=== PATIENT | male | born 1940 | race Caucasian/White ===

== ENCOUNTER 2023-03-17 05:38 | Outpatient (RCR) | payer MEDICARE, OTHER, SELFPAY | END 2023-04-15 23:59 | disposition home or self-care (01) | LOC: MM 05:38 | PROVIDERS: PCP Internal Medicine; Visit Provider Internal Medicine | DX: Z51.81 Encounter for therapeutic drug level monitoring (principal); Z79.01 Long term (current) use of anticoagulants; I48.91 Unspecified atrial fibrillation ==

== ENCOUNTER 2023-04-20 10:50 | Outpatient (RCR) | payer MEDICARE, OTHER, SELFPAY | END 2023-05-16 16:45 | disposition home or self-care (01) | LOC: MM 10:50 | PROVIDERS: PCP Internal Medicine; Visit Provider Internal Medicine | DX: Z51.81 Encounter for therapeutic drug level monitoring (principal); Z79.01 Long term (current) use of anticoagulants; I48.91 Unspecified atrial fibrillation | CPT/HCPCS: 85610; G0463 ==

== ENCOUNTER 2023-05-03 09:09 | Outpatient (OUT) | payer MEDICARE, OTHER, SELFPAY ==
[2023-05-03 09:27] LABS: Basophils Percent Auto 0.3 % (0.2-2.0); Eosinophils Absolute Auto 0.1 10^3/uL (0.0-0.7); Eosinophils Percent Auto 1.3 % (0.9-7.0); Hematocrit 45.9 % (42.0-54.0); Immature Granulocytes Abs Auto 0.02 10^3/uL (0.00-0.03); Immature Granulocytes Pct Auto 0.3 % (0.0-0.5); Lymphocytes Absolute Auto 0.9 10^3/uL (1.2-3.8); Lymphocytes Percent Auto 13.5 % (20.5-60.0); Mean Corpuscular HGB Conc 32.7 g/dL (29.9-35.2); Mean Corpuscular Hemoglobin 30.8 pg (25.9-34.0); Mean Corpuscular Volume 94.3 fL (80.0-94.0); Mean Platelet Volume 11.5 fL (9.5-13.5); Monocytes Absolute Auto 0.4 10^3/uL (0.3-0.8); Monocytes Percent Auto 5.7 % (1.7-12.0); Neutrophils Percent Auto 78.9 % (43.0-75.0); Platelet Count 165 10^3/uL (150-450); Red Blood Count 4.87 10^6/uL (4.70-6.10); Red Cell Distribution Width 14.7 % (11.0-15.0); White Blood Count 6.4 10^3/uL (4.0-11.0)
[2023-05-03 09:37] LABS: Erythrocyte Sedimentation Rate 23 mm/hr (<=20)
[2023-05-03 10:09] LABS: Alanine Aminotransferase 13 U/L (16-63); Albumin Globulin Ratio 0.9; Albumin Level 3.7 g/dL (3.4-5.0); Alkaline Phosphatase 96 U/L (46-116); Anion Gap 10.9; Aspartate Amino Transferase 17 U/L (15-37); Bilirubin Direct 0.2 mg/dL (0.0-0.2); Bilirubin Total 0.7 mg/dL (0.2-1.0); Carbon Dioxide 30.6 mmol/L (21.0-32.0); Chloride 104 mmol/L (98-107); Chol HDL Ratio 1.9; Cholesterol 112 mg/dL (<=200); Estimated GFR (African America >60 (>=60); Estimated GFR (Non-African Ame >60 (>=60); Globulin 4.2 g/dL; HDL Cholesterol 60 mg/dL (40-60); Potassium 4.5 mmol/L (3.5-5.1); Sodium 141 mmol/L (136-145); Total Protein 7.9 g/dL (6.4-8.2); Triglycerides 55 mg/dL (<=150)
[2023-05-03 11:01] LABS: Estimated Average Glucose 108 mg/dL; Glycohemoglobin A1C 5.4 % (4.5-6.2)
== END 2023-05-03 09:10 | disposition home or self-care (01) ==
LOC: LAB 09:09
DX: I50.22 Chronic systolic (congestive) heart failure (principal); R73.09 Other abnormal glucose; E78.5 Hyperlipidemia, unspecified; Z79.899 Other long term (current) drug therapy
CPT/HCPCS: 36415; 80051; 80061; 80076; 82565; 83036; 83880; 84520; 85025; 85610; 85652

== ENCOUNTER 2023-05-05 07:31 | Outpatient (REF) | payer MEDICARE, OTHER, SELFPAY ==
[2023-05-05 07:43] LABS: Bilirubin Urine NEGATIVE (NEGATIVE); Blood Urine NEGATIVE (NEGATIVE); Clarity Urine CLEAR (CLEAR); Color Urine YELLOW (YELLOW); Glucose Urine UA NEGATIVE (NEGATIVE); Ketones Urine NEGATIVE (NEGATIVE); Leukocyte Esterase Urine NEGATIVE (NEGATIVE); Nitrite Urine NEGATIVE (NEGATIVE); Protein Urine NEGATIVE (NEG/TRACE); Urobilinogen Urine 0.2 EU/dL (0.2-1.0)
[2023-05-05 07:44] LABS: Urine Microscopic Indicated NO
== END 2023-05-05 07:32 | disposition home or self-care (01) ==
LOC: LAB 07:31
DX: I50.22 Chronic systolic (congestive) heart failure (principal); R73.09 Other abnormal glucose; E78.5 Hyperlipidemia, unspecified; Z79.899 Other long term (current) drug therapy; Z12.5 Encounter for screening for malignant neoplasm of prostate
CPT/HCPCS: 81003

== ENCOUNTER 2023-05-17 08:57 | Outpatient (RCR) | payer MEDICARE, OTHER, SELFPAY | END 2023-06-16 15:47 | disposition home or self-care (01) | LOC: MM 08:57 | PROVIDERS: Visit Provider Internal Medicine | DX: Z51.81 Encounter for therapeutic drug level monitoring (principal); Z79.01 Long term (current) use of anticoagulants; I48.91 Unspecified atrial fibrillation ==

== ENCOUNTER 2023-06-17 08:00 | Outpatient (RCR) | payer MEDICARE, OTHER, SELFPAY | END 2023-07-15 16:31 | disposition home or self-care (01) | LOC: MM 08:00 | PROVIDERS: Visit Provider Internal Medicine | DX: Z51.81 Encounter for therapeutic drug level monitoring (principal); Z79.01 Long term (current) use of anticoagulants; I48.91 Unspecified atrial fibrillation | CPT/HCPCS: 85610; G0463 ==

== ENCOUNTER 2023-07-18 02:24 | Outpatient (RCR) | payer MEDICARE, OTHER, SELFPAY | END 2023-08-16 17:33 | disposition home or self-care (01) | LOC: MM 02:24 | PROVIDERS: Visit Provider Internal Medicine | DX: Z51.81 Encounter for therapeutic drug level monitoring (principal); Z79.01 Long term (current) use of anticoagulants; I48.91 Unspecified atrial fibrillation | CPT/HCPCS: 85610; G0463 ==

== ENCOUNTER 2023-08-17 00:38 | Outpatient (RCR) | payer MEDICARE, OTHER, SELFPAY | END 2023-09-15 16:44 | disposition home or self-care (01) | LOC: MM 00:38 | PROVIDERS: Visit Provider Internal Medicine | DX: Z51.81 Encounter for therapeutic drug level monitoring (principal); Z79.01 Long term (current) use of anticoagulants; I48.91 Unspecified atrial fibrillation | CPT/HCPCS: 85610; G0463 ==

== ENCOUNTER 2023-09-16 08:55 | Outpatient (RCR) | payer MEDICARE, OTHER, SELFPAY | END 2023-10-14 15:12 | disposition home or self-care (01) | LOC: MM 08:55 | PROVIDERS: Visit Provider Internal Medicine | DX: Z51.81 Encounter for therapeutic drug level monitoring (principal); Z79.01 Long term (current) use of anticoagulants; I48.91 Unspecified atrial fibrillation ==

== ENCOUNTER 2023-10-17 00:28 | Outpatient (RCR) | payer MEDICARE, OTHER, SELFPAY | END 2023-11-16 15:43 | disposition home or self-care (01) | LOC: MM 00:28 | PROVIDERS: Visit Provider Internal Medicine | DX: Z51.81 Encounter for therapeutic drug level monitoring (principal); Z79.01 Long term (current) use of anticoagulants; I48.91 Unspecified atrial fibrillation | CPT/HCPCS: 85610; G0463 ==

== ENCOUNTER 2023-11-12 23:28 | Inpatient (IN) | payer MEDICARE, OTHER, SELFPAY ==
[2023-11-12 23:29] VITALS: BP 135/84; PULSE 96; RESP 11; TEMP 36.6; O2SAT 99; BMI 28.9
--- NOTE | 2023-11-12 23:34 | XR_ITS ---
The [address] [address] Patient Name: NABIL BRASWELL MRN: [id number] date: 1940 Sex: M Assigned Patient Location: ER Current Patient Location: ER Accession/Order Number: [id number] Exam Date: 11/12/2023 23:59 Report Date: 11/13/2023 00:49 At the request of: MARY HIGGINS Procedure: XR chest 1V CXR - 1 VIEW HISTORY: Shortness of breath COMPARISON: None. TECHNIQUE: Single frontal view of the chest is submitted for review. FINDINGS: There is blunting of the right costophrenic angle. Lungs are adequately expanded. The cardiac silhouette measures enlarged. Pulmonary vascularity is increased. Osseous structures are within normal limits for age. XR/XR chest 1V IMPRESSION: Cardiomegaly with prominence of pulmonary vascularity and right-sided pleural effusion. Please correlate for congestive heart failure. Electronically authenticated by: BRITTANY DAVIS Date: 11/13/2023 00:49
--- OUTSIDE RECORDS SUMMARY | 2023-11-12 23:38 | XMS_ITS | CCD ---
Author Name Unknown Address [address] [place] [address] Organization [facility] Care Team Providers Care Database Support Name Role Phone Mark Quintanilla Primary Care Unavailable Johan Houston Admitting Unavailable Johan Houston Attending Unavailable Vallul, Mark Allen Primary Care Unavailable Johan Houston Attending Unavailable Johan Houston Admitting Unavailable FAWWAD, WEINSTEIN H Attending Unavailable FAWWAD, WEINSTEIN H Admitting Unavailable VALONE, DR GILL Primary Care Unavailable FAWWAD, WEINSTEIN H Attending Unavailable FAWWAD, WEINSTEIN H Admitting Unavailable VALONE, DR GILL Primary Care Unavailable FAWWAD, WEINSTEIN H Attending Unavailable FAWWAD, WEINSTEIN H Admitting Unavailable VALONE, DR GILL Primary Care Unavailable FAWWAD, WEINSTEIN H Attending Unavailable FAWWAD, WEINSTEIN H Admitting Unavailable VALONE, DR GILL Primary Care Unavailable FAWWAD, WEINSTEIN H Admitting Unavailable VALONE, DR GILL Primary Care Unavailable FAWWAD, WEINSTEIN H Attending Unavailable FAWWAD, WEINSTEIN H Admitting Unavailable VALONE, DR GILL Primary Care Unavailable FAWWAD, WEINSTEIN H Attending Unavailable FAWWAD, WEINSTEIN H Admitting Unavailable VALONE, DR GILL Primary Care Unavailable FAWWAD, WEINSTEIN H Attending Unavailable FAWWAD, WEINSTEIN H Attending Unavailable VALONE, DR GILL Primary Care Unavailable FAWWAD, WEINSTEIN H Admitting Unavailable FAWWAD, WEINSTEIN H Attending Unavailable FAWWAD, WEINSTEIN H Admitting Unavailable VALONE, DR GILL Primary Care Unavailable VALONE, DR GILL Primary Care Unavailable VALONE, DR GILL Consulting Unavailable VALONE, DR GILL Attending Unavailable VALONE, DR GILL Admitting Unavailable VALONE, DR GILL Consulting Unavailable VALONE, DR GILL Attending Unavailable VALONE, DR GILL Admitting Unavailable VALLUL, DR GILL Primary Care Unavailable SHAIKH Adalberto JONES Attending Unavailable SHAIKH Adalberto JONES Admitting Unavailable DWIGHT, DR GILL Primary Care Unavailable SHAIKH Adalberto JONES Attending Unavailable SHAIKH Adalberto JONES Admitting Unavailable DWIGHT, DR GILL Primary Care Unavailable Valone , Mark Arvin Primary Care Provider Sandee RN, Carmine Unavailable Cole [employer]SE SUPERVISOR.[place], Gabriella Unavailable [phone] Rodríguez Pack MD Unavailable VALONE JR, MARK ARVIN Primary Care Unavail able GABRIELLA JAVED Attending Unavailable VALONE JR, MARK ARVIN Primary Care Unavail able RODRÍGUEZ PACK Attending Unavailable VALONE JR, MARK ARVIN Primary Care Unavail able STORM WELLS Attending Unavailable VALONE JR, MARK ARVIN Primary Care Unavail able VALONE JR, MARK ARVIN Primary Care Unavail able GABRIELLA JAVED Referring Unavailable VALONE JR, MARK ARVIN Primary Care Unavail able VALONE JR, MARK ARVIN Primary Care Unavail able VALONE JR, MARK ARVIN Primary Care Unavail able VALONE JR, MARK ARVIN Primary Care Unavail able VALONE JR, MARK ARVIN Primary Care Unavail able GABRIELLA JAVED Referring Unavailable VALONE JR, MARK ARVIN Primary Care Unavail able STORM WELLS Referring Unavailable VALONE JR, MARK ARVIN Primary Care Unavail able STORM WELLS Referring Unavailable STORM WELLS Attending Unavailable VALONE JR, MARK ARVIN Primary Care Unavail able WILBUR ROSA Referring Unavailable STORM WELLS Attending Unavailable VALONE JR, MARK ARVIN Primary Care Unavail able VALONE JR, MARK ARVIN Primary Care Unavail able VALONE JR, MARK ARVIN Primary Care Unavail able VALONE JR, MARK ARVIN Primary Care Unavail able VALONE JR, MARK ARVIN Primary Care Unavail able VALONE JR, MARK ARVIN Primary Care Unavail able RODRÍGUEZ PACK Attending Unavailable VALONE JR, MARK ARVIN Primary Care Unavail able VALONE JR, MARK ARVIN Primary Care Unavail able GABRIELLA JAVED Attending Unavailable VALONE JR, MARK ARVIN Primary Care Unavail able GABRIELLA JAVED Referring Unavailable GABRIELLA JAVED Attending Unavailable VALONE JR, MARK ARVIN Primary Care Unavail able VALONE JR, MARK ARVIN Primary Care Unavail able RODRÍGUEZ PACK Attending Unavailable Medications Completed/Discontinued Medications Medication Drug Class(es) Dates Sig (Normalized) Sig (Original) carbidopa 25 mg / levodopa 100 mg oral tablet (13 sources) Aromatic Amino Acid Decarboxylation Inhibitor, Aromatic Amino Acid Start: 02-17-2023 carbidopa-levodop a (SINEMET 25-100) 25-100 mg per tablet Take by mouth two times a day. 0 02/17/2023 Active Start: 02-17-2023 carbidopa-levo dopa (SINEMET 25-100) 25-100 mg per tablet Comment on above: Take by mouth two ti mes a day. finasteride 5 mg oral tablet (13 sources) 5-alpha Reductase Inhibitor take 1 tablet by mouth once daily finasteride (PROSCAR) 5 mg tablet Take 5 mg by mouth once daily. 0 Active Comment on above: 1 (one) time each da y at the same time. Take 5 mg by mouth o nce daily. levothyroxine sodium 0.05 mg oral tablet (13 sources) l-Thyroxine Start: 05-27-20 take 1 tablet by mouth once daily levothyroxine (SYNTHROID) 50 mcg tablet Take 50 mcg by mouth once daily. 0 05/27/2023 Active Comment on above: Take 50 mcg by mouth once daily. metoprolol tartrate 25 mg oral tablet (13 sources) beta-Adrenergic Hien take 1 tablet by mouth every twelve hours metoprolol tartrate, short acting, (LOPRESSOR) 25 mg tablet Take 25 mg by mouth every 12 hours. 0 Active Comment on above: every 12 hours. Take 25 mg by mouth every 12 hours. minocycline 100 mg oral capsule (4 sources) Tetracycline-clas s Drug Start: 06-02-20 End: 07-19-20 take 1 capsule by mouth in the morning, then take 1 capsule by mouth in the evening minocycline (MINOCIN, DYNACIN) 100 mg capsule TAKE 1 CAPSULE BY MOUTH IN THE MORNING AND 1 IN THE EVENING 0 06/02/2023 07/19/2023 Discontinued (Other) Comment on above: TAKE 1 CAPSULE BY MO UTH IN THE MORNING AND 1 IN THE EVENING mirtazapine 15 mg oral tablet (13 sources) Start: 04-23-20 mirtazapine (REMERON) 15 mg tablet Take by mouth once daily. 0 04/23/2023 Active Comment on above: Take by mouth once d aily. microencapsulated potassium chloride 20 meq extended release oral tablet (13 sources) potassium chlori de ER (KLOR-CON M20) 20 mEq tablet Take by mouth once daily. 0 Active potassium chlori de ER (KLOR-CON M20) 20 mEq tablet Comment on above: Take by mouth once d aily. rosuvastatin calcium 10 mg oral tablet (13 sources) HMG-CoA Reductase Inhibitor Start: 3 rosuvastatin (CRESTOR) 10 mg tablet Take by mouth once daily. 0 05/27/2023 Active Comment on above: Take by mouth once d aily. sacubitril 24 mg / valsartan 26 mg oral tablet (13 sources) Angiotensin 2 Receptor Hien Start: 3 take 2 tablets by mouth twice daily in the morning ENTRESTO 24-26 mg tablet Take by mouth two times a day. Take 2 in the morning 2 at night 0 03/24/2023 Active Start: 03-24-2023 ENTRESTO 24-26 mg tablet Comment on above: Take by mouth two ti mes a day. Take by mouth two ti mes a day. Take 2 in the morning 2 at night tamsulosin hydrochloride 0.4 mg oral capsule (13 sources) alpha-Adrenergic Hien take 1 capsule by mouth once daily tamsulosin (FLOMAX) 0.4 mg Take 1 capsule by mouth once daily. 0 Active Comment on above: 1 capsule. Take 1 capsule by mo uth once daily. warfarin sodium 5 mg oral tablet (13 sources) Vitamin K Antagonist Start: 3 warfarin (COUMADIN) 5 mg tablet Take 5 mg by mouth once daily. Take 2 days a week a whole tablet, 1/2 tablet other 5 days 0 05/12/2023 Active Start: 05-12-2023 take 0.5 tablet by m outh once daily warfarin (COUMADIN) 5 mg tablet Take 0.5 tablets by mouth once daily. 0 05/12/2023 Active Start: 05-12-2023 warfarin (COUM OCTAVIO) 5 mg tablet Comment on above: Take 0.5 tablets by mouth once daily. Take 5 mg by mouth o nce daily. Take 2 days a week a whole tablet, 1/2 tablet other 5 days Problems Active Problems Problem Classification Problem Date Documented Da te Episodic/Chronic Congestive heart failure; nonhypertensive (5 sources) Chronic systolic (congestive) heart failure; Translations: [Chronic combined systolic (congestive) and diastolic (congestive) heart failure] Onset: 07-06-2022 Chronic Disorders of lipid metabolism (2 sources) Mixed hyperlipidemia; Translations: [Hyperlipidemia, unspecified] Onset: 07-07-2022 Chronic Hyperplasia of prostate (1 source) Benign prostatic hyperplasia without lower urinary tract symptoms; Translations: [BENIGN PROSTATIC HYPRPLASIA WO LUTS] Onset: 07-07-2022 Chronic Other aftercare (5 sources) Encounter for therapeutic drug level monitoring; Translations: [ENC THERAPEUTC DRUG LEVL MONITORING] Onset: 02-12-2023 Episodic Other aftercare (1 source) residential (current) use of anticoagulants; Translations: [JAIL CURRNT USE ANTICOAGULANTS] Onset: 03-16-2023 Episodic Other lower respiratory disease (1 source) Wheezing; Translations: [Wheezing] Onset: 08-11-2023 Episodic Thyroid disorders (8 sources) Hypothyroidism, unspecified; Translations: [Acquired hypothyroidism] Onset: 07-07-2022 Chronic Unclassified (1 source) Encounter for other plastic and reconstructive surgery following medical procedure or healed injury; Translations: [Encounter for other plastic and reconstructive surgery following medical procedure or healed injury] Onset: 05-04-2022 Unclassified (1 source) Encounter for preprocedural laboratory examination; Translations: [Encounter for preprocedural laboratory examination] Onset: 05-03-2022 Unclassified (5 sources) Chronic atrial fibrillation, unspecified; Translations: [CHRONIC ATRIAL FIBRILLATION UNSPEC] Onset: 01-17-2023 Unclassified (1 source) Cough, unspecified type; Translations: [Cough, unspecified type] Onset: 08-11-2023 Past or Other Problems Problem Classification Problem Date Documented Da te Episodic/Chronic Diabetes mellitus without complication (1 source) Other abnormal glucose; Translations: [OTHER ABNORMAL GLUCOSE] Onset: 11-24-2022 Episodic Other aftercare (1 source) Other system software developer (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) drug therapy; Translations: [OTH JAIL CURRENT DRUG THERAPY] Onset: 11-24-2022 Episodic Other non-epithelial cancer of skin (20 sources) Squamous cell carcinoma in situ of skin; Translations: [Carcinoma in situ of skin, unspecified] Onset: 07-12-2023 06-22-2023 Episodic Other screening for suspected conditions (not mental disorders or infectious disease) (1 source) Encounter for screening for malignant neoplasm of prostate; Translations: [ENC SCREEN MALIG NEOPLASM PROSTATE] Onset: 11-24-2022 Episodic Results Test Name Value Interpretation Reference Range Facility CBC W Auto Differential pane l (Bld)on 11-03-2023 Basophils (Bld) [#/Vol] 10*3/uL Normal <0.11 [facility] Comment on above: Order Comment: Speci men Type: BLOOD SPECIMEN Ordering Facility: [facility] Address: [address] [place] [address] Performed By: #### 5 7021-8 #### [facility] CLIA [id number] [address] [place] [address] 80945 Basophils/100 WBC (Bld) 0.4 % Normal [facility] Comment on above: Order Comment: Speci men Type: BLOOD SPECIMEN Ordering Facility: [facility] Address: [address] [place] [address] Performed By: #### 5 7021-8 #### [facility] CLIA [id number] [address] [place] [address] 30357 Differential cell count method Nom (Bld) Auto Normal [facility] Comment on above: Order Comment: Speci men Type: BLOOD SPECIMEN Ordering Facility: [facility] Address: [address] [place] [address] Performed By: #### 5 7021-8 #### [facility] CLIA [id number] [address] [place] [address] 07634 Eosinophils (Bld) [#/Vol] 0.09 10*3/uL Normal <0.46 [facility] Comment on above: Order Comment: Speci men Type: BLOOD SPECIMEN Ordering Facility: [facility] Address: [address] [place] [address] Performed By: #### 5 7021-8 #### [facility] CLIA [id number] [address] [place] [address] 03267 Eosinophils/100 WBC (Bld) 1.6 % Normal [facility] Comment on above: Order Comment: Speci men Type: BLOOD SPECIMEN Ordering Facility: [facility] Address: [address] [place] [address] Performed By: #### 5 7021-8 #### [facility] CLIA [id number] [address] [place] [address] 36214 Erythrocyte distribution width (RBC) [Ratio] 15.5 % High 11.5-15.0 [facility] Comment on above: Order Comment: Speci men Type: BLOOD SPECIMEN Ordering Facility: [facility] Address: [address] [place] [address] Performed By: #### 5 7021-8 #### [facility] CLIA [id number] [address] [place] [address] 46193 Hematocrit (Bld) [Volume fraction] 42.4 % Normal 39.0-51.0 [facility] Comment on above: Order Comment: Speci men Type: BLOOD SPECIMEN Ordering Facility: [facility] Address: [address] [place] [address] Performed By: #### 5 7021-8 #### [facility] CLIA [id number] [address] [place] [address] 74492 Hemoglobin (Bld) [Mass/Vol] 13.6 g/dL Normal 13.0-17.0 [facility] Comment on above: Order Comment: Speci men Type: BLOOD SPECIMEN Ordering Facility: [facility] Address: [address] [place] [address] Performed By: #### 5 7021-8 #### [facility] CLIA [id number] [address] [place] [address] 11900 Immature granulocytes (Bld) [#/Vol] 10*3/uL Normal <0.10 [facility] Comment on above: Order Comment: Speci men Type: BLOOD SPECIMEN Ordering Facility: [facility] Address: [address] [place] [address] Performed By: #### 5 7021-8 #### [facility] CLIA [id number] [address] [place] [address] 42756 Immature granulocytes/100 WBC (Bld) 0.2 % Normal [facility] Comment on above: Order Comment: Speci men Type: BLOOD SPECIMEN Ordering Facility: [facility] Address: [address] [place] [address] Performed By: #### 5 7021-8 #### [facility] CLIA [id number] [address] [place] [address] 38732 Lymphocytes (Bld) [#/Vol] 0.71 10*3/uL Low 1.00-4.00 [facility] Comment on above: Order Comment: Speci men Type: BLOOD SPECIMEN Ordering Facility: [facility] Address: [address] [place] [address] Performed By: #### 5 7021-8 #### [facility] CLIA [id number] [address] [place] [address] 35649 Lymphocytes/100 WBC (Bld) 12.5 % Normal [facility] Comment on above: Order Comment: Speci men Type: BLOOD SPECIMEN Ordering Facility: [facility] Address: [address] [place] [address] Performed By: #### 5 7021-8 #### [facility] CLIA [id number] [address] [place] [address] 80785 MCH (RBC) [Entitic mass] 30.1 pg Normal 26.0-34.0 [facility] Comment on above: Order Comment: Speci men Type: BLOOD SPECIMEN Ordering Facility: [facility] Address: [address] [place] [address] Performed By: #### 5 7021-8 #### [facility] CLIA [id number] [address] [place] [address] 14579 MCHC (RBC) [Mass/Vol] 32.1 g/dL Normal 30.5-36.0 [facility] Comment on above: Order Comment: Speci men Type: BLOOD SPECIMEN Ordering Facility: [facility] Address: [address] [place] [address] Performed By: #### 5 7021-8 #### [facility] CLIA [id number] [address] [place] [address] 71509 MCV (RBC) [Entitic vol] 93.8 fL Normal 80.0-100.0 [facility] Comment on above: Order Comment: Speci men Type: BLOOD SPECIMEN Ordering Facility: [facility] Address: [address] [place] [address] Performed By: #### 5 7021-8 #### [facility] CLIA [id number] [address] [place] [address] 38826 Monocytes (Bld) [#/Vol] 0.41 10*3/uL Normal <0.87 [facility] Comment on above: Order Comment: Speci men Type: BLOOD SPECIMEN Ordering Facility: [facility] Address: [address] [place] [address] Performed By: #### 5 7021-8 #### [facility] CLIA [id number] [address] [place] [address] 79143 Monocytes/100 WBC (Bld) 7.2 % Normal [facility] Comment on above: Order Comment: Speci men Type: BLOOD SPECIMEN Ordering Facility: [facility] Address: [address] [place] [address] Performed By: #### 5 7021-8 #### [facility] CLIA [id number] [address] [place] [address] 55875 Neutrophils (Bld) [#/Vol] 4.43 10*3/uL Normal 1.45-7.50 [facility] Comment on above: Order Comment: Speci men Type: BLOOD SPECIMEN Ordering Facility: [facility] Address: [address] [place] [address] Performed By: #### 5 7021-8 #### [facility] IA [id number] [address] [place] [address] 71015 Neutrophils/100 WBC (Bld) 78.1 % Normal [facility] Comment on above: Order Comment: Speci men Type: BLOOD SPECIMEN Ordering Facility: [facility] Address: [address] [place] [address] Performed By: #### 5 7021-8 #### [facility] CLIA [id number] [address] [place] [address] Nucleated RBC (Bld) [#/Vol] 10*3/uL Normal <0.01 [facility] Comment on above: Order Comment: Speci men Type: BLOOD SPECIMEN Ordering Facility: [facility] Address: [address] [place] [address] Performed By: #### 5 7021-8 #### [facility] CLIA [id number] [address] [place] [address] 22497 Nucleated RBC/100 WBC (Bld) [Ratio] 0.0 /100 WBC Normal [facility] Comment on above: Order Comment: Speci men Type: BLOOD SPECIMEN Ordering Facility: [facility] Address: [address] [place] [address] Performed By: #### 5 7021-8 #### [facility] CLIA [id number] [address] [place] [address] 34609 Platelet mean volume (Bld) [Entitic vol] 11.5 fL Normal 9.0-12.7 [facility] Comment on above: Order Comment: Speci men Type: BLOOD SPECIMEN Ordering Facility: [facility] Address: [address] [place] [address] Performed By: #### 5 7021-8 #### [facility] CLIA [id number] [address] [place] [address] 25612 Platelets (Bld) [#/Vol] 162 10*3/uL Normal 150-400 [facility] Comment on above: Order Comment: Speci men Type: BLOOD SPECIMEN Ordering Facility: [facility] Address: [address] [place] [address] Performed By: #### 5 7021-8 #### [facility] CLIA [id number] [address] [place] [address] 62303 RBC (Bld) [#/Vol] 4.52 10*6/uL Normal 4.20-6.00 [facility] Comment on above: Order Comment: Speci men Type: BLOOD SPECIMEN Ordering Facility: [facility] Address: [address] [place] [address] Performed By: #### 5 7021-8 #### [facility] CLIA [id number] [address] [place] [address] 54750 WBC (Bld) [#/Vol] 5.67 10*3/uL Normal 3.70-11.00 [facility] Comment on above: Order Comment: Speci men Type: BLOOD SPECIMEN Ordering Facility: [facility] Address: [place] [address] Performed By: #### 5 7021-8 #### [facility] CLIA [id number] [address] [place] [address] 61971 CNOVSPon 11-03-2023 CNOVSP Visit (SP) Office ([place]) MIKE BRASWELL ([id number]) 1940 M Date Time Provider Department 11/03/23 1:30 PM GABRIELLA JAVED During your visit today, we recorded the following information about you: Temperature Pulse Respiration Blood pressure 97.2 degrees 98/minute 16/minute 154/94 Weight Height 80.8 kg 1.676 m Gabriella Javed APRN.CNP 11/04/2023 11:49 AM Signed PATIENT NAME: Mike Braswell DATE: 11/03/2023 PRIMARY CARE PHYSICIAN: Dr. Mark Quintanilla Jr OTHER PHYSICIANS: Dr. Wells; Wilbur Rosa CNP ([facility]) Portions of this encounter note have been copied from the note from 09/22/2023 and has been updated where appropriate, and reflect my current medical decision making from today. 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 INTERIM HISTORY: Mike Braswell returns for follow-up and treatment. He remains on treatment with Cemiplimab every 3 weeks and is tolerating it well. He denies any significant treatment related side effects. The left upper chest skin lesion continues to improve. He has 2 areas to his left scalp that are dressed. The skin lesions are lightening up. He is scheduled to see dermatology next month. He denies fevers, chills, night sweats and signs/symptoms of infection. No abnormal bleeding or abnormal bruising. He wishes to proceed with treatment as planned. MEDICATIONS: Current Outpatient Medications Medication Sig warfarin (COUMADIN) 5 mg tablet Take 5 mg by mouth once daily. Take 2 days a week a whole tablet, 1/2 tablet other 5 days levothyroxine (SYNTHROID) 50 mcg tablet Take 50 mcg by mouth once daily. carbidopa-levodopa (SINEMET 25-100) 25-100 mg per tablet Take 1 tablet by mouth three times a day. sacubitril-valsartan (ENTRESTO) 49-51 mg tablet Take 1 tablet by mouth two times a day. Take 2 in the morning 2 at night tamsulosin (FLOMAX) 0.4 mg Take 1 capsule by mouth once daily. rosuvastatin (CRESTOR) 10 mg tablet Take by mouth once daily. potassium chloride ER (KLOR-CON M20) 20 mEq tablet Take by mouth once daily. mirtazapine (REMERON) 15 mg tablet Take by mouth once daily. metoprolol tartrate, short acting, (LOPRESSOR) 25 mg tablet Take 25 mg by mouth every 12 hours. finasteride (PROSCAR) 5 mg tablet Take 5 mg by mouth once daily. No current facility-administered medications for this visit. ALLERGIES: ALLERGIES No Known Allergies PAST MEDICAL HISTORY: PAST MEDICAL HISTORY Diagnosis Date Atrial fibrillation (HCC) Dementia (HCC) Hypercholesteremia Hypertension Hypothyroidism Skin cancer PAST SURGICAL HISTORY: PAST SURGICAL HISTORY Procedure Laterality Date PAST SURGICAL HISTORY OF bowel resection due to obstruction PAST SURGICAL HISTORY OF left ear reconstructive surgery due to skin cancer REMOVAL GALLBLADDER TONSILLECTOMY AND ADENOIDECTOMY FAMILY HISTORY: History reviewed. No pertinent family history. SOCIAL HISTORY: Social History Tobacco Use Smoking status: Never Smokeless tobacco: Never Substance Use Topics Alcohol use: Not Currently Drug use: Never REVIEW OF SYSTEMS: General: No weight loss, malaise or fevers. HEENT: Negative for frequent or significant headaches. No changes in hearing or vision, no nose bleeds or other nasal problems. Respiratory: Negative for cough, wheezing or shortness of breath. Cardiovascular: Negative for chest pain, leg swelling or palpitations. GI: Negative for abdominal discomfort, blood in stools or black stools or change in bowel habits. : No history of dysuria, frequency or incontinence. Musculoskeletal: Negative for: joint pain or swelling, back pain and muscle pain. Skin: Negative for lesions, rash and itching. Hematology/Lymphology: Negative for prolonged bleeding, bruising easily or swollen nodes. Neuro: No history of headaches, syncope, paralysis, seizures or tremors. PHYSICAL EXAM: BP 154/94 Pulse 98 Temp 36.2 ?C (97.2 ?F) (Temporal) Resp 16 Ht 167.6 cm (5' 5.98 ) Wt 80.8 kg (178 lb 2.1 oz) SpO2 95% BMI 28.77 kg/m? ECOG 1 Exam limited to gross visualization where appropriate. Gen.: This is an age-appropriate patient in no acute distress. Head: Appears atraumatic with no visible lesions. Eyes: Pupils equally round and reactive to light, extraocular muscles are intact. Neck: Supple. Respiratory: Appears to be respiring comfortably. Congested left lung base. Neurologic: Nonfocal to gross visualization. Alert and oriented ?3. Psychiatric: No evidence of inappropriate anxiety or depression. Skin: Positive skin lesions. LABS: Hemoglobin (g/dL) Date Value 11/03/2023 13.6 Hematocrit (%) Date Value 11/03/2023 42.4 WBC (k/uL) Date Value 11/03/2023 5.67 Platelet Count (k/uL) Date Value (more content not included)... Normal [facility] Comprehensive metabolic 2000 panelon 11-03-2023 Albumin [Mass/Vol] 3.9 g/dL Normal 3.9-4.9 [facility] Comment on above: Order Comment: Speci men Type: BLOOD SPECIMENOrdering Facility: [facility] Address: [address] [place] [address] Performed By: #### 2 4323-8 ####[facility] LABCLIA [id number] [place] [address] ALP [Catalytic activity/Vol] 96 U/L Normal 38-113 [facility] Comment on above: Order Comment: Speci men Type: BLOOD SPECIMENOrdering Facility: [facility] Address: [address] [place] [address] Performed By: #### 2 4323-8 ####[facility] LABCLIA [id number] [place] [address] ALT [Catalytic activity/Vol] U/L Low 10-54 [facility] Comment on above: Order Comment: Speci men Type: BLOOD SPECIMENOrdering Facility: [facility] Address: [address] [place] [address] Performed By: #### 2 4323-8 ####[facility] LABCLIA [id number] [place] [address] Anion gap [Moles/Vol] 12 mmol/L Normal 9-18 [facility] Comment on above: Order Comment: Speci men Type: BLOOD SPECIMENOrdering Facility: [facility] Address: [address] [place] [address] Performed By: #### 2 4323-8 ####[facility] LABCLIA [id number] [place] [address] AST [Catalytic activity/Vol] 16 U/L Normal 14-40 [facility] Comment on above: Order Comment: Speci men Type: BLOOD SPECIMENOrdering Facility: [facility] Address: [address] [place] [address] Performed By: #### 2 4323-8 ####[facility] LABCLIA [id number] [place] [address] Bilirubin [Mass/Vol] 0.4 mg/dL Normal 0.2-1.3 [facility] Comment on above: Order Comment: Speci men Type: BLOOD SPECIMENOrdering Facility: [facility] Address: [address] [place] [address] Performed By: #### 2 4323-8 ####[facility] LABCLIA [id number] [place] [address] Calcium [Mass/Vol] 9.4 mg/dL Normal 8.5-10.2 [facility] Comment on above: Order Comment: Speci men Type: BLOOD SPECIMENOrdering Facility: [facility] Address: [address] [place] [address] Performed By: #### 2 4323-8 ####[facility] LABCLIA [id number] [place] [address] Chloride [Moles/Vol] 103 mmol/L Normal 97-105 [facility] Comment on above: Order Comment: Speci men Type: BLOOD SPECIMENOrdering Facility: [facility] Address: [address] [place] [address] Performed By: #### 2 4323-8 ####[facility] LABCLIA [id number] [place] [address] CO2 [Moles/Vol] 26 mmol/L Normal 22-30 [facility] Comment on above: Order Comment: Speci men Type: BLOOD SPECIMENOrdering Facility: [facility] Address: [address] [place] [address] Performed By: #### 2 4323-8 ####[facility] LABCLIA [id number] [place] [address] Creatinine [Mass/Vol] 0.77 mg/dL Normal 0.73-1.22 [facility] Comment on above: Order Comment: Speci men Type: BLOOD SPECIMENOrdering Facility: [facility] Address: [address] [place] [address] Performed By: #### 2 4323-8 ####[facility] LABCLIA [id number] [place] [address] Creatinine and Glomerular filtration rate.predicted panel (S/P/Bld) 90 mL/min/1.73m??? Normal >=60 [facility] Comment on above: Order Comment: Speci men Type: BLOOD SPECIMENOrdering Facility: [facility] Address: [address] [place] [address] Result Comment: Marija mated Glomerular Filtration Rate (eGFR) is calculated using the 2020 CKD-EPI creatinine equation. This equation utilizes serum creatinine, sex, and age as parameters. The creatinine assay has traceable calibration to isotope dilution-mass spectrometry. Refer to KDIGO guidelines for clinical interpretation. In patients with unstable renal function, e.g. those with acute kidney injury, the eGFR may not accurately reflect actual GFR. Performed By: #### 2 4323-8 ####[facility] LABCLIA [id number] [place] [address] Glucose [Mass/Vol] 91 mg/dL Normal 74-99 [facility] Comment on above: Order Comment: Lilia love Type: BLOOD SPECIMENOrdering Facility: [facility] Address: [address] [place] [address] Result Comment: The [place] Diabetes Association (ADA) provides guidance for cutoff values for fasting glucose and random glucose. The ADA defines fasting as no caloric intake for at least 8 hours. Fasting plasma glucose results between 100 to 125 mg/dL indicate increased risk for diabetes (prediabetes). Fasting plasma glucose results greater than or equal to 126 mg/dL meet the criteria for diagnosis of diabetes. In the absence of unequivocal hyperglycemia, results should be confirmed by repeat testing. In a patient with classic symptoms of hyperglycemia or hyperglycemic crisis, random plasma glucose results greater than or equal to 200 mg/dL meet the criteria for diagnosis of diabetes. Reference: Standards of Medical Care in Diabetes 2016, [place] Diabetes Association. Diabetes Care. 2016.39(Suppl 1). Performed By: #### 2 4323-8 ####[facility] LABCLIA [id number] [place] [address] Potassium [Moles/Vol] 3.8 mmol/L Normal 3.7-5.1 [facility] Comment on above: Order Comment: Lilia love Type: BLOOD SPECIMENOrdering Facility: [facility] Address: [address] [place], [place] [address] Performed By: #### 2 4323-8 ####[facility] LABCLIA [id number] [place] [address] Protein [Mass/Vol] 7.0 g/dL Normal 6.3-8.0 [facility] Comment on above: Order Comment: Speci men Type: BLOOD SPECIMENOrdering Facility: [facility] Address: [address] [place] [address] Performed By: #### 2 4323-8 ####[facility] LABCLIA [id number] [place] [address] Sodium [Moles/Vol] 141 mmol/L Normal 136-144 [facility] Comment on above: Order Comment: Speci men Type: BLOOD SPECIMENOrdering Facility: [facility] Address: [address] [place] [address] Performed By: #### 2 4323-8 ####[facility] LABCLIA [id number] [place] [address] Urea nitrogen [Mass/Vol] 20 mg/dL Normal 9-24 [facility] Comment on above: Order Comment: Speci men Type: BLOOD SPECIMENOrdering Facility: [facility] Address: [address] [place] [address] Performed By: #### 2 4323-8 ####[facility] LABCLIA [id number] [place] [address] TSH SerPl-aCncon 11-03-2023 TSH Qn 6.680 m[IU]/L High 0.270-4.200 [facility] Comment on above: Order Comment: Speci men Type: BLOOD SPECIMENOrdering Facility: [facility] Address: [address] [place] [address] Performed By: #### 3 016-3 ####[facility] LABCLIA [id number] [place] [address] [place] CNPArabella 10-24-2023 CNPN Telephone (HEMASA) MICHAELLEMIKE Acosta ([id number]) 1940 M Date Time Provider Department 10/24/23 GABRIELLA JAVED During your visit today, we recorded the following information about you: Ravi 10/24/2023 8:59 AM Signed Patient coming in 11/03/23 for follow up treatment. Please add lab orders. Thanks. January DALIA Rodrigues Allergies As of Date: 10/24/2023 (No Known Allergies) Date Reviewed: 10/13/2023 Reviewed by: Wendy Suarez RN - Fully Assessed Reason for Visit: Lab Orders [1688] Primary Visit Diagnosis:Squamous cell skin cancer [C44.92] Other Visit Diagnosis:Acquired hypothyroidism [E03.9] Order(s):CBC + DIFF [SQCBCDIF] Order #: [id number] FUTURE COMP METABOLIC PANEL [SQCMP] Order #: [id number] FUTURE TSH BLD [SQTSH] Order #: [id number] FUTURE Prescriptions as of 10/24/2023 - warfarin (COUMADIN) 5 mg tablet Take 5 mg by mouth once daily. Take 2 days a week a whole tablet, 1/2 tablet other 5 days - levothyroxine (SYNTHROID) 50 mcg tablet Take 50 mcg by mouth once daily. - carbidopa-levodopa (SINEMET 25-100) 25-100 mg per tablet Take 1 tablet by mouth three times a day. - sacubitril-valsartan (ENTRESTO) 49-51 mg tablet Take 1 tablet by mouth two times a day. Take 2 in the morning 2 at night - tamsulosin (FLOMAX) 0.4 mg Take 1 capsule by mouth once daily. - rosuvastatin (CRESTOR) 10 mg tablet Take by mouth once daily. - potassium chloride ER (KLOR-CON M20) 20 mEq tablet Take by mouth once daily. - mirtazapine (REMERON) 15 mg tablet Take by mouth once daily. - metoprolol tartrate, short acting, (LOPRESSOR) 25 mg tablet Take 25 mg by mouth every 12 hours. - finasteride (PROSCAR) 5 mg tablet Take 5 mg by mouth once daily. Problem List As Of Date 10/24/2023 Noted Resolved Squamous cell skin cancer [C44.92] 07/12/2023 Encounter Status:Closed by RODRÍGUEZ PACK on 10/24/23 Normal [facility] Comprehensive metabolic 2000 panelon 10-13-2023 Albumin [Mass/Vol] 4.0 g/dL Normal 3.9-4.9 [facility] Comment on above: Order Comment: Speci men Type: BLOOD SPECIMENOrdering Facility: [facility] Address: [address] [place] [address] Performed By: #### 2 4323-8 ####[facility] LABCLIA [id number] [place] [address] ALP [Catalytic activity/Vol] 98 U/L Normal 38-113 [facility] Comment on above: Order Comment: Speci men Type: BLOOD SPECIMENOrdering Facility: [facility] Address: [address] [place] [address] Performed By: #### 2 4323-8 ####[facility] LABCLIA [id number] [place] [address] ALT [Catalytic activity/Vol] 6 U/L Low 10-54 [facility] Comment on above: Order Comment: Speci men Type: BLOOD SPECIMENOrdering Facility: [facility] Address: [address] [place] [address] Performed By: #### 2 4323-8 ####[facility] LABCLIA [id number] [place] [address] Anion gap [Moles/Vol] 10 mmol/L Normal 9-18 [facility] Comment on above: Order Comment: Speci men Type: BLOOD SPECIMENOrdering Facility: [facility] Address: [address] [place] [address] Performed By: #### 2 4323-8 ####[facility] LABCLIA [id number] [place] [address] AST [Catalytic activity/Vol] 17 U/L Normal 14-40 [facility] Comment on above: Order Comment: Speci men Type: BLOOD SPECIMENOrdering Facility: [facility] Address: [address] [place] [address] Performed By: #### 2 4323-8 ####[facility] LABCLIA [id number] [place] [address] Bilirubin [Mass/Vol] 0.6 mg/dL Normal 0.2-1.3 [facility] Comment on above: Order Comment: Speci men Type: BLOOD SPECIMENOrdering Facility: [facility] Address: [address] [place] [address] Performed By: #### 2 4323-8 ####[facility] LABCLIA [id number] [place] [address] Calcium [Mass/Vol] 9.3 mg/dL Normal 8.5-10.2 [facility] Comment on above: Order Comment: Speci men Type: BLOOD SPECIMENOrdering Facility: [facility] Address: [address] [place] [address] Performed By: #### 2 4323-8 ####[facility] LABCLIA [id number] [place] [address] Chloride [Moles/Vol] 97 mmol/L Normal 97-105 [facility] Comment on above: Order Comment: Speci men Type: BLOOD SPECIMENOrdering Facility: [facility] Address: [address] [place] [address] Performed By: #### 2 4323-8 ####[facility] LABCLIA [id number] [place] [address] CO2 [Moles/Vol] 27 mmol/L Normal 22-30 [facility] Comment on above: Order Comment: Speci men Type: BLOOD SPECIMENOrdering Facility: [facility] Address: [address] [place] [address] Performed By: #### 2 4323-8 ####[facility] LABCLIA [id number] [place] [address] Creatinine [Mass/Vol] 0.74 mg/dL Normal 0.73-1.22 [facility] Comment on above: Order Comment: Lilia love Type: BLOOD SPECIMENOrdering Facility: [facility] Address: [address] [place] [address] Performed By: #### 2 4323-8 ####[facility] LABCLIA [id number] [place] [address] Creatinine and Glomerular filtration rate.predicted panel (S/P/Bld) 91 mL/min/1.73m??? Normal >=60 [facility] Comment on above: Order Comment: Lilia love Type: BLOOD SPECIMENOrdering Facility: [facility] Address: [address] [place] [address] Result Comment: Marija mated Glomerular Filtration Rate (eGFR) is calculated using the 2020 CKD-EPI creatinine equation. This equation utilizes serum creatinine, sex, and age as parameters. The creatinine assay has traceable calibration to isotope dilution-mass spectrometry. Refer to KDIGO guidelines for clinical interpretation. In patients with unstable renal function, e.g. those with acute kidney injury, the eGFR may not accurately reflect actual GFR. Performed By: #### 2 4323-8 ####[facility] LABCLIA [id number] [place] [address] Glucose [Mass/Vol] 91 mg/dL Normal 74-99 [facility] Comment on above: Order Comment: Lilia love Type: BLOOD SPECIMENOrdering Facility: [facility] Address: [address] [place] [address] Result Comment: The [place] Diabetes Association (ADA) provides guidance for cutoff values for fasting glucose and random glucose. The ADA defines fasting as no caloric intake for at least 8 hours. Fasting plasma glucose results between 100 to 125 mg/dL indicate increased risk for diabetes (prediabetes). Fasting plasma glucose results greater than or equal to 126 mg/dL meet the criteria for diagnosis of diabetes. In the absence of unequivocal hyperglycemia, results should be confirmed by repeat testing. In a patient with classic symptoms of hyperglycemia or hyperglycemic crisis, random plasma glucose results greater than or equal to 200 mg/dL meet the criteria for diagnosis of diabetes. Reference: Standards of Medical Care in Diabetes 2016, [place] Diabetes [employer]. Diabetes Care. 2016.39(Suppl 1). Performed By: #### 2 4323-8 ####[facility] LABCLIA [id number] [place] [address] Potassium [Moles/Vol] 3.6 mmol/L Low 3.7-5.1 [facility] Comment on above: Order Comment: Speci men Type: BLOOD SPECIMENOrdering Facility: [facility] Address: [address] [place] [address] Performed By: #### 2 4323-8 ####[facility] LABCLIA [id number] [place] [address] Protein [Mass/Vol] 7.2 g/dL Normal 6.3-8.0 [facility] Comment on above: Order Comment: Speci men Type: BLOOD SPECIMENOrdering Facility: [facility] Address: [address] [place] [address] Performed By: #### 2 4323-8 ####[facility] LABCLIA [id number] [place] [address] Sodium [Moles/Vol] 134 mmol/L Low 136-144 [facility] Comment on above: Order Comment: Speci men Type: BLOOD SPECIMENOrdering Facility: [facility] Address: [address] [place] [address] Performed By: #### 2 4323-8 ####[facility] LABCLIA [id number] [place] [address] Urea nitrogen [Mass/Vol] 20 mg/dL Normal 9-24 [facility] Comment on above: Order Comment: Speci men Type: BLOOD SPECIMENOrdering Facility: [facility] Address: [address] [place] [address] Performed By: #### 2 4323-8 ####[facility] LABCLIA [id number] [place] [address] TSH BLDon 09-23-2023 TSH Qn 5.670 m[IU]/L High 0.270 - 4.200 mIU/L [facility] CBC W Auto Differential pane l (Bld)on 09-22-2023 Basophils (Bld) [#/Vol] 10*3/uL Normal <0.11 [facility] Comment on above: Order Comment: Speci men Type: BLOOD SPECIMEN [facility] Address: [address] [place] [address] Performed By: #### 5 7021-8 #### [facility] CLIA [id number] [address] [place] [address] Basophils/100 WBC (Bld) 0.2 % Normal [facility] Comment on above: Order Comment: Speci men Type: BLOOD SPECIMEN [facility] Address: [address] [place] [address] Performed By: #### 5 7021-8 #### [facility] CLIA [id number] [address] [place] [address] Differential cell count method Nom (Bld) Auto Normal [facility] Comment on above: Order Comment: Speci men Type: BLOOD SPECIMEN [facility] Address: [address] [place] [address] Performed By: #### 5 7021-8 #### [facility] CLIA [id number] [address] [place] [address] Eosinophils (Bld) [#/Vol] 0.07 10*3/uL Normal <0.46 [facility] Comment on above: Order Comment: Speci men Type: BLOOD SPECIMEN [facility] Address: [address] [place] [address] Performed By: #### 5 7021-8 #### [facility] CLIA [id number] [address] [place] [address] Eosinophils/100 WBC (Bld) 0.8 % Normal [facility] Comment on above: Order Comment: Speci men Type: BLOOD SPECIMEN [facility] Address: [address] [place] [address] Performed By: #### 5 7021-8 #### [facility] CLIA [id number] [address] [place] [address] Erythrocyte distribution width (RBC) [Ratio] 14.8 % Normal 11.5-15.0 [facility] Comment on above: Order Comment: Speci men Type: BLOOD SPECIMEN [facility] Address: [address] [place] [address] Performed By: #### 5 7021-8 #### [facility] CLIA [id number] [address] [place] [address] Hematocrit (Bld) [Volume fraction] 41.0 % Normal 39.0-51.0 [facility] Comment on above: Order Comment: Speci men Type: BLOOD SPECIMEN [facility] Address: [address] [place] [address] Performed By: #### 5 7021-8 #### [facility] CLIA [id number] [address] [place] [address] Hemoglobin (Bld) [Mass/Vol] 13.7 g/dL Normal 13.0-17.0 [facility] Comment on above: Order Comment: Speci men Type: BLOOD SPECIMEN [facility] Address: [address] [place] [address] Performed By: #### 5 7021-8 #### [facility] CLIA [id number] [address] [place] [address] Immature granulocytes (Bld) [#/Vol] 10*3/uL Normal <0.10 [facility] Comment on above: Order Comment: Speci men Type: BLOOD SPECIMEN [facility] Address: [address] [place] [address] Performed By: #### 5 7021-8 #### [facility] CLIA [id number] [address] [place] [address] Immature granulocytes/100 WBC (Bld) 0.2 % Normal [facility] Comment on above: Order Comment: Speci men Type: BLOOD SPECIMEN [facility] Address: [address] [place] [address] Performed By: #### 5 7021-8 #### [facility] CLIA [id number] [address] [place] [address] Lymphocytes (Bld) [#/Vol] 0.82 10*3/uL Low 1.00-4.00 [facility] Comment on above: Order Comment: Speci men Type: BLOOD SPECIMEN [facility] Address: [address] [place] [address] Performed By: #### 5 7021-8 #### [facility] CLIA [id number] [address] [place] [address] Lymphocytes/100 WBC (Bld) 9.3 % Normal [facility] Comment on above: Order Comment: Speci men Type: BLOOD SPECIMEN [facility] Address: [address] [place] [address] Performed By: #### 5 7021-8 #### [facility] CLIA [id number] [address] [place] [address] MCH (RBC) [Entitic mass] 30.8 pg Normal 26.0-34.0 [facility] Comment on above: Order Comment: Speci men Type: BLOOD SPECIMEN [facility] Address: [address] [place] [address] Performed By: #### 5 7021-8 #### [facility] CLIA [id number] [address] [place] [address] MCHC (RBC) [Mass/Vol] 33.4 g/dL Normal 30.5-36.0 [facility] Comment on above: Order Comment: Speci men Type: BLOOD SPECIMEN [facility] Address: [address] [place] [address] Performed By: #### 5 7021-8 #### [facility] CLIA [id number] [address] [place] [address] MCV (RBC) [Entitic vol] 92.1 fL Normal 80.0-100.0 [facility] Comment on above: Order Comment: Speci men Type: BLOOD SPECIMEN [facility] Address: [address] [place] [address] Performed By: #### 5 7021-8 #### [facility] CLIA [id number] [address] [place] [address] Monocytes (Bld) [#/Vol] 0.56 10*3/uL Normal <0.87 [facility] Comment on above: Order Comment: Speci men Type: BLOOD SPECIMEN [facility] Address: [address] [place] [address] Performed By: #### 5 7021-8 #### [facility] CLIA [id number] [address] [place] [address] Monocytes/100 WBC (Bld) 6.3 % Normal [facility] Comment on above: Order Comment: Speci men Type: BLOOD SPECIMEN [facility] Address: [address] [place] [address] Performed By: #### 5 7021-8 #### [facility] CLIA [id number] [address] [place] [address] Neutrophils (Bld) [#/Vol] 7.36 10*3/uL Normal 1.45-7.50 [facility] Comment on above: Order Comment: Speci men Type: BLOOD SPECIMEN [facility] Address: [address] [place] [address] Performed By: #### 5 7021-8 #### [facility] CLIA [id number] [address] [place] [address] Neutrophils/100 WBC (Bld) 83.2 % Normal [facility] Comment on above: Order Comment: Speci men Type: BLOOD SPECIMEN [facility] Address: [address] [place] [address] Performed By: #### 5 7021-8 #### [facility] CLIA [id number] [address] [place] [address] Nucleated RBC (Bld) [#/Vol] 10*3/uL Normal <0.01 [facility] Comment on above: Order Comment: Speci men Type: BLOOD SPECIMEN [facility] Address: [address] [place] [address] Performed By: #### 5 7021-8 #### [facility] CLIA [id number] [address] [place] [address] Nucleated RBC/100 WBC (Bld) [Ratio] 0.0 /100 WBC Normal [facility] Comment on above: Order Comment: Speci men Type: BLOOD SPECIMEN [facility] Address: [address] [place] [address] Performed By: #### 5 7021-8 #### [facility] CLIA [id number] [address] [place] [address] Platelet mean volume (Bld) [Entitic vol] 10.4 fL Normal 9.0-12.7 [facility] Comment on above: Order Comment: Speci men Type: BLOOD SPECIMEN [facility] Address: [address] [place] [address] Performed By: #### 5 7021-8 #### [facility] CLIA [id number] [address] [place] [address] Platelets (Bld) [#/Vol] 241 10*3/uL Normal 150-400 [facility] Comment on above: Order Comment: Speci men Type: BLOOD SPECIMEN [facility] Address: [address] [place] [address] Performed By: #### 5 7021-8 #### [facility] CLIA [id number] [address] [place] [address] RBC (Bld) [#/Vol] 4.45 10*6/uL Normal 4.20-6.00 [facility] Comment on above: Order Comment: Speci men Type: BLOOD SPECIMEN [facility] Address: [address] [place] [address] Performed By: #### 5 7021-8 #### [facility] [facility] CLIA [id number] [address] [place] [address] 78992 WBC (Bld) [#/Vol] 8.85 10*3/uL Normal 3.70-11.00 [facility] Comment on above: Order Comment: Speci men Type: BLOOD SPECIMEN [facility]ing Facility[facility] Address: [address] [place] [address] Performed By: #### 5 7021-8 #### [facility] CLIA [id number] [address] [place] [address] 77749 Basophils (Bld) [#/Vol] <0.11 k/uL [facility] Basophils/100 WBC (Bld) 0.2 % [facility] Differential cell count method Nom (Bld) Auto [facility] Eosinophils (Bld) [#/Vol] 0.07 10*3/uL <0.46 k/uL [facility] Eosinophils/100 WBC (Bld) 0.8 % [facility] Erythrocyte distribution width (RBC) [Ratio] 14.8 % 11.5 - 15.0 % [facility] Hematocrit (Bld) [Volume fraction] 41.0 % 39.0 - 51.0 % [facility] Hemoglobin (Bld) [Mass/Vol] 13.7 g/dL 13.0 - 17.0 g/dL [facility] Immature granulocytes (Bld) [#/Vol] <0.10 k/uL [facility] Immature granulocytes/100 WBC (Bld) 0.2 % [facility] Lymphocytes (Bld) [#/Vol] 0.82 10*3/uL Low 1.00 - 4.00 k/uL [facility] Lymphocytes/100 WBC (Bld) 9.3 % [facility] MCH (RBC) [Entitic mass] 30.8 pg 26.0 - 34.0 pg [facility] MCHC (RBC) [Mass/Vol] 33.4 g/dL 30.5 - 36.0 g/dL [facility] MCV (RBC) [Entitic vol] 92.1 fL 80.0 - 100.0 fL [facility] Monocytes (Bld) [#/Vol] 0.56 10*3/uL <0.87 k/uL [facility] Monocytes/100 WBC (Bld) 6.3 % [facility] Neutrophils (Bld) [#/Vol] 7.36 10*3/uL 1.45 - 7.50 k/uL [facility] Neutrophils/100 WBC (Bld) 83.2 % [facility] Nucleated RBC (Bld) [#/Vol] <0.01 k/uL [facility] Nucleated RBC/100 WBC (Bld) [Ratio] 0.0 /100 WBC [facility] Platelet mean volume (Bld) [Entitic vol] 10.4 fL 9.0 - 12.7 fL [facility] Platelets (Bld) [#/Vol] 241 10*3/uL 150 - 400 k/uL [facility] RBC (Bld) [#/Vol] 4.45 10*6/uL 4.20 - 6.0 0 m/uL [facility] WBC (Bld) [#/Vol] 8.85 10*3/uL 3.70 - 11. 00 k/uL [facility] CNOVSPon 09-22-2023 CNOVSP Visit (SP) Office ([place]) MIKE BRASWELL ([id number]) 1940 M Date Time Provider Department 09/22/23 1:00 PM RODRÍGUEZ PACK During your visit today, we recorded the following information about you: Temperature Pulse Respiration Blood pressure 97.6 degrees 97/minute 16/minute 155/74 Weight Height 76.8 kg 1.676 m Rodríguez Pack MD 09/23/2023 7:19 AM Signed PATIENT NAME: Mike Braswell DATE: 09/22/2023 PRIMARY CARE PHYSICIAN: Dr. Mark Quintanilla OTHER PHYSICIANS: Dr. Wells; Wilbur Rosa CNP ([facility] Dermatology) Portions of this encounter note have been copied from the note from 09/01/2023 and has been updated where appropriate, and reflect my current medical decision making from today. 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 INTERIM HISTORY: The patient remains on treatment with Cemiplimab every 3 weeks and is tolerating it well. No shortness of breath or other obvious side effects. His skin lesions continue to slowly improve. Overall he feels well today with no particular complaints. MEDICATIONS: Current Outpatient Medications Medication Sig warfarin (COUMADIN) 5 mg tablet Take 5 mg by mouth once daily. Take 2 days a week a whole tablet, 1/2 tablet other 5 days levothyroxine (SYNTHROID) 50 mcg tablet Take 50 mcg by mouth once daily. carbidopa-levodopa (SINEMET 25-100) 25-100 mg per tablet Take by mouth two times a day. ENTRESTO 24-26 mg tablet Take by mouth two times a day. Take 2 in the morning 2 at night tamsulosin (FLOMAX) 0.4 mg Take 1 capsule by mouth once daily. rosuvastatin (CRESTOR) 10 mg tablet Take by mouth once daily. potassium chloride ER (KLOR-CON M20) 20 mEq tablet Take by mouth once daily. mirtazapine (REMERON) 15 mg tablet Take by mouth once daily. metoprolol tartrate, short acting, (LOPRESSOR) 25 mg tablet Take 25 mg by mouth every 12 hours. finasteride (PROSCAR) 5 mg tablet Take 5 mg by mouth once daily. No current facility-administered medications for this visit. ALLERGIES: ALLERGIES No Known Allergies PAST MEDICAL HISTORY: PAST MEDICAL HISTORY Diagnosis Date Atrial fibrillation (HCC) Dementia (HCC) Hypercholesteremia Hypertension Hypothyroidism Skin cancer PAST SURGICAL HISTORY: PAST SURGICAL HISTORY Procedure Laterality Date PAST SURGICAL HISTORY OF bowel resection due to obstruction PAST SURGICAL HISTORY OF left ear reconstructive surgery due to skin cancer REMOVAL GALLBLADDER TONSILLECTOMY AND ADENOIDECTOMY FAMILY HISTORY: No family history on file. SOCIAL HISTORY: Social History Tobacco Use Smoking status: Never Smokeless tobacco: Never Substance Use Topics Alcohol use: Not Currently Drug use: Never REVIEW OF SYSTEMS: General: No weight loss, malaise or fevers. HEENT: Negative for frequent or significant headaches. No changes in hearing or vision, no nose bleeds or other nasal problems. Respiratory: Negative for cough, wheezing or shortness of breath. Cardiovascular: Negative for chest pain, leg swelling or palpitations. GI: Negative for abdominal discomfort, blood in stools or black stools or change in bowel habits. : No history of dysuria, frequency or incontinence. Musculoskeletal: Negative for: joint pain or swelling, back pain and muscle pain. Skin: Negative for lesions, rash and itching. Hematology/Lymphology: Negative for prolonged bleeding, bruising easily or swollen nodes. Neuro: No history of headaches, syncope, paralysis, seizures or tremors. PHYSICAL EXAM: BP 155/74 Pulse 97 Temp 36.4 ?C (97.6 ?F) (Temporal) Resp 16 Ht 167.6 cm (5' 5.98 ) Wt 76.8 kg (169 lb 6.4 oz) SpO2 99% BMI 27.36 kg/m? ECOG 1 Exam limited to gross visualization where appropriate. Gen.: This is an age-appropriate patient in no acute distress. Head: Appears atraumatic with no visible lesions. Eyes: Pupils equally round and reactive to light, extraocular muscles are intact. Neck: Supple. Respiratory: Appears to be respiring comfortably. Congested left lung base. Neurologic: Nonfocal to gross visualization. Alert and oriented ?3. Psychiatric: No evidence of inappropriate anxiety or depression. Skin: Visible areas of skin without rash, lesions, wounds or petechiae. LABS: Hemoglobin (g/dL) Date Value 09/22/2023 13.7 Hematocrit (%) Date Value 09/22/2023 41.0 WBC (k/uL) Date Value 09/22/2023 8.85 Platelet Count (k/uL) Date Value 09/22/2023 241 RADIOLOGY/OTHER STUDIES: 08/11/2023 Chest x-ray IMPRESSION: No acute radiographic abnormality. 07/12/2023 PET Scan IMPRESSION: 1. Neck: Few scattered foci of cutaneous activity in the scalp. No hypermetabolic lymphadenopathy. 2. Chest: No evidence of FDG avid neoplastic process 3. Abdomen and pelvis: (more content not included)... Normal [facility] Comprehensive metabolic 2000 panelon 09-22-2023 Albumin [Mass/Vol] 4.1 g/dL Normal 3.9-4.9 [facility] Comment on above: Order Comment: Speci men Type: BLOOD SPECIMEN Ordering Facility: [facility] Address: [address] [place] [address] Performed By: #### 5 7021-8 #### [facility] CLIA [id number] [address] [place] [address] ALP [Catalytic activity/Vol] 105 U/L Normal 38-113 [facility] Comment on above: Order Comment: Speci men Type: BLOOD SPECIMEN Ordering Facility: [facility] Address: [address] [place] [address] Performed By: #### 5 7021-8 #### [facility] CLIA [id number] [address] [place] [address] 75610 ALT [Catalytic activity/Vol] U/L Low 10-54 [facility] Comment on above: Order Comment: Speci men Type: BLOOD SPECIMEN [facility]ing [facility] Address: [address] [place] [address] Performed By: #### 5 7021-8 #### [facility] CLIA [id number] [address] [place] [address] 00304 Anion gap [Moles/Vol] 10 mmol/L Normal 9-18 [facility] Comment on above: Order Comment: Speci men Type: BLOOD SPECIMEN Order[facility] Address: [address] [place] [address] Performed By: #### 5 7021-8 #### [facility] CLIA [id number] [address] [place] [address] 72180 AST [Catalytic activity/Vol] 17 U/L Normal 14-40 [facility] Comment on above: Order Comment: Speci men Type: BLOOD SPECIMEN [facility] Address: [address] [place] [address] Performed By: #### 5 7021-8 #### [facility] CLIA [id number] [address] [place] [address] 84534 Bilirubin [Mass/Vol] 0.4 mg/dL Normal 0.2-1.3 [facility] Comment on above: Order Comment: Speci men Type: BLOOD SPECIMEN [facility] Address: [address] [place] [address] Performed By: #### 5 7021-8 #### [facility] CLIA [id number] [address] [place] [address] Calcium [Mass/Vol] 9.7 mg/dL Normal 8.5-10.2 [facility] Comment on above: Order Comment: Speci men Type: BLOOD SPECIMEN Order[facility] Address: [address] [place] [address] Performed By: #### 5 7021-8 #### [facility] CLIA [id number] [address] [place] [address] 44470 Chloride [Moles/Vol] 101 mmol/L Normal 97-105 [facility] Comment on above: Order Comment: Speci men Type: BLOOD SPECIMEN Order[facility] Address: [address] [place] [address] Performed By: #### 5 7021-8 #### [facility] CLIA [id number] [address] [place] [address] 00258 CO2 [Moles/Vol] 31 mmol/L High 22-30 [facility] Comment on above: Order Comment: Speci men Type: BLOOD SPECIMEN Ordering [facility] Address: [address] [place] [address] Performed By: #### 5 7021-8 #### [facility] CLIA [id number] [address] [place] [address] 82860 Creatinine [Mass/Vol] 0.79 mg/dL Normal 0.73-1.22 [facility] Comment on above: Order Comment: Speci men Type: BLOOD SPECIMEN Order[facility] Address: [address] [place] [address] Performed By: #### 5 7021-8 #### [facility] CLIA [id number] [address] [place] [address] 32989 Creatinine and Glomerular filtration rate.predicted panel (S/P/Bld) 89 mL/min/1.73m??? Normal >=60 [facility] Comment on above: Order Comment: Lilia love Type: BLOOD SPECIMEN Ordering Facility: [facility] Address: [address] [place] [address] Result Comment: Marija mated Glomerular Filtration Rate (eGFR) is calculated using the 2020 CKD-EPI creatinine equation. This equation utilizes serum creatinine, sex, and age as parameters. The creatinine assay has traceable calibration to isotope dilution-mass spectrometry. Refer to KDIGO guidelines for clinical interpretation. In patients with unstable renal function, e.g. those with acute kidney injury, the eGFR may not accurately reflect actual GFR. Performed By: #### 5 7021-8 #### [facility] CLIA [id number] [address] [place] [address] 80182 Glucose [Mass/Vol] 106 mg/dL High 74-99 [facility] Comment on above: Order Comment: Lilia love Type: BLOOD SPECIMEN [facility] Address: [address] [place] [address] Result Comment: The [place] Diabetes Association (ADA) provides guidance for cutoff values for fasting glucose and random glucose. The ADA defines fasting as no caloric intake for at least 8 hours. Fasting plasma glucose results between 100 to 125 mg/dL indicate increased risk for diabetes (prediabetes). Fasting plasma glucose results greater than or equal to 126 mg/dL meet the criteria for diagnosis of diabetes. In the absence of unequivocal hyperglycemia, results should be confirmed by repeat testing. In a patient with classic symptoms of hyperglycemia or hyperglycemic crisis, random plasma glucose results greater than or equal to 200 mg/dL meet the criteria for diagnosis of diabetes. Reference: Standards of Medical Care in Diabetes 2016, [place] Diabetes Association. Diabetes Care. 2016.39(Suppl 1). Performed By: #### 5 7021-8 #### [facility] CLIA [id number] [address] [place] [address] 35258 Potassium [Moles/Vol] 4.1 mmol/L Normal 3.7-5.1 [facility] Comment on above: Order Comment: Speci men Type: BLOOD SPECIMEN [facility] Address: [address] [place] [id number] Performed By: #### 5 7021-8 #### [facility] CLIA [id number] [address] [place] [address] Protein [Mass/Vol] 7.5 g/dL Normal 6.3-8.0 [facility] Comment on above: Order Comment: Speci men Type: BLOOD SPECIMEN [facility] Address: [address] [place] [address] Performed By: #### 5 7021-8 #### [facility] CLIA [id number] [address] [place] [address] 11965 Sodium [Moles/Vol] 142 mmol/L Normal 136-144 [facility] Comment on above: Order Comment: Speci men Type: BLOOD SPECIMEN [facility] Address: [address] [place] [address] Performed By: #### 5 7021-8 #### [facility] CLIA [id number] [address] [place] [address] 19729 Urea nitrogen [Mass/Vol] 17 mg/dL Normal 9-24 [facility] Comment on above: Order Comment: Speci men Type: BLOOD SPECIMEN [facility] Address: [address] [place] [address] Performed By: #### 5 7021-8 #### [facility] CLIA [id number] [address] [place] [address] 57458 Albumin [Mass/Vol] 4.1 g/dL 3.9 - 4.9 g/dL [facility] ALP [Catalytic activity/Vol] 105 U/L 38 - 113 U/L [facility] ALT [Catalytic activity/Vol] Low 10 - 54 U/L [facility] Anion gap [Moles/Vol] 10 mmol/L 9 - 18 mmol/L [facility] AST [Catalytic activity/Vol] 17 U/L 14 - 40 U/L [facility] Bilirubin [Mass/Vol] 0.4 mg/dL 0.2 - 1 .3 mg/dL [facility] Calcium [Mass/Vol] 9.7 mg/dL 8.5 - 10. 2 mg/dL [facility] Chloride [Moles/Vol] 101 mmol/L 97 - 10 5 mmol/L [facility] CO2 [Moles/Vol] 31 mmol/L High 22 - 30 mmol/L [facility] Creatinine [Mass/Vol] 0.79 mg/dL 0.73 - 1.22 mg/dL [facility] Estimated Glomerular Filtration Rate 89 mL/min/1.73m >=60 mL/min/1.73m [facility] Glucose [Mass/Vol] 106 mg/dL High 74 - 99 mg/dL [facility] Potassium [Moles/Vol] 4.1 mmol/L 3.7 - 5.1 mmol/L [facility] Protein [Mass/Vol] 7.5 g/dL 6.3 - 8.0 g/dL [facility] Sodium [Moles/Vol] 142 mmol/L 136 - 144 mmol/L [facility] Urea nitrogen [Mass/Vol] 17 mg/dL 9 - 24 mg/dL [facility] TSH SerPl-aCncon 09-22-2023 TSH Qn 5.670 m[IU]/L High 0.270-4.200 [facility] Comment on above: Order Comment: Speci men Type: BLOOD SPECIMENOrdering Facility: [facility] Address: [address] [place] [address] Performed By: #### 3 016-3 ####[facility] [id number] [place] [address] [place] CBC W Auto Differential pane l (Bld)on 09-01-2023 Basophils (Bld) [#/Vol] 10*3/uL Normal <0.11 [facility] Comment on above: Order Comment: Speci men Type: BLOOD SPECIMENOrdering Facility: [facility] Address: [address] [place] [address] Performed By: #### 5 7021-8 ####[facility] [id number] [place] [address] Basophils/100 WBC (Bld) 0.3 % Normal [facility] Comment on above: Order Comment: Speci men Type: BLOOD SPECIMENOrdering Facility: [facility] Address: [address] [place] [address] Performed By: #### 5 7021-8 ####[facility] [id number] [place] [address] Differential cell count method Nom (Bld) Auto Normal [facility] Comment on above: Order Comment: Speci men Type: BLOOD SPECIMENOrdering Facility: [facility] Address: [address] [place] [address] Performed By: #### 5 7021-8 ####[facility] [id number] [place] [address] Eosinophils (Bld) [#/Vol] 0.06 10*3/uL Normal <0.46 [facility] Comment on above: Order Comment: Speci men Type: BLOOD SPECIMENOrdering Facility: [facility] Address: [address] [place] [address] Performed By: #### 5 7021-8 ####[facility] [id number] [place] [address] Eosinophils/100 WBC (Bld) 0.8 % Normal [facility] Comment on above: Order Comment: Speci men Type: BLOOD SPECIMENOrdering Facility: [facility] Address: [address] [place] [address] Performed By: #### 5 7021-8 ####[facility] [id number] [place] [address] Erythrocyte distribution width (RBC) [Ratio] 15.2 % High 11.5-15.0 [facility] Comment on above: Order Comment: Speci men Type: BLOOD SPECIMENOrdering Facility: [facility] Address: [address] [place] [address] Performed By: #### 5 7021-8 ####[facility] [id number] [place] [address] Hematocrit (Bld) [Volume fraction] 41.5 % Normal 39.0-51.0 [facility] Comment on above: Order Comment: Speci men Type: BLOOD SPECIMENOrdering Facility: [facility] Address: [address] [place] [address] Performed By: #### 5 7021-8 ####[facility] [id number] [place] [address] Hemoglobin (Bld) [Mass/Vol] 13.4 g/dL Normal 13.0-17.0 [facility] Comment on above: Order Comment: Speci men Type: BLOOD SPECIMENOrdering Facility: [facility] Address: [address] [place] [address] Performed By: #### 5 7021-8 ####[facility] [id number] [place] [address] Immature granulocytes (Bld) [#/Vol] 0.03 10*3/uL Normal <0.10 [facility] Comment on above: Order Comment: Speci men Type: BLOOD SPECIMENOrdering Facility: [facility] Address: [address] [place] [address] Performed By: #### 5 7021-8 ####[facility] [id number] [place] [address] Immature granulocytes/100 WBC (Bld) 0.4 % Normal [facility] Comment on above: Order Comment: Speci men Type: BLOOD SPECIMENOrdering Facility: [facility] Address: [address] [place] [address] Performed By: #### 5 7021-8 ####[facility] [id number] [place] [address] Lymphocytes (Bld) [#/Vol] 0.75 10*3/uL Low 1.00-4.00 [facility] Comment on above: Order Comment: Speci men Type: BLOOD SPECIMENOrdering Facility: [facility] Address: [address] [place] [address] Performed By: #### 5 7021-8 ####[facility] [id number] [place] [address] Lymphocytes/100 WBC (Bld) 9.8 % Normal [facility] Comment on above: Order Comment: Speci men Type: BLOOD SPECIMENOrdering Facility: [facility] Address: [address] [place] [address] Performed By: #### 5 7021-8 ####[facility]CL[facility] [id number] [place] [address] MCH (RBC) [Entitic mass] 30.4 pg Normal 26.0-34.0 [facility] Comment on above: Order Comment: Speci men Type: BLOOD SPECIMENOrdering Facility: [facility] Address: [address] [place] [address] Performed By: #### 5 7021-8 ####[facility]CLIA [id number] [place] [address] MCHC (RBC) [Mass/Vol] 32.3 g/dL Normal 30.5-36.0 [facility] Comment on above: Order Comment: Speci men Type: BLOOD SPECIMENOrdering Facility: [facility] Address: [address] [place] [address] Performed By: #### 5 7021-8 ####[facility]CLIA [id number] [place] [address] MCV (RBC) [Entitic vol] 94.1 fL Normal 80.0-100.0 [facility] Comment on above: Order Comment: Speci men Type: BLOOD SPECIMENOrdering Facility: [facility] Address: [address] [place] [address] Performed By: #### 5 7021-8 ####[facility]CLIA [id number] [place] [address] Monocytes (Bld) [#/Vol] 0.46 10*3/uL Normal <0.87 [facility] Comment on above: Order Comment: Speci men Type: BLOOD SPECIMENOrdering Facility: [facility] Address: [address] [place] [address] Performed By: #### 5 7021-8 ####[facility]CLIA [id number] [place] [address] Monocytes/100 WBC (Bld) 6.0 % Normal [facility] Comment on above: Order Comment: Speci men Type: BLOOD SPECIMENOrdering Facility: [facility] Address: [address] [place] [address] Performed By: #### 5 7021-8 ####[facility]CLIA [id number] [place] [address] Neutrophils (Bld) [#/Vol] 6.34 10*3/uL Normal 1.45-7.50 [facility] Comment on above: Order Comment: Speci men Type: BLOOD SPECIMENOrdering Facility: [facility] Address: [address] [place] [address] Performed By: #### 5 7021-8 ####[facility]CLIA [id number] [place] [address] Neutrophils/100 WBC (Bld) 82.7 % Normal [facility] Comment on above: Order Comment: Speci men Type: BLOOD SPECIMENOrdering Facility: [facility] Address: [address] [place] [address] Performed By: #### 5 7021-8 ####[facility]CLIA [id number] [place] [address] Nucleated RBC (Bld) [#/Vol] 10*3/uL Normal <0.01 [facility] Comment on above: Order Comment: Speci men Type: BLOOD SPECIMENOrdering Facility: [facility] Address: [address] [place] [address] Performed By: #### 5 7021-8 ####[facility]CLIA [id number] [place] [address] Nucleated RBC/100 WBC (Bld) [Ratio] 0.0 /100 WBC Normal [facility] Comment on above: Order Comment: Speci men Type: BLOOD SPECIMENOrdering Facility: [facility] Address: [address] [place] [address] Performed By: #### 5 7021-8 ####[facility]CLIA [id number] [place] [address] Platelet mean volume (Bld) [Entitic vol] 10.7 fL Normal 9.0-12.7 [facility] Comment on above: Order Comment: Speci men Type: BLOOD SPECIMENOrdering Facility: [facility] Address: [address] [place] [address] Performed By: #### 5 7021-8 ####[facility]CLIA [id number] [place] [address] Platelets (Bld) [#/Vol] 192 10*3/uL Normal 150-400 [facility] Comment on above: Order Comment: Speci men Type: BLOOD SPECIMENOrdering Facility: [facility] Address: [address] [place] [address] Performed By: #### 5 7021-8 ####[facility]CLIA [id number] [place] [address] RBC (Bld) [#/Vol] 4.41 10*6/uL Normal 4.20-6.00 [facility] Comment on above: Order Comment: Speci men Type: BLOOD SPECIMENOrdering Facility: [facility] Address: [address] [place] [address] Performed By: #### 5 7021-8 ####[facility]IA [id number] [place] [address] WBC (Bld) [#/Vol] 7.66 10*3/uL Normal 3.70-11.00 [facility] Comment on above: Order Comment: Speci men Type: BLOOD SPECIMENOrdering Facility: [facility] Address: [address] [place] [address], [place] [address] Performed By: #### 5 7021-8 ####[facility] [id number] [place] [address] CNOVSPon 09-01-2023 CNOVSP Visit (SP) Office ([place]) MICHAELLEMIKE ([id number]) 1940 M Date Time Provider Department 09/01/23 1:00 PM RODRÍGUEZ PACK During your visit today, we recorded the following information about you: Temperature Pulse Respiration Blood pressure 97.5 degrees 104/minute 18/minute 152/76 Weight Height 77 kg 1.676 m Rodríguez Pack MD 09/02/2023 7:01 AM Signed PATIENT NAME: Mike Braswell DATE: 09/01/2023 PRIMARY CARE PHYSICIAN: Dr. Mark Quintanilla Jr OTHER PHYSICIANS: Dr. Wells; Wilbur Rosa CNP ([facility]) Portions of this encounter note have been copied from the note from 08/11/2023 and has been updated where appropriate, and reflect my current medical decision making from today. 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 INTERIM HISTORY: At the patient's last visit here he complained of increasing cough and shortness of breath. Chest x-ray was negative. Since then his pulmonary symptoms have resolved and he currently feels well. To date he has completed 2 cycles of cemiplimab. He believes that the large skin cancer recurrence over his left upper chest wall has improved. No new areas of concern. Overall he feels well today and desires to continue treatment as planned. MEDICATIONS: Current Outpatient Medications Medication Sig warfarin (COUMADIN) 5 mg tablet Take 0.5 tablets by mouth once daily. levothyroxine (SYNTHROID) 50 mcg tablet Take 50 mcg by mouth once daily. carbidopa-levodopa (SINEMET 25-100) 25-100 mg per tablet Take by mouth two times a day. ENTRESTO 24-26 mg tablet Take by mouth two times a day. tamsulosin (FLOMAX) 0.4 mg Take 1 capsule by mouth once daily. rosuvastatin (CRESTOR) 10 mg tablet Take by mouth once daily. potassium chloride ER (KLOR-CON M20) 20 mEq tablet Take by mouth once daily. mirtazapine (REMERON) 15 mg tablet Take by mouth once daily. metoprolol tartrate, short acting, (LOPRESSOR) 25 mg tablet Take 25 mg by mouth every 12 hours. finasteride (PROSCAR) 5 mg tablet Take 5 mg by mouth once daily. No current facility-administered medications for this visit. ALLERGIES: ALLERGIES No Known Allergies PAST MEDICAL HISTORY: PAST MEDICAL HISTORY Diagnosis Date Atrial fibrillation (HCC) Dementia (HCC) Hypercholesteremia Hypertension Hypothyroidism Skin cancer PAST SURGICAL HISTORY: PAST SURGICAL HISTORY Procedure Laterality Date PAST SURGICAL HISTORY OF bowel resection due to obstruction PAST SURGICAL HISTORY OF left ear reconstructive surgery due to skin cancer REMOVAL GALLBLADDER TONSILLECTOMY AND ADENOIDECTOMY FAMILY HISTORY: No family history on file. SOCIAL HISTORY: Social History Tobacco Use Smoking status: Never Smokeless tobacco: Never Substance Use Topics Alcohol use: Not Currently Drug use: Never REVIEW OF SYSTEMS: General: No weight loss, malaise or fevers. HEENT: Negative for frequent or significant headaches. No changes in hearing or vision, no nose bleeds or other nasal problems. Respiratory: Negative for cough, wheezing or shortness of breath. Cardiovascular: Negative for chest pain, leg swelling or palpitations. GI: Negative for abdominal discomfort, blood in stools or black stools or change in bowel habits. : No history of dysuria, frequency or incontinence. Musculoskeletal: Negative for: joint pain or swelling, back pain and muscle pain. Skin: Negative for lesions, rash and itching. Hematology/Lymphology: Negative for prolonged bleeding, bruising easily or swollen nodes. Neuro: No history of headaches, syncope, paralysis, seizures or tremors. PHYSICAL EXAM: BP 152/76 Pulse 104 Temp 36.4 ?C (97.5 ?F) (Temporal) Resp 18 Ht 167.6 cm (5' 5.98 ) Wt 77 kg (169 lb 12.8 oz) SpO2 97% BMI 27.42 kg/m? ECOG 1 Exam limited to gross visualization where appropriate. Gen.: This is an age-appropriate patient in no acute distress. Head: Appears atraumatic with no visible lesions. Eyes: Pupils equally round and reactive to light, extraocular muscles are intact. Neck: Supple. Respiratory: Appears to be respiring comfortably. Congested left lung base. Neurologic: Nonfocal to gross visualization. Alert and oriented ?3. Psychiatric: No evidence of inappropriate anxiety or depression. Skin: Visible areas of skin without rash, lesions, wounds or petechiae. LABS: Hemoglobin (g/dL) Date Value 09/01/2023 13.4 Hematocrit (%) Date Value 09/01/2023 41.5 WBC (k/uL) Date Value 09/01/2023 7.66 Platelet Count (k/uL) Date Value 09/01/2023 192 RADIOLOGY/OTHER STUDIES: 08/11/2023 chest x-ray IMPRESSION: No acute radiographic abnormality. 07/12/2023 PET Scan IMPRESSION: 1. Neck: Few scattered foci of cutaneous activity in the scalp. No hype (more content not included)... Normal [facility] Comprehensive metabolic 2000 panelon 09-01-2023 Albumin [Mass/Vol] 4.2 g/dL Normal 3.9-4.9 [facility] Comment on above: Order Comment: Speci men Type: BLOOD SPECIMENOrdering Facility: [facility] Address: [address] [place] [address] Performed By: #### 2 4323-8 ####[facility] LABCLIA [id number] [place] [address] ALP [Catalytic activity/Vol] 101 U/L Normal 38-113 [facility] Comment on above: Order Comment: Speci men Type: BLOOD SPECIMENOrdering Facility: [facility] Address: [address] [place] [address] Performed By: #### 2 4323-8 ####[facility] LABCLIA [id number] [place] [address] ALT [Catalytic activity/Vol] U/L Low 10-54 [facility] Comment on above: Order Comment: Speci men Type: BLOOD SPECIMENOrdering Facility: [facility] Address: [address] [place] [address] Performed By: #### 2 4323-8 ####[facility] LABCLIA [id number] [place] [address] Anion gap [Moles/Vol] 10 mmol/L Normal 9-18 [facility] Comment on above: Order Comment: Speci men Type: BLOOD SPECIMENOrdering Facility: [facility] Address: [address] [place] [address] Performed By: #### 2 4323-8 ####[facility] LABCLIA [id number] [place] [address] AST [Catalytic activity/Vol] 17 U/L Normal 14-40 [facility] Comment on above: Order Comment: Speci men Type: BLOOD SPECIMENOrdering Facility: [facility] Address: [address] [place] [address] Performed By: #### 2 4323-8 ####[facility] LABCLIA [id number] [place] [address] Bilirubin [Mass/Vol] 0.4 mg/dL Normal 0.2-1.3 [facility] Comment on above: Order Comment: Speci men Type: BLOOD SPECIMENOrdering Facility: [facility] Address: [address] [place] [address] Performed By: #### 2 4323-8 ####[facility] LABCLIA [id number] [place] [address] Calcium [Mass/Vol] 9.3 mg/dL Normal 8.5-10.2 [facility] Comment on above: Order Comment: Speci men Type: BLOOD SPECIMENOrdering Facility: [facility] Address: [address] [place] [address] Performed By: #### 2 4323-8 ####[facility] LABCLIA [id number] [place] [address] Chloride [Moles/Vol] 101 mmol/L Normal 97-105 [facility] Comment on above: Order Comment: Speci men Type: BLOOD SPECIMENOrdering Facility: [facility] Address: [address] [place] [address] Performed By: #### 2 4323-8 ####[facility] LABCLIA [id number] [place] [address] CO2 [Moles/Vol] 29 mmol/L Normal 22-30 [facility] Comment on above: Order Comment: Speci men Type: BLOOD SPECIMENOrdering Facility: [facility] Address: [address] [place] [address] Performed By: #### 2 4323-8 ####[facility] LABCLIA [id number] [place] [address] Creatinine [Mass/Vol] 0.79 mg/dL Normal 0.73-1.22 [facility] Comment on above: Order Comment: Speci men Type: BLOOD SPECIMENOrdering Facility: [facility] Address: [address] [place] [address] Performed By: #### 2 4323-8 ####[facility] LABCLIA [id number] [place] [address] Creatinine and Glomerular filtration rate.predicted panel (S/P/Bld) 89 mL/min/1.73m??? Normal >=60 [facility] Comment on above: Order Comment: Speci men Type: BLOOD SPECIMENOrdering Facility: [facility] Address: [address] [place] [address] Result Comment: Marija mated Glomerular Filtration Rate (eGFR) is calculated using the 2020 CKD-EPI creatinine equation. This equation utilizes serum creatinine, sex, and age as parameters. The creatinine assay has traceable calibration to isotope dilution-mass spectrometry. Refer to KDIGO guidelines for clinical interpretation. In patients with unstable renal function, e.g. those with acute kidney injury, the eGFR may not accurately reflect actual GFR. Performed By: #### 2 4323-8 ####[facility] LABCLIA [id number] [place] [address] Glucose [Mass/Vol] 99 mg/dL Normal 74-99 [facility] Comment on above: Order Comment: Speci men Type: BLOOD SPECIMENOrdering Facility: [facility] Address: [address] [place], [place] [address] Result Comment: The [place] Diabetes Association (ADA) provides guidance for cutoff values for fasting glucose and random glucose. The ADA defines fasting as no caloric intake for at least 8 hours. Fasting plasma glucose results between 100 to 125 mg/dL indicate increased risk for diabetes (prediabetes). Fasting plasma glucose results greater than or equal to 126 mg/dL meet the criteria for diagnosis of diabetes. In the absence of unequivocal hyperglycemia, results should be confirmed by repeat testing. In a patient with classic symptoms of hyperglycemia or hyperglycemic crisis, random plasma glucose results greater than or equal to 200 mg/dL meet the criteria for diagnosis of diabetes. Reference: Standards of Medical Care in Diabetes 2016, [place] Diabetes Association. Diabetes Care. 2016.39(Suppl 1). Performed By: #### 2 4323-8 ####[facility] LABCLIA [id number] [place] [address] Potassium [Moles/Vol] 4.0 mmol/L Normal 3.7-5.1 [facility] Comment on above: Order Comment: Royeci men Type: BLOOD SPECIMENOrdering Facility: [facility] Address: [address] [place] [address] Performed By: #### 2 4323-8 ####[facility] LABCLIA [id number] [place] [address] Protein [Mass/Vol] 7.3 g/dL Normal 6.3-8.0 [facility] Comment on above: Order Comment: Speci men Type: BLOOD SPECIMENOrdering Facility: [facility] Address: [address] [place], [place] [address] Performed By: #### 2 4323-8 ####[facility] LABCLIA [id number] [place] [address] Sodium [Moles/Vol] 140 mmol/L Normal 136-144 [facility] Comment on above: Order Comment: Speci men Type: BLOOD SPECIMENOrdering Facility: [facility] Address: [address] [place] [address] Performed By: #### 2 4323-8 ####[facility] LABCLIA [id number] [place] [address] Urea nitrogen [Mass/Vol] 21 mg/dL Normal 9-24 [facility] Comment on above: Order Comment: Speci men Type: BLOOD SPECIMENOrdering Facility: [facility] Address: [address] [place] [address] Performed By: #### 2 4323-8 ####[facility] LABCLIA [id number] [place] [address] NT-proBNP SerPl-mCncon 09-01 Natriuretic peptide.B prohormone N-Terminal [Mass/Vol] 1580 pg/mL High <450 [facility] Comment on above: Order Comment: Speci men Type: BLOOD SPECIMENOrdering Facility: [facility] Address: [address] [place] [address] Performed By: #### 3 3762-6 ####[facility] LABIA [id number] [place] [address] [place] TSH SerPl-aCncon 09-01-2023 TSH Qn 4.270 m[IU]/L High 0.270-4.200 [facility] Comment on above: Order Comment: Speci men Type: BLOOD SPECIMENOrdering Facility: [facility] Address: [address] [place] [address] Performed By: #### 3 016-3 ####[facility] [id number] [place] [address] [place] CBC W Auto Differential pane l (Bld)on 08-11-2023 Basophils (Bld) [#/Vol] 10*3/uL Normal <0.11 [facility] Comment on above: Order Comment: Speci men Type: BLOOD SPECIMENOrdering Facility: [facility] Address: [address] [place] [address] Performed By: #### 5 7021-8 ####[facility] LABCLIA [id number] [place] [address] Basophils/100 WBC (Bld) 0.3 % Normal [facility] Comment on above: Order Comment: Speci men Type: BLOOD SPECIMENOrdering Facility: [facility] Address: [address] [place] [address] Performed By: #### 5 7021-8 ####[facility] LABCLIA [id number] [place] [address] Differential cell count method Nom (Bld) Auto Normal [facility] Comment on above: Order Comment: Speci men Type: BLOOD SPECIMENOrdering Facility: [facility] Address: [address] [place] [address] Performed By: #### 5 7021-8 ####[facility] LABCLIA [id number] [place] [address] Eosinophils (Bld) [#/Vol] 0.07 10*3/uL Normal <0.46 [facility] Comment on above: Order Comment: Speci men Type: BLOOD SPECIMENOrdering Facility: [facility] Address: [address] [place] [address] Performed By: #### 5 7021-8 ####[facility] LABCLIA [id number] [place] [address] Eosinophils/100 WBC (Bld) 1.1 % Normal [facility] Comment on above: Order Comment: Speci men Type: BLOOD SPECIMENOrdering Facility: [facility] Address: [address] [place] [address] Performed By: #### 5 7021-8 ####[facility] LABCLIA [id number] [place] [address] Erythrocyte distribution width (RBC) [Ratio] 15.0 % Normal 11.5-15.0 [facility] Comment on above: Order Comment: Speci men Type: BLOOD SPECIMENOrdering Facility: [facility] Address: [address] [place] [address] Performed By: #### 5 7021-8 ####[facility] LABCLIA [id number] [place] [address] Hematocrit (Bld) [Volume fraction] 40.0 % Normal 39.0-51.0 [facility] Comment on above: Order Comment: Speci men Type: BLOOD SPECIMENOrdering Facility: [facility] Address: [address] [place] [address] Performed By: #### 5 7021-8 ####[facility] LABCLIA [id number] [place] [address] Hemoglobin (Bld) [Mass/Vol] 13.2 g/dL Normal 13.0-17.0 [facility] Comment on above: Order Comment: Speci men Type: BLOOD SPECIMENOrdering Facility: [facility] Address: [address] [place] [address] Performed By: #### 5 7021-8 ####[facility] LABCLIA [id number] [place] [address] Immature granulocytes (Bld) [#/Vol] 10*3/uL Normal <0.10 [facility] Comment on above: Order Comment: Speci men Type: BLOOD SPECIMENOrdering Facility: [facility] Address: [address] [place] [address] Performed By: #### 5 7021-8 ####[facility] LABCLIA [id number] [place] [address] Immature granulocytes/100 WBC (Bld) 0.2 % Normal [facility] Comment on above: Order Comment: Speci men Type: BLOOD SPECIMENOrdering Facility: [facility] Address: [address] [place] [address] Performed By: #### 5 7021-8 ####[facility] LABCLIA [id number] [place] [address] Lymphocytes (Bld) [#/Vol] 0.70 10*3/uL Low 1.00-4.00 [facility] Comment on above: Order Comment: Speci men Type: BLOOD SPECIMENOrdering Facility: [facility] Address: [address] [place] [address] Performed By: #### 5 7021-8 ####[facility] LABCLIA [id number] [place] [address] Lymphocytes/100 WBC (Bld) 10.5 % Normal [facility] Comment on above: Order Comment: Speci men Type: BLOOD SPECIMENOrdering Facility: [facility] Address: [address] [place] [address] Performed By: #### 5 7021-8 ####[facility] LABCLIA [id number] [place] [address] MCH (RBC) [Entitic mass] 31.1 pg Normal 26.0-34.0 [facility] Comment on above: Order Comment: Speci men Type: BLOOD SPECIMENOrdering Facility: [facility] Address: [address] [place] [address] Performed By: #### 5 7021-8 ####[facility] LABCLIA [id number] [place] [address] MCHC (RBC) [Mass/Vol] 33.0 g/dL Normal 30.5-36.0 [facility] Comment on above: Order Comment: Speci men Type: BLOOD SPECIMENOrdering Facility: [facility] Address: [address] [place] [address] Performed By: #### 5 7021-8 ####[facility] LABCLIA [id number] [place] [address] MCV (RBC) [Entitic vol] 94.1 fL Normal 80.0-100.0 [facility] Comment on above: Order Comment: Speci men Type: BLOOD SPECIMENOrdering Facility: [facility] Address: [address] [place] [address] Performed By: #### 5 7021-8 ####[facility] LABCLIA [id number] [place] [address] Monocytes (Bld) [#/Vol] 0.61 10*3/uL Normal <0.87 [facility] Comment on above: Order Comment: Speci men Type: BLOOD SPECIMENOrdering Facility: [facility] Address: [address] [place] [address] Performed By: #### 5 7021-8 ####[facility] LABCLIA [id number] [place] [address] Monocytes/100 WBC (Bld) 9.2 % Normal [facility] Comment on above: Order Comment: Speci men Type: BLOOD SPECIMENOrdering Facility: [facility] Address: [address] [place] [address] Performed By: #### 5 7021-8 ####[facility] LABCLIA [id number] [place] [address] Neutrophils (Bld) [#/Vol] 5.23 10*3/uL Normal 1.45-7.50 [facility] Comment on above: Order Comment: Speci men Type: BLOOD SPECIMENOrdering Facility: [facility] Address: [address] [place] [address] Performed By: #### 5 7021-8 ####[facility] LABCLIA [id number] [place] [address] Neutrophils/100 WBC (Bld) 78.7 % Normal [facility] Comment on above: Order Comment: Speci men Type: BLOOD SPECIMENOrdering Facility: [facility] Address: [address] [place] [address] Performed By: #### 5 7021-8 ####[facility] LABCLIA [id number] [place] [address] Nucleated RBC (Bld) [#/Vol] 10*3/uL Normal <0.01 [facility] Comment on above: Order Comment: Speci men Type: BLOOD SPECIMENOrdering Facility: [facility] Address: [address] [place] [address] Performed By: #### 5 7021-8 ####[facility] LABCLIA [id number] [place] [address] Nucleated RBC/100 WBC (Bld) [Ratio] 0.0 /100 WBC Normal [facility] Comment on above: Order Comment: Speci men Type: BLOOD SPECIMENOrdering Facility: [facility] Address: [address] [place] [address] Performed By: #### 5 7021-8 ####[facility] LABCLIA [id number] [place] [address] Platelet mean volume (Bld) [Entitic vol] 10.6 fL Normal 9.0-12.7 [facility] Comment on above: Order Comment: Speci men Type: BLOOD SPECIMENOrdering Facility: [facility] Address: [address] [place] [address] Performed By: #### 5 7021-8 ####[facility] LABCLIA [id number] [place] [address] Platelets (Bld) [#/Vol] 193 10*3/uL Normal 150-400 [facility] Comment on above: Order Comment: Speci men Type: BLOOD SPECIMENOrdering Facility: [facility] Address: [address] [place] [address] Performed By: #### 5 7021-8 ####[facility] LABCLIA [id number] [place] [address] RBC (Bld) [#/Vol] 4.25 10*6/uL Normal 4.20-6.00 [facility] Comment on above: Order Comment: Speci men Type: BLOOD SPECIMENOrdering Facility: [facility] Address: [address] [place] [address] Performed By: #### 5 7021-8 ####[facility] LABCLIA [id number] [place] [address] WBC (Bld) [#/Vol] 6.64 10*3/uL Normal 3.70-11.00 [facility] Comment on above: Order Comment: Speci men Type: BLOOD SPECIMENOrdering Facility: [facility] Address: [address] [place] [address] Performed By: #### 5 7021-8 ####[facility] LABCLIA [id number] [place] [address] CNOVSPon 08-11-2023 CNOVSP Visit (SP) Office ([place]) MIKE BRASWELL ([id number]) 1940 M Date Time Provider Department 08/11/23 1:00 PM GABRIELLA JAVED During your visit today, we recorded the following information about you: Temperature Pulse Respiration Blood pressure 97.2 degrees 112/minute 18/minute 156/89 Weight Height 77.6 kg 1.676 m Gabriella Javed APRN.CNP 08/11/2023 3:53 PM Signed PATIENT NAME: Mike Braswell DATE: 08/11/2023 (Elements copied from the note dated 07/21/2023, have been reviewed and updated where appropriate, and all reflect current assessment and medical decision making during today's encounter, August 11, 2023.) PRIMARY CARE PHYSICIAN: Dr. Mark Quintanilla Jr OTHER PHYSICIANS: Dr. Wells; Wilbur Rosa CNP ([facility]) CC: This is an 83 year old male with recurrent squamous cell skin cancer here to continue treatment. INTERIM HISTORY: Mike Braswell returns for follow-up and treatment. He received his first cycle of cemiplimab on 07/21/2023. Overall, he tolerated treatment fairly well. His states that he has been coughing and wheezing for the last 2 days. She has monitored and he has not had any fevers or chills. The states that his skin is a little better since starting treatment and is more pink . The patient sees his PCP on 08/15/2023 and will discuss the elevation in blood pressure. He has doing fairly well today and wishes to proceed with treatment. MEDICATIONS: Current Outpatient Medications Medication Sig warfarin (COUMADIN) 5 mg tablet Take 0.5 tablets by mouth once daily. levothyroxine (SYNTHROID) 50 mcg tablet Take 50 mcg by mouth once daily. carbidopa-levodopa (SINEMET 25-100) 25-100 mg per tablet Take by mouth two times a day. ENTRESTO 24-26 mg tablet Take by mouth two times a day. tamsulosin (FLOMAX) 0.4 mg Take 1 capsule by mouth once daily. rosuvastatin (CRESTOR) 10 mg tablet Take by mouth once daily. potassium chloride ER (KLOR-CON M20) 20 mEq tablet Take by mouth once daily. mirtazapine (REMERON) 15 mg tablet Take by mouth once daily. metoprolol tartrate, short acting, (LOPRESSOR) 25 mg tablet Take 25 mg by mouth every 12 hours. finasteride (PROSCAR) 5 mg tablet Take 5 mg by mouth once daily. No current facility-administered medications for this visit. ALLERGIES: ALLERGIES No Known Allergies PAST MEDICAL HISTORY: PAST MEDICAL HISTORY Diagnosis Date Atrial fibrillation (HCC) Dementia (HCC) Hypercholesteremia Hypertension Hypothyroidism Skin cancer PAST SURGICAL HISTORY: PAST SURGICAL HISTORY Procedure Laterality Date PAST SURGICAL HISTORY OF bowel resection due to obstruction PAST SURGICAL HISTORY OF left ear reconstructive surgery due to skin cancer REMOVAL GALLBLADDER TONSILLECTOMY AND ADENOIDECTOMY FAMILY HISTORY: No family history on file. SOCIAL HISTORY: Social History Tobacco Use Smoking status: Never Smokeless tobacco: Never Substance Use Topics Alcohol use: Not Currently Drug use: Never REVIEW OF SYSTEMS: General: No weight loss, malaise or fevers. HEENT: Negative for frequent or significant headaches. No changes in hearing or vision, no nose bleeds or other nasal problems. Respiratory: Negative for cough, wheezing or shortness of breath. Cardiovascular: Negative for chest pain, leg swelling or palpitations. GI: Negative for abdominal discomfort, blood in stools or black stools or change in bowel habits. : No history of dysuria, frequency or incontinence. Musculoskeletal: Negative for: joint pain or swelling, back pain and muscle pain. Skin: Negative for lesions, rash and itching. Hematology/Lymphology: Negative for prolonged bleeding, bruising easily or swollen nodes. Neuro: No history of headaches, syncope, paralysis, seizures or tremors. PHYSICAL EXAM: BP 156/89 Pulse 112 Temp 36.2 ?C (97.2 ?F) (Temporal) Resp 18 Ht 167.6 cm (5' 5.98 ) Wt 77.6 kg (171 lb) SpO2 98% BMI 27.61 kg/m? ECOG 1 Exam limited to gross visualization where appropriate. Gen.: This is an age-appropriate patient in no acute distress. Head: Appears atraumatic with no visible lesions. Eyes: Pupils equally round and reactive to light, extraocular muscles are intact. Neck: Supple. Respiratory: Appears to be respiring comfortably. Congested left lung base. Neurologic: Nonfocal to gross visualization. Alert and oriented ?3. Psychiatric: No evidence of inappropriate anxiety or depression. Skin: Visible areas of skin without rash, lesions, wounds or petechiae. LABS: Hemoglobin (g/dL) Date Value 08/11/2023 13.2 Hematocrit (%) Date Value 08/11/2023 40.0 WBC (k/uL) Date Value 08/11/2023 6.64 Platelet Count (k/uL) Date Value 08/11/2023 193 RADIOLOGY/OTHER STUDIES: 07/12/2023 PET Scan IMPRESSION: 1. Neck: Few scattered foci of cutaneous activ (more content not included)... Normal [facility] Comprehensive metabolic 2000 panelon 08-11-2023 Albumin [Mass/Vol] 4.0 g/dL Normal 3.9-4.9 [facility] Comment on above: Order Comment: Speci men Type: BLOOD SPECIMENOrdering Facility: [facility] Address: [place] [address] Performed By: #### 2 4323-8 ####[facility] LABCLIA [id number] [place] [address] ALP [Catalytic activity/Vol] 100 U/L Normal 38-113 [facility] Comment on above: Order Comment: Speci men Type: BLOOD SPECIMENOrdering Facility: [facility] Address: [address] [place] [address] Performed By: #### 2 4323-8 ####[facility] LABCLIA [id number] [place] [address] ALT [Catalytic activity/Vol] U/L Low 10-54 [facility] Comment on above: Order Comment: Speci men Type: BLOOD SPECIMENOrdering Facility: [facility] Address: [address] [place] [address] Performed By: #### 2 4323-8 ####[facility] LABCLIA [id number] [place] [address] Anion gap [Moles/Vol] 6 mmol/L Low 9-18 [facility] Comment on above: Order Comment: Speci men Type: BLOOD SPECIMENOrdering Facility: [facility] Address: [address] [place] [address] Performed By: #### 2 4323-8 ####[facility] LABCLIA [id number] [place] [address] AST [Catalytic activity/Vol] 18 U/L Normal 14-40 [facility] Comment on above: Order Comment: Speci men Type: BLOOD SPECIMENOrdering Facility: [facility] Address: [address] [place] [address] Performed By: #### 2 4323-8 ####[facility] LABCLIA [id number] [place] [address] Bilirubin [Mass/Vol] 0.5 mg/dL Normal 0.2-1.3 [facility] Comment on above: Order Comment: Speci men Type: BLOOD SPECIMENOrdering Facility: [facility] Address: [address] [place] [address] Performed By: #### 2 4323-8 ####[facility] LABCLIA [id number] [place] [address] Calcium [Mass/Vol] 9.2 mg/dL Normal 8.5-10.2 [facility] Comment on above: Order Comment: Speci men Type: BLOOD SPECIMENOrdering Facility: [facility] Address: [address] [place] [address] Performed By: #### 2 4323-8 ####[facility] LABCLIA [id number] [place] [address] Chloride [Moles/Vol] 104 mmol/L Normal 97-105 [facility] Comment on above: Order Comment: Speci men Type: BLOOD SPECIMENOrdering Facility: [facility] Address: [address] [place] [address] Performed By: #### 2 4323-8 ####[facility] LABCLIA [id number] [place] [address] CO2 [Moles/Vol] 30 mmol/L Normal 22-30 [facility] Comment on above: Order Comment: Speci men Type: BLOOD SPECIMENOrdering Facility: [facility] Address: [address] [place] [address] Performed By: #### 2 4323-8 ####[facility] LABCLIA [id number] [place] [address] Creatinine [Mass/Vol] 0.83 mg/dL Normal 0.73-1.22 [facility] Comment on above: Order Comment: Speci men Type: BLOOD SPECIMENOrdering Facility: [facility] Address: [address] [place] [address] Performed By: #### 2 4323-8 ####[facility] LABCLIA [id number] [place] [address] Creatinine and Glomerular filtration rate.predicted panel (S/P/Bld) 88 mL/min/1.73m??? Normal >=60 [facility] Comment on above: Order Comment: Speci men Type: BLOOD SPECIMENOrdering Facility: [facility] Address: [address] [place] [address] Result Comment: Marija mated Glomerular Filtration Rate (eGFR) is calculated using the 2020 CKD-EPI creatinine equation. This equation utilizes serum creatinine, sex, and age as parameters. The creatinine assay has traceable calibration to isotope dilution-mass spectrometry. Refer to KDIGO guidelines for clinical interpretation. In patients with unstable renal function, e.g. those with acute kidney injury, the eGFR may not accurately reflect actual GFR. Performed By: #### 2 4323-8 ####[facility] LABCLIA [id number] [place] [address] Glucose [Mass/Vol] 110 mg/dL High 74-99 [facility] Comment on above: Order Comment: Speci men Type: BLOOD SPECIMENOrdering Facility: [facility] Address: [address] [place] [address] Result Comment: The [place] Diabetes Association (ADA) provides guidance for cutoff values for fasting glucose and random glucose. The ADA defines fasting as no caloric intake for at least 8 hours. Fasting plasma glucose results between 100 to 125 mg/dL indicate increased risk for diabetes (prediabetes). Fasting plasma glucose results greater than or equal to 126 mg/dL meet the criteria for diagnosis of diabetes. In the absence of unequivocal hyperglycemia, results should be confirmed by repeat testing. In a patient with classic symptoms of hyperglycemia or hyperglycemic crisis, random plasma glucose results greater than or equal to 200 mg/dL meet the criteria for diagnosis of diabetes. Reference: Standards of Medical Care in Diabetes 2016, [place] Diabetes Association. Diabetes Care. 2016.39(Suppl 1). Performed By: #### 2 4323-8 ####[facility] LABCLIA [id number] [place] [address] Potassium [Moles/Vol] 4.3 mmol/L Normal 3.7-5.1 [facility] Comment on above: Order Comment: Speci men Type: BLOOD SPECIMENOrdering Facility: [facility] Address: [address] [place] [address] Performed By: #### 2 4323-8 ####[facility] LABCLIA [id number] [place] [address] Protein [Mass/Vol] 7.2 g/dL Normal 6.3-8.0 [facility] Comment on above: Order Comment: Speci men Type: BLOOD SPECIMENOrdering Facility: [facility] Address: [address] [place] [address] Performed By: #### 2 4323-8 ####[facility] LABCLIA [id number] [place] [address] Sodium [Moles/Vol] 140 mmol/L Normal 136-144 [facility] Comment on above: Order Comment: Speci men Type: BLOOD SPECIMENOrdering Facility: [facility] Address: [address] [place] [id number] Performed By: #### 2 4323-8 ####[facility] LABCLIA [id number] [place] [address] Urea nitrogen [Mass/Vol] 24 mg/dL Normal 9-24 [facility] Comment on above: Order Comment: Speci men Type: BLOOD SPECIMENOrdering Facility: [facility] Address: [address] [place] [address] Performed By: #### 2 4323-8 ####[facility] LABCLIA [id number] [place] [address] XR CHEST 2V FRONTAL/LATon XR CHEST 2V FRONTAL/LAT * * *Final Report* * * DATE OF EXAM: Aug 11 2023 2:01PM [id number] [id number] - XR CHEST 2V FRONTAL/LAT / PROCEDURE REASON: multiple diagnoses * * * * Physician Interpretation * * * * RESULT: EXAMINATION: CHEST RADIOGRAPH (2 VIEW FRONTAL and LATERAL) CLINICAL HISTORY: Squamous cell skin cancer Cough, unspecified type MQ: XC2_6 EXAM DATE/TIME: 08/11/2023 2:01 PM COMPARISON: None. RESULT: Lines, tubes, and devices: None. Lungs and pleura: No consolidation. Calcified granuloma is noted at the anterior aspect of the right midlung zone. The pulmonary vasculature is within normal limits. No substantial pleural effusion or extra. Cardiomediastinal silhouette: Normal cardiomediastinal silhouette. Bones and soft tissues: Mild-moderate degenerative change within the thoracic spine is noted. IMPRESSION: No acute radiographic abnormality. Transcribe Date/Time: Aug 12 2023 3:35P Dictated by: PREETHI UMAÑA MD This examination was interpreted and the report reviewed and electronically signed by: PREETHI UMAÑA MD on Aug 12 2023 3:37PM EST Thank you for allowing us to participate in the care of your patient. Should there be any questions regarding this interpretation, please call [phone]. If you are unable to reach us at the number above, please feel free to contact [facility] eRadiology at [phone]. [id number] Normal [facility] CNPNon 08-09-2023 CNPN Telephone ([place]) MIKE BRASWELL ([id number]) 1940 Date Time Provider Department 08/09/23 CARMINE IGNACIO During your visit today, we recorded the following information about you: Carmine Ignacio RN 08/09/2023 8:15 AM Signed FYI: Pt's spouse calls w/ the following concerns. Pt has developed an occasional nonproductive cough. Per spouse, his chest sounds a little congested. Denies fevers or chills. Denies dyspnea. No chest pain. Advised spouse to monitor pt for now. Instructed her to call back if he develops a fever or cough worsens. Spouse verbalizes understanding. 2. Pt's most recent BP was 155/90 AND 16/95. Advised pt's spouse to contact their PCP regarding his pressures or go to the ER if they get higher. Pt's spouse verbalizes understanding and agrees. Carmine Ignacio RN Allergies As of Date: 08/09/2023 (No Known Allergies) Date Reviewed: 07/26/2023 Reviewed by: Gabriella Javed APRN.MS ACCESS DATABASE DEVELOPER - Fully Assessed Reason for Visit: Care Coordination [8331] Cmt: Cough; Hypertension Prescriptions as of 08/11/2023 - warfarin (COUMADIN) 5 mg tablet Take 0.5 tablets by mouth once daily. - levothyroxine (SYNTHROID) 50 mcg tablet Take 50 mcg by mouth once daily. - carbidopa-levodopa (SINEMET 25-100) 25-100 mg per tablet Take by mouth two times a day. - ENTRESTO 24-26 mg tablet Take by mouth two times a day. - tamsulosin (FLOMAX) 0.4 mg Take 1 capsule by mouth once daily. - rosuvastatin (CRESTOR) 10 mg tablet Take by mouth once daily. - potassium chloride ER (KLOR-CON M20) 20 mEq tablet Take by mouth once daily. - mirtazapine (REMERON) 15 mg tablet Take by mouth once daily. - metoprolol tartrate, short acting, (LOPRESSOR) 25 mg tablet Take 25 mg by mouth every 12 hours. - finasteride (PROSCAR) 5 mg tablet Take 5 mg by mouth once daily. Problem List As Of Date 08/09/2023 Noted Resolved Squamous cell skin cancer [C44.92] 07/12/2023 Encounter Status:Closed by CARMINE IGNACIO on 08/11/23 [facility] ([id number]) 1940 M Date Time Provider Department 08/05/23 CARMINE IGNACIO During your visit today, we recorded the following information about you: Carmine Ignacio RN 08/05/2023 1:29 PM Signed FYI: Pt follows [facility] coumadin clinic. Spouse reports that the pt's INR was 1.5 today. His coumadin was increased to 5 mg/day. Pt to return next week for repeat labs. Spouse asks if his treatment could have any impact on his INR. Per Up to Date: No known interaction between Coumadin and Libtayo. Informed pt's spouse that his Libtayo should not have any impact on pt's INR. Spouse verbalizes understanding. Carmine Ignacio RN Allergies As of Date: 08/05/2023 (No Known Allergies) Date Reviewed: 07/26/2023 Reviewed by: Gabriella Javed APRN.MS ACCESS DATABASE DEVELOPER - Fully Assessed Reason for Visit: Care Coordination [5641] Cmt: Medication Question Prescriptions as of 08/05/2023 - warfarin (COUMADIN) 5 mg tablet Take 0.5 tablets by mouth once daily. - levothyroxine (SYNTHROID) 50 mcg tablet Take 50 mcg by mouth once daily. - carbidopa-levodopa (SINEMET 25-100) 25-100 mg per tablet Take by mouth two times a day. - ENTRESTO 24-26 mg tablet Take by mouth two times a day. - tamsulosin (FLOMAX) 0.4 mg Take 1 capsule by mouth once daily. - rosuvastatin (CRESTOR) 10 mg tablet Take by mouth once daily. - potassium chloride ER (KLOR-CON M20) 20 mEq tablet Take by mouth once daily. - mirtazapine (REMERON) 15 mg tablet Take by mouth once daily. - metoprolol tartrate, short acting, (LOPRESSOR) 25 mg tablet Take 25 mg by mouth every 12 hours. - finasteride (PROSCAR) 5 mg tablet Take 5 mg by mouth once daily. Problem List As Of Date 08/05/2023 Noted Resolved Squamous cell skin cancer [C44.92] 07/12/2023 Encounter Status:Closed by CARMINE [facility]CIO [facility] ([place]) MIKE BRASWELL ([id number]) 1940 M Date Time Provider Department 07/25/23 CARMINE IGNACIO During your visit today, we recorded the following information about you: Carmine Ignacio RN 07/25/2023 12:07 PM Signed CYCLE 1/DAY 1 POST TREATMENT CALL Today's date: July 25, 2023 Treatment Regimen: Cemiplimab C1D1 Date: 07/21/23 Called patient to follow-up on symptom management. Spoke with patient's . SYMPTOM ASSESSMENT Neuro: None CV/Resp: None GI/: Appetite: no changes in appetite, appetite fair, Fluid intake: Fluid intake has increased, but still not enough according to pt's spouse., Bladder/Urinary Changes: None. Pt had one episode of diarrhea when spouse states is not uncommon for pt. Integument: None Activity: Patient reported no changes in energy level, energy level fair Do you need to take naps? Yes; Do you wake up feeling rested? Yes Pain: No=0 (pain 0 on a scale of 0-10). Fever: No Chills: No Any new referrals needed? No Reinforced CURRENT treatment education based on current and anticipated symptoms. Discussed port/line care and patient verbalizes understanding: Not Applicable Patient instructed to contact office or after hours Hematology/Oncology fellow for: temperature ? 100.4; questions or concerns. Patient verbalized understanding of when to seek medical attention and after hours number protocol. Carmine Ignacio RN Allergies As of Date: 07/25/2023 (No Known Allergies) Date Reviewed: 07/21/2023 Reviewed by: Josseline Jiménez RN - Fully Assessed Reason for Visit: Care Coordination [3491] Cmt: C1D1 Post Treatment Call Prescriptions as of 07/25/2023 - warfarin (COUMADIN) 5 mg tablet Take 0.5 tablets by mouth once daily. - levothyroxine (SYNTHROID) 50 mcg tablet Take 50 mcg by mouth once daily. - carbidopa-levodopa (SINEMET 25-100) 25-100 mg per tablet Take by mouth two times a day. - ENTRESTO 24-26 mg tablet Take by mouth two times a day. - tamsulosin (FLOMAX) 0.4 mg Take 1 capsule by mouth once daily. - rosuvastatin (CRESTOR) 10 mg tablet Take by mouth once daily. - potassium chloride ER (KLOR-CON M20) 20 mEq tablet Take by mouth once daily. - mirtazapine (REMERON) 15 mg tablet Take by mouth once daily. - metoprolol tartrate, short acting, (LOPRESSOR) 25 mg tablet Take 25 mg by mouth every 12 hours. - finasteride (PROSCAR) 5 mg tablet Take 5 mg by mouth once daily. Problem List As Of Date 07/25/2023 Noted Resolved Squamous cell skin cancer [C44.92] 07/12/2023 Encounter Status:Closed by CARMINE IGNACIO on 07/25/23 [facility] CNOVSPon 07-21-2023 CNOVSP Visit (SP) Office ([place]) MIKE BRASWELL ([id number]) 1940 M Date Time Provider Department 07/21/23 1:00 PM GABRIELLA JAVED During your visit today, we recorded the following information about you: Temperature Pulse Respiration Blood pressure 97 degrees 99/minute 16/minute 150/75 Weight Height 77.2 kg 1.676 m Gabriella Javed APRN.CNP 07/26/2023 1:03 PM Signed PATIENT NAME: Mike Braswell DATE: 07/21/2023 (Elements copied from Rodríguez aPck MD note dated 07/12/2023, have been reviewed and updated where appropriate, and all reflect current assessment and medical decision making during today's encounter, July 21, 2023) PRIMARY CARE PHYSICIAN: Dr. Mark Quintanilla Jr OTHER PHYSICIANS: Dr. Wells; Wilbur Rosa CNP ([facility] Dermatology) CC: This is an 83 year old male with recurrent squamous cell skin cancer here to begin treatment. INTERIM HISTORY: Mike Braswell returns for follow-up and to begin treatment with cemiplimab. There has been no significant medical changes since his last visit. He still has moderate discomfort with oozing from several areas of the skin cancer recurrences. He denies fevers, chills, night sweats and signs/symptoms of infection. Overall he is doing fairly well today and wishes to proceed with treatment as planned. MEDICATIONS: Current Outpatient Medications Medication Sig warfarin (COUMADIN) 5 mg tablet Take 0.5 tablets by mouth once daily. levothyroxine (SYNTHROID) 50 mcg tablet Take 50 mcg by mouth once daily. carbidopa-levodopa (SINEMET 25-100) 25-100 mg per tablet Take by mouth two times a day. ENTRESTO 24-26 mg tablet Take by mouth two times a day. tamsulosin (FLOMAX) 0.4 mg Take 1 capsule by mouth once daily. rosuvastatin (CRESTOR) 10 mg tablet Take by mouth once daily. potassium chloride ER (KLOR-CON M20) 20 mEq tablet Take by mouth once daily. mirtazapine (REMERON) 15 mg tablet Take by mouth once daily. metoprolol tartrate, short acting, (LOPRESSOR) 25 mg tablet Take 25 mg by mouth every 12 hours. finasteride (PROSCAR) 5 mg tablet Take 5 mg by mouth once daily. No current facility-administered medications for this visit. ALLERGIES: ALLERGIES No Known Allergies PAST MEDICAL HISTORY: PAST MEDICAL HISTORY Diagnosis Date Atrial fibrillation (HCC) Dementia (HCC) Hypercholesteremia Hypertension Hypothyroidism Skin cancer PAST SURGICAL HISTORY: PAST SURGICAL HISTORY Procedure Laterality Date PAST SURGICAL HISTORY OF bowel resection due to obstruction PAST SURGICAL HISTORY OF left ear reconstructive surgery due to skin cancer REMOVAL GALLBLADDER TONSILLECTOMY AND ADENOIDECTOMY FAMILY HISTORY: No family history on file. SOCIAL HISTORY: Social History Tobacco Use Smoking status: Never Smokeless tobacco: Never Substance Use Topics Alcohol use: Not Currently Drug use: Never REVIEW OF SYSTEMS: General: No weight loss, malaise or fevers. HEENT: Negative for frequent or significant headaches. No changes in hearing or vision, no nose bleeds or other nasal problems. Respiratory: Negative for cough, wheezing or shortness of breath. Cardiovascular: Negative for chest pain, leg swelling or palpitations. GI: Negative for abdominal discomfort, blood in stools or black stools or change in bowel habits. : No history of dysuria, frequency or incontinence. Musculoskeletal: Negative for: joint pain or swelling, back pain and muscle pain. Skin: Negative for lesions, rash and itching. Hematology/Lymphology: Negative for prolonged bleeding, bruising easily or swollen nodes. Neuro: No history of headaches, syncope, paralysis, seizures or tremors. PHYSICAL EXAM: BP 150/75 Pulse 99 Temp 36.1 ?C (97 ?F) (Temporal) Resp 16 Ht 167.6 cm (5' 6 ) Wt 77.2 kg (170 lb 3.2 oz) SpO2 98% BMI 27.47 kg/m? ECOG 1 Exam limited to gross visualization where appropriate. Gen.: This is an age-appropriate patient in no acute distress. Head: Appears atraumatic with no visible lesions. Eyes: Pupils equally round and reactive to light, extraocular muscles are intact. Neck: Supple. Respiratory: Appears to be respiring comfortably. Neurologic: Nonfocal to gross visualization. Alert and oriented ?3. Psychiatric: No evidence of inappropriate anxiety or depression. Skin: Visible areas of skin without rash, lesions, wounds or petechiae. LABS: No labs today. RADIOLOGY/OTHER STUDIES: 07/12/2023 PET Scan IMPRESSION: 1. Neck: Few scattered foci of cutaneous activity in the scalp. No hypermetabolic lymphadenopathy. 2. Chest: No evidence of FDG avid neoplastic process 3. Abdomen and pelvis: No evidence of FDG avid neoplastic process 4. Skeleton: No hypermetabolic osseous lesions ASSESSMENT/PLAN: 1. Squamous cell skin cancer - ICD9: 173.92, ICD10: C44.92 The patient has a long history of r (more content not included)... Normal [facility] MIKE BRASWELL ([id number]) 1940 M Date Time Provider Department 07/21/23 FINANCIAL NAVIGATOR MALCOLM HEMTSMario During your visit today, we recorded the following information about you: Tommy Vincent 07/21/2023 1:14 PM Signed 1st report of treatment-Benefit investigation complete. Patient is active with [employer], LOC 80%, $226 deductible has $0 remaining. Patient has Plan F supplemental policy which covers the Part B deductible as well as 20% allowable coinsurance. Estimate shows patient financial responsibility is $0 for each treatment in 2022.. Called the patient to discuss, left a voicemail to return call. Allergies As of Date: 07/21/2023 (No Known Allergies) Date Reviewed: 07/21/2023 Reviewed by: Ravi January - Fully Assessed Reason for Visit: Benefits Investigation [4098] Prescriptions as of 07/21/2023 - warfarin (COUMADIN) 5 mg tablet Take 0.5 tablets by mouth once daily. - levothyroxine (SYNTHROID) 50 mcg tablet Take 50 mcg by mouth once daily. - carbidopa-levodopa (SINEMET 25-100) 25-100 mg per tablet Take by mouth two times a day. - ENTRESTO 24-26 mg tablet Take by mouth two times a day. - tamsulosin (FLOMAX) 0.4 mg Take 1 capsule by mouth once daily. - rosuvastatin (CRESTOR) 10 mg tablet Take by mouth once daily. - potassium chloride ER (KLOR-CON M20) 20 mEq tablet Take by mouth once daily. - mirtazapine (REMERON) 15 mg tablet Take by mouth once daily. - metoprolol tartrate, short acting, (LOPRESSOR) 25 mg tablet Take 25 mg by mouth every 12 hours. - finasteride (PROSCAR) 5 mg tablet Take 5 mg by mouth once daily. Problem List As Of Date 07/21/2023 Noted Resolved Squamous cell skin cancer [C44.92] 07/12/2023 Encounter Status:Closed by TOMMY VINCENT on 07/21/23 [facility] [place] 07-19-2023 [place] Telephone ([place]) MIKE BRASWELL ([id number]) 1940 M Date Time Provider Department 07/19/23 GABRIELLA JAVED During your visit today, we recorded the following information about you: Ravi, 07/19/2023 4:21 PM Signed Do you want labs? Patient coming in This 07/21/23 for treatment. Tania DALIA Rodrigues Allergies As of Date: 07/19/2023 (No Known Allergies) Date Reviewed: 07/19/2023 Reviewed by: Carmine Ignacio, ANKIT - Fully Assessed Reason for Visit: Lab Orders [7928] Prescriptions as of 08/08/2023 - warfarin (COUMADIN) 5 mg tablet Take 0.5 tablets by mouth once daily. - levothyroxine (SYNTHROID) 50 mcg tablet Take 50 mcg by mouth once daily. - carbidopa-levodopa (SINEMET 25-100) 25-100 mg per tablet Take by mouth two times a day. - ENTRESTO 24-26 mg tablet Take by mouth two times a day. - tamsulosin (FLOMAX) 0.4 mg Take 1 capsule by mouth once daily. - rosuvastatin (CRESTOR) 10 mg tablet Take by mouth once daily. - potassium chloride ER (KLOR-CON M20) 20 mEq tablet Take by mouth once daily. - mirtazapine (REMERON) 15 mg tablet Take by mouth once daily. - metoprolol tartrate, short acting, (LOPRESSOR) 25 mg tablet Take 25 mg by mouth every 12 hours. - finasteride (PROSCAR) 5 mg tablet Take 5 mg by mouth once daily. Problem List As Of Date 07/19/2023 Noted Resolved Squamous cell skin cancer [C44.92] 07/12/2023 Encounter Status:Closed by RAVIJanuary on 08/08/23 [facility] [place] 07-13-2023 [place] Telephone ([place]) MIKE BRASWELL ([id number]) 1940 M Date Time Provider Department 07/13/23 CARMINE IGNACIO During your visit today, we recorded the following information about you: Carmine Ignacio RN 07/13/2023 1:51 PM Addendum Should he have his flu/covid vaccines prior to start of treatment? ANKIT Redmond Holly, APRN.MS ACCESS DATABASE DEVELOPER 07/13/2023 2:14 PM Signed That would be fine. Or after starting treatment, on an off week of treatment. Gabriella Javed APRN.Carmine Hurley RN 07/13/2023 2:49 PM Signed Pt's son notified and verbalizes understanding. Carmine Ignacio RN Allergies As of Date: 07/13/2023 (No Known Allergies) Date Reviewed: 07/13/2023 Reviewed by: Gabriella Javed APRN.MS ACCESS DATABASE DEVELOPER - Fully Assessed Reason for Visit: Imm/Inj [58] Prescriptions as of 07/13/2023 - minocycline (MINOCIN, DYNACIN) 100 mg capsule TAKE 1 CAPSULE BY MOUTH IN THE MORNING AND 1 IN THE EVENING - warfarin (COUMADIN) 5 mg tablet - levothyroxine (SYNTHROID) 50 mcg tablet - carbidopa-levodopa (SINEMET 25-100) 25-100 mg per tablet - ENTRESTO 24-26 mg tablet - tamsulosin (FLOMAX) 0.4 mg 1 capsule. - rosuvastatin (CRESTOR) 10 mg tablet - potassium chloride ER (KLOR-CON M20) 20 mEq tablet - mirtazapine (REMERON) 15 mg tablet - metoprolol tartrate, short acting, (LOPRESSOR) 25 mg tablet every 12 hours. - finasteride (PROSCAR) 5 mg tablet 1 (one) time each day at the same time. Problem List As Of Date 07/13/2023 Noted Resolved Squamous cell skin cancer [C44.92] 07/12/2023 Encounter Status:Closed by CARMINE IGNACIO on 07/13/23 Normal [facility] CBC W Auto Differential pane l (Bld)on 07-12-2023 Basophils (Bld) [#/Vol] 10*3/uL Normal <0.11 [facility] Comment on above: Order Comment: Speci men Type: BLOOD SPECIMENOrdering Facility: [facility] Address: [address] [address] Performed By: #### 5 7021-8 ####[facility] LABCLIA [id number] [place] [address] Basophils/100 WBC (Bld) 0.3 % Normal [facility] Comment on above: Order Comment: Speci men Type: BLOOD SPECIMENOrdering Facility: [facility] Address: [address] [address] Performed By: #### 5 7021-8 ####[facility] LABCLIA [id number] [place] [address] Differential cell count method Nom (Bld) Auto Normal [facility] Comment on above: Order Comment: Speci men Type: BLOOD SPECIMENOrdering Facility: [facility] Address: [address] [place] [address] Performed By: #### 5 7021-8 ####[facility] LABCLIA [id number] [place] [address] Eosinophils (Bld) [#/Vol] 0.04 10*3/uL Normal <0.46 [facility] Comment on above: Order Comment: Speci men Type: BLOOD SPECIMENOrdering Facility: [facility] Address: [address] [address] Performed By: #### 5 7021-8 ####[facility] LABCLIA [id number] [place] [address] Eosinophils/100 WBC (Bld) 0.6 % Normal [facility] Comment on above: Order Comment: Speci men Type: BLOOD SPECIMENOrdering Facility: [facility] Address: [address] [place] [address] Performed By: #### 5 7021-8 ####[facility] LABCLIA [id number] [place] [address] Erythrocyte distribution width (RBC) [Ratio] 15.3 % High 11.5-15.0 [facility] Comment on above: Order Comment: Speci men Type: BLOOD SPECIMENOrdering Facility: [facility] Address: [address] [place] [address] Performed By: #### 5 7021-8 ####[facility] LABCLIA [id number] [place] [address] Hematocrit (Bld) [Volume fraction] 45.5 % Normal 39.0-51.0 [facility] Comment on above: Order Comment: Speci men Type: BLOOD SPECIMENOrdering Facility: [facility] Address: [address] [place] [address] Performed By: #### 5 7021-8 ####[facility] LABCLIA [id number] [place] [address] Hemoglobin (Bld) [Mass/Vol] 14.5 g/dL Normal 13.0-17.0 [facility] Comment on above: Order Comment: Speci men Type: BLOOD SPECIMENOrdering Facility: [facility] Address: [address] [place] [address] Performed By: #### 5 7021-8 ####[facility] LABCLIA [id number] [place] [address] Immature granulocytes (Bld) [#/Vol] 10*3/uL Normal <0.10 [facility] Comment on above: Order Comment: Speci men Type: BLOOD SPECIMENOrdering Facility: [facility] Address: [address] [place] [address] Performed By: #### 5 7021-8 ####[facility] LABIA [id number] [place] [address] Immature granulocytes/100 WBC (Bld) 0.3 % Normal [facility] Comment on above: Order Comment: Speci men Type: BLOOD SPECIMENOrdering Facility: [facility] Address: [address] [place] [address] Performed By: #### 5 7021-8 ####[facility] LABCLIA [id number] [place] [address] Lymphocytes (Bld) [#/Vol] 0.86 10*3/uL Low 1.00-4.00 [facility] Comment on above: Order Comment: Speci men Type: BLOOD SPECIMENOrdering Facility: [facility] Address: [address] [place] [address] Performed By: #### 5 7021-8 ####[facility] LABCLIA [id number] [place] [address] Lymphocytes/100 WBC (Bld) 13.0 % Normal [facility] Comment on above: Order Comment: Speci men Type: BLOOD SPECIMENOrdering Facility: [facility] Address: [address] [place] [address] Performed By: #### 5 7021-8 ####[facility] LABCLIA [id number] [place] [address] MCH (RBC) [Entitic mass] 30.2 pg Normal 26.0-34.0 [facility] Comment on above: Order Comment: Speci men Type: BLOOD SPECIMENOrdering Facility: [facility] Address: [address] [place] [address] Performed By: #### 5 7021-8 ####[facility] LABCLIA [id number] [place] [address] MCHC (RBC) [Mass/Vol] 31.9 g/dL Normal 30.5-36.0 [facility] Comment on above: Order Comment: Speci men Type: BLOOD SPECIMENOrdering Facility: [facility] Address: [address] [place] [address] Performed By: #### 5 7021-8 ####[facility] LABCLIA [id number] [place] [address] MCV (RBC) [Entitic vol] 94.8 fL Normal 80.0-100.0 [facility] Comment on above: Order Comment: Speci men Type: BLOOD SPECIMENOrdering Facility: [facility] Address: [address] [address] Performed By: #### 5 7021-8 ####[facility] LABCLIA [id number] [place] [address] Monocytes (Bld) [#/Vol] 0.43 10*3/uL Normal <0.87 [facility] Comment on above: Order Comment: Speci men Type: BLOOD SPECIMENOrdering Facility: [facility] Address: [address] [address] Performed By: #### 5 7021-8 ####[facility] LABCLIA [id number] [place] [address] Monocytes/100 WBC (Bld) 6.5 % Normal [facility] Comment on above: Order Comment: Speci men Type: BLOOD SPECIMENOrdering Facility: [facility] Address: [address] [address] Performed By: #### 5 7021-8 ####[facility] LABCLIA [id number] [place] [address] Neutrophils (Bld) [#/Vol] 5.25 10*3/uL Normal 1.45-7.50 [facility] Comment on above: Order Comment: Speci men Type: BLOOD SPECIMENOrdering Facility: [facility] Address: [address] [address] Performed By: #### 5 7021-8 ####[facility] LABCLIA [id number] [place] [address] Neutrophils/100 WBC (Bld) 79.3 % Normal [facility] Comment on above: Order Comment: Speci men Type: BLOOD SPECIMENOrdering Facility: [facility] Address: [address] [address] Performed By: #### 5 7021-8 ####[facility] LABCLIA [id number] [place] [address] Nucleated RBC (Bld) [#/Vol] 10*3/uL Normal <0.01 [facility] Comment on above: Order Comment: Speci men Type: BLOOD SPECIMENOrdering Facility: [facility] Address: [address] [place] [address] Performed By: #### 5 7021-8 ####[facility] LABCLIA [id number] [place] [address] Nucleated RBC/100 WBC (Bld) [Ratio] 0.0 /100 WBC Normal [facility] Comment on above: Order Comment: Speci men Type: BLOOD SPECIMENOrdering Facility: [facility] Address: [address] [place] [address] Performed By: #### 5 7021-8 ####[facility] LABCLIA [id number] [place] [address] Platelet mean volume (Bld) [Entitic vol] 11.3 fL Normal 9.0-12.7 [facility] Comment on above: Order Comment: Speci men Type: BLOOD SPECIMENOrdering Facility: [facility] Address: [address] [place] [address] Performed By: #### 5 7021-8 ####[facility] LABCLIA [id number] [place] [address] Platelets (Bld) [#/Vol] 185 10*3/uL Normal 150-400 [facility] Comment on above: Order Comment: Speci men Type: BLOOD SPECIMENOrdering Facility: [facility] Address: [address] [place] [address] Performed By: #### 5 7021-8 ####[facility] LABCLIA [id number] [place] [address] RBC (Bld) [#/Vol] 4.80 10*6/uL Normal 4.20-6.00 [facility] Comment on above: Order Comment: Speci men Type: BLOOD SPECIMENOrdering Facility: [facility] Address: [place] [address] Performed By: #### 5 7021-8 ####[facility] LABIA [id number] [place] [address] WBC (Bld) [#/Vol] 6.62 10*3/uL Normal 3.70-11.00 [facility] Comment on above: Order Comment: Speci men Type: BLOOD SPECIMENOrdering Facility: [facility] Address: [place] [address] Performed By: #### 5 7021-8 ####[facility] LABIA [id number] [place] [address] CNOVon 07-12-2023 CNOV Office Visit (RADTSA ) MICHAELLEMIKE Shane ([id number]) 1940 M Date Time Provider Department 07/12/23 3:00 PM Sebas WELLS During your visit today, we recorded the following information about you: Temperature Pulse Blood pressure 96.9 degrees 101/minute 141/78 eSbas Wells MD 07/20/2023 2:17 PM Signed Radiation Oncology -follow-up note PATIENT NAME: Mike Braswell PATIENT DIAGNOSIS: Skin cancer, 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 HPI: Patient returns for follow-up with further imaging including PET/CT. Still having irritation mostly from the left posterior auricular and upper chest lesions. But these have improved for him. PET/CT 07/12/2023:1. Neck: Few scattered foci of cutaneous activity in the scalp. No hypermetabolic lymphadenopathy. 2. Chest: No evidence of FDG avid neoplastic process 3. Abdomen and pelvis: No evidence of FDG avid neoplastic process 4. Skeleton: No hypermetabolic osseous lesions ALLERGIES No Known Allergies PAST MEDICAL HISTORY Diagnosis Date Atrial fibrillation (HCC) Dementia (HCC) Hypercholesteremia Hypertension Hypothyroidism Skin cancer Prior radiation therapy, collagen vascular disease, or inflammatory bowel disease: Yes prior superior scalp radiation. PAST SURGICAL HISTORY Procedure Laterality Date PAST SURGICAL HISTORY OF bowel resection due to obstruction PAST SURGICAL HISTORY OF left ear reconstructive surgery due to skin cancer REMOVAL GALLBLADDER TONSILLECTOMY AND ADENOIDECTOMY No family history on file. Social History Tobacco Use Smoking status: Never Smokeless tobacco: Never Substance Use Topics Alcohol use: Not Currently Drug use: Never COMPLETE REVIEW OF SYSTEMS: GENERAL: feeling well without fatigue, no recent change in weight NECK: denies swelling or pain in neck RESPIRATORY: no cough, no wheezing or shortness of breath CARDIOVASCULAR: no chest pain, no palpitations SKIN: See HPI NEURO: no numbness or paresthesias and no weakness of the extremities As noted in HPI PHYSICAL EXAM: VS: BP 141/78 Pulse 101 Temp 36.1 ?C (96.9 ?F) SpO2 99% KPS: 80 General Appearance: Alert and oriented. No acute distress. Neck no adenopathy appreciable Skin: Improved appearance of the left posterior auricular and upper chest wall lesion. Still with shallow-based ulcer type appearance without evidence of exudate or surrounding erythema. Lymphatics: No palpable lymphadenopathy. Hematologic: No signs of active bleeding. 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 Discussed again potential options. PET scan without any obvious underlying issues, several small cutaneous tissues likely correspond to current disease process. No evidence of regional spread. I do feel that palliative radiation may be a suitable option for him to these areas. Patient is concerned about multiple trips back and forth. I do not feel given the extent of disease that very hypofractionated course of treatment would be indicated but more palliative 10 fraction approach may help control these areas. He is seeing medical oncology given his history of multiple skin cancers including multiple different locations and consideration for immunotherapy. Signed by: Sebas Wells MD cc: To use this Smartlink, specify the provider ID whose address you want to display, e.g., .PROVADDR[1 (where 1 is the provider ID). Wilbur Rosa, DRAPERY INSTALLER [address] [facility] [id number] Referring Provider: Sebas WELLS [[id number]] Allergies As of Date: 07/12/2023 (No Known Allergies) Date Reviewed: 07/12/2023 Reviewed by: Ravi January - Fully Assessed Reason for Visit: SKIN CANCER [930] Primary Visit Diagnosis:Carcinoma in situ of skin, squamous cell [D04.9] Prescriptions as of 07/20/2023 - warfarin (COUMADIN) 5 mg tablet Take 0.5 tablets by mouth once daily. - levothyroxine (SYNTHROID) 50 mcg tablet Take 50 mcg by mouth once daily. - carbidopa-levodopa (SINEMET 25-100) 25-100 mg per tablet Take by mouth two times a day. - ENTRESTO 24-26 mg tablet Take by mouth two times a day. - tamsulosin (FLOMAX) 0.4 mg Take 1 capsule by mouth once daily. - rosuvastatin (CRESTOR) 10 mg tablet Take by mouth once daily. - potassium chloride ER (KLOR-CON M20) 20 mEq tablet Take by mouth once daily. - mirtazapine (REMERON) 15 mg tablet Take by mouth once daily. - metoprolol tartrate, short acting, (LOPRESSOR) 25 mg tablet Take 25 mg by mouth every 12 hours. - finasteride (PROSCAR) 5 mg tablet Take 5 mg (more content not included)... Normal [facility] CNOVSPon 07-12-2023 [facility] Visit (SP) Office (MYCHAL) MIKE BRASWELL ([id number]) 1940 M Date Time Provider Department 07/12/23 4:00 PM RODRÍGUEZ PACK During your visit today, we recorded the following information about you: Temperature Pulse Respiration Blood pressure 96.9 degrees 101/minute 18/minute 141/78 Rodríguez Pack MD 07/13/2023 10:17 AM Signed PATIENT NAME: Mike Braswell DATE: 07/12/2023 PRIMARY CARE PHYSICIAN: Mark Quintanilla Jr, DO OTHER PHYSICIANS: Dr. Wells; Wilbur Rosa CNP ([facility] Dermatology) HPI: This is an 83 year old male with recurrent squamous cell skin cancer, referred for further management. The patient has a long history of recurrent cutaneous carcinomas including squamous cell carcinoma, basal cell carcinoma, and squamous cell carcinoma in situ dating back to the early . He has undergone extensive surgeries as well as several courses of radiation therapy. He recently presented with progressive skin lesions over his left upper chest wall, left forearm, left parietal scalp, and right forehead. 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 The multiple areas of disease involvement were unresectable and he was referred to radiation therapy. However, due to the extent of disease and previous courses of radiation it was felt that radiation would not be well-tolerated. He currently is referred to discuss systemic therapy options. He has moderate discomfort with oozing from several areas of the skin cancer recurrences. No severe pain. No recent fevers or signs of infection. Past medical history otherwise is significant for a chronic tremor, possibly indicating early Parkinson's. He has acquired hypothyroidism, currently on Synthroid. Atrial fibrillation on Coumadin. Hypertension and hyperlipidemia controlled with current medications. He does not smoke or drink. Currently he is and lives in the [place] area. 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 MEDICATIONS: Current Outpatient Medications Medication Sig minocycline (MINOCIN, DYNACIN) 100 mg capsule TAKE 1 CAPSULE BY MOUTH IN THE MORNING AND 1 IN THE EVENING warfarin (COUMADIN) 5 mg tablet levothyroxine (SYNTHROID) 50 mcg tablet carbidopa-levodopa (SINEMET 25-100) 25-100 mg per tablet ENTRESTO 24-26 mg tablet tamsulosin (FLOMAX) 0.4 mg 1 capsule. rosuvastatin (CRESTOR) 10 mg tablet potassium chloride ER (KLOR-CON M20) 20 mEq tablet mirtazapine (REMERON) 15 mg tablet metoprolol tartrate, short acting, (LOPRESSOR) 25 mg tablet every 12 hours. finasteride (PROSCAR) 5 mg tablet 1 (one) time each day at the same time. No current facility-administered medications for this visit. ALLERGIES: ALLERGIES No Known Allergies PAST MEDICAL HISTORY: PAST MEDICAL HISTORY Diagnosis Date Atrial fibrillation (HCC) Dementia (HCC) Hypercholesteremia Hypertension Hypothyroidism Skin cancer PAST SURGICAL HISTORY: PAST SURGICAL HISTORY Procedure Laterality Date PAST SURGICAL HISTORY OF bowel resection due to obstruction PAST SURGICAL HISTORY OF left ear reconstructive surgery due to skin cancer REMOVAL GALLBLADDER TONSILLECTOMY AND ADENOIDECTOMY FAMILY HISTORY: No family history on file. SOCIAL HISTORY: Social History Tobacco Use Smoking status: Never Smokeless tobacco: Never Substance Use Topics Alcohol use: Not Currently Drug use: Never COMPLETE REVIEW OF SYSTEMS: CONSTITUTION: Negative for pain, fatigue, weight loss, or appetite loss. EENT: Negative for mouth soreness, antibiotics use, epistaxis, visual problems, neck or facial swelling, fever/chills, bleeding gums, or hearing loss. CV: Negative for edema, calf swelling, palpitations, or chest pain. RESPIRATORY: Negative for cough, SOB, hemoptysis, or wheezing. GI: Negative for nausea/vomiting, heartburn, vomiting blood, dysphasia, diarrhea, blood in stool, constipation, early satiety, PICA, vegetarian, poor nutrition, abdominal fullness, or abdominal pain. NEUROLOGICAL: Negative for numbness/tingling, dizziness, gait disturbance, headache, speech disturbance, tremor, hemiparesis/sensory loss, or change in mental status. MUSCULOSKELETAL: Negative for joint pain, joint swelling, or proximal muscle weakness. SKIN: Negative for hair loss, bruising, nail changes, rash, itching, pallor, or jaundice. ENDO/URO: Negative for hot flashes, cold or heat intolerance, urinary frequency, urinary hesitancy, menorrhagia, or hematuria. PSYCH: Negative for anxiety, depression, or other. PHYSICAL EXAM: BP 141/78 Pulse 101 Temp 36.1 ?C (96.9 ?F) (Temporal) Resp 18 GENERAL EXAM: Well developed/well nourished; in no acute distress. SKIN: Negative for lesions, rashes, or ulcers on the upper and lower extremities and face. Negative for palpations/nodules, purpura, and ecchymosis. EENT: Negative for co (more content not included)... Normal [facility] metabolic 2000 panelon 07-12-2023 Albumin [Mass/Vol] 4.0 g/dL Normal 3.9-4.9 [facility] Comment on above: Order Comment: Speci men Type: BLOOD SPECIMENOrdering Facility: [facility] Address: [address] [place] [address] Performed By: #### 2 4323-8 ####[facility] LABCLIA [id number] [place] [address] ALP [Catalytic activity/Vol] 106 U/L Normal 38-113 [facility] Comment on above: Order Comment: Speci men Type: BLOOD SPECIMENOrdering Facility: [facility] Address: [address] [place] [address] Performed By: #### 2 4323-8 ####[facility] LABCLIA [id number] [place] [address] ALT [Catalytic activity/Vol] U/L Low 10-54 [facility] Comment on above: Order Comment: Speci men Type: BLOOD SPECIMENOrdering Facility: [facility] Address: [address] [place] [address] Performed By: #### 2 4323-8 ####[facility] LABCLIA [id number] [place] [address] Anion gap [Moles/Vol] 11 mmol/L Normal 9-18 [facility] Comment on above: Order Comment: Speci men Type: BLOOD SPECIMENOrdering Facility: [facility] Address: [address] [place] [address] Performed By: #### 2 4323-8 ####[facility] LABCLIA [id number] [place] [address] AST [Catalytic activity/Vol] 18 U/L Normal 14-40 [facility] Comment on above: Order Comment: Speci men Type: BLOOD SPECIMENOrdering Facility: [facility] Address: [address] [place] [address] Performed By: #### 2 4323-8 ####[facility] LABCLIA [id number] [place] [address] Bilirubin [Mass/Vol] 0.6 mg/dL Normal 0.2-1.3 [facility] Comment on above: Order Comment: Speci men Type: BLOOD SPECIMENOrdering Facility: [facility] Address: [address] [place] [address] Performed By: #### 2 4323-8 ####[facility] LABCLIA [id number] [place] [address] Calcium [Mass/Vol] 9.7 mg/dL Normal 8.5-10.2 [facility] Comment on above: Order Comment: Speci men Type: BLOOD SPECIMENOrdering Facility: [facility] Address: [address] [place] [address] Performed By: #### 2 4323-8 ####[facility] LABCLIA [id number] [place] [address] Chloride [Moles/Vol] 104 mmol/L Normal 97-105 [facility] Comment on above: Order Comment: Speci men Type: BLOOD SPECIMENOrdering Facility: [facility] Address: [address] [place] [address] Performed By: #### 2 4323-8 ####[facility] LABCLIA [id number] [place] [address] CO2 [Moles/Vol] 29 mmol/L Normal 22-30 [facility] Comment on above: Order Comment: Speci men Type: BLOOD SPECIMENOrdering Facility: [facility] Address: [address] [place] [address] Performed By: #### 2 4323-8 ####[facility] LABCLIA [id number] [place] [address] Creatinine [Mass/Vol] 0.90 mg/dL Normal 0.73-1.22 [facility] Comment on above: Order Comment: Speci men Type: BLOOD SPECIMENOrdering Facility: [facility] Address: [address] [id number] Performed By: #### 2 4323-8 ####[facility] LABCLIA [id number] [place] [address] Creatinine and Glomerular filtration rate.predicted panel (S/P/Bld) 86 mL/min/1.73m??? Normal >=60 [facility] Comment on above: Order Comment: Speci men Type: BLOOD SPECIMENOrdering Facility: [facility] Address: [address] [place] [address] Result Comment: Marija mated Glomerular Filtration Rate (eGFR) is calculated using the 2020 CKD-EPI creatinine equation. This equation utilizes serum creatinine, sex, and age as parameters. The creatinine assay has traceable calibration to isotope dilution-mass spectrometry. Refer to KDIGO guidelines for clinical interpretation. In patients with unstable renal function, e.g. those with acute kidney injury, the eGFR may not accurately reflect actual GFR. Performed By: #### 2 4323-8 ####[facility] LABCLIA [id number] [place] [address] Glucose [Mass/Vol] 117 mg/dL High 74-99 [facility] Comment on above: Order Comment: Lilia love Type: BLOOD SPECIMENOrdering Facility: [facility] Address: [address] [place] [address] Result Comment: The [place] [employer] (ADA) provides guidance for cutoff values for fasting glucose and random glucose. The ADA defines fasting as no caloric intake for at least 8 hours. Fasting plasma glucose results between 100 to 125 mg/dL indicate increased risk for diabetes (prediabetes). Fasting plasma glucose results greater than or equal to 126 mg/dL meet the criteria for diagnosis of diabetes. In the absence of unequivocal hyperglycemia, results should be confirmed by repeat testing. In a patient with classic symptoms of hyperglycemia or hyperglycemic crisis, random plasma glucose results greater than or equal to 200 mg/dL meet the criteria for diagnosis of diabetes. Reference: Standards of Medical Care in Diabetes 2016, [place] [employer]. Diabetes Care. 2016.39(Suppl 1). Performed By: #### 2 4323-8 ####[facility] LABCLIA [id number] [place] [address] Potassium [Moles/Vol] 4.6 mmol/L Normal 3.7-5.1 [facility] Comment on above: Order Comment: Speci men Type: BLOOD SPECIMENOrdering Facility: [facility] Address: [address] [place] [address] Performed By: #### 2 4323-8 ####[facility] LABCLIA [id number] [place] [address] Protein [Mass/Vol] 7.1 g/dL Normal 6.3-8.0 [facility] Comment on above: Order Comment: Speci men Type: BLOOD SPECIMENOrdering Facility: [facility] Address: [address] [place] [address] Performed By: #### 2 4323-8 ####[facility] LABIA [id number] [place] [address] Sodium [Moles/Vol] 144 mmol/L Normal 136-144 [facility] Comment on above: Order Comment: Speci men Type: BLOOD SPECIMENOrdering Facility: [facility] Address: [address] [place] [address] Performed By: #### 2 4323-8 ####[facility] LABCLIA [id number] [place] [address] Urea nitrogen [Mass/Vol] 19 mg/dL Normal 9-24 [facility] Comment on above: Order Comment: Speci men Type: BLOOD SPECIMENOrdering Facility: [facility] Address: [address] [place] [address] Performed By: #### 2 4323-8 ####[facility] LABIA [id number] [place] [address] NM PET/CT SKULL-THIGH INITon 07-12-2023 NM PET/CT SKULL-THIGH INIT * * *Final Report* * * DATE OF EXAM: Jul 12 2023 2:21PM NRN 0060 - NM PET/CT SKULL-THIGH INIT / PROCEDURE REASON: multiple diagnoses * * * * Physician Interpretation * * * * RESULT: FDG PET/CT SCAN: CLINICAL HISTORY: Squamous cell carcinoma skin INDICATION: Initial treatment strategy. TECHNIQUE: 10.8 mCi 18-FDG IV, followed about 1 hour later by PET imaging from base of the skull to proximal femur with head and neck imaging. Non contrast CT was performed for attenuation correction and anatomic localization purposes. CT Dose-Length Product (DLP): 264 mGy*cm. CT Dose Reduction Employed: Yes BLOOD GLUCOSE: 81 mg/dL RESULT: HEAD AND NECK: Likely physiological activity in the oral cavity, tonsillar regions, salivary glands, visualized brain. Few scattered areas of cutaneous activity in the scalp for example Left parietal scalp (max SUV 3.8), right forehead (max SUV 2.1) There is no hypermetabolic cervical lymphadenopathy. CHEST: There are aortic and coronary calcifications. There is no hypermetabolic hilar or mediastinal lymphadenopathy. There is no hypermetabolic axillary lymphadenopathy. Cardiomegaly. There are no hypermetabolic foci in the lungs. ABDOMEN AND PELVIS: The liver is slightly heterogeneous activity but no focal lesions are identified. There are no hypermetabolic foci in the liver, spleen, adrenals. There is no hypermetabolic abdominal or pelvic lymphadenopathy. Physiologic activity is noted in the liver, renal collecting system, bladder and bowel. SKELETON: There are no hypermetabolic osseous lesions. Few scattered non-FDG avid osseous lesions. Cinder Dump Crane Operator (topogram) images:No additional findings. - IMPRESSION: 1. Neck: Few scattered foci of cutaneous activity in the scalp. No hypermetabolic lymphadenopathy. 2. Chest: No evidence of FDG avid neoplastic process 3. Abdomen and pelvis: No evidence of FDG avid neoplastic process 4. Skeleton: No hypermetabolic osseous lesions Transcribe Date/Time: Jul 13 2023 11:41A Dictated by: SANCHO JENKINS MD This examination was interpreted and the report reviewed and electronically signed by: SANCHO JENKINS MD on Jul 13 2023 11:59AM EST Thank you for allowing us to participate in the care of your patient. Should there be any questions regarding this interpretation, please call [phone]. If you are unable to reach us at the number above, please feel free to contact [facility]Radiology at [phone]. [id number] Normal [facility] T4/FTI/T4Uon 07-12-2023 FTI 9.3 ug/dL Normal 5.3-10.8 [facility] Comment on above: Order Comment: Speci men Type: BLOOD SPECIMENOrdering Facility: [facility] Address: [address] [place] [address] Performed By: #### T 4FTYSON, 6-3 ####[facility] [id number] [place] [address] [place] T4 [Mass/Vol] 8.0 ug/dL Normal 5.5-10.2 [facility] Comment on above: Order Comment: Speci men Type: BLOOD SPECIMENOrdering Facility: [facility] Address: [address] [place] [address] Performed By: #### T 4FTI, 6-3 ####[facility] [id number] [address] STATES OF [facility] T4 uptake [Mass/Vol] 0.86 Low 0.91-1.19 [facility] Comment on above: Order Comment: Speci men Type: BLOOD SPECIMENOrdering Facility: [facility] Address: [address] [place] [address] Performed By: #### T 4FTI, 6-3 ####[facility] [id number] [place] [address] [place] TSH SerPl-aCncon 07-12-2023 TSH Qn 6.870 m[IU]/L High 0.270-4.200 [facility] Comment on above: Order Comment: Speci men Type: BLOOD SPECIMENOrdering Facility: [facility] Address: [address] [place] [address] Performed By: #### T 4FTI, 3016-3 ####[facility] LABSABI [id number] JETHRO COOLEY [id number] OF [facility] CNOVon 06-22-2023 CNOV Office Visit (RADTSA ) MICHAELLEMIKE Wen ([id number]) 1940 M Date Time Provider Department 06/22/23 11:00 AM Sebas WELLS During your visit today, we recorded the following information about you: Temperature Pulse Respiration Blood pressure 96.4 degrees 54/minute 18/minute 153/86 Weight 77 kg Sebas Wells MD 06/29/2023 10:56 AM Signed Radiation Oncology -follow-up note PATIENT NAME: Mike Braswell PATIENT DIAGNOSIS: Skin cancer, 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 HPI: Patient states he is less tenderness in his lesions though still complains of irritation particularly in the left posterior scalp lesion as well as anterior chest lesion. He is due to complete course of antibiotics this week. No fever. He is here today with his and son. ALLERGIES No Known Allergies PAST MEDICAL HISTORY Diagnosis Date Atrial fibrillation (HCC) Dementia (HCC) Hypercholesteremia Hypertension Hypothyroidism Prior radiation therapy, collagen vascular disease, or inflammatory bowel disease: Yes prior superior scalp radiation. PAST SURGICAL HISTORY Procedure Laterality Date PAST SURGICAL HISTORY OF bowel resection due to obstruction PAST SURGICAL HISTORY OF left ear reconstructive surgery due to skin cancer REMOVAL GALLBLADDER TONSILLECTOMY AND ADENOIDECTOMY No family history on file. Social History Tobacco Use Smoking status: Never Smokeless tobacco: Never Substance Use Topics Alcohol use: Not Currently Drug use: Never COMPLETE REVIEW OF SYSTEMS: GENERAL: feeling well without fatigue, no recent change in weight NECK: denies swelling or pain in neck RESPIRATORY: no cough, no wheezing or shortness of breath CARDIOVASCULAR: no chest pain, no palpitations SKIN: See HPI NEURO: no numbness or paresthesias and no weakness of the extremities As noted in HPI PHYSICAL EXAM: VS: BP 153/86 Pulse (!) 54 Temp (!) 35.8 ?C (96.4 ?F) Resp 18 Wt 77 kg (169 lb 12.8 oz) SpO2 94% KPS: 80 General Appearance: Alert and oriented. No acute distress. Neck no adenopathy appreciable Skin: Lesions including the left forearm measuring approximately 2 x 2 cm, left upper chest wall measuring approximately 5 x 5 cm, posterior auricular area large 12 x 5 cm area anterior irregular area approximately 3 x 4 right forehead area grossly 4 x 4 cm. All very thin shallow-based ulcer appearance. Lymphatics: No palpable lymphadenopathy. Hematologic: No signs of active bleeding. 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 Given the extent of his lesions and history of invasive process I do feel further imaging warranted, to rule out other underlying cause or potential regional spread. Again options were discussed with patient. I do have concern about treating definitively to the large areas and would recommend a more protracted course of treatment should be go that route. Other consideration would be a shorter more palliative course of treatment which may give him control and could be repeated down the road for recurrence. We also discussed potential role of PD- 1 checkpoint inhibitor systemic treatment given the extent of his lesions and recommend at least referral and consultation with medical oncology regarding this. We will have him back after his PET scan. Signed by: Sebas Wells MD cc: To use this Smartlink, specify the provider ID whose address you want to display, e.g., .PROVADDR[1 (where 1 is the provider ID). Wilbur Rosa, JANET [address] [facility] [address] Referring Provider: SELF [200] Allergies As of Date: 06/22/2023 (No Known Allergies) Date Reviewed: 06/22/2023 Reviewed by: Josie Chen, ANKIT - Fully Assessed Reason for Visit: SKIN CANCER [930] Primary Visit Diagnosis:Carcinoma in situ of skin, squamous cell [D04.9] Other Visit Diagnoses:Skin cancer of face [C44.300] Squamous cell carcinoma of skin of other parts of face [C44.329] Order(s):NM PET/CT SKULL-THIGH INITIAL [0927828] Order #: [id number] FUTURE CONSULT TO ONCOLOGY [9023] Order #: [id number]: 1 FUTURE Prescriptions as of 06/29/2023 - minocycline (MINOCIN, DYNACIN) 100 mg capsule TAKE 1 CAPSULE BY MOUTH IN THE MORNING AND 1 IN THE EVENING - warfarin (COUMADIN) 5 mg tablet - levothyroxine (SYNTHROID) 50 mcg tablet - carbidopa-levodopa (SINEMET 25-100) 25-100 mg per tablet - ENTRESTO 24-26 mg tablet - tamsulosin (FLOMAX) 0.4 mg 1 capsule. - rosuvastatin (CRESTOR) 10 mg tablet - potassium chloride ER (KLOR-CON M20) 20 mEq tablet - mirtazapine (REMERON) 15 mg tablet - metoprolol tartrate, sh (more content not included)... 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 HPI: 83 year old male who presents with above diagnosis, for an opinion regarding the role of radiation therapy in the management of the patient's disease. Final recommendations will be communicated back to the requesting physician by way of the shared medical record, or letter to requesting physician via US mail. Patient has a longstanding history of squamous cell carcinoma involving multiple areas of skin. He has had prior treatment including radiation in the to superior scalp vertex. Also had resections including partial ear resection and reconstruction (left) 3 to 4 years ago. Presents recently with multiple areas including left upper chest 2 areas on his left forearm left posterior auricular and left parietal scalp as well as right forehead. He states he has moderate discomfort in the area involving his upper chest and behind his left ear. He denies any fever. He underwent further evaluation with dermatology including biopsy of the above-noted areas. Lesions biopsied with notable sizes at time of biopsy as noted below: 1. Left forearm 1.5 x 1.5 cm Pathology showing squamous of carcinoma in situ. 2. Left upper chest 5.5 x 5.5 cm Pathology showing squamous of carcinoma in situ. 3. Left occipital scalp 12.0 x 6.0 cm Pathology showing squamous of carcinoma in situ. 4. Left parietal scalp 4.5 x 2.0 cm Pathology showing squamous of carcinoma in situ. 5. Right forehead 5.0 x 4.0 cm Pathology showing squamous of carcinoma in situ. ALLERGIES No Known Allergies PAST MEDICAL HISTORY Diagnosis Date Atrial fibrillation (HCC) Dementia (HCC) Hypercholesteremia Hypertension Hypothyroidism Prior radiation therapy, collagen vascular disease, or inflammatory bowel disease: Yes prior superior scalp radiation. PAST SURGICAL HISTORY Procedure Laterality Date PAST SURGICAL HISTORY OF bowel resection due to obstruction PAST SURGICAL HISTORY OF left ear reconstructive surgery due to skin cancer REMOVAL GALLBLADDER TONSILLECTOMY AND ADENOIDECTOMY History reviewed. No pertinent family history. Social History Tobacco Use Smoking status: Never Smokeless tobacco: Never Substance Use Topics Alcohol use: Not Currently Drug use: Never COMPLETE REVIEW OF SYSTEMS: GENERAL: feeling well without fatigue, no recent change in weight NECK: denies swelling or pain in neck RESPIRATORY: no cough, no wheezing or shortness of breath CARDIOVASCULAR: no chest pain, no palpitations SKIN: See HPI NEURO: no numbness or paresthesias and no weakness of the extremities As noted in HPI PHYSICAL EXAM: VS: BP 149/91 Pulse 63 Resp 16 Wt 76.7 kg (169 lb) SpO2 99% KPS: 80 General Appearance: Alert and oriented. No acute distress. HEENT: NCAT. Sclera anicteric. PERRL. EOMI. Neck: Normal ROM. No palpable cervical or supraclavicular adenopathy. Neuro: Speech fluent. Gait normal. No focal deficits. Skin: Lesions including the left forearm measuring approximately 2 x 2 cm, left upper chest wall measuring approximately 5 x 5 cm, posterior auricular area large 12 x 5 cm area anterior irregular area approximately 3 x 4 right forehead area grossly 4 x 4 cm. All very thin shallow-based ulcer appearance. Lymphatics: No palpable lymphadenopathy. Hematologic: No signs of active bleeding. 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 Patient has a fairly advanced process particularly in the left scalp region. It may be reasonable to obtain imaging despite in situ histology given multiple large areas. In terms of options consideration of radiation although I am concerned about his tolerance given his age and with fairly large area of treatment. However these in situ lesion sometimes will respond reasonably well to more moderate doses which may be able to be given on a shorter course of treatment. It is unclear whether he would benefit from consideration of a PD-1 checkpoint inhibitor which has been shown has success in invasive squamous cell carcinomas of the skin. Given the extent and number of his lesions this may b (more content not included)... Normal [facility] BNPon 11-23-2022 Natriuretic peptide B (Bld) [Mass/Vol] 2490.0 pg/mL Critically high <=1,800.0 [facility] Comment on above: Performed By: #### C JULIANA, TSH, ELEC, BNP, LIPID, LIVER, BUN #### [facility] [address] [place], [place] [address] Dr. Jarett Reece BUNon 11-23-2022 Urea nitrogen [Mass/Vol] 21.0 mg/dL Critically high 7.0-18.0 [facility] Comment on above: Performed By: #### C JULIANA, TSH, ELEC, BNP, LIPID, LIVER, BUN #### [facility] [address] [place], [place] [address] Dr. Jarett Reece CBC AUTO DIFFon 11-23-2022 BASO # 0.0 103/ul Normal 0.0-0.1 [facility] Comment on above: Performed By: #### C BC #### [facility] [address] [place] [address] Dr. Jarett Reece Basophils/100 WBC (Bld) 0.5 % Normal 0.2-2.0 [facility] Comment on above: Performed By: #### C BC #### [facility] [address] [place] [address] Dr. Jarett Reece EO # 0.1 103/ul Normal 0.0-0.7 [facility] Comment on above: Performed By: #### C BC #### [facility] [address] [place] [address] Dr. Jarett Reece Eosinophils/100 WBC (Bld) 1.1 % Normal 0.9-7.0 [facility] Comment on above: Performed By: #### C BC #### [facility] [address] [place] [address] Dr. Jarett Reece Erythrocyte distribution width (RBC) [Ratio] 14.6 % Normal 11.0-15.0 [facility] Comment on above: Performed By: #### C BC #### [facility] [address] [place] [address] Dr. Jarett Reece Hematocrit (Bld) [Volume fraction] 46.1 % Normal 42.0-54.0 [facility] Comment on above: Performed By: #### C BC #### [facility] [address] [place] [address] Dr. Jarett Reece Hemoglobin (Bld) [Mass/Vol] 14.7 g/dL Normal 14.0-18.0 [facility] Comment on above: Performed By: #### C BC #### [facility] [address] [place] [address] Dr. Jarett Reece IG # 0.01 10e3/ul Normal 0.00-0.03 [facility] Comment on above: Performed By: #### C BC #### [facility] [address] [place] [address] Dr. Jarett Reece IG % 0.2 % Normal 0.0-0.5 [facility] Comment on above: Performed By: #### C BC #### [facility] [address] [place] [address] [address] Jarett Reece LYMPH # 1.1 103/ul Critically low 1.2-3.8 [facility] Comment on above: Performed By: #### C BC #### [facility] [address] [place] [address] [address] Jarett Reece Lymphocytes/100 WBC (Bld) 17.2 % Critically low 20.5-60.0 [facility] Comment on above: Performed By: #### C BC #### [facility] [address] [place] [address] Dr. Jarett Reece MANUAL DIFF REQ NO Normal [facility] Comment on above: Performed By: #### C BC #### [facility] [address] [place] [address] Dr. Jarett Reece MCH (RBC) [Entitic mass] 31.1 pg Normal 25.9-34.0 [facility] Comment on above: Performed By: #### C BC #### [facility] [address] [place] [address] Dr. Jarett Reece MCHC (RBC) [Mass/Vol] 31.9 g/dL Normal 29.9-35.2 [facility] Comment on above: Performed By: #### C BC #### [facility] [address] [place] [address] Dr. Jarett Reece MCV (RBC) [Entitic vol] 97.5 fL Critically high 80.0-94.0 [facility] Comment on above: Performed By: #### C BC #### [facility] [address] [place] [address] Dr. Jarett Reece MONO # 0.4 103/ul Normal 0.3-0.8 [facility] Comment on above: Performed By: #### C BC #### [facility] [address] [place] [address] Dr. Jarett Reece Monocytes/100 WBC (Bld) 7.0 % Normal 1.7-12.0 [facility] Comment on above: Performed By: #### C BC #### [facility] [address] [place] [address] Dr. Jarett Reece NEUT # 4.7 103/ul Normal 1.4-6.5 [facility] Comment on above: Performed By: #### C BC #### [facility] [address] [place] [address] Dr. Jarett Reece Neutrophils/100 WBC (Bld) 74.0 % Normal 43.0-75.0 [facility] Comment on above: Performed By: #### C BC #### [facility] [address] [place] [address] Dr. Jarett Reece Platelet mean volume (Bld) [Entitic vol] 11.1 fL Normal 9.5-13.5 [facility] Comment on above: Performed By: #### C BC #### [facility] [address] [place] [address] Dr. Jarett Reece PLT 165 103/ul Normal 150-450 [facility] Comment on above: Performed By: #### C BC #### [facility] [address] [place] [address] Dr. Jarett Reece RBC 4.73 106/ul Normal 4.70-6.10 [facility] Comment on above: Performed By: #### C BC #### [facility] [address] [place] [address] Dr. Jarett Reece WBC 6.3 103/ul Normal 4.0-11.0 [facility] Comment on above: Performed By: #### C BC #### [facility] [address] [place] [address] Dr. Jarett Reece CREATININEon 11-23-2022 Creatinine [Mass/Vol] 0.78 mg/dL Normal 0.70-1.30 [facility] Comment on above: Performed By: #### C JULIANA, TSH, ELEC, BNP, LIPID, LIVER, BUN #### [facility] [address] [place] [address] Dr. Jarett Reece EGFR-AF AUSTRALIAN >60 Normal >=60 [facility] Comment on above: Performed By: #### C JULIANA, TSH, ELEC, BNP, LIPID, LIVER, BUN #### [facility] [address] [place] [address] [address] Jarett Reece EGFR-NON AF AUSTRALIAN >60 Normal >=60 [facility] Comment on above: Performed By: #### C JULIANA, TSH, ELEC, BNP, LIPID, LIVER, BUN #### [facility] [address] [place] [address] [address] Jarett Reece ELECTROLYTESon 11-23-2022 Anion gap [Moles/Vol] 13.7 mmol/L Normal [facility] Comment on above: Performed By: #### C JULIANA, TSH, ELEC, BNP, LIPID, LIVER, BUN #### [facility] [address] [place] [address] Dr. Jarett Reece Chloride [Moles/Vol] 104 mmol/L Normal 98-107 [facility] Comment on above: Performed By: #### C JULIANA, TSH, ELEC, BNP, LIPID, LIVER, BUN #### [facility] [address] [place] [address] [address] Jarett Reece CO2 [Moles/Vol] 26.4 mmol/L Normal 21.0-32.0 [facility] Comment on above: Performed By: #### C JULIANA, TSH, ELEC, BNP, LIPID, LIVER, BUN #### [facility] [address] [place] [address] Dr. Jarett Reece Potassium [Moles/Vol] 4.1 mmol/L Normal 3.5-5.1 [facility] Comment on above: Performed By: #### C JULIANA, TSH, ELEC, BNP, LIPID, LIVER, BUN #### [facility] [address] [place] [address] [address] Jarett Reece Sodium [Moles/Vol] 140 mmol/L Normal 136-145 [facility] Comment on above: Performed By: #### C JULIANA, TSH, ELEC, BNP, LIPID, LIVER, BUN #### [facility] [address] [place] [address] [address] Jarett Reece GLYCOHEMOGLOBIN A1Con 2022 ADA RECOMMENDATION SEE BELOW Normal [facility] Comment on above: Result Comment: ADA RECOMMENDED LIMIT 4.0 - 6.0 ADA THERAPEUTIC TARGET < 7.0 ACTION SUGGESTED > 7.0 Performed By: #### S EDR #### [facility] [address] [place] [address] [address] Jarett Reece Glucose [Mass/Vol] 108 mg/dL Normal [facility] Comment on above: Performed By: #### S EDR #### [facility] [address] [place] [address] [address] Jarett Reece HbA1c (Bld) [Mass fraction] 5.4 % Normal 4.5-6.2 [facility] Comment on above: Performed By: #### S EDR #### [facility] [address] [place] [address] Dr. Jarett Reece LIPID PROFILEon 11-23-2022 CHOL-HDL RATIO NORM SEE BELOW Normal [facility] Comment on above: Result Comment: 3.3 - 4.4 LOW RISK 4.4 - 7.1 AVERAGE RISK 7.1 - 11.0 MODERATE RISK >11.0 HIGH RISK Performed By: #### C JULIANA, TSH, ELEC, BNP, LIPID, LIVER, BUN #### [facility] [address] [address] [address] Jarett Reece Cholesterol [Mass/Vol] 104 mg/dL Normal <=200 [facility] Comment on above: Performed By: #### C JULIANA, TSH, ELEC, BNP, LIPID, LIVER, BUN #### [facility] [address] [address] [address] Jarett Reece Cholesterol in HDL [Mass/Vol] 63 mg/dL Critically high 40-60 [facility] Comment on above: Performed By: #### C JULIANA, TSH, ELEC, BNP, LIPID, LIVER, BUN #### [facility] [address] [place] [address] Dr. Jarett Reece Cholesterol in LDL [Mass/Vol] 32.6 mg/dL Normal [facility] Comment on above: Performed By: #### C JULIANA, TSH, ELEC, BNP, LIPID, LIVER, BUN #### [facility] [address] [address] [address] Jarett Reece Cholesterol.total/Ch olesterol in HDL [Mass ratio] 1.7 {ratio} Normal [facility] Comment on above: Performed By: #### C JULIANA, TSH, ELEC, BNP, LIPID, LIVER, BUN #### [facility] [address] [address] [address] Jarett Reece HDL NORMAL > or = 60 mg/dl - LO W CARDIOVASCULAR RISK <40 mg/dl - HIGH CARDIOVASCULAR RISK Normal [facility] Comment on above: Performed By: #### C JULIANA, TSH, ELEC, BNP, LIPID, LIVER, BUN #### [facility] [address] [address] [address] Jarett Reece LDL CALC NORMAL SEE BELOW Normal [facility] Comment on above: Result Comment: <100 mg/dl OPTIMAL 100 - 129 mg/dl NEAR OR ABOVE OPTIMAL 130 - 159 mg/dl BORDERLINE HIGH 160 - 189 mg/dl HIGH >190 mg/dl VERY HIGH Performed By: #### C JULIANA, TSH, ELEC, BNP, LIPID, LIVER, BUN #### [facility] [address] [address] [address] Jarett Reece Triglyceride [Mass/Vol] 42 mg/dL Normal <=150 [facility] Comment on above: Performed By: #### C JULIANA, TSH, ELEC, BNP, LIPID, LIVER, BUN #### [facility] [address] [address] [address] Jarett Reece VLDL CALC 8.4 mg/dL Normal [facility] Comment on above: Performed By: #### C JULIANA, TSH, ELEC, BNP, LIPID, LIVER, BUN #### [facility] [address] [address] [address] Jarett Reece LIVER PROFILEon 11-23-2022 Albumin [Mass/Vol] 3.7 g/dL Normal 3.4-5.0 [facility] Comment on above: Performed By: #### C JULIANA, TSH, ELEC, BNP, LIPID, LIVER, BUN #### [facility] [address] [address] [address] Jarett Reece Albumin/Globulin [Mass ratio] 0.9 {ratio} Normal [facility] Comment on above: Performed By: #### C JULIANA, TSH, ELEC, BNP, LIPID, LIVER, BUN #### [facility] [address] [place] [address] Dr. Jarett Reece ALP [Catalytic activity/Vol] 100 U/L Normal 46-116 [facility] Comment on above: Performed By: #### C JULIANA, TSH, ELEC, BNP, LIPID, LIVER, BUN #### [facility] [address] [place] [address] Dr. Jarett Reece ALT [Catalytic activity/Vol] 13 U/L Critically low 16-63 [facility] Comment on above: Performed By: #### C JULIANA, TSH, ELEC, BNP, LIPID, LIVER, BUN #### [facility] [address] [place] [address] Dr. Jarett Reece AST [Catalytic activity/Vol] 9 U/L Critically low 15-37 [facility] Comment on above: Performed By: #### C JULIANA, TSH, ELEC, BNP, LIPID, LIVER, BUN #### [facility] [address] [place] [address] Dr. Jarett Reece BILI, CONJUGATED 0.2 mg/dL Normal 0.0-0.2 [facility] Comment on above: Performed By: #### C JULIANA, TSH, ELEC, BNP, LIPID, LIVER, BUN #### [facility] [address] [place] [address] Dr. Jarett Reece Bilirubin [Mass/Vol] 0.7 mg/dL Normal 0.2-1.0 [facility] Comment on above: Performed By: #### C JULIANA, TSH, ELEC, BNP, LIPID, LIVER, BUN #### [facility] [address] [place] [address] Dr. Jarett Reece Globulin (S) [Mass/Vol] 4.1 g/dL Normal [facility] Comment on above: Performed By: #### C JULIANA, TSH, ELEC, BNP, LIPID, LIVER, BUN #### [facility] [address] [address] [address] Jarett Reece Protein [Mass/Vol] 7.8 g/dL Normal 6.4-8.2 [facility] Comment on above: Performed By: #### C JULIANA, TSH, ELEC, BNP, LIPID, LIVER, BUN #### [facility] [address] [place] [address] Dr. Jarett Reece SED RATE WESTERGRENon 2022 SED RATE 50 mm/hr Critically high <=20 [facility] Comment on above: Performed By: #### S EDR #### [facility] [address] [place] [address] Dr. Jarett Reece TSHon 11-23-2022 TSH 6.731 uIU/mL Critically high 0.358-3.740 [facility] Comment on above: Performed By: #### C JULIANA, TSH, ELEC, BNP, LIPID, LIVER, BUN #### [facility] [address] [place] [address] Dr. Jarett Reece BNPon 07-06-2022 Natriuretic peptide B (Bld) [Mass/Vol] 3767.0 pg/mL Critically high <=1,800.0 [facility] Comment on above: Performed By: #### S EDR #### [facility] [address] [place] [address] Dr. Jarett Reece BUNon 07-06-2022 Urea nitrogen [Mass/Vol] 18.0 mg/dL Normal 7.0-18.0 [facility] Comment on above: Performed By: #### S EDR #### [facility] [address] [place] [address] Dr. Jarett Reece CREATININEon 07-06-2022 Creatinine [Mass/Vol] 1.03 mg/dL Normal 0.70-1.30 [facility] Comment on above: Performed By: #### S EDR #### [facility] [address] [place] [address] Dr. Jarett Reece EGFR-AF AUSTRALIAN >60 Normal >=60 [facility] Comment on above: Performed By: #### S EDR #### [facility] [address] [address] [address] Jarett Reece EGFR-NON AF AUSTRALIAN >60 Normal >=60 [facility] Comment on above: Performed By: #### S EDR #### [facility] [address] [address] [address] Jarett Reece ELECTROLYTESon 07-06-2022 Anion gap [Moles/Vol] 15.3 mmol/L Normal [facility] Comment on above: Performed By: #### S EDR #### [facility] [address] [address] [address] Jarett Reece Chloride [Moles/Vol] 104 mmol/L Normal 98-107 [facility] Comment on above: Performed By: #### S EDR #### [facility] [address] [address] [address] Jarett Reece CO2 [Moles/Vol] 27.2 mmol/L Normal 21.0-32.0 [facility] Comment on above: Performed By: #### S EDR #### [facility] [address] [address] [address] Jarett Reece Potassium [Moles/Vol] 3.5 mmol/L Normal 3.5-5.1 [facility] Comment on above: Performed By: #### S EDR #### [facility] [address] [address] [address] Jarett Reece Sodium [Moles/Vol] 143 mmol/L Normal 136-145 [facility] Comment on above: Performed By: #### S EDR #### [facility] [address] [address] [address] Jarett Reece GLUCOSE BLOODon 07-06-2022 Glucose [Mass/Vol] 80 mg/dL Normal 74-106 [facility] Comment on above: Performed By: #### S EDR #### [facility] [address] [address] [address] Jarett Reece LIPID PROFILEon 07-06-2022 CHOL-HDL RATIO NORM SEE BELOW Normal [facility] Comment on above: Result Comment: 3.3 - 4.4 LOW RISK 4.4 - 7.1 AVERAGE RISK 7.1 - 11.0 MODERATE RISK >11.0 HIGH RISK Performed By: #### S EDR #### [facility] [address] [address] [address] Jarett Reece Cholesterol [Mass/Vol] 114 mg/dL Normal <=200 [facility] Comment on above: Performed By: #### S EDR #### [facility] [address] [address] [address] Jarett Reece Cholesterol in HDL [Mass/Vol] 59 mg/dL Normal 40-60 [facility] Comment on above: Performed By: #### S EDR #### [facility] [address] [place] [address] Dr. Jarett Reece Cholesterol in LDL [Mass/Vol] 44.8 mg/dL Normal [facility] Comment on above: Performed By: #### S EDR #### [facility] [address] [address] [address] Jarett Reece Cholesterol.total/Ch olesterol in HDL [Mass ratio] 1.9 {ratio} Normal [facility] Comment on above: Performed By: #### S EDR #### [facility] [address] [place] [address] Dr. Jarett Reece HDL NORMAL > or = 60 mg/dl - LO W CARDIOVASCULAR RISK <40 mg/dl - HIGH CARDIOVASCULAR RISK Normal [facility] Comment on above: Performed By: #### S EDR #### [facility] [address] [place] [address] Dr. Jarett Reece LDL CALC NORMAL SEE BELOW Normal [facility] Comment on above: Result Comment: <100 mg/dl OPTIMAL 100 - 129 mg/dl NEAR OR ABOVE OPTIMAL 130 - 159 mg/dl BORDERLINE HIGH 160 - 189 mg/dl HIGH >190 mg/dl VERY HIGH Performed By: #### S EDR #### [facility] [address] [place] [address] Dr. Jarett Reece Triglyceride [Mass/Vol] 51 mg/dL Normal <=150 [facility] Comment on above: Performed By: #### S EDR #### [facility] [address] [address] [address] Jarett Reece VLDL CALC 10.2 mg/dL Normal [facility] Comment on above: Performed By: #### S EDR #### [facility] [address] [address] [address] Jarett Reece SED RATE WESTERGRENon 2021 SED RATE 11 mm/hr Normal <=20 [facility] Comment on above: Performed By: #### S EDR #### [facility] [address] [address] [address] Jarett Reece TSHon 07-06-2022 TSH 6.392 uIU/mL Critically high 0.358-3.740 [facility] Comment on above: Performed By: #### S EDR #### [facility] [address] [address] [address] Jarett Reece Coagulation Profileon 2021 aPTT Coag (Bld) [Time] 37.4 s High 25.1-36.5 [facility] Comment on above: Result Comment: PERF ORMED BY: [place] [address] PATHOLOGIST MOTORCYCLE DELIVERER ADRIANA ARMSTRONG M.D. Performed By: #### P P #### [facility] [address] [place] [address] INR Coag (PPP) [Relative time] 1.5 {INR} Normal [facility] Comment on above: Result Comment: INR Therapeutic Range A) Pre- and Peroperative OAT started two weeks before surgery. NOT HIP SURGERY: 1.5 - 2.5 HIP SURGERY: 2 - 3 B) Primary and secondary prevention of venous THROMBOSIS: 2 - 3 C) Active venous thrombosis, pulmonary embolism and prevention of recurrent venous thrombosis: 2 - 3 D) Prevention of arterial thromboembolism including patients with mechanical heart valves: 3 - 4.5 Performed By: #### P P #### [facility] [address] [place] [address] PT Coag (PPP) [Time] 16.8 s High 9.0-12.9 [facility] Comment on above: Performed By: #### P P #### [facility] [address] [place] [address] 05-04-2022 L -- ---- Specimen: [id number] Received: 05/05/22 Status: DEVIN Anderson Num: [id number] Spec Type: Surgical Subm Dr: Johan Houston DO Tissues: A Debridement-Skin/Other Than Skin (SCALP WOUND) Procedures: HE Stain, Gross/Micro L3 ---- Age/ Patient Sex Location Account Attending Physician ---- Mike Braswell 82/M [place] [id number] Johan Houston DO ---- SPEC NUM: [id number] RECD: 05/05/22 STATUS: DEVIN ANDERSON NUM: [id number] JENNIFER: 05/04/22- SUBM DR: Johan Houston DO ENTERED: 05/05/[address]: SPEC TYPE: Surgical DEPT: S ORDERED: HE Stain, Gross/Micro L3 ORDERED: HE Stain, Gross/Micro L3 Pathological Diagnosis Scalp wound, debridement: - Ulcerated skin with superficial neutrophilic scale and subcutaneous hemorrhage. Clinical Information Scalp wound, debridement and rotation flap reconstruction Gross Description Received in a container filled with formalin labeled with the patient's name, number, and debridement of scalp wound is a hair bearing skin fragment measuring 3.5 x 3.0 x 0.4 cm. The skin surface shows a rounded defect measuring 1.8 x 1.2 cm. The surgical margin of the specimen is inked. Respiratory Physician sections are submitted in one cassette labeled A1. Microscopic Description One glass slide with H E stained material has been examined. The microscopic findings support the above pathologic diagnosis. CPT Codes 74848 ---- ---- Specimen: [id number] Received: 05/05/22 Status: DEVIN Anderson Num: [id number] Spec Type: Surgical Subm Dr: Johan Houston DO Tissues: A Debridement-Skin/Other Than Skin (SCALP WOUND) Procedures: HE Stain, Gross/Micro L3 ---- Patient: Michaelle,Mike Shane [id number] (Continued) ---- Signed (signature on file) Mike Irvin MD 05/06/22 1519 Normal [facility] Basic Metabolic Panelon 04-16 Calcium [Mass/Vol] 8.9 mg/dL Normal 8.2-10.2 [facility] Comment on above: Result Comment: PERF ORMED BY: [place] [address] PATHOLOGIST MOTORCYCLE DELIVERER ADRIANA ARMSTRONG M.D. Performed By: #### B MP, CBC #### [facility] [address] [place] [address] [place] Chloride [Moles/Vol] 99 mmol/L Normal 95-114 [facility] Comment on above: Performed By: #### B MP, CBC #### [facility] [address] [place] [address] [place] CO2 [Moles/Vol] 25.6 mmol/L Normal 22.0-30.0 [facility] Comment on above: Performed By: #### B MP, CBC #### [facility] [address] [place] [address] [place] Creatinine [Mass/Vol] 0.89 mg/dL Normal 0.64-1.27 [facility] Comment on above: Performed By: #### B MP, CBC #### [facility] [address] [place] [address] [place] Estimated GFR ( Jaydon > 60 Normal [facility] Comment on above: Result Comment: GFR estimated reference range: According to KDOQI guidelines, <60 ml/min/1.73m2 is sufficient to diagnose a patient with chronic kidney disease. Performed By: #### B MP, CBC #### [facility] [address] [place] [address] [place] Estimated GFR (Non- Am > 60 Normal [facility] Comment on above: Performed By: #### B MP, CBC #### [facility] [address] Glucose [Mass/Vol] 96 mg/dL Normal 70-100 [facility] Comment on above: Result Comment: Riley om Glucose Reference Range is dependent on time and content of last meal. Glucose of more than 200 mg/dL in a nonstressed, ambulatory subject supports the diagnosis of Diabetes Mellitus. ADA recommended reference range Performed By: #### B MP, CBC #### [address] [place] [id number] [facility] Potassium [Moles/Vol] 3.6 mmol/L Normal 3.5-5.1 [facility] Comment on above: Performed By: #### B MP, CBC #### [place] [address] [place] Sodium [Moles/Vol] 137 mmol/L Normal 136-146 [facility] Comment on above: Performed By: #### B MP, CBC #### [address] [id number] [place] Urea nitrogen [Mass/Vol] 17 mg/dL Normal 9-23 [facility] Comment on above: Performed By: #### B MP, CBC #### [address] COVID-19 FRMCon 05-03-2022 SARS-CoV-2 (COVID-19) RNA KALYN+probe Ql (Unsp spec) Negative Normal Negative [facility] Comment on above: Order Comment: 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 This test has not been FDA cleared or approved. This test has been authorized by FDA under an Emergency Use Authorization (EUA). This test has been validated in accordance with the FDA's Guidance Document (Policy for Diagnostics Testing in Laboratories Certified to Perform High Complexity Testing under CLIA prior to Emergency Use Authorization for Coronavirus Disease-2019 during the Public Health Emergency) issued on January 17, 2020. This test is only authorized for the duration of time the declaration that circumstances exist justifying the authorization of the emergency use of in vitro diagnostic tests for detection of SARS-CoV-2 virus and/or diagnosis of COVID-19 infection under section 564(b)(1) of the Act, 21 U.S.C. 360bbb-3(b)(1), unless the authorization is terminated or revoked sooner. PERFORMED BY: [place] [address] PATHOLOGIST MOTORCYCLE DELIVERER ADRIANA ARMSTRONG M.D. Performed By: #### C OVID 19 [facility] [place] #### [address] Complete Blood Count Auto Di ffon 05-03-2022 Basophils (Bld) [#/Vol] 0.0 10*3/uL Normal 0.0-0.2 [facility] Comment on above: Result Comment: PERF ORMED BY: [place] [address] PATHOLOGIST MOTORCYCLE DELIVERER ADRIANA ARMSTRONG M.D. Performed By: #### B MP, CBC #### [address] Basophils/100 WBC (Bld) 0.2 % Normal . [facility] Comment on above: Performed By: #### B MP, CBC #### [address] Eosinophils (Bld) [#/Vol] 0.1 10*3/uL Normal 0.0-0.45 [facility] Comment on above: Performed By: #### B MP, CBC #### [facility] [address] Eosinophils/100 WBC (Bld) 2.0 % Normal . [facility] Comment on above: Performed By: #### B MP, CBC #### [facility] [address] Erythrocyte distribution width (RBC) [Ratio] 15.0 % High 12.0-14.8 [facility] Comment on above: Performed By: #### B MP, CBC #### [facility] [address] Hematocrit (Bld) [Volume fraction] 41.8 % Normal 38.8-50.0 [facility] Comment on above: Performed By: #### B MP, CBC #### [address] Hemoglobin (Bld) [Mass/Vol] 14.0 g/dL Normal 13.0-17.0 [facility] Comment on above: Performed By: #### B MP, CBC #### [address] Lymphocytes (Bld) [#/Vol] 0.6 10*3/uL Low 1.00-4.8 [facility] Comment on above: Performed By: #### B MP, CBC #### [address] Lymphocytes/100 WBC (Bld) 9.1 % Normal . [facility] Comment on above: Performed By: #### B MP, CBC #### [facility] [address] MCH (RBC) [Entitic mass] 31.1 pg Normal 27.5-35.2 [facility] Comment on above: Performed By: #### B MP, CBC #### [address] MCV (RBC) [Entitic vol] 93.3 fL Normal 83.5-101 [facility] Comment on above: Performed By: #### B MP, CBC #### [facility] [address] Mean Corpuscular HGB Conc 33.4 g/dL Normal 32.5-35.6 [facility] Comment on above: Performed By: #### B MP, CBC #### [facility] [address] [place] [address] [place] Monocytes (Bld) [#/Vol] 0.4 10*3/uL Normal 0.0-0.8 [facility] Comment on above: Performed By: #### B MP, CBC #### [facility] [address] [place] [address] [place] Monocytes/100 WBC (Bld) 6.5 % Normal . [facility] Comment on above: Performed By: #### B MP, CBC #### [facility] [address] [place] [address] [place] Neutrophils (Bld) [#/Vol] 5.3 10*3/uL Normal 1.8-7.7 [facility] Comment on above: Performed By: #### B MP, CBC #### [facility] [address] [place] [address] [place] Neutrophils/100 WBC (Bld) 82.2 % Normal . [facility] Comment on above: Performed By: #### B MP, CBC #### [facility] [address] [place] [address] [place] Nucleated RBC/100 WBC (Bld) [Ratio] 0.1 % Normal 0-0.5 [facility] Comment on above: Performed By: #### B MP, CBC #### [facility] [address] [place] [address] [place] Platelet mean volume (Bld) [Entitic vol] 9.5 fL Normal 6.6-10.1 [facility] Comment on above: Performed By: #### B MP, CBC #### [facility] [address] [place] [address] [place] Platelets (Bld) [#/Vol] 169 10*3/uL Normal 150-450 [facility] Comment on above: Performed By: #### B MP, CBC #### [facility] [address] RBC (Bld) [#/Vol] 4.48 10*6/uL Normal 3.90-5.60 [facility] Comment on above: Performed By: #### B MP, CBC #### [facility] [address] [place] [address] [facility] WBC (Bld) [#/Vol] 6.4 10*3/uL Normal 4.5-11.0 [facility] Comment on above: Performed By: #### B MP, CBC #### [facility] [address] ECG 12 lead ECGon 05-03-2022 ECG 12 lead ECG [facility] [place] [address] [place] [address] Electrocardiograph Report Signed Patient: Mike Braswell MR#: [id number] : 1940 Acct:[id number] Age/Sex: 82 / M ADM Date: 05/03/22 Loc: Room: Type: [facility] Attending Dr: oJhan Houston DO Ordering Provider: Johan Houston DO Date of Service: 05/03/22 ECG/ECG 12 lead ECG: surgery05/04/22 Copies to: Test Reason : Blood Pressure : / mmHG Vent. Rate : 094 BPM Atrial Rate : 375 BPM P-R Int : 000 ms QRS Dur : 098 ms QT Int : 364 ms P-R-T Axes : 000 011 070 degrees QTc Int : 455 ms Atrial fibrillation Nonspecific T wave abnormality , probably digitalis effect Abnormal ECG When compared with ECG of 20-AUG-2019 16:56, No significant change was found Confirmed by SEB VALENTE MD, FACC ([id number]) on 05/03/2022 2:57:32 PM Referred By: DWIGHT HOUSTON Electronically Signed By:SEB VALENTE MD FACBentley Transcribed By: MUS Signed By Mike Valente MD 05/03/22 1457 Normal [facility] Vital Signs Date Time Vital Sign Value Performing Clinician Faci lity 09-22-2023 12:46-0500 Body height 167.6 cm Rodríguez Pack MD Work Phone: [facility] 09-22-2023 12:46-0500 Body temperature 97.59 [degF] Rodríguez Pack MD Work Phone: [facility] 09-22-2023 12:46-0500 Body weight 76.84 kg Rodríguez Pack MD Work Phone: [facility] 09-22-2023 12:46-0500 Diastolic blood pressure 74 mm[Hg] Rodríguez Pack MD Work Phone: [facility] 09-22-2023 12:46-0500 Heart rate 97 /min Rodríguez Pack MD Work Phone: [facility] 09-22-2023 12:46-0500 Respiratory rate 16 /min Rodríguez Pack MD Work Phone: [facility] 09-22-2023 12:46-0500 SaO2% (BldA) [Mass fraction] 99 % Rodríguez Pack MD Work Phone: [facility] 09-22-2023 12:46-0500 Systolic blood pressure 155 mm[Hg] Rodríguez Pack MD Work Phone: [facility] 07-21-2023 12:55-0400 Body height 167.6 cm Gabriella Javed APRN.MS ACCESS DATABASE DEVELOPER Work Phone: [facility] 07-21-2023 12:55-0400 Body temperature 97 [degF] Gabriella Javed MALT HOUSE SUPERVISOR.MS ACCESS DATABASE DEVELOPER Work Phone: [facility] 07-21-2023 12:55-0400 Body weight 77.2 kg Gabriella Javed APRN.MS ACCESS DATABASE DEVELOPER Work Phone: [facility] 07-21-2023 12:55-0400 Diastolic blood pressure 75 mm[Hg] Gabriella Javed MALT HOUSE SUPERVISOR.MS ACCESS DATABASE DEVELOPER Work Phone: [facility] 07-21-2023 12:55-0400 Heart rate 99 /min Gabriella Javed APRN.MS ACCESS DATABASE DEVELOPER Work Phone: [facility] 07-21-2023 12:55-0400 Respiratory rate 16 /min Gabriella Javed MALT HOUSE SUPERVISOR.MS ACCESS DATABASE DEVELOPER Work Phone: [facility] 07-21-2023 12:55-0400 SaO2% (BldA) [Mass fraction] 98 % Gabriella Javed MALT HOUSE SUPERVISOR.MS ACCESS DATABASE DEVELOPER Work Phone: [facility] 07-21-2023 12:55-0400 Systolic blood pressure 150 mm[Hg] Gabriella Javed MALT HOUSE SUPERVISOR.MS ACCESS DATABASE DEVELOPER Work Phone: [facility] 07-12-2023 14:17-0400 Body temperature 96.91 [degF] TRICIA Wells MD Work Phone: [facility] 07-12-2023 14:17-0400 Diastolic blood pressure 78 mm[Hg] TRICIA Wells MD Work Phone: [facility] 07-12-2023 14:17-0400 Heart rate 101 /min TRICIA Wells MD Work Phone: [facility] 07-12-2023 14:17-0400 SaO2% (BldA) [Mass fraction] 99 % TRICIA Wells MD Work Phone: [facility] 07-12-2023 14:17-0400 Systolic blood pressure 141 mm[Hg] TRICIA Wells MD Work Phone: [facility] 06-22-2023 10:54-0400 Body temperature 96.4 [degF] TRICIA Wells MD Work Phone: [facility] 06-22-2023 10:54-0400 Body weight 77.02 kg TRICIA Wells MD Work Phone: [facility] 06-22-2023 10:54-0400 Diastolic blood pressure 86 mm[Hg] TRICIA Wells MD Work Phone: [facility] 06-22-2023 10:54-0400 Heart rate 54 /min TRICIA Wells MD Work Phone: [facility] 06-22-2023 10:54-0400 Respiratory rate 18 /min TRICIA Wells MD Work Phone: [facility] 06-22-2023 10:54-0400 SaO2% (BldA) [Mass fraction] 94 % TRICIA Wells MD Work Phone: [facility] 06-22-2023 10:54-0400 Systolic blood pressure 153 mm[Hg] TRICIA Wells MD Work Phone: [facility] Encounters Encounter Date Encounter Type Care Provider Facility Start: 11-03-2023 End: 11-03-2023 ambulatory MARK QUINTANILLA Facility:[facility] Start: 10-13-2023 End: 10-13-2023 ambulatory MARK QUINTANILLA Facility:[facility] Start: 09-22-2023 End: 09-[facility] Start: 09-22-2023 End: 09-22-2023 ambulatory Chair 18 [place] Work Phone: Hematology/Oncology Comment on above: 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); Acquired hypothyroidism Start: 09-22-2023 End: 09-22-2023 Patient encounter procedure Rodríguez Pack MD Work Phone: [facility] Start: 09-01-2023 End: 09-01-2023 ambulatory MARK QUINTANILLA Facility:[facility] Start: 09-01-2023 End: 09-01-2023 ambulatory Chair 15 Krystal Work Phone: Hematology/Oncology Comment on above: Squamous cell skin c ancer (Primary Dx) Start: 08-11-2023 End: 08-11-2023 ambulatory MARK QUINTANILLA Facility:[facility] Start: 08-05-2023 Telephone encounter Carmine montoya RN Work Phone: Hematology/Oncology Comment on above: Care Coordination (M edication Question) Start: 07-25-2023 Telephone encounter Carmine montoya RN Work Phone: Hematology/Oncology Comment on above: Care Coordination (C 1D1 Post Treatment Call) Start: 07-21-2023 End: 07-22-2023 ambulatory MARK QUINTANILLA Facility:[facility] Start: 07-21-2023 End: 07-22-2023 ambulatory Armani Sequeira Work Phone: Hematology/Oncology Comment on above: 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); Acquired hypothyroidism Start: 07-21-2023 End: 07-21-2023 Patient encounter procedure Gabriella Javed [employer] SUPERVISOR.MS ACCESS DATABASE DEVELOPER Work Phone: [facility] Start: 07-19-2023 End: 07-19-2023 ambulatory Carmine Ignacio RN Work Phone: Hematology/Oncology Comment on above: First Time Treatment Education (Cemiplimab) Start: 07-19-2023 Telephone encounter Gabriella bradshaw [employer]SE SUPERVISOR.MS ACCESS DATABASE DEVELOPER Work Phone: Hematology/Oncology Comment on above: Lab Orders Start: 07-12-2023 End: 07-12-2023 Patient encounter procedure Sebas Wells MD Work Phone: Radiation Oncology Comment on above: Carcinoma in situ of skin, squamous cell (Primary Dx) Start: 07-12-2023 End: 07-12-2023 ambulatory MARK ARVIN QUINTANILLA JR Facility:[facility] Start: 07-07-2023 Chart abstracting Rodríguez robertson MD Work Phone: Hematology/Oncology Start: 06-22-2023 End: 06-22-2023 ambulatory STORM WELLS Facility:[facility] Start: 06-22-2023 End: 06-22-2023 Patient encounter procedure Sebas Wells MD Work Phone: Radiation Oncology Comment on above: Carcinoma in situ of skin, squamous cell (Primary Dx); Skin cancer of face; Squamous cell carcinoma of skin of other parts of face Start: 06-17-2023 Patient encounter procedure [facility] Provider [facility] Start: 06-14-2023 End: 06-14-2023 ambulatory WILBUR ROSA Facility:[facility] Start: 02-14-2023 End: 03-16-2023 ambulatory [facility] Facility:[facility] Start: 01-17-2023 End: 02-11-2023 ambulatory [facility] H [facility] Facility:[facility] Start: 12-15-2022 End: 01-14-2023 ambulatory [facility] Facility:[facility] Start: 11-23-2022 End: 11-24-[address] MARK QUINTANILLA Facility:[facility] Start: 11-17-2022 End: 12-15-2022 ambulatory [facility] Facility:[facility] Start: 10-18-2022 End: 11-17-2022 ambulatory [facility] Facility:[facility] Start: 09-16-2022 End: 10-17-2022 ambulatory [facility] H [facility] Facility:[facility] Start: 08-17-2022 End: 09-15-2022 ambulatory [facility] H [facility] Facility:[facility] Start: 07-18-2022 End: 08-16-2022 ambulatory [facility] Facility:[facility] Start: 07-06-2022 End: 07-07-[address] MARK QUINTANILLA Facility:[facility] Start: 06-17-2022 End: 07-17-2022 ambulatory [facility] Facility:[facility] Start: 05-17-2022 End: 06-16-2022 ambulatory [facility] Facility:[facility] Start: 05-04-2022 End: 05-04-2022 ambulatory Mark Quintanilla Facility:[facility] Start: 05-03-2022 End: 05-03-2022 ambulatory Mark Quintanilla Facility:[facility] Start: 04-16-2022 End: 05-14-2022 ambulatory [facility] Facility:[facility] Procedures Date Procedure Procedure Detail Performing Clinician Start: 11-23-2022 PSA screening SHAIKH OLIVIA ANNA Comment on above: Performed By: #### P [facility] #### [facility] [address] [place] [address] Dr. Jarett Reece Plan of Treatment Date Care Activity Detail Author Start: 09-22-2026 Diabetes Screening Diabetes Screenin g [facility] Start: 09-01-2026 Diabetes Screening Diabetes Screenin g [facility] Start: 07-12-2026 Diabetes Screening Diabetes Screenin g [facility] Start: 08-16-2023 End: 10-16-2023 CBC W Auto Differential panel - Blood CBC + DIFF Lab Routine Squamous cell skin cancer Acquired hypothyroidism Expected: 08/16/2023, Expires: 10/16/2023 [facility] Work Phone: Comment on above: Expected: 08/16/2023 , Expires: 10/16/2023 Start: 08-16-2023 End: 10-16-2023 Comprehensive metabolic 2000 panel - Serum or Plasma COMP METABOLIC PANEL Lab Routine Squamous cell skin cancer Acquired hypothyroidism Expected: 08/16/2023, Expires: 10/16/2023 [facility] Work Phone: Comment on above: Expected: 08/16/2023 , Expires: 10/16/2023 Start: 06-17-2023 Influenza vaccination [facility] Start: 10-17-2022 ADVANCE DIRECTIVE DISCUSSION ADVANCE DIRECTIVE DISCUSSION [facility] Start: 10-17-2022 DEPRESSION ASSESSMENT DEPRESSION ASS ESSMENT [facility] Start: 2007 Pneumococcal Vaccine : 65+ (1 - PCV) Pneumococcal Vaccine: 65+ (1 - PCV) [facility] Start: 2007 PNEUMOCOCCAL: 65+ (1 - PCV) PNEUMOCOCCAL: 65+ (1 - PCV) [facility] Start: 2002 RSV Vaccine (1 - 1-d ose 60+ series) RSV Vaccine (1 - 1-dose 60+ series) [facility] Start: 02-09-1992 SHINGRIX VACCINE (1 of 2) SHINGRIX VACCINE (1 of 2) [facility] Start: 1987 DIABETES SCREEN DIABETES SCREEN [facility] Start: 1987 Diabetes Screening Diabetes Screenin g [facility] Start: 1961 Shingrix Vaccine (1 of 2) Shingrix Vaccine (1 of 2) [facility] Start: 1961 Urine microalbumin profile [facility] Start: 02-09-1948 Pneumococcal Vaccine : 65+ (1 - PCV) Pneumococcal Vaccine: 65+ (1 - PCV) [facility] Start: 1942 COVID-19 VACCINE (#1) COVID-19 VACCI NE (#1) [facility] End: 07-21-[address] attenuation skull base mid-thigh NM PET/CT SKULL-THIGH INITIAL Radiology Routine Skin cancer of face Squamous cell carcinoma of skin of other parts of face 1 Occurrences starting 06/22/2023 until 07/21/2024 [facility] Work Phone: Comment on above: 1 Occurrences starti ng 06/22/2023 until 07/21/[address] [facility] Immunizations Immunization Date Immunization Notes Care Provider Fa [facility] 07-17-2019 influenza, seasonal, injectable Carmine Ignacio RN Work Phone: [facility] 07-17-2019 influenza virus vacc ine, unspecified formulation NA Priscilla GOMEZ Work Phone: [facility] Payers Date Payer Category Payer Private Health Insurance [facility] INDEMNITY [id number] 2022-Present [phone] [address] [place] [address] Indemnity [id number] 2022 Self-pay 2007 Medicare [id number] 1959 Medicare [id number] 1959 Private Health Insurance [id number] 1942 Unknown [id number] [id number]. 2.593 1942 Unknown [id number] [id number]. 2.593 1942 Unknown [id number] 2.16.840.1.820252.3.579. 2.593 1942 Unknown [id number] 2.16.840.1.399414.3.579. 2.593 1942 Unknown [id number] 2.16.840.1.687413.3.579. 2.593 1942 Unknown [id number] 2.16.840.1.547930.3.579. 2.593 1942 Unknown [id number] 2.16.840.1.880388.3.579. 2.593 1942 Unknown [id number] 2.16.840.1.653411.3.579. 2.593 1942 Unknown [id number] 2.16.840.1.401539.3.579. 2.593 1942 Unknown [id number] 2.16.840.1.780266.3.579. 2.593 1942 Unknown [id number] 2.16.840.1.171877.3.579. 2.593 1942 Unknown [id number] 2.16.840.1.436278.3.579. 2.593 1942 Unknown [id number] 2.16.840.1.786693.3.579. 2.593 Unknown [id number] 2.16.840.1.248698.3.579. 2.531 Unknown [id number] [id number]. 2.531 Social History Date Type Detail Facility Start: 06-14-2023 Tobacco smoking stat [facility] Never smoked tobacco [facility] Start: 06-14-2023 Tobacco use and exposure Smoke less tobacco non-user [facility] Start: 06-14-2023 End: 08-11-2023 Alcohol intake Ex-drinker (finding) [facility] Start: 06-14-2023 End: 07-12-2023 History of Social function [facility] Start: 06-14-2023 End: 07-12-2023 Tobacco use panel [facility] National Score (1-10 0), lower number is lower risk 59 [facility] Start: 1940 Sex Assigned At Not on file [facility] Clinical Notes 01-17-2023 to 11-03-2023 Rodríguez Pack MD - 09/22/2023 7:24 AM ESTTelephone Encounter - Carmine Ignacio, ANKIT - 08/05/2023 1:23 PM EDTTelephone Encounter - Carmine Ignacio RN - 07/25/2023 12:01 PM EDT Note Date & Type Note Facility 11-03-2023 Note HNO ID: [id number] Author: GABRIELLA JAVED APRN.[place] Service: ? Author Type: Nurse Practitioner Type: Progress Notes Filed: 11/04/2023 11:49 Note Text: PATIENT NAME: Mike Braswell DATE: 11/03/2023 PRIMARY CARE PHYSICIAN: Dr. Mark Quintanilla Jr OTHER PHYSICIANS: Dr. Wells; Wilbur Rosa CNP ([facility]) Portions of this encounter note have been copied from the note from 09/22/2023 and has been updated where appropriate, and reflect my current medical decision making from today. 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 INTERIM HISTORY: Mike Braswell returns for follow-up and treatment. He remains on treatment with Cemiplimab every 3 weeks and is tolerating it well. He denies any significant treatment related side effects. The left upper chest skin lesion continues to improve. He has 2 areas to his left scalp that are dressed. The skin lesions are lightening up. He is scheduled to see dermatology next month. He denies fevers, chills, night sweats and signs/symptoms of infection. No abnormal bleeding or abnormal bruising. He wishes to proceed with treatment as planned. MEDICATIONS: Current Outpatient Medications Medication Sig warfarin (COUMADIN) 5 mg tablet Take 5 mg by mouth once daily. Take 2 days a week a whole tablet, 1/2 tablet other 5 days levothyroxine (SYNTHROID) 50 mcg tablet Take 50 mcg by mouth once daily. carbidopa-levodopa (SINEMET 25-100) 25-100 mg per tablet Take 1 tablet by mouth three times a day. sacubitril-valsartan (ENTRESTO) 49-51 mg tablet Take 1 tablet by mouth two times a day. Take 2 in the morning 2 at night tamsulosin (FLOMAX) 0.4 mg Take 1 capsule by mouth once daily. rosuvastatin (CRESTOR) 10 mg tablet Take by mouth once daily. potassium chloride ER (KLOR-CON M20) 20 mEq tablet Take by mouth once daily. mirtazapine (REMERON) 15 mg tablet Take by mouth once daily. metoprolol tartrate, short acting, (LOPRESSOR) 25 mg tablet Take 25 mg by mouth every 12 hours. finasteride (PROSCAR) 5 mg tablet Take 5 mg by mouth once daily. No current facility-administered medications for this visit. ALLERGIES: ALLERGIES No Known Allergies PAST MEDICAL HISTORY: PAST MEDICAL HISTORY Diagnosis Date Atrial fibrillation (HCC) Dementia (HCC) Hypercholesteremia Hypertension Hypothyroidism Skin cancer PAST SURGICAL HISTORY: PAST SURGICAL HISTORY Procedure Laterality Date PAST SURGICAL HISTORY OF bowel resection due to obstruction PAST SURGICAL HISTORY OF left ear reconstructive surgery due to skin cancer REMOVAL GALLBLADDER TONSILLECTOMY AND ADENOIDECTOMY FAMILY HISTORY: History reviewed. No pertinent family history. SOCIAL HISTORY: Social History Tobacco Use Smoking status: Never Smokeless tobacco: Never Substance Use Topics Alcohol use: Not Currently Drug use: Never REVIEW OF SYSTEMS: General: No weight loss, malaise or fevers. HEENT: Negative for frequent or significant headaches. No changes in hearing or vision, no nose bleeds or other nasal problems. Respiratory: Negative for cough, wheezing or shortness of breath. Cardiovascular: Negative for chest pain, leg swelling or palpitations. GI: Negative for abdominal discomfort, blood in stools or black stools or change in bowel habits. : No history of dysuria, frequency or incontinence. Musculoskeletal: Negative for: joint pain or swelling, back pain and muscle pain. Skin: Negative for lesions, rash and itching. Hematology/Lymphology: Negative for prolonged bleeding, bruising easily or swollen nodes. Neuro: No history of headaches, syncope, paralysis, seizures or tremors. PHYSICAL EXAM: BP 154/94 Pulse 98 Temp 36.2 ?C (97.2 ?F) (Temporal) Resp 16 Ht 167.6 cm (5' 5.98 ) Wt 80.8 kg (178 lb 2.1 oz) SpO2 95% BMI 28.77 kg/m? ECOG 1 Exam limited to gross visualization where appropriate. Gen.: This is an age-appropriate patient in no acute distress. Head: Appears atraumatic with no visible lesions. Eyes: Pupils equally round and reactive to light, extraocular muscles are intact. Neck: Supple. Respiratory: Appears to be respiring comfortably. Congested left lung base. Neurologic: Nonfocal to gross visualization. Alert and oriented ?3. Psychiatric: No evidence of inappropriate anxiety or depression. Skin: Positive skin lesions. LABS: Hemoglobin (g/dL) Date Value 11/03/2023 13.6 Hematocrit (%) Date Value 11/03/2023 42.4 WBC (k/uL) Date Value 11/03/2023 5.67 Platelet Count (k/uL) Date Value 11/03/2023 162 RADIOLOGY/OTHER STUDIES: 08/11/2023 Chest x-ray IMPRESSION: No acute radiographic abnormality. 07/12/2023 PET Scan IMPRESSION: 1. Neck: Few scattered foci of cutaneous activity in the scalp. No hypermetabolic lymphadenopathy. 2. Chest: No evidence of FDG avid neoplastic process 3. Abdo (more content not included)... [facility] 09-22-2023 Note HNO ID: [id number] Author: Rodríguez Pack MD Service: ? Author Type: Physician Type: Progress Notes Filed: 09/23/2023 7:19 AM Note Text: PATIENT NAME: Mike Braswell DATE: 09/22/2023 PRIMARY CARE PHYSICIAN: Dr. Mark Quintanilla Jr OTHER PHYSICIANS: Dr. Wells; Wilbur Rosa CNP ([facility]) Portions of this encounter note have been copied from the note from 09/01/2023 and has been updated where appropriate, and reflect my current medical decision making from today. 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 INTERIM HISTORY: The patient remains on treatment with Cemiplimab every 3 weeks and is tolerating it well. No shortness of breath or other obvious side effects. His skin lesions continue to slowly improve. Overall he feels well today with no particular complaints. MEDICATIONS: Current Outpatient Medications Medication Sig warfarin (COUMADIN) 5 mg tablet Take 5 mg by mouth once daily. Take 2 days a week a whole tablet, 1/2 tablet other 5 days levothyroxine (SYNTHROID) 50 mcg tablet Take 50 mcg by mouth once daily. carbidopa-levodopa (SINEMET 25-100) 25-100 mg per tablet Take by mouth two times a day. ENTRESTO 24-26 mg tablet Take by mouth two times a day. Take 2 in the morning 2 at night tamsulosin (FLOMAX) 0.4 mg Take 1 capsule by mouth once daily. rosuvastatin (CRESTOR) 10 mg tablet Take by mouth once daily. potassium chloride ER (KLOR-CON M20) 20 mEq tablet Take by mouth once daily. mirtazapine (REMERON) 15 mg tablet Take by mouth once daily. metoprolol tartrate, short acting, (LOPRESSOR) 25 mg tablet Take 25 mg by mouth every 12 hours. finasteride (PROSCAR) 5 mg tablet Take 5 mg by mouth once daily. No current facility-administered medications for this visit. ALLERGIES: ALLERGIES No Known Allergies PAST MEDICAL HISTORY: PAST MEDICAL HISTORY Diagnosis Date Atrial fibrillation (HCC) Dementia (HCC) Hypercholesteremia Hypertension Hypothyroidism Skin cancer PAST SURGICAL HISTORY: PAST SURGICAL HISTORY Procedure Laterality Date PAST SURGICAL HISTORY OF bowel resection due to obstruction PAST SURGICAL HISTORY OF left ear reconstructive surgery due to skin cancer REMOVAL GALLBLADDER TONSILLECTOMY AND ADENOIDECTOMY FAMILY HISTORY: No family history on file. SOCIAL HISTORY: Social History Tobacco Use Smoking status: Never Smokeless tobacco: Never Substance Use Topics Alcohol use: Not Currently Drug use: Never REVIEW OF SYSTEMS: General: No weight loss, malaise or fevers. HEENT: Negative for frequent or significant headaches. No changes in hearing or vision, no nose bleeds or other nasal problems. Respiratory: Negative for cough, wheezing or shortness of breath. Cardiovascular: Negative for chest pain, leg swelling or palpitations. GI: Negative for abdominal discomfort, blood in stools or black stools or change in bowel habits. : No history of dysuria, frequency or incontinence. Musculoskeletal: Negative for: joint pain or swelling, back pain and muscle pain. Skin: Negative for lesions, rash and itching. Hematology/Lymphology: Negative for prolonged bleeding, bruising easily or swollen nodes. Neuro: No history of headaches, syncope, paralysis, seizures or tremors. PHYSICAL EXAM: BP 155/74 Pulse 97 Temp 36.4 ?C (97.6 ?F) (Temporal) Resp 16 Ht 167.6 cm (5' 5.98 ) Wt 76.8 kg (169 lb 6.4 oz) SpO2 99% BMI 27.36 kg/m? ECOG 1 Exam limited to gross visualization where appropriate. Gen.: This is an age-appropriate patient in no acute distress. Head: Appears atraumatic with no visible lesions. Eyes: Pupils equally round and reactive to light, extraocular muscles are intact. Neck: Supple. Respiratory: Appears to be respiring comfortably. Congested left lung base. Neurologic: Nonfocal to gross visualization. Alert and oriented ?3. Psychiatric: No evidence of inappropriate anxiety or depression. Skin: Visible areas of skin without rash, lesions, wounds or petechiae. LABS: Hemoglobin (g/dL) Date Value 09/22/2023 13.7 Hematocrit (%) Date Value 09/22/2023 41.0 WBC (k/uL) Date Value 09/22/2023 8.85 Platelet Count (k/uL) Date Value 09/22/2023 241 RADIOLOGY/OTHER STUDIES: 08/11/2023 Chest x-ray IMPRESSION: No acute radiographic abnormality. 07/12/2023 PET Scan IMPRESSION: 1. Neck: Few scattered foci of cutaneous activity in the scalp. No hypermetabolic lymphadenopathy. 2. Chest: No evidence of FDG avid neoplastic process 3. Abdomen and pelvis: No evidence of FDG avid neoplastic process 4. Skeleton: No hypermetabolic osseous lesions ASSESSMENT/PLAN: 1. 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 [facility] 09-22-2023 History of Presen t illness Narrative PATIENT NAME: Mike Braswell DATE: 09/22/2023 PRIMARY CARE PHYSICIAN: Dr. Mark Quintanilla OTHER PHYSICIANS: Dr. Wells; Wilbur Rosa, [place] ([facility]) Portions of this encounter note have been copied from the note from 09/01/2023 and has been updated where appropriate, and reflect my current medical decision making from today. 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 INTERIM HISTORY: The patient remains on treatment with Cemiplimab every 3 weeks and is tolerating it well. No shortness of breath or other obvious side effects. His skin lesions continue to slowly improve. Overall he feels well today with no particular complaints. MEDICATIONS: Current Outpatient Medications Medication Sig warfarin (COUMADIN) 5 mg tablet Take 5 mg by mouth once daily. Take 2 days a week a whole tablet, 1/2 tablet other 5 days levothyroxine (SYNTHROID) 50 mcg tablet Take 50 mcg by mouth once daily. carbidopa-levodopa (SINEMET 25-100) 25-100 mg per tablet Take by mouth two times a day. ENTRESTO 24-26 mg tablet Take by mouth two times a day. Take 2 in the morning 2 at night tamsulosin (FLOMAX) 0.4 mg Take 1 capsule by mouth once daily. rosuvastatin (CRESTOR) 10 mg tablet Take by mouth once daily. potassium chloride ER (KLOR-CON M20) 20 mEq tablet Take by mouth once daily. mirtazapine (REMERON) 15 mg tablet Take by mouth once daily. metoprolol tartrate, short acting, (LOPRESSOR) 25 mg tablet Take 25 mg by mouth every 12 hours. finasteride (PROSCAR) 5 mg tablet Take 5 mg by mouth once daily. No current facility-administered medications for this visit. ALLERGIES: ALLERGIES No Known Allergies PAST MEDICAL HISTORY: PAST MEDICAL HISTORY Diagnosis Date Atrial fibrillation (HCC) Dementia (HCC) Hypercholesteremia Hypertension Hypothyroidism Skin cancer PAST SURGICAL HISTORY: PAST SURGICAL HISTORY Procedure Laterality Date PAST SURGICAL HISTORY OF bowel resection due to obstruction PAST SURGICAL HISTORY OF left ear reconstructive surgery due to skin cancer REMOVAL GALLBLADDER TONSILLECTOMY & ADENOIDECTOMY <AGE 12 FAMILY HISTORY: No family history on file. SOCIAL HISTORY: Social History Tobacco Use Smoking status: Never Smokeless tobacco: Never Substance Use Topics Alcohol use: Not Currently Drug use: Never REVIEW OF SYSTEMS: General: No weight loss, malaise or fevers. HEENT: Negative for frequent or significant headaches. No changes in hearing or vision, no nose bleeds or other nasal problems. Respiratory: Negative for cough, wheezing or shortness of breath. Cardiovascular: Negative for chest pain, leg swelling or palpitations. GI: Negative for abdominal discomfort, blood in stools or black stools or change in bowel habits. : No history of dysuria, frequency or incontinence. Musculoskeletal: Negative for: joint pain or swelling, back pain and muscle pain. Skin: Negative for lesions, rash and itching. Hematology/Lymphology: Negative for prolonged bleeding, bruising easily or swollen nodes. Neuro: No history of headaches, syncope, paralysis, seizures or tremors. PHYSICAL EXAM: BP 155/74 Pulse 97 Temp 36.4 C (97.6 F) (Temporal) Resp 16 Ht 167.6 cm (5' 5.98 ) Wt 76.8 kg (169 lb 6.4 oz) SpO2 99% BMI 27.36 kg/m ECOG 1 Exam limited to gross visualization where appropriate. Gen.: This is an age-appropriate patient in no acute distress. Head: Appears atraumatic with no visible lesions. Eyes: Pupils equally round and reactive to light, extraocular muscles are intact. Neck: Supple. Respiratory: Appears to be respiring comfortably. Congested left lung base. Neurologic: Nonfocal to gross visualization. Alert and oriented 3. Psychiatric: No evidence of inappropriate anxiety or depression. Skin: Visible areas of skin without rash, lesions, wounds or petechiae. LABS: Hemoglobin (g/dL) Date Value 09/22/2023 13.7 Hematocrit (%) Date Value 09/22/2023 41.0 WBC (k/uL) Date Value 09/22/2023 8.85 Platelet Count (k/uL) Date Value 09/22/2023 241 RADIOLOGY/OTHER STUDIES: 08/11/2023 Chest x-ray IMPRESSION: No acute radiographic abnormality. 07/12/2023 PET Scan IMPRESSION: 1. Neck: Few scattered foci of cutaneous activity in the scalp. No hypermetabolic lymphadenopathy. 2. Chest: No evidence of FDG avid neoplastic process 3. Abdomen and pelvis: No evidence of FDG avid neoplastic process 4. Skeleton: No hypermetabolic osseous lesions ASSESSMENT/PLAN: 1. 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 He has undergone extensive surgeries as well as several courses of radiation therapy. He recently presented with progressive lesions over his left upper chest wall, left forearm, left parietal scalp, and right forehead. 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 PET scan 07/12/2023 revealed no evidence of metastases. The multiple areas of disease involvement were unresectable. The patient was seen by radiation oncology, and it was felt that radiation to the involved areas would not be well-tolerated. Subsequently it was elected to start systemic therapy with cemiplimab, with plans to give every 3 weeks. Cycle 1 given 07/21/2023. To date he has completed 3 cycles, and is tolerating treatment well. Clinically he has had improvement of the areas of skin cancer recurrence. The patient will receive cemiplimab today and again in 3 weeks. Return for follow-up in 6 weeks. 2. Hypertension Controlled on current medications. Continue management per PCP. 3. Hyperlipidemia Controlled on current medications. Continue management per PCP. 4. Acquired hypothyroidism Controlled on current medications, currently Synthroid 25 mcg daily. While on immunotherapy we will monitor his TFTs closely. 5. History of tremor, possible Parkinson's disease Controlled on current medications. Continue management per PCP. 6. Atrial fibrillation Controlled on current medications, including anticoagulation with Coumadin. Continue management per PCP. Rodríguez Pack MD documented in this encounter [facility] 09-01-2023 Note HNO ID: [id number] Author: Rodríguez Pack MD Service: ? Author Type: Physician Type: Progress Notes Filed: 09/02/2023 7:01 AM Note Text: PATIENT NAME: Mike Braswell DATE: 09/01/2023 PRIMARY CARE PHYSICIAN: Dr. Mark Quintanilla OTHER PHYSICIANS: Dr. Wells; Wilbur Rosa CNP ([facility]) Portions of this encounter note have been copied from the note from 08/11/2023 and has been updated where appropriate, and reflect my current medical decision making from today. 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 INTERIM HISTORY: At the patient's last visit here he complained of increasing cough and shortness of breath. Chest x-ray was negative. Since then his pulmonary symptoms have resolved and he currently feels well. To date he has completed 2 cycles of cemiplimab. He believes that the large skin cancer recurrence over his left upper chest wall has improved. No new areas of concern. Overall he feels well today and desires to continue treatment as planned. MEDICATIONS: Current Outpatient Medications Medication Sig warfarin (COUMADIN) 5 mg tablet Take 0.5 tablets by mouth once daily. levothyroxine (SYNTHROID) 50 mcg tablet Take 50 mcg by mouth once daily. carbidopa-levodopa (SINEMET 25-100) 25-100 mg per tablet Take by mouth two times a day. ENTRESTO 24-26 mg tablet Take by mouth two times a day. tamsulosin (FLOMAX) 0.4 mg Take 1 capsule by mouth once daily. rosuvastatin (CRESTOR) 10 mg tablet Take by mouth once daily. potassium chloride ER (KLOR-CON M20) 20 mEq tablet Take by mouth once daily. mirtazapine (REMERON) 15 mg tablet Take by mouth once daily. metoprolol tartrate, short acting, (LOPRESSOR) 25 mg tablet Take 25 mg by mouth every 12 hours. finasteride (PROSCAR) 5 mg tablet Take 5 mg by mouth once daily. No current facility-administered medications for this visit. ALLERGIES: ALLERGIES No Known Allergies PAST MEDICAL HISTORY: PAST MEDICAL HISTORY Diagnosis Date Atrial fibrillation (HCC) Dementia (HCC) Hypercholesteremia Hypertension Hypothyroidism Skin cancer PAST SURGICAL HISTORY: PAST SURGICAL HISTORY Procedure Laterality Date PAST SURGICAL HISTORY OF bowel resection due to obstruction PAST SURGICAL HISTORY OF left ear reconstructive surgery due to skin cancer REMOVAL GALLBLADDER TONSILLECTOMY AND ADENOIDECTOMY FAMILY HISTORY: No family history on file. SOCIAL HISTORY: Social History Tobacco Use Smoking status: Never Smokeless tobacco: Never Substance Use Topics Alcohol use: Not Currently Drug use: Never REVIEW OF SYSTEMS: General: No weight loss, malaise or fevers. HEENT: Negative for frequent or significant headaches. No changes in hearing or vision, no nose bleeds or other nasal problems. Respiratory: Negative for cough, wheezing or shortness of breath. Cardiovascular: Negative for chest pain, leg swelling or palpitations. GI: Negative for abdominal discomfort, blood in stools or black stools or change in bowel habits. : No history of dysuria, frequency or incontinence. Musculoskeletal: Negative for: joint pain or swelling, back pain and muscle pain. Skin: Negative for lesions, rash and itching. Hematology/Lymphology: Negative for prolonged bleeding, bruising easily or swollen nodes. Neuro: No history of headaches, syncope, paralysis, seizures or tremors. PHYSICAL EXAM: BP 152/76 Pulse 104 Temp 36.4 ?C (97.5 ?F) (Temporal) Resp 18 Ht 167.6 cm (5' 5.98 ) Wt 77 kg (169 lb 12.8 oz) SpO2 97% BMI 27.42 kg/m? ECOG 1 Exam limited to gross visualization where appropriate. Gen.: This is an age-appropriate patient in no acute distress. Head: Appears atraumatic with no visible lesions. Eyes: Pupils equally round and reactive to light, extraocular muscles are intact. Neck: Supple. Respiratory: Appears to be respiring comfortably. Congested left lung base. Neurologic: Nonfocal to gross visualization. Alert and oriented ?3. Psychiatric: No evidence of inappropriate anxiety or depression. Skin: Visible areas of skin without rash, lesions, wounds or petechiae. LABS: Hemoglobin (g/dL) Date Value 09/01/2023 13.4 Hematocrit (%) Date Value 09/01/2023 41.5 WBC (k/uL) Date Value 09/01/2023 7.66 Platelet Count (k/uL) Date Value 09/01/2023 192 RADIOLOGY/OTHER STUDIES: 08/11/2023 chest x-ray IMPRESSION: No acute radiographic abnormality. 07/12/2023 PET Scan IMPRESSION: 1. Neck: Few scattered foci of cutaneous activity in the scalp. No hypermetabolic lymphadenopathy. 2. Chest: No evidence of FDG avid neoplastic process 3. Abdomen and pelvis: No evidence of FDG avid neoplastic process 4. Skeleton: No hypermetabolic osseous lesions ASSESSMENT/PLAN: 1. 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 [facility] 08-11-2023 Note HNO ID: [id number] Author: Carmine Patel RT(R) Service: ? Author Type: Technologist Type: Progress Notes Filed: 08/11/2023 2:04 PM Note Text: Radiology Service Progress Note PATIENT NAME: Mike Braswell DATE OF SERVICE: August 11, 2023 TIME: 2:04 PM PATIENT IDENTITY VERIFICATION COMPLETED USING TWO (2) IDENTIFIERS: Name and Date of confirmed by patient verbally. FALL SCREENING: Has the patient had 2 falls in the last year or 1 fall with injury or currently using an Ambulatory Assistive Device (Walker, Cane, Wheelchair, Crutches, etc.)? No PATIENT GENDER DATA: Male PATIENT RELEVANT IMPLANT DATA REVIEWED: Not Applicable RADIOLOGY DEPARTMENT: General X-ray: Exam(s) Completed: Chest X-Ray PERIPHERAL IV DATA: Not applicable SIGNED BY: RT Mejia(R) August 11, 2023 2:04 PM [facility] 08-11-2023 Note HNO ID: [id number] Author: Gabriella Javed APRN.[place] Service: ? Author Type: Nurse Practitioner Type: Progress Notes Filed: 08/11/2023 3:53 PM Note Text: PATIENT NAME: Mike Braswell DATE: 08/11/2023 (Elements copied from the note dated 07/21/2023, have been reviewed and updated where appropriate, and all reflect current assessment and medical decision making during today's encounter, August 11, 2023.) PRIMARY CARE PHYSICIAN: Dr. Mark Quintanilla OTHER PHYSICIANS: Dr. Wells; Wilbur Rosa CNP ([facility]) CC: This is an 83 year old male with recurrent squamous cell skin cancer here to continue treatment. INTERIM HISTORY: Mike Braswell returns for follow-up and treatment. He received his first cycle of cemiplimab on 07/21/2023. Overall, he tolerated treatment fairly well. His states that he has been coughing and wheezing for the last 2 days. She has monitored and he has not had any fevers or chills. The states that his skin is a little better since starting treatment and is more pink . The patient sees his PCP on 08/15/2023 and will discuss the elevation in blood pressure. He has doing fairly well today and wishes to proceed with treatment. MEDICATIONS: Current Outpatient Medications Medication Sig warfarin (COUMADIN) 5 mg tablet Take 0.5 tablets by mouth once daily. levothyroxine (SYNTHROID) 50 mcg tablet Take 50 mcg by mouth once daily. carbidopa-levodopa (SINEMET 25-100) 25-100 mg per tablet Take by mouth two times a day. ENTRESTO 24-26 mg tablet Take by mouth two times a day. tamsulosin (FLOMAX) 0.4 mg Take 1 capsule by mouth once daily. rosuvastatin (CRESTOR) 10 mg tablet Take by mouth once daily. potassium chloride ER (KLOR-CON M20) 20 mEq tablet Take by mouth once daily. mirtazapine (REMERON) 15 mg tablet Take by mouth once daily. metoprolol tartrate, short acting, (LOPRESSOR) 25 mg tablet Take 25 mg by mouth every 12 hours. finasteride (PROSCAR) 5 mg tablet Take 5 mg by mouth once daily. No current facility-administered medications for this visit. ALLERGIES: ALLERGIES No Known Allergies PAST MEDICAL HISTORY: PAST MEDICAL HISTORY Diagnosis Date Atrial fibrillation (HCC) Dementia (HCC) Hypercholesteremia Hypertension Hypothyroidism Skin cancer PAST SURGICAL HISTORY: PAST SURGICAL HISTORY Procedure Laterality Date PAST SURGICAL HISTORY OF bowel resection due to obstruction PAST SURGICAL HISTORY OF left ear reconstructive surgery due to skin cancer REMOVAL GALLBLADDER TONSILLECTOMY AND ADENOIDECTOMY FAMILY HISTORY: No family history on file. SOCIAL HISTORY: Social History Tobacco Use Smoking status: Never Smokeless tobacco: Never Substance Use Topics Alcohol use: Not Currently Drug use: Never REVIEW OF SYSTEMS: General: No weight loss, malaise or fevers. HEENT: Negative for frequent or significant headaches. No changes in hearing or vision, no nose bleeds or other nasal problems. Respiratory: Negative for cough, wheezing or shortness of breath. Cardiovascular: Negative for chest pain, leg swelling or palpitations. GI: Negative for abdominal discomfort, blood in stools or black stools or change in bowel habits. : No history of dysuria, frequency or incontinence. Musculoskeletal: Negative for: joint pain or swelling, back pain and muscle pain. Skin: Negative for lesions, rash and itching. Hematology/Lymphology: Negative for prolonged bleeding, bruising easily or swollen nodes. Neuro: No history of headaches, syncope, paralysis, seizures or tremors. PHYSICAL EXAM: BP 156/89 Pulse 112 Temp 36.2 ?C (97.2 ?F) (Temporal) Resp 18 Ht 167.6 cm (5' 5.98 ) Wt 77.6 kg (171 lb) SpO2 98% BMI 27.61 kg/m? ECOG 1 Exam limited to gross visualization where appropriate. Gen.: This is an age-appropriate patient in no acute distress. Head: Appears atraumatic with no visible lesions. Eyes: Pupils equally round and reactive to light, extraocular muscles are intact. Neck: Supple. Respiratory: Appears to be respiring comfortably. Congested left lung base. Neurologic: Nonfocal to gross visualization. Alert and oriented ?3. Psychiatric: No evidence of inappropriate anxiety or depression. Skin: Visible areas of skin without rash, lesions, wounds or petechiae. LABS: Hemoglobin (g/dL) Date Value 08/11/2023 13.2 Hematocrit (%) Date Value 08/11/2023 40.0 WBC (k/uL) Date Value 08/11/2023 6.64 Platelet Count (k/uL) Date Value 08/11/2023 193 RADIOLOGY/OTHER STUDIES: 07/12/2023 PET Scan IMPRESSION: 1. Neck: Few scattered foci of cutaneous activity in the scalp. No hypermetabolic lymphadenopathy. 2. Chest: No evidence of FDG avid neoplastic process 3. Abdomen and pelvis: No evidence of FDG avid neoplastic process 4. Skeleton: No hypermetabolic osseous lesions ASSESSMENT/PLAN: 1. 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 [facility] 08-05-2023 Miscellaneous Notes FYI: Pt follows / [facility] coumadin clinic. Spouse reports that the pt's INR was 1.5 today. His coumadin was increased to 5 mg/day. Pt to return next week for repeat labs. Spouse asks if his treatment could have any impact on his INR. Per Up to Date: No known interaction between Coumadin and Libtayo. Informed pt's spouse that his Libtayo should not have any impact on pt's INR. Spouse verbalizes understanding. Carmine Ignacio RN documented in this encounter [facility] 07-25-2023 Miscellaneous Notes CYCLE 1/DAY 1 POST TREATMENT CALL Today's date: July 25, 2023 Treatment Regimen: Cemiplimab C1D1 Date: 07/21/23 Called patient to follow-up on symptom management. Spoke with patient's . SYMPTOM ASSESSMENT Neuro: None CV/Resp: None GI/: Appetite: no changes in appetite, appetite fair, Fluid intake: Fluid intake has increased, but still not enough according to pt's spouse., Bladder/Urinary Changes: None. Pt had one episode of diarrhea when spouse states is not uncommon for pt. Integument: None Activity: Patient reported no changes in energy level, energy level fair Do you need to take naps? Yes; Do you wake up feeling rested? Yes Pain: No=0 (pain 0 on a scale of 0-10). Fever: No Chills: No Any new referrals needed? No Reinforced CURRENT treatment education based on current and anticipated symptoms. Discussed port/line care and patient verbalizes understanding: Not Applicable Patient instructed to contact office or after hours Hematology/Oncology fellow for: temperature ? 100.4; questions or concerns. Patient verbalized understanding of when to seek medical attention and after hours number protocol. Carmine Ignacio RN documented in this encounter [facility] 07-21-2023 Note HNO ID: [id number] Author: Gabriella Javed APRN.[place] Service: ? Author Type: Nurse Practitioner Type: Progress Notes Filed: 07/26/2023 1:03 PM Note Text: PATIENT NAME: Mike Braswell DATE: 07/21/2023 (Elements copied from Rodríguez Pack MD note dated 07/12/2023, have been reviewed and updated where appropriate, and all reflect current assessment and medical decision making during today's encounter, July 21, 2023) PRIMARY CARE PHYSICIAN: Dr. Mark Quintanilla OTHER PHYSICIANS: Dr. Wells; Wilbur Rosa CNP ([facility]) CC: This is an 83 year old male with recurrent squamous cell skin cancer here to begin treatment. INTERIM HISTORY: Mike Braswell returns for follow-up and to begin treatment with cemiplimab. There has been no significant medical changes since his last visit. He still has moderate discomfort with oozing from several areas of the skin cancer recurrences. He denies fevers, chills, night sweats and signs/symptoms of infection. Overall he is doing fairly well today and wishes to proceed with treatment as planned. MEDICATIONS: Current Outpatient Medications Medication Sig warfarin (COUMADIN) 5 mg tablet Take 0.5 tablets by mouth once daily. levothyroxine (SYNTHROID) 50 mcg tablet Take 50 mcg by mouth once daily. carbidopa-levodopa (SINEMET 25-100) 25-100 mg per tablet Take by mouth two times a day. ENTRESTO 24-26 mg tablet Take by mouth two times a day. tamsulosin (FLOMAX) 0.4 mg Take 1 capsule by mouth once daily. rosuvastatin (CRESTOR) 10 mg tablet Take by mouth once daily. potassium chloride ER (KLOR-CON M20) 20 mEq tablet Take by mouth once daily. mirtazapine (REMERON) 15 mg tablet Take by mouth once daily. metoprolol tartrate, short acting, (LOPRESSOR) 25 mg tablet Take 25 mg by mouth every 12 hours. finasteride (PROSCAR) 5 mg tablet Take 5 mg by mouth once daily. No current facility-administered medications for this visit. ALLERGIES: ALLERGIES No Known Allergies PAST MEDICAL HISTORY: PAST MEDICAL HISTORY Diagnosis Date Atrial fibrillation (HCC) Dementia (HCC) Hypercholesteremia Hypertension Hypothyroidism Skin cancer PAST SURGICAL HISTORY: PAST SURGICAL HISTORY Procedure Laterality Date PAST SURGICAL HISTORY OF bowel resection due to obstruction PAST SURGICAL HISTORY OF left ear reconstructive surgery due to skin cancer REMOVAL GALLBLADDER TONSILLECTOMY AND ADENOIDECTOMY FAMILY HISTORY: No family history on file. SOCIAL HISTORY: Social History Tobacco Use Smoking status: Never Smokeless tobacco: Never Substance Use Topics Alcohol use: Not Currently Drug use: Never REVIEW OF SYSTEMS: General: No weight loss, malaise or fevers. HEENT: Negative for frequent or significant headaches. No changes in hearing or vision, no nose bleeds or other nasal problems. Respiratory: Negative for cough, wheezing or shortness of breath. Cardiovascular: Negative for chest pain, leg swelling or palpitations. GI: Negative for abdominal discomfort, blood in stools or black stools or change in bowel habits. : No history of dysuria, frequency or incontinence. Musculoskeletal: Negative for: joint pain or swelling, back pain and muscle pain. Skin: Negative for lesions, rash and itching. Hematology/Lymphology: Negative for prolonged bleeding, bruising easily or swollen nodes. Neuro: No history of headaches, syncope, paralysis, seizures or tremors. PHYSICAL EXAM: BP 150/75 Pulse 99 Temp 36.1 ?C (97 ?F) (Temporal) Resp 16 Ht 167.6 cm (5' 6 ) Wt 77.2 kg (170 lb 3.2 oz) SpO2 98% BMI 27.47 kg/m? ECOG 1 Exam limited to gross visualization where appropriate. Gen.: This is an age-appropriate patient in no acute distress. Head: Appears atraumatic with no visible lesions. Eyes: Pupils equally round and reactive to light, extraocular muscles are intact. Neck: Supple. Respiratory: Appears to be respiring comfortably. Neurologic: Nonfocal to gross visualization. Alert and oriented ?3. Psychiatric: No evidence of inappropriate anxiety or depression. Skin: Visible areas of skin without rash, lesions, wounds or petechiae. LABS: No labs today. RADIOLOGY/OTHER STUDIES: 07/12/2023 PET Scan IMPRESSION: 1. Neck: Few scattered foci of cutaneous activity in the scalp. No hypermetabolic lymphadenopathy. 2. Chest: No evidence of FDG avid neoplastic process 3. Abdomen and pelvis: No evidence of FDG avid neoplastic process 4. Skeleton: No hypermetabolic osseous lesions ASSESSMENT/PLAN: 1. 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 He has undergone extensive surgeries as well as several courses of radiation therapy. He recently presented with progressive lesions over his le (more content not included)... [facility] 07-21-2023 History of Presen t illness Narrative PATIENT NAME: Mike Braswell DATE: 07/21/2023 (Elements copied from Rodríguez Pack MD note dated 07/12/2023, have been reviewed and updated where appropriate, and all reflect current assessment and medical decision making during today's encounter, July 21, 2023) PRIMARY CARE PHYSICIAN: Dr. Mark Quintanilla Jr OTHER PHYSICIANS: Dr. Wells; Wilbur Rosa CNP ([facility]) CC: This is an 83 year old male with recurrent squamous cell skin cancer here to begin treatment. INTERIM HISTORY: Mike Braswell returns for follow-up and to begin treatment with cemiplimab. There has been no significant medical changes since his last visit. He still has moderate discomfort with oozing from several areas of the skin cancer recurrences. He denies fevers, chills, night sweats and signs/symptoms of infection. Overall he is doing fairly well today and wishes to proceed with treatment as planned. MEDICATIONS: Current Outpatient Medications Medication Sig warfarin (COUMADIN) 5 mg tablet Take 0.5 tablets by mouth once daily. levothyroxine (SYNTHROID) 50 mcg tablet Take 50 mcg by mouth once daily. carbidopa-levodopa (SINEMET 25-100) 25-100 mg per tablet Take by mouth two times a day. ENTRESTO 24-26 mg tablet Take by mouth two times a day. tamsulosin (FLOMAX) 0.4 mg Take 1 capsule by mouth once daily. rosuvastatin (CRESTOR) 10 mg tablet Take by mouth once daily. potassium chloride ER (KLOR-CON M20) 20 mEq tablet Take by mouth once daily. mirtazapine (REMERON) 15 mg tablet Take by mouth once daily. metoprolol tartrate, short acting, (LOPRESSOR) 25 mg tablet Take 25 mg by mouth every 12 hours. finasteride (PROSCAR) 5 mg tablet Take 5 mg by mouth once daily. No current facility-administered medications for this visit. ALLERGIES: ALLERGIES No Known Allergies PAST MEDICAL HISTORY: PAST MEDICAL HISTORY Diagnosis Date Atrial fibrillation (HCC) Dementia (HCC) Hypercholesteremia Hypertension Hypothyroidism Skin cancer PAST SURGICAL HISTORY: PAST SURGICAL HISTORY Procedure Laterality Date PAST SURGICAL HISTORY OF bowel resection due to obstruction PAST SURGICAL HISTORY OF left ear reconstructive surgery due to skin cancer REMOVAL GALLBLADDER TONSILLECTOMY & ADENOIDECTOMY <AGE 14 FAMILY HISTORY: No family history on file. SOCIAL HISTORY: Social History Tobacco Use Smoking status: Never Smokeless tobacco: Never Substance Use Topics Alcohol use: Not Currently Drug use: Never REVIEW OF SYSTEMS: General: No weight loss, malaise or fevers. HEENT: Negative for frequent or significant headaches. No changes in hearing or vision, no nose bleeds or other nasal problems. Respiratory: Negative for cough, wheezing or shortness of breath. Cardiovascular: Negative for chest pain, leg swelling or palpitations. GI: Negative for abdominal discomfort, blood in stools or black stools or change in bowel habits. : No history of dysuria, frequency or incontinence. Musculoskeletal: Negative for: joint pain or swelling, back pain and muscle pain. Skin: Negative for lesions, rash and itching. Hematology/Lymphology: Negative for prolonged bleeding, bruising easily or swollen nodes. Neuro: No history of headaches, syncope, paralysis, seizures or tremors. PHYSICAL EXAM: BP 150/75 Pulse 99 Temp 36.1 C (97 F) (Temporal) Resp 16 Ht 167.6 cm (5' 6 ) Wt 77.2 kg (170 lb 3.2 oz) SpO2 98% BMI 27.47 kg/m ECOG 1 Exam limited to gross visualization where appropriate. Gen.: This is an age-appropriate patient in no acute distress. Head: Appears atraumatic with no visible lesions. Eyes: Pupils equally round and reactive to light, extraocular muscles are intact. Neck: Supple. Respiratory: Appears to be respiring comfortably. Neurologic: Nonfocal to gross visualization. Alert and oriented 3. Psychiatric: No evidence of inappropriate anxiety or depression. Skin: Visible areas of skin without rash, lesions, wounds or petechiae. LABS: No labs today. RADIOLOGY/OTHER STUDIES: 07/12/2023 PET Scan IMPRESSION: 1. Neck: Few scattered foci of cutaneous activity in the scalp. No hypermetabolic lymphadenopathy. 2. Chest: No evidence of FDG avid neoplastic process 3. Abdomen and pelvis: No evidence of FDG avid neoplastic process 4. Skeleton: No hypermetabolic osseous lesions ASSESSMENT/PLAN: 1. 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 He has undergone extensive surgeries as well as several courses of radiation therapy. He recently presented with progressive lesions over his left upper chest wall, left forearm, left parietal scalp, and right forehead. 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 PET scan 07/12/2023 revealed no evidence of metastases. The multiple areas of disease involvement were unresectable. The patient was seen by radiation oncology, and it was felt that radiation to the involved areas most likely would not be well-tolerated. Options for further management were discussed at length with the patient and his family. Per NCCN guidelines systemic therapy should be considered in the event a patient has localized disease not amenable to surgery or radiation therapy. After much discussion we have elected to give a trial of cemiplimab, with plans to give every 3 weeks as tolerated. The risks, benefits and side effects were discussed at length with the patient. Consent was obtained. We will proceed with cycle 1 today. We will plan to see him back in 3 weeks for follow-up, labs and continued treatment. If cemiplimab is not effective or well-tolerated we will reconsider palliative radiation therapy to the involved areas. 2. Hypertension Controlled on current medications. Continue management per PCP. 3. Hyperlipidemia Controlled on current medications. Continue management per PCP. 4. Acquired hypothyroidism Controlled on current medications, currently Synthroid 25 mcg daily. Continue management per PCP. 5. History of tremor, possible Parkinson's disease Controlled on current medications. Continue management per PCP. 6. Atrial fibrillation Controlled on current medications, including anticoagulation with Coumadin. Continue management per PCP. Gabriella Javed APRN.MS ACCESS DATABASE DEVELOPER CC: Dr. Mark Rosa CNP ([facility]) I spent a total of 30 minutes on the date of the service which included preparing to see the patient, [id number] patient care, completing clinical documentation, obtaining and/or reviewing separately obtained history, performing a medically appropriate examination, counseling and educating the patient/family/caregiver, ordering medications, tests, or procedures, independently interpreting results (not separately reported), and communicating results to the patient/family/caregiver. 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 - levothyroxine (SYNTHROID) 50 mcg tablet Take 50 mcg by mouth once daily. - carbidopa-levodopa (SINEMET 25-100) 25-100 mg per tablet Take by mouth two times a day. - ENTRESTO 24-26 mg tablet Take by mouth two times a day. - tamsulosin (FLOMAX) 0.4 mg Take 1 capsule by mouth once daily. - rosuvastatin (CRESTOR) 10 mg tablet Take by mouth once daily. - potassium chloride ER (KLOR-CON M20) 20 mEq tablet Take by mouth once daily. - mirtazapine (REMERON) 15 mg tablet Take by mouth once daily. - metoprolol tartrate, short acting, (LOPRESSOR) 25 mg tablet Take 25 mg by mouth every 12 hours. - finasteride (PROSCAR) 5 mg tablet Take 5 mg by mouth once daily. Encounter Status:Closed by CARMINE IGNACIO on 07/20/23 [facility] 07-19-2023 Note HNO ID: [id number] Author: Carmine Ignacio, RN Service: ? 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 YES Confirmed date and time for chemotherapy ? YES Other appointments (labs, imaging) discussed? YES Discussed where to park ([employer]), charge for parking NO Discussed where to report (building/floor) YES Any pre-medications ordered? NO Described the infusion room and what to expect. (What to wear, what to bring [iPad, books] amount of time treatment can take, meals and CC options for food) YES Note: NA Discussed whether the patient can eat prior to labs and treatment. YES Who is driving you to and from treatment? Spouse or Son Discussed why it is important to bring someone with you. Yes, Resources discussed (music therapy, Art therapy, pet therapy, etc.) YES Education on chemotherapy (drug, side effects) discussed and that the patient will be receiving a C1D1 call within 7 days of treatment. YES Other topics discussed, interventions needed: TRICIA Ignacio RN [facility] 07-19-2023 Note HNO ID: [id number] Author: Carmine Ignacio RN Service: ? Author Type: Registered Nurse Type: Progress Notes Filed: 07/20/2023 8:08 AM Note Text: ONCOLOGY PATIENT EDUCATION NOTE TOPIC: Immunotherapy, Medications: Cemiplimab READINESS TO LEARN: COGNITIVE ABILITY: Alert and oriented MOTIVATION TO LEARN: Interested FAMILY SUPPORT: High - Very involved in pt care INSTRUCTION PROVIDED TO: Patient and Spouse INSTRUCTION PROVIDED BY: Nurse Coordinator PATIENT LEARNS BEST BY: Multiple Methods FACTORS AFFECTING LEARNING: None PHYSICAL LIMITATIONS AFFECTING LEARNING: None LEARNING RESPONSE DIAGNOSIS: Skin Cancer METHOD OF INSTRUCTION: Individual instruction Written instruction - handouts Verbal instruction PATIENT/FAMILY RESPONSE: Verbalizes understanding of: INFECTION MANAGEMENT-Signs and symptoms of an infection and importance of contacting the physician MEDICATION PRESCRIBED-Accurate knowledge of prescribed medication prior to discharge MEDICATION ROUTE-Correct route for administration of the prescribed medication MEDICATION SIDE EFFECTS-Side effects associated with the medication that warrant a call to the physician SYMPTOM MANAGEMENT-Correct actions to take to manage symptoms associated with his/her disease/illness WORSENING CONDITION-Signs and symptoms of a worsening condition that warrant a call to the physician Information received as demonstrated by interest and questions FOLLOW UP PLAN: Patient instructed to call with any further issues Contact information given. SUPPLEMENTAL MATERIAL: Written material was provided at this visit with the following information: - Immunotherapy education was provided by a pharmacist NO - Side effect management information was provided/discussed including but not limited to: abdominal discomfort, anemia, appetite changes, arthralgia, bowel habit changes, cardiac toxicity, diet, fatigue, headache, hyperglycemia, infection, kidney toxicity, myalgia, nausea/vomitting, peripheral neuropathy, rash, shortness of breath, skin changes, vision disorder/distrubance YES - Provided important phone numbers and contacts during and after hours. YES - Provided information on symptoms that require immediate assistance. YES - Provided Immunotherapy when to call handouts YES - Preventing infection. YES - Treatment schedule and confirmation of appointment times. YES - Available support groups. YES - The importance of contraception during the course of chemotherapy NA - 4th Oli Information. YES - Patient services information. YES - ONS Immunotherapy wallet card provided. - Offered tour of treatment room. Pt declined. 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 YES Confirmed date and time for chemotherapy ? YES Other appointments (labs, imaging) discussed? YES Discussed where to park ([employer]), charge for parking NO Discussed where to report (building/floor) YES Any pre-medications ordered? NO Described the infusion room and what to expect. (What to wear, what to bring [iPad, books] amount of time treatment can take, meals and CC options for food) YES Note: NA Discussed whether the patient can eat prior to labs and treatment. YES Who is driving you to and from treatment? Spouse or Son Discussed why it is important to bring someone with you. Yes, Resources discussed (music therapy, Art therapy, pet therapy, etc.) YES Education on chemotherapy (drug, side effects) discussed and that the patient will be receiving a C1D1 call within 7 days of treatment. YES Other topics discussed, interventions needed: TRICIA Ignacio RN ONCOLOGY PATIENT EDUCATION NOTE TOPIC: Immunotherapy, Medications: Cemiplimab READINESS TO LEARN: COGNITIVE ABILITY: Alert and oriented MOTIVATION TO LEARN: Interested FAMILY SUPPORT: High - Very involved in pt care INSTRUCTION PROVIDED TO: Patient and Spouse INSTRUCTION PROVIDED BY: Nurse Coordinator PATIENT LEARNS BEST BY: Multiple Methods FACTORS AFFECTING LEARNING: None PHYSICAL LIMITATIONS AFFECTING LEARNING: None LEARNING RESPONSE DIAGNOSIS: Skin Cancer METHOD OF INSTRUCTION: Individual instruction Written instruction - handouts Verbal instruction PATIENT/FAMILY RESPONSE: Verbalizes understanding of: INFECTION MANAGEMENT-Signs and symptoms of an infection and importance of contacting the physician MEDICATION PRESCRIBED-Accurate knowledge of prescribed medication prior to discharge MEDICATION ROUTE-Correct route for administration of the prescribed medication MEDICATION SIDE EFFECTS-Side effects associated with the medication that warrant a call to the physician SYMPTOM MANAGEMENT-Correct actions to take to manage symptoms associated with his/her disease/illness WORSENING CONDITION-Signs and symptoms of a worsening condition that warrant a call to the physician Information received as demonstrated by interest and questions FOLLOW UP PLAN: Patient instructed to call with any further issues Contact information given. SUPPLEMENTAL MATERIAL: Written material was provided at this visit with the following information: - Immunotherapy education was provided by a pharmacist NO - Side effect management information was provided/discussed including but not limited to: abdominal discomfort, anemia, appetite changes, arthralgia, bowel habit changes, cardiac toxicity, diet, fatigue, headache, hyperglycemia, infection, kidney toxicity, myalgia, nausea/vomitting, peripheral neuropathy, rash, shortness of breath, skin changes, vision disorder/distrubance YES - Provided important phone numbers and contacts during and after hours. YES - Provided information on symptoms that require immediate assistance. YES - Provided Immunotherapy when to call handouts YES - Preventing infection. YES - Treatment schedule and confirmation of appointment times. YES - Available support groups. YES - The importance of contraception during the course of chemotherapy NA - 4th Oli Information. YES - Patient services information. YES - ONS Immunotherapy wallet card provided. - Offered tour of treatment room. Pt declined. Time Spent: 40 minutes REFERRAL (RECOMMENDATION): N/A Carmine Ignacio RN documented in this encounter [facility] 07-12-2023 Note HNO ID: [id number] Author: Sebas Wells MD Service: ? 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 HPI: Patient returns for follow-up with further imaging including PET/CT. Still having irritation mostly from the left posterior auricular and upper chest lesions. But these have improved for him. PET/CT 07/12/2023:1. Neck: Few scattered foci of cutaneous activity in the scalp. No hypermetabolic lymphadenopathy. 2. Chest: No evidence of FDG avid neoplastic process 3. Abdomen and pelvis: No evidence of FDG avid neoplastic process 4. Skeleton: No hypermetabolic osseous lesions ALLERGIES No Known Allergies PAST MEDICAL HISTORY Diagnosis Date Atrial fibrillation (HCC) Dementia (HCC) Hypercholesteremia Hypertension Hypothyroidism Skin cancer Prior radiation therapy, collagen vascular disease, or inflammatory bowel disease: Yes prior superior scalp radiation. PAST SURGICAL HISTORY Procedure Laterality Date PAST SURGICAL HISTORY OF bowel resection due to obstruction PAST SURGICAL HISTORY OF left ear reconstructive surgery due to skin cancer REMOVAL GALLBLADDER TONSILLECTOMY AND ADENOIDECTOMY No family history on file. Social History Tobacco Use Smoking status: Never Smokeless tobacco: Never Substance Use Topics Alcohol use: Not Currently Drug use: Never COMPLETE REVIEW OF SYSTEMS: GENERAL: feeling well without fatigue, no recent change in weight NECK: denies swelling or pain in neck RESPIRATORY: no cough, no wheezing or shortness of breath CARDIOVASCULAR: no chest pain, no palpitations SKIN: See HPI NEURO: no numbness or paresthesias and no weakness of the extremities As noted in HPI PHYSICAL EXAM: VS: BP 141/78 Pulse 101 Temp 36.1 ?C (96.9 ?F) SpO2 99% KPS: 80 General Appearance: Alert and oriented. No acute distress. Neck no adenopathy appreciable Skin: Improved appearance of the left posterior auricular and upper chest wall lesion. Still with shallow-based ulcer type appearance without evidence of exudate or surrounding erythema. Lymphatics: No palpable lymphadenopathy. Hematologic: No signs of active bleeding. 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 Discussed again potential options. PET scan without any obvious underlying issues, several small cutaneous tissues likely correspond to current disease process. No evidence of regional spread. I do feel that palliative radiation may be a suitable option for him to these areas. Patient is concerned about multiple trips back and forth. I do not feel given the extent of disease that very hypofractionated course of treatment would be indicated but more palliative 10 fraction approach may help control these areas. He is seeing medical oncology given his history of multiple skin cancers including multiple different locations and consideration for immunotherapy. Signed by: Sebas Wells MD cc: To use this Smartlink, specify the provider ID whose address you want to display, e.g., .PROVADDR[1 (where 1 is the provider ID). Wilbur Rosa NP [address] [facility] [id number] [facility] 07-12-2023 Note HNO ID: [id number] Author: Carmine Patel RT(R) Service: ? Author Type: Technologist Type: Progress Notes Filed: 07/12/2023 12:39 PM Note Text: RADIOLOGY SERVICE PROGRESS NOTE SERVICE DATE: 07/12/2023 SERVICE TIME: 12:39 PM PATIENT IDENTITY VERIFICATION COMPLETED USING TWO (2) STANDARD IDENTIFIERS: Name and Date of confirmed by patient verbally POST EXAM PIV STATUS: Discontinued PROCEDURE TYPE: NM INJECT: PET/CT BODY SCAN. 10.8 mCi F18 FDG. No other medications given.. ADMINISTRATION TIME: 1234 PATIENT DISCHARGED TO: Ambulatory patient, left NM department area. A Diagnostic radioactive procedure has taken place, with no further precautions necessary other than routine body substance precautions. More information regarding radiation safety can be found using this link: [email or web address] SIGNATURE: RT Mejia(R) PATIENT NAME: Mike Braswell DATE: July 12, 2023 TIME: 12:39 PM PAGER/CONTACT #: [facility] 07-12-2023 Note HNO ID: [id number] Author: Tommy Cruz RN Service: ? Author Type: Registered Nurse Type: Progress Notes Filed: 07/12/2023 12:35 PM Note Text: Radiology Service Progress Note DATE OF SERVICE: July 12, 2023 TIME: 12:34 PM PATIENT IDENTITY VERIFICATION COMPLETED USING TWO (2) STANDARD IDENTIFIERS: Name and Date of confirmed by patient verbally. FALL SCREENING: Has the patient had 2 falls in the last year or 1 fall with injury or currently using an Ambulatory Assistive Device (Walker, Cane, Wheelchair, Crutches, etc.)? Yes, Patient High Risk for Falls What interventions were put in place to prevent falls during this visit? Instructed Patient to Call for Help if Needed and Offered Assistance with Transfers/Clothing PATIENT GENDER DATA: Male EXAM: CT -CONTRAST INDUCED NEPHROPATHY RISK FACTORS: Not applicable CREATININE: No results found for: CREAT , EGFROTH , EGFRAA P.O.C.T. RESULTS: N/A July 12, 2023 TREATMENT: N/A IV SITE: Ambulatory: A peripheral IV was started in the Right forearm with a Angio cath: 22 gauge. 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 HPI: Patient returns for follow-up with further imaging including PET/CT. Still having irritation mostly from the left posterior auricular and upper chest lesions. But these have improved for him. PET/CT 07/12/2023:1. Neck: Few scattered foci of cutaneous activity in the scalp. No hypermetabolic lymphadenopathy. 2. Chest: No evidence of FDG avid neoplastic process 3. Abdomen and pelvis: No evidence of FDG avid neoplastic process 4. Skeleton: No hypermetabolic osseous lesions ALLERGIES No Known Allergies PAST MEDICAL HISTORY Diagnosis Date Atrial fibrillation (HCC) Dementia (HCC) Hypercholesteremia Hypertension Hypothyroidism Skin cancer Prior radiation therapy, collagen vascular disease, or inflammatory bowel disease: Yes prior superior scalp radiation. PAST SURGICAL HISTORY Procedure Laterality Date PAST SURGICAL HISTORY OF bowel resection due to obstruction PAST SURGICAL HISTORY OF left ear reconstructive surgery due to skin cancer REMOVAL GALLBLADDER TONSILLECTOMY & ADENOIDECTOMY <AGE 14 No family history on file. Social History Tobacco Use Smoking status: Never Smokeless tobacco: Never Substance Use Topics Alcohol use: Not Currently Drug use: Never COMPLETE REVIEW OF SYSTEMS: GENERAL: feeling well without fatigue, no recent change in weight NECK: denies swelling or pain in neck RESPIRATORY: no cough, no wheezing or shortness of breath CARDIOVASCULAR: no chest pain, no palpitations SKIN: See HPI NEURO: no numbness or paresthesias and no weakness of the extremities As noted in HPI PHYSICAL EXAM: VS: BP 141/78 Pulse 101 Temp 36.1 C (96.9 F) SpO2 99% KPS: 80 General Appearance: Alert and oriented. No acute distress. Neck no adenopathy appreciable Skin: Improved appearance of the left posterior auricular and upper chest wall lesion. Still with shallow-based ulcer type appearance without evidence of exudate or surrounding erythema. Lymphatics: No palpable lymphadenopathy. Hematologic: No signs of active bleeding. 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 Discussed again potential options. PET scan without any obvious underlying issues, several small cutaneous tissues likely correspond to current disease process. No evidence of regional spread. I do feel that palliative radiation may be a suitable option for him to these areas. Patient is concerned about multiple trips back and forth. I do not feel given the extent of disease that very hypofractionated course of treatment would be indicated but more palliative 10 fraction approach may help control these areas. He is seeing medical oncology given his history of multiple skin cancers including multiple different locations and consideration for immunotherapy. Signed by: Sebas Wells MD cc: To use this Smartlink, specify the provider ID whose address you want to display, e.g., .PROVADDR[1 (where 1 is the provider ID). Wilbur Rosa, JANET [address] [facility] [address] [facility] [id number] documented in this encounter [facility] 07-12-2023 Note HNO ID: [id number] Author: Rodríguez Pack MD Service: ? Author Type: Physician Type: Progress Notes Filed: 07/13/2023 10:17 AM Note Text: PATIENT NAME: Mike Braswell DATE: 07/12/2023 PRIMARY CARE PHYSICIAN: Mark Quintanilla Jr, DO OTHER PHYSICIANS: Dr. Wells; Wilbur Rosa CNP ([facility]) HPI: This is an 83 year old male with recurrent squamous cell skin cancer, referred for further management. The patient has a long history of recurrent cutaneous carcinomas including squamous cell carcinoma, basal cell carcinoma, and squamous cell carcinoma in situ dating back to the early 1990s. He has undergone extensive surgeries as well as several courses of radiation therapy. He recently presented with progressive skin lesions over his left upper chest wall, left forearm, left parietal scalp, and right forehead. 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 The multiple areas of disease involvement were unresectable and he was referred to radiation therapy. However, due to the extent of disease and previous courses of radiation it was felt that radiation would not be well-tolerated. He currently is referred to discuss systemic therapy options. He has moderate discomfort with oozing from several areas of the skin cancer recurrences. No severe pain. No recent fevers or signs of infection. Past medical history otherwise is significant for a chronic tremor, possibly indicating early Parkinson's. He has acquired hypothyroidism, currently on Synthroid. Atrial fibrillation on Coumadin. Hypertension and hyperlipidemia controlled with current medications. He does not smoke or drink. Currently he is and lives in the [facility]. 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 MEDICATIONS: Current Outpatient Medications Medication Sig minocycline (MINOCIN, DYNACIN) 100 mg capsule TAKE 1 CAPSULE BY MOUTH IN THE MORNING AND 1 IN THE EVENING warfarin (COUMADIN) 5 mg tablet levothyroxine (SYNTHROID) 50 mcg tablet carbidopa-levodopa (SINEMET 25-100) 25-100 mg per tablet ENTRESTO 24-26 mg tablet tamsulosin (FLOMAX) 0.4 mg 1 capsule. rosuvastatin (CRESTOR) 10 mg tablet potassium chloride ER (KLOR-CON M20) 20 mEq tablet mirtazapine (REMERON) 15 mg tablet metoprolol tartrate, short acting, (LOPRESSOR) 25 mg tablet every 12 hours. finasteride (PROSCAR) 5 mg tablet 1 (one) time each day at the same time. No current facility-administered medications for this visit. ALLERGIES: ALLERGIES No Known Allergies PAST MEDICAL HISTORY: PAST MEDICAL HISTORY Diagnosis Date Atrial fibrillation (HCC) Dementia (HCC) Hypercholesteremia Hypertension Hypothyroidism Skin cancer PAST SURGICAL HISTORY: PAST SURGICAL HISTORY Procedure Laterality Date PAST SURGICAL HISTORY OF bowel resection due to obstruction PAST SURGICAL HISTORY OF left ear reconstructive surgery due to skin cancer REMOVAL GALLBLADDER TONSILLECTOMY AND ADENOIDECTOMY FAMILY HISTORY: No family history on file. SOCIAL HISTORY: Social History Tobacco Use Smoking status: Never Smokeless tobacco: Never Substance Use Topics Alcohol use: Not Currently Drug use: Never COMPLETE REVIEW OF SYSTEMS: CONSTITUTION: Negative for pain, fatigue, weight loss, or appetite loss. EENT: Negative for mouth soreness, antibiotics use, epistaxis, visual problems, neck or facial swelling, fever/chills, bleeding gums, or hearing loss. CV: Negative for edema, calf swelling, palpitations, or chest pain. RESPIRATORY: Negative for cough, SOB, hemoptysis, or wheezing. GI: Negative for nausea/vomiting, heartburn, vomiting blood, dysphasia, diarrhea, blood in stool, constipation, early satiety, PICA, vegetarian, poor nutrition, abdominal fullness, or abdominal pain. NEUROLOGICAL: Negative for numbness/tingling, dizziness, gait disturbance, headache, speech disturbance, tremor, hemiparesis/sensory loss, or change in mental status. MUSCULOSKELETAL: Negative for joint pain, joint swelling, or proximal muscle weakness. SKIN: Negative for hair loss, bruising, nail changes, rash, itching, pallor, or jaundice. ENDO/URO: Negative for hot flashes, cold or heat intolerance, urinary frequency, urinary hesitancy, menorrhagia, or hematuria. PSYCH: Negative for anxiety, depression, or other. PHYSICAL EXAM: BP 141/78 Pulse 101 Temp 36.1 ?C (96.9 ?F) (Temporal) Resp 18 GENERAL EXAM: Well developed/well nourished; in no acute distress. SKIN: Negative for lesions, rashes, or ulcers on the upper and lower extremities and face. Negative for palpations/nodules, purpura, and ecchymosis. EENT: Negative for conjunctiva, mucosal pallor, JVD, LAP, thyromegaly, and glossitis. Supple AND PERRL. EXTREMITIES: Negative for cyanosis, clubbing, and crepitus. LUNGS: Negative to auscultation, respiratory effort, and percussion. CARDIOVASCULAR: Regular rate. Negative for murmurs/S3S4/abnor (more content not included)... [facility] 06-22-2023 Note HNO ID: [id number] Author: Sebas Wells MD Service: ? 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 HPI: Patient states he is less tenderness in his lesions though still complains of irritation particularly in the left posterior scalp lesion as well as anterior chest lesion. He is due to complete course of antibiotics this week. No fever. He is here today with his and son. ALLERGIES No Known Allergies PAST MEDICAL HISTORY Diagnosis Date Atrial fibrillation (HCC) Dementia (HCC) Hypercholesteremia Hypertension Hypothyroidism Prior radiation therapy, collagen vascular disease, or inflammatory bowel disease: Yes prior superior scalp radiation. PAST SURGICAL HISTORY Procedure Laterality Date PAST SURGICAL HISTORY OF bowel resection due to obstruction PAST SURGICAL HISTORY OF left ear reconstructive surgery due to skin cancer REMOVAL GALLBLADDER TONSILLECTOMY AND ADENOIDECTOMY No family history on file. Social History Tobacco Use Smoking status: Never Smokeless tobacco: Never Substance Use Topics Alcohol use: Not Currently Drug use: Never COMPLETE REVIEW OF SYSTEMS: GENERAL: feeling well without fatigue, no recent change in weight NECK: denies swelling or pain in neck RESPIRATORY: no cough, no wheezing or shortness of breath CARDIOVASCULAR: no chest pain, no palpitations SKIN: See HPI NEURO: no numbness or paresthesias and no weakness of the extremities As noted in HPI PHYSICAL EXAM: VS: BP 153/86 Pulse (!) 54 Temp (!) 35.8 ?C (96.4 ?F) Resp 18 Wt 77 kg (169 lb 12.8 oz) SpO2 94% KPS: 80 General Appearance: Alert and oriented. No acute distress. Neck no adenopathy appreciable Skin: Lesions including the left forearm measuring approximately 2 x 2 cm, left upper chest wall measuring approximately 5 x 5 cm, posterior auricular area large 12 x 5 cm area anterior irregular area approximately 3 x 4 right forehead area grossly 4 x 4 cm. All very thin shallow-based ulcer appearance. Lymphatics: No palpable lymphadenopathy. Hematologic: No signs of active bleeding. 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 Given the extent of his lesions and history of invasive process I do feel further imaging warranted, to rule out other underlying cause or potential regional spread. Again options were discussed with patient. I do have concern about treating definitively to the large areas and would recommend a more protracted course of treatment should be go that route. Other consideration would be a shorter more palliative course of treatment which may give him control and could be repeated down the road for recurrence. We also discussed potential role of PD- 1 checkpoint inhibitor systemic treatment given the extent of his lesions and recommend at least referral and consultation with medical oncology regarding this. We will have him back after his PET scan. Signed by: Sebas Wells MD cc: To use this Smartlink, specify the provider ID whose address you want to display, e.g., .PROVADDR[1 (where 1 is the provider ID). 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 HPI: Patient states he is less tenderness in his lesions though still complains of irritation particularly in the left posterior scalp lesion as well as anterior chest lesion. He is due to complete course of antibiotics this week. No fever. He is here today with his and son. ALLERGIES No Known Allergies PAST MEDICAL HISTORY Diagnosis Date Atrial fibrillation (HCC) Dementia (HCC) Hypercholesteremia Hypertension Hypothyroidism Prior radiation therapy, collagen vascular disease, or inflammatory bowel disease: Yes prior superior scalp radiation. PAST SURGICAL HISTORY Procedure Laterality Date PAST SURGICAL HISTORY OF bowel resection due to obstruction PAST SURGICAL HISTORY OF left ear reconstructive surgery due to skin cancer REMOVAL GALLBLADDER TONSILLECTOMY & ADENOIDECTOMY <AGE 14 No family history on file. Social History Tobacco Use Smoking status: Never Smokeless tobacco: Never Substance Use Topics Alcohol use: Not Currently Drug use: Never COMPLETE REVIEW OF SYSTEMS: GENERAL: feeling well without fatigue, no recent change in weight NECK: denies swelling or pain in neck RESPIRATORY: no cough, no wheezing or shortness of breath CARDIOVASCULAR: no chest pain, no palpitations SKIN: See HPI NEURO: no numbness or paresthesias and no weakness of the extremities As noted in HPI PHYSICAL EXAM: VS: BP 153/86 Pulse (!) 54 Temp (!) 35.8 C (96.4 F) Resp 18 Wt 77 kg (169 lb 12.8 oz) SpO2 94% KPS: 80 General Appearance: Alert and oriented. No acute distress. Neck no adenopathy appreciable Skin: Lesions including the left forearm measuring approximately 2 x 2 cm, left upper chest wall measuring approximately 5 x 5 cm, posterior auricular area large 12 x 5 cm area anterior irregular area approximately 3 x 4 right forehead area grossly 4 x 4 cm. All very thin shallow-based ulcer appearance. Lymphatics: No palpable lymphadenopathy. Hematologic: No signs of active bleeding. 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 Given the extent of his lesions and history of invasive process I do feel further imaging warranted, to rule out other underlying cause or potential regional spread. Again options were discussed with patient. I do have concern about treating definitively to the large areas and would recommend a more protracted course of treatment should be go that route. Other consideration would be a shorter more palliative course of treatment which may give him control and could be repeated down the road for recurrence. We also discussed potential role of PD- 1 checkpoint inhibitor systemic treatment given the extent of his lesions and recommend at least referral and consultation with medical oncology regarding this. We will have him back after his PET scan. Signed by: Sebas Wells MD cc: To use this Smartlink, specify the provider ID whose address you want to display, e.g., .LinkdexADDR[1 (where 1 is the provider ID). Wilbur Rosa, JANET [address] [facility] [address] [facility] [address] documented in this encounter [facility] 06-14-2023 Note HNO ID: [id number] Author: Sebas Wells MD Service: ? 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 HPI: 83 year old male who presents with above diagnosis, for an opinion regarding the role of radiation therapy in the management of the patient's disease. Final recommendations will be communicated back to the requesting physician by way of the shared medical record, or letter to requesting physician via US mail. Patient has a longstanding history of squamous cell carcinoma involving multiple areas of skin. He has had prior treatment including radiation in the to superior scalp vertex. Also had resections including partial ear resection and reconstruction (left) 3 to 4 years ago. Presents recently with multiple areas including left upper chest 2 areas on his left forearm left posterior auricular and left parietal scalp as well as right forehead. He states he has moderate discomfort in the area involving his upper chest and behind his left ear. He denies any fever. He underwent further evaluation with dermatology including biopsy of the above-noted areas. Lesions biopsied with notable sizes at time of biopsy as noted below: 1. Left forearm 1.5 x 1.5 cm Pathology showing squamous of carcinoma in situ. 2. Left upper chest 5.5 x 5.5 cm Pathology showing squamous of carcinoma in situ. 3. Left occipital scalp 12.0 x 6.0 cm Pathology showing squamous of carcinoma in situ. 4. Left parietal scalp 4.5 x 2.0 cm Pathology showing squamous of carcinoma in situ. 5. Right forehead 5.0 x 4.0 cm Pathology showing squamous of carcinoma in situ. ALLERGIES No Known Allergies PAST MEDICAL HISTORY Diagnosis Date Atrial fibrillation (HCC) Dementia (HCC) Hypercholesteremia Hypertension Hypothyroidism Prior radiation therapy, collagen vascular disease, or inflammatory bowel disease: Yes prior superior scalp radiation. PAST SURGICAL HISTORY Procedure Laterality Date PAST SURGICAL HISTORY OF bowel resection due to obstruction PAST SURGICAL HISTORY OF left ear reconstructive surgery due to skin cancer REMOVAL GALLBLADDER TONSILLECTOMY AND ADENOIDECTOMY History reviewed. No pertinent family history. Social History Tobacco Use Smoking status: Never Smokeless tobacco: Never Substance Use Topics Alcohol use: Not Currently Drug use: Never COMPLETE REVIEW OF SYSTEMS: GENERAL: feeling well without fatigue, no recent change in weight NECK: denies swelling or pain in neck RESPIRATORY: no cough, no wheezing or shortness of breath CARDIOVASCULAR: no chest pain, no palpitations SKIN: See HPI NEURO: no numbness or paresthesias and no weakness of the extremities As noted in HPI PHYSICAL EXAM: VS: BP 149/91 Pulse 63 Resp 16 Wt 76.7 kg (169 lb) SpO2 99% KPS: 80 General Appearance: Alert and oriented. No acute distress. HEENT: NCAT. Sclera anicteric. PERRL. EOMI. Neck: Normal ROM. No palpable cervical or supraclavicular adenopathy. Neuro: Speech fluent. Gait normal. No focal deficits. Skin: Lesions including the left forearm measuring approximately 2 x 2 cm, left upper chest wall measuring approximately 5 x 5 cm, posterior auricular area large 12 x 5 cm area anterior irregular area approximately 3 x 4 right forehead area grossly 4 x 4 cm. All very thin shallow-based ulcer appearance. Lymphatics: No palpable lymphadenopathy. Hematologic: No signs of active bleeding. 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 Patient has a fairly advanced process particularly in the left scalp region. It may be reasonable to obtain imaging despite in situ histology given multiple large areas. In terms of options consideration of radiation although I am concerned about his tolerance given his age and with fairly large area of treatment. However these in situ lesion sometimes will respond reasonably well to more moderate doses which may be able to be given on a shorter course of treatment. It is unclear whether he would benefit from consideration of a PD-1 checkpoint inhibitor which has been shown has success in invasive squamous cell carcinomas of the skin. Given the extent and number of his lesions this may be reasonable despite being in situ, and it may be worth having him consult with medical oncology regarding this as well. Patient wants to talk about it with his family and will have him back next week for further discussion. Signed by: Sebas Wells MD cc: (more content not included)... [facility] 01-17-2023 Miscellaneous Notes Do you want labs? Patient coming in This 07/21/23 for treatment. Tania Rodrigues MA documented in this encounter [facility] Evaluation note Diagnosis Carcinoma in situ of skin, squamous cell- Primary Carcinoma in situ of skin, site unspecified Skin cancer of face Basal cell carcinoma of skin of other and unspecified parts of face Squamous cell carcinoma of skin of other parts of face [facility] Diagnosis Squamous cell skin cancer- Primary Squamous cell carcinoma of skin, site unspecified [facility] Diagnosis Carcinoma in situ of skin, squamous cell- Primary Carcinoma in situ of skin, site unspecified [facility] Diagnosis Squamous cell skin cancer- Primary Squamous cell carcinoma of skin, site unspecified documented in this encounter [facility] note* Diagnosis Squamous cell skin cancer- Primary Squamous cell carcinoma of skin, site unspecified Acquired hypothyroidism Unspecified hypothyroidism documented in this encounter [facility] note* Diagnosis Squamous cell skin cancer- Primary Squamous cell carcinoma of skin, site unspecified documented in this encounter [facility] note* Diagnosis Squamous cell skin cancer- Primary Squamous cell carcinoma of skin, site unspecified documented in this encounter [facility] note* Diagnosis Squamous cell skin cancer- Primary Squamous cell carcinoma of skin, site unspecified Acquired hypothyroidism Unspecified hypothyroidism documented in this encounter [facility] Summary Purpose Family History No Family History Records FoundNo Family History Records FoundNo Family History Records Found Advance Directives No Advanced Directives Records FoundNo Advanced Directives Records FoundNo Advanced Directives Records Found Reason for Referral Specialty Diagnoses / Procedures Referred By Contac t Referred To Contact Oncology Diagnoses Carcinoma in situ of skin, squamous cell Skin cancer of face Procedures CONSULT TO ONCOLOGY OFFICE/OUTPATIENT [facility] 60-74 MINUTES Sebas Wells MD [address] [place] [address] Referral ID Status Reason Start Date Expiration Date Visits Requested Visits Authorized [id number] Pending Review PCP Requested Referral 06/22/2023 06/21/2024 1 1 Specialty Diagnoses / Procedures Referred By Jabari t Referred To Contact MOLECULAR & FUNCTIONAL IMAGING Diagnoses Skin cancer of face Squamous cell carcinoma of skin of other parts of face Procedures NM PET/CT SKULL-THIGH INITIAL PET IMAGING CT ATTENUATION SKULL BASE MID-THIGH Sebas Wells MD [address] [place] [address] [place] [address] Molecular & Functional Imaging [address] [place] [address] Referral ID Status Reason Start Date Expiration Date Visits Requested Visits Authorized [id number] New Request Auto-Generat ed Referral 06/22/2023 07/21/2024 1 1 Medications Administered Section Inactive Administered Medications - up to 3 most recent administrations Medication Order MAR Action Action Date Dose Rate Site cemiplimab-rwlc 350 mg in NaCl 0.9% 117 mL (LIBTAYO) 350 mg, INTRAVENOUS, at 234 mL/hr, Administer over 30 Minutes, ONCE, 1 dose, On [place] 07/21/23 at 1400, Approx Total Volume: mL EXP: 2200 07/21/23 Administer with 0.22 micron filter. EXP: (8 hr). Allow preparation to reach room temperature prior to administration. New Bag/Syringe/Bottle 07/21/2023 2:18 PM EDT 350 mg 234 mL/hr Inactive Administered Medications - up to 3 most recent administrations Medication Order MAR Action Action Date Dose Rate Site cemiplimab-rwlc 350 mg in NaCl 0.9% 117 mL (LIBTAYO) 350 mg, INTRAVENOUS, at 234 mL/hr, Administer over 30 Minutes, ONCE, 1 dose, On [place] 09/01/23 at 1330, Approx Total Volume: mL EXP: 1320 09/02/23 Administer with 0.22 micron filter. EXP: (8 hr). Allow preparation to reach room temperature prior to administration. New Bag/Syringe/Bottle 09/01/2023 1:36 PM EST 350 mg 234 mL/hr Inactive Administered Medications - up to 3 most recent administrations Medication Order MAR Action Action Date Dose Rate Site cemiplimab-rwlc 350 mg in NaCl 0.9% 117 mL (LIBTAYO) 350 mg, INTRAVENOUS, at 234 mL/hr, Administer over 30 Minutes, ONCE, 1 dose, On [place] 09/22/23 at 1400, Approx Total Volume: mL EXP:09/22/23 2140 Administer with 0.22 micron filter. EXP: (8 hr). Allow preparation to reach room temperature prior to administration. New Bag/Syringe/Bottle 09/22/2023 1:54 PM EST 350 mg 234 mL/hr Additional Source Comments (unrecognized sect ion and content) No Status Records FoundNo Status Records FoundNo Status Records Found INFORMATION SOURCE (unrecogn ized section and content) DATE CREATED AUTHOR 11/20/2022 [facility] DATE CREATED AUTHOR AUTHOR'S GLADISIZ ATION 03/25/2023 [facility] DATE CREATED AUTHOR AUTHOR'S ORGANLISSETTE ATION 11/04/2023 [facility] Source Comments (unrecognize d section and content) In the event this informatio n is protected by the Federal Confidentiality of Alcohol and Drug Abuse Patient Records regulations: The Federal rules restrict any use of the information to criminally investigate or prosecute any alcohol or drug abuse patient.[facility] event this information is protected by the Federal Confidentiality of Alcohol and Drug Abuse Patient Records regulations: The Federal rules restrict any use of the information to criminally investigate or prosecute any alcohol or drug abuse patient.[facility] the event this information is protected by the Federal Confidentiality of Alcohol and Drug Abuse Patient Records regulations: The Federal rules restrict any use of the information to criminally investigate or prosecute any alcohol or drug abuse patient.[facility] the event this information is protected by the Federal Confidentiality of Alcohol and Drug Abuse Patient Records regulations: The Federal rules restrict any use of the information to criminally investigate or prosecute any alcohol or drug abuse patient.[facility] the event this information is protected by the Federal Confidentiality of Alcohol and Drug Abuse Patient Records regulations: The Federal rules restrict any use of the information to criminally investigate or prosecute any alcohol or drug abuse patient.[facility] the event this information is protected by the Federal Confidentiality of Alcohol and Drug Abuse Patient Records regulations: The Federal rules restrict any use of the information to criminally investigate or prosecute any alcohol or drug abuse patient.[facility] the event this information is protected by the Federal Confidentiality of Alcohol and Drug Abuse Patient Records regulations: The Federal rules restrict any use of the information to criminally investigate or prosecute any alcohol or drug abuse patient.[facility] the event this information is protected by the Federal Confidentiality of Alcohol and Drug Abuse Patient Records regulations: The Federal rules restrict any use of the information to criminally investigate or prosecute any alcohol or drug abuse patient.[facility] the event this information is protected by the Federal Confidentiality of Alcohol and Drug Abuse Patient Records regulations: The Federal rules restrict any use of the information to criminally investigate or prosecute any alcohol or drug abuse patient.[facility] the event this information is protected by the Federal Confidentiality of Alcohol and Drug Abuse Patient Records regulations: The Federal rules restrict any use of the information to criminally investigate or prosecute any alcohol or drug abuse patient.[facility] the event this information is protected by the Federal Confidentiality of Alcohol and Drug Abuse Patient Records regulations: The Federal rules restrict any use of the information to criminally investigate or prosecute any alcohol or drug abuse patient.[facility] the event this information is protected by the Federal Confidentiality of Alcohol and Drug Abuse Patient Records regulations: The Federal rules restrict any use of the information to criminally investigate or prosecute any alcohol or drug abuse patient.[facility] the event this information is protected by the Federal Confidentiality of Alcohol and Drug Abuse Patient Records regulations: The Federal rules restrict any use of the information to criminally investigate or prosecute any alcohol or drug abuse patient.[facility] Care Teams (unrecognized sec tion and content) Database Support Relationship Specialty Start Date End Date Mark Quintanilla Jr. [address] [facility] [address] [place] [address] PCP - General Internal Medicine 06/14/23 Database Support Relationship Specialty Start Date End Date Mark Quintanilla Jr. [address] [facility] [address] [place] [address] PCP - General Internal Medicine 06/14/23 Database Support Relationship Specialty Start Date End Date Mark Quintanilla Jr. [address] [facility] [address] [place] [address] PCP - General Internal Medicine 06/14/23 Database Support Relationship Specialty Start Date End Date Mark Quintanilla Jr. [address] [facility] [address] [place] [address] PCP - General Internal Medicine 06/14/23 Carmine Ignacio, ANKIT [address] [facility] [place] [address] Specialty Shuttle Veneering Supervisor Hematology/Oncology 07/13/23 Gabriella Javed, MALT HOUSE SUPERVISOR.MS ACCESS DATABASE DEVELOPER [address] [place] [address] Nurse Practitioner Hematology/Oncology 07/13/23 Rodríguez Pack MD [address] [place] [address] Physician Hematology/Oncology 07/13/23 Database Support Relationship Specialty Start Date End Date Mark Quintanilla Jr. [address] [place] [address] [address] [place] [address] PCP - General Internal Medicine 06/14/23 Database Support Relationship Specialty Start Date End Date Mark Quintanilla Jr. [facility] [address] [place] [address] PCP - General Internal Medicine 06/14/23 Carmine Ignacio RN [address] [place] [address] Specialty Shuttle Veneering Supervisor Hematology/Oncology 07/13/23 Gabriella Javed, MALT HOUSE SUPERVISOR.MS ACCESS DATABASE DEVELOPER [address] [place] [address] Nurse Practitioner Hematology/Oncology 07/13/23 Rodríguez Pack MD [address] [place] [address] Physician Hematology/Oncology 07/13/23 Database Support Relationship Specialty Start Date End Date Mark Quintanilla Jr. [facility] [place] [address] PCP - General Internal Medicine 06/14/23 Carmine Ignacio, ANKIT [address] [facility] [address] [place] [address] Specialty Shuttle Veneering Supervisor Hematology/Oncology 07/13/23 Gabriella Javed, MALT HOUSE SUPERVISOR.MS ACCESS DATABASE DEVELOPER [address] [facility] [place] [address] Nurse Practitioner Hematology/Oncology 07/13/23 Rodríguez Pack MD [address] [facility] [place] [address] Physician Hematology/Oncology 07/13/23 Database Support Relationship Specialty Start Date End Date Mark Quintanilla Jr. [address] [place] [address] [address] [place] [address] PCP - General Internal Medicine 06/14/23 Carmine Ignacio, ANKIT [address] [facility] [place] [address] Specialty Shuttle Veneering Supervisor Hematology/Oncology 07/13/23 Gabriella Javed, MALT HOUSE SUPERVISOR.MS ACCESS DATABASE DEVELOPER [address] [facility] [place] [address] Nurse Practitioner Hematology/Oncology 07/13/23 Rodríguez Pack MD [address] [facility] [place] [address] Physician Hematology/Oncology 07/13/23 Database Support Relationship Specialty Start Date End Date Mark Quintanilla Jr. [address] [place] [address] [address] [place] [address] PCP - General Internal Medicine 06/14/23 Carmine Ignacio RN [address] [facility] [place] [address] Specialty Shuttle Veneering Supervisor Hematology/Oncology 07/13/23 Gabriella Javed, MALT HOUSE SUPERVISOR.MS ACCESS DATABASE DEVELOPER [address] [facility] [place] [address] Nurse Practitioner Hematology/Oncology 07/13/23 Rodríguez Pack MD [address] [facility] [place] [address] Physician Hematology/Oncology 07/13/23 Database Support Relationship Specialty Start Date End Date Mark Quinatnilla Jr. [address] [place] [address] [address] [facility] [place] [address] PCP - General Internal Medicine 06/14/23 Carmine Ignacio RN [address] [facility] [place] [address] Specialty Shuttle Veneering Supervisor Hematology/Oncology 07/13/23 Gabriella Javed, MALT HOUSE SUPERVISOR.MS ACCESS DATABASE DEVELOPER [address] [facility] [place] [address] Nurse Practitioner Hematology/Oncology 07/13/23 Rodríguez Pack MD [address] [facility] [place] [address] Physician Hematology/Oncology 07/13/23 Database Support Relationship Specialty Start Date End Date Mark Quintanilla Jr. [address] [place] [address] [address] [place] [address] PCP - General Internal Medicine 06/14/23 Carmine Ignacio, RN [address] [facility] [place] [address] Specialty Shuttle Veneering Supervisor Hematology/Oncology 07/13/23 Gabriella Javed APRN.MS ACCESS DATABASE DEVELOPER [address] [place] [address] [place] [address] Nurse Practitioner Hematology/Oncology 07/13/23 Rodríguez Pack MD [address] [place] [address] [place] [address] Physician Hematology/Oncology 07/13/23 Reason for Visit (unrecogniz ed section and content) Reason Comments SKIN CANCER Specialty Diagnoses / Procedures Referred By Contac t Referred To Contact Radiation Oncology / RADIATION ONCOLOGY Diagnoses Followup Procedures EST PATIENT Self Sebas Wells MD [address] [facility] [place] [address] Referral ID Status Reason Start Date Expiration Date V isits Requested Visits Authorized [id number] Outside PCP 06/22/2023 09/20/2023 1 1 Reason Comments First Time Treatment Education Cemiplima b Reason Comments SKIN CANCER Specialty Diagnoses / Procedures Referred By Contac t Referred To Contact Radiation Oncology / RADIATION ONCOLOGY Diagnoses PET rv Procedures EST PATIENT Sebas Wells MD [address] [facility] [place] [address] Sebas Wells MD [address] [place] [address] [place] [address] Referral ID Status Reason Start Date Expiration Date V isits Requested Visits Authorized [id number] Closed Financial Clearance Required - OON Payor Patient Cleared - INN Insurance Found 07/12/2023 10/16/2023 1 1 Specialty Diagnoses / Procedures Referred By Contac t Referred To Contact Diagnoses Squamous cell skin cancer Rodríguez Pack MD [address] [facility] [place] [address] Malcolm Treat Krystal [address] [place] [address] Referral ID Status Reason Start Date Expiration Date V isits Requested Visits Authorized [id number] Authorized 07/12/2023 10/10/2023 99 99 Reason Comments Care Coordination C1D1 Post Treatment Call Reason Comments skin cancer Treatment visit Reason Comments Care Coordination Medication Question Reason Comments Lab Orders Reason Comments Squamous cell skin cancer 3 week follow up FOR RECORDS PERTAINING TO PATIENTS WHO ARE OR HAVE BEEN ENROLLED IN A CHEMICAL DEPENDENCY/SUBSTANCEABUSE PROGRAM, SOME INFORMATION MAY BE OMITTED. This clinical summary was aggregated from multiple sources. Caution should be exercised in using it in the provision of clinical care. This summary normalizes information from multiple sources, and as a consequence, information in this document may materially change the coding, format and clinical context of patient data. In addition, data may be omitted in some cases. CLINICAL DECISIONS SHOULD BE BASED ON THE PRIMARY CLINICAL RECORDS. [employer] provides no warranty or guarantee of the accuracy or completeness of information in this document.
[2023-11-12 23:52] LABS: Basophils Percent Auto 0.1 % (0.2-2.0); Eosinophils Percent Auto 0.1 % (0.9-7.0); Hemoglobin 12.7 g/dL (14.0-18.0); Lymphocytes Absolute Auto 0.5 10^3/uL (1.2-3.8); Lymphocytes Percent Auto 6.2 % (20.5-60.0); Mean Corpuscular HGB Conc 31.8 g/dL (29.9-35.2); Mean Corpuscular Hemoglobin 30.5 pg (25.9-34.0); Mean Corpuscular Volume 96.2 fL (80.0-94.0); Mean Platelet Volume 11.4 fL (9.5-13.5); Monocytes Absolute Auto 0.3 10^3/uL (0.3-0.8); Monocytes Percent Auto 4.7 % (1.7-12.0); Neutrophils Absolute Auto 6.4 10^3/uL (1.4-6.5); Neutrophils Percent Auto 88.9 % (43.0-75.0); Platelet Count 148 10^3/uL (150-450); Red Blood Count 4.16 10^6/uL (4.70-6.10); Red Cell Distribution Width 15.8 % (11.0-15.0); White Blood Count 7.2 10^3/uL (4.0-11.0)
[2023-11-13] VITALS (23 sets, daily range): BP systolic 113–159; BP diastolic 60–90; PULSE 38–81; RESP 16–30; TEMP 36.1–36.5; O2SAT 95–100; BMI 28.2
[2023-11-13 00:04] LABS: Anion Gap 6.8; BUN Creatinine Ratio 27.5; Carbon Dioxide 29.7 mmol/L (21.0-32.0); Chloride 101 mmol/L (98-107); Estimated GFR (African America >60 (>=60); Estimated GFR (Non-African Ame 58 (>=60); Glucose 116 mg/dL (74-106); Influenza Virus A Antigen Negative; Influenza Virus B Antigen Negative; Internal Control Within Normal Limits; Potassium 4.5 mmol/L (3.5-5.1); SARS-CoV-2 Ag NEGATIVE (NEGATIVE); Sodium 133 mmol/L (136-145)
[2023-11-13 00:05] LABS: Bilirubin Urine MODERATE (NEGATIVE); Blood Urine NEGATIVE (NEGATIVE); Clarity Urine CLEAR (CLEAR); Color Urine DK. ORANGE (YELLOW); Glucose Urine UA NEGATIVE (NEGATIVE); Ketones Urine 15 mg/dL (NEGATIVE); Leukocyte Esterase Urine NEGATIVE (NEGATIVE); Nitrite Urine NEGATIVE (NEGATIVE); Protein Urine 100 mg/dL (NEG/TRACE); Specific Gravity Urine >=1.030 (1.005-1.025); Urine Microscopic Indicated YES; pH Urine 5.5 (5.0-9.0)
[2023-11-13 00:12] LABS: Bacteria Urine NONE SEEN #/HPF (NONE SEEN); Cast Seen? SEEN #/LPF (NONE SEEN); Crystals Seen? None Seen #/HPF (None Seen); Fine Granular Casts Urine RARE; Hyaline Casts Urine MANY; Mucus Urine SMALL (NONE SEEN); RBC Urine 0-2 #/HPF (0-2); Squamous Epithelial Cell Urine RARE #/LPF (NONE/RARE); WBC Urine 0-2 #/HPF (NONE SEEN)
[2023-11-13 00:13] LABS: Urine Culture Indicated NO
[2023-11-13 00:14] LABS: Lactate/Lactic Acid 1.6 mmol/L (0.4-2.0)
[2023-11-13] MEDS: 0.9 % SODIUM CHLORIDE 1,000 ML 1000 ML IV (00:17)
--- NOTE | 2023-11-13 00:31 | PC.NURSE ---
Speech garbled and can not understand him. Moist cough on admission.
--- NOTE | 2023-11-13 00:59 | ED_ITS ---
HPI - SOB/Dyspnea General Chief Complaint: Shortness of Breath/Dyspnea Stated Complaint: SOB Time Seen by Provider: 11/12/23 23:30 Source: patient Mode of arrival: ambulance History of Present Illness HPI Narrative: Patient has skin cancer and gets infusions every 3 weeks. He is DNR-CC. Brought in by EMS from home after becoming short of breath tonight with generalized weakness. He does not wear O2 at home - he was found to be hypoxic with pulse ox in the 80s per EMS. He was placed on 2LPM NC by EMS and brought to our ED. Patient unable to give HPI or ROS. EED nurse contacted the who gave the details noted above. Related Data Allergies Allergy/AdvReac Type Severity Reaction Status Date / Time No Known Drug Allergies Allergy Verified 11/12/23 23:49 Exam Narrative Exam Narrative: Nurses notes and vital signs reviewed and patient is not hypoxic. afebrile General: Tachypneic but in no apparent respiratory distress. Skin: Warm, dry, no pallor noted. Head: Normocephalic, atraumatic. Neck: Supple, non-tender. Eye: Pupils are equal, round and EOMI. No scleral icterus. Ears, Nose, Mouth, and Throat: Oral mucosa is dry Cardiovascular: Regular Rate and Rhythm without murmur, gallop or rub. Respiratory: Tachypnea but no accessory muscle use or respiratory distress. Lungs with bibasilar rales Chest Wall: no tenderness Musculoskeletal: no calf or popliteal tenderness, no lower extremity edema/swelling GI: Abdomen is soft, non-distended. Normal bowel sounds. No tenderness to palpation. No rebound, guarding, or rigidity noted. Neurological: Keeps eyes closed unless asked to open. Follows commands weakly. No facial droop or cranial nerve dysfunction observed. Moves all extremities weakly. Sensation intact. Psychiatric: Attempts to answer but speech is slow and difficult to understand. Constitutional Vital Signs, click to edit/add: Last Vital Signs Temp 97.8 F 11/12/23 23:29 Pulse 81 11/13/23 00:56 Resp 28 H 11/13/23 00:56 BP 122/60 11/13/23 00:56 Pulse Ox 95 11/13/23 00:56 O2 Del Method Simple Mask 11/13/23 00:28 O2 Flow Rate 6 11/13/23 00:56 Course Vital Signs Vital signs: Vital Signs Temperature 97.8 F 11/12/23 23:29 Pulse Rate 96 H 11/12/23 23:29 Respiratory Rate 11 L 11/12/23 23:29 Blood Pressure 135/84 11/12/23 23:29 Pulse Oximetry 99 11/12/23 23:29 Oxygen Delivery Method Nasal Cannula 11/12/23 23:29 Oxygen Delivery Flow Rate 6 11/12/23 23:29 Temperature 97.8 F 11/12/23 23:29 Pulse Rate 81 11/13/23 00:56 Respiratory Rate 28 H 11/13/23 00:56 Blood Pressure 122/60 11/13/23 00:56 Pulse Oximetry 95 11/13/23 00:56 Oxygen Delivery Method Simple Mask 11/13/23 00:28 Oxygen Delivery Flow Rate 6 11/13/23 00:56 MDM - SOB/Dyspnea MDM Narrative Medical decision making narrative: Peripheral IV established and blood drawn and sent for testing. Urine obtained for testing. The patient was transition to a simple mask as he was breathing out of his mouth rather than his nose and his pulse ox hovered around 89 to 90% on 2 L nasal cannula. CXR obtained. The patient's labs are notable for absence of acute UTI on UA, normal white blood cell count, elevated BUN in comparison to his baseline studies in April 2023, normal electrolytes. Swabs for influenza and COVID were negative. Chest x-ray revealed cardiomegaly with prominent pulmonary vascularity consistent with pleural effusion, possible CHF. He was ordered to receive IV Lasix. He is DNR-CC. He was given IV Lasix 40mg. He is hypoxic and does not have home O2 therefore call placed to the cotton dispatcher telehospitalist to discuss admission. I spoke with Ophelia Erwin about the patient and it was agreed that the [facility] and [facility]. Lab Data Attestation: I reviewed the patient's lab results. Labs: Lab Results 11/12/23 11/13/23 Range/Units 23:25 00:01 WBC 7.2 (4.0-11.0) 10^3/uL RBC 4.16 L (4.70-6.10) 10^6/uL Hgb 12.7 L (14.0-18.0) g/dL Hct 40.0 L (42.0-54.0) % MCV 96.2 H (80.0-94.0) fL MCH 30.5 (25.9-34.0) pg MCHC 31.8 (29.9-35.2) g/dL RDW 15.8 H (11.0-15.0) % Plt Count 148 L (150-450) 10^3/uL MPV 11.4 (9.5-13.5) fL Neut % (Auto) 88.9 H (43.0-75.0) % Lymph % (Auto) 6.2 L (20.5-60.0) % [place] % (Auto) 4.7 (1.7-12.0) % Eos % (Auto) 0.1 L (0.9-7.0) % Baso % (Auto) 0.1 L (0.2-2.0) % Neut # (Auto) 6.4 (1.4-6.5) 10^3/uL Lymph # (Auto) 0.5 L (1.2-3.8) 10^3/uL [place] # (Auto) 0.3 (0.3-0.8) 10^3/uL Eos # (Auto) 0.0 (0.0-0.7) 10^3/uL Baso # (Auto) 0.0 (0.0-0.1) 10^3/uL Abs Immat Gran (auto) 0.00 (0.00-0.03) 10^3/uL Imm/Tot Granulo (auto) 0.0 (0.0-0.5) % Sodium 133 L (136-145) mmol/L Potassium 4.5 (3.5-5.1) mmol/L Chloride 101 (98-107) mmol/L Carbon Dioxide 29.7 (21.0-32.0) mmol/L Anion Gap 6.8 BUN 33.0 H (7.0-18.0) mg/dL Creatinine 1.20 (0.70-1.30) mg/dL Est GFR ( Amer) >60 (>=60) Est GFR (Non-Af Amer) 58 L (>=60) BUN/Creatinine Ratio 27.5 Glucose 116 H (74-106) mg/dL Lactate 1.6 (0.4-2.0) mmol/L Calcium 9.0 (8.5-10.1) mg/dL Urine Color Dk. orange (YELLOW) Urine Clarity Clear (CLEAR) Urine pH 5.5 (5.0-9.0) Ur Specific [place] >=1.030 A (1.005-1.025) Urine Protein 100 A (NEG/TRACE) mg/dL Urine Glucose (UA) Negative (NEGATIVE) mg/dL Urine Ketones 15 A (NEGATIVE) mg/dL Urine Occult Blood Negative (NEGATIVE) Urine Nitrite Negative (NEGATIVE) Urine Bilirubin Moderate A (NEGATIVE) Urine Urobilinogen 1.0 (0.2-1.0) EU/dL Ur Leukocyte Esterase Negative (NEGATIVE) Urine RBC 0-2 (0-2) #/HPF Urine WBC 0-2 A (NONE SEEN) #/HPF Ur Squamous Epith Cells Rare (NONE/RARE) #/LPF Urine Crystals None seen (None Seen) #/HPF Urine Bacteria None seen (NONE SEEN) #/HPF Urine Casts Seen A (NONE SEEN) #/LPF Hyaline Casts Many Fine Granular Casts Rare Urine Mucus Small A (NONE SEEN) Ur Culture Indicated? No Influenza Type A Ag Negative Influenza Type B Ag Negative SARS-CoV-2 Ag (CV2AG) Negative (NEGATIVE) Imaging Data Chest x-ray: Radiologist's impression: ITS Impressions Chest X-Ray 11/12/23 23:34 IMPRESSION: Cardiomegaly with prominence of pulmonary vascularity and right-sided pleural effusion. Please correlate for congestive heart failure. Electronically authenticated by: BRITTANY DAVIS Date: 11/13/2023 00:49 Discharge Plan Discharge Chief Complaint: Shortness of Breath/Dyspnea Clinical Impression: Pulmonary edema, Hypoxia Patient Disposition: Admitted as Observation Time of Disposition Decision: 01:12 Stand Alone Forms: Portal Instructions Referrals: Physician,Non-Staff, MD [Primary Care Provider] - 1 week
[2023-11-13] MEDS: FUROSEMIDE 40 MG/4 ML VIAL IVP (01:51)
[2023-11-13 01:56] LABS: Prothrombin Time 56.6 sec (9.0-11.6)
[2023-11-13 01:58] LABS: Adenovirus NOT DETECTED (NOT DETECTE); Bordetella parapertussis NOT DETECTED (NOT DETECTE); Coronavirus 229E NOT DETECTED (NOT DETECTE); Coronavirus HKU1 NOT DETECTED (NOT DETECTE); Coronavirus NL63 NOT DETECTED (NOT DETECTE); Coronavirus OC43 NOT DETECTED (NOT DETECTE); Human Metapneumovirus NOT DETECTED (NOT DETECTE); Human Rhinovirus/Enterovirus NOT DETECTED (NOT DETECTE); Influenza A NOT DETECTED (NOT DETECTE); Influenza B NOT DETECTED (NOT DETECTE); Mycoplasma pneumoniae NOT DETECTED (NOT DETECTE); Parainfluenza Virus 1 NOT DETECTED (NOT DETECTE); Parainfluenza Virus 2 NOT DETECTED (NOT DETECTE); Parainfluenza Virus 3 NOT DETECTED (NOT DETECTE); Parainfluenza Virus 4 NOT DETECTED (NOT DETECTE); Respiratory Syncytial Virus NOT DETECTED (NOT DETECTE); SARS-CoV-2 NOT DETECTED (NOT DETECTE)
[2023-11-13 02:01] LABS: Alanine Aminotransferase 29 U/L (16-63); Albumin Globulin Ratio 0.8; Albumin Level 3.2 g/dL (3.4-5.0); Alkaline Phosphatase 89 U/L (46-116); Aspartate Amino Transferase 97 U/L (15-37); Bilirubin Direct 0.2 mg/dL (0.0-0.2); Bilirubin Total 0.4 mg/dL (0.2-1.0); Globulin 3.9 g/dL; Total Protein 7.1 g/dL (6.4-8.2)
--- NOTE | 2023-11-13 02:40 | PC.NURSE ---
unable to complete patient history due to patient mental status. pt not able to answer questions and is only responding with groaning when in pain.
--- OUTSIDE RECORDS SUMMARY | 2023-11-13 02:47 | XMS_ITS | CCD ---
Author Name Unknown Address [address] [place] [address] Organization [facility] Care Team Providers Care Web Sizer Name Role Phone Mark Quintanilla Primary Care [...] FAWWAD, WEINSTEIN H Admitting Unavailable VALONE, DR IGLL Primary Care Unavailable FAWWAD, WEINSTEIN H Attending [...] Care Provider Sandee RN, Carmine Unavailable Cole SENIOR QUALITY ASSURANCE ENGINEER.[place]AS, Gabriella Unavailable [phone] Rodríguez Pack MD Unavailable VALONE JR, MARK [...] MARK ARVIN Primary Care Unavail able STORM EWLLS Referring Unavailable VALONE JR, MARK ARVIN Primary [...] Onset: 02-12-2023 Episodic Other aftercare (1 source) group home (current) use of anticoagulants; Translations: [[facility] CURRNT USE ANTICOAGULANTS] Onset: 03-16-2023 Episodic Other [...] 11-24-2022 Episodic Other aftercare (1 source) Other manager terminal (current) drug therapy; Translations: [[facility] CURRENT DRUG THERAPY] Onset: 11-24-2022 Episodic Other [...] 11-03-2023 Basophils (Bld) [#/Vol] 10*3/uL Normal <0.11 [facility] Comment on above: Order Comment: Speci men Type: BLOOD SPECIMEN Ordering Facility: [facility] Address: [address] [place] [address] Performed By: #### 5 7021-8 #### [facility] CLIA [id number] [address] [place] [address] 92919 Basophils/100 WBC (Bld) 0.4 % Normal [facility] Comment on above: Order Comment: Speci men Type: BLOOD SPECIMEN Ordering Facility: [facility] Address: [address] [place] [address] Performed By: #### 5 7021-8 #### [facility] CLIA [id number] [address] [place] [address] 10486 Differential cell count method Nom (Bld) Auto Normal [facility] Comment on above: Order Comment: Speci men Type: BLOOD SPECIMEN Ordering Facility: [facility] Address: [address] [place] [address] Performed By: #### 5 7021-8 #### [facility] CLIA [id number] [address] [place] [address] 43455 Eosinophils (Bld) [#/Vol] 0.09 10*3/uL Normal <0.46 [facility] Comment on above: Order Comment: Speci men Type: BLOOD SPECIMEN Ordering Facility: [facility] Address: [address] [place] [address] Performed By: #### 5 7021-8 #### [facility] CLIA [id number] [address] [place] [address] 59678 Eosinophils/100 WBC (Bld) 1.6 % Normal [facility] Comment on above: Order Comment: Speci men Type: BLOOD SPECIMEN Ordering Facility: [facility] Address: [address] [place] [address] Performed By: #### 5 7021-8 #### [facility] CLIA [id number] [address] [place] [address] 39748 Erythrocyte distribution width (RBC) [Ratio] 15.5 % High 11.5-15.0 [facility] Comment on above: Order Comment: Speci men Type: BLOOD SPECIMEN Ordering Facility: [facility] Address: [address] [place] [address] Performed By: #### 5 7021-8 #### [facility] CLIA [id number] [address] [place] [address] 14941 Hematocrit (Bld) [Volume fraction] 42.4 % Normal 39.0-51.0 [facility] Comment on above: Order Comment: Speci men Type: BLOOD SPECIMEN Ordering Facility: [facility] Address: [address] [place] [address] Performed By: #### 5 7021-8 #### [facility] CLIA [id number] [address] [place] [address] 62444 Hemoglobin (Bld) [Mass/Vol] 13.6 g/dL Normal 13.0-17.0 [facility] Comment on above: Order Comment: Speci men Type: BLOOD SPECIMEN Ordering Facility: [facility] Address: [address] [place] [address] Performed By: #### 5 7021-8 #### [facility] CLIA [id number] [address] [place] [address] 18877 Immature granulocytes (Bld) [#/Vol] 10*3/uL Normal <0.10 [facility] Comment on above: Order Comment: Speci men Type: BLOOD SPECIMEN Ordering Facility: [facility] Address: [address] [place] [address] Performed By: #### 5 7021-8 #### [facility] CLIA [id number] [address] [place] [address] 06404 Immature granulocytes/100 WBC (Bld) 0.2 % Normal [facility] Comment on above: Order Comment: Speci men Type: BLOOD SPECIMEN Ordering Facility: [facility] Address: [address] [place] [address] Performed By: #### 5 7021-8 #### [facility] CLIA [id number] [address] [place] [address] 34756 Lymphocytes (Bld) [#/Vol] 0.71 10*3/uL Low 1.00-4.00 [facility] Comment on above: Order Comment: Speci men Type: BLOOD SPECIMEN Ordering Facility: [facility] Address: [address] [place] [address] Performed By: #### 5 7021-8 #### [facility] CLIA [id number] [address] [place] [address] 99562 Lymphocytes/100 WBC (Bld) 12.5 % Normal [facility] Comment on above: Order Comment: Speci men Type: BLOOD SPECIMEN Ordering Facility: [facility] Address: [address] [place] [address] Performed By: #### 5 7021-8 #### [facility] CLIA [id number] [address] [place] [address] 90685 MCH (RBC) [Entitic mass] 30.1 pg Normal 26.0-34.0 [facility] Comment on above: Order Comment: Speci men Type: BLOOD SPECIMEN Ordering Facility: [facility] Address: [address] [place] [address] Performed By: #### 5 7021-8 #### [facility] CLIA [id number] [address] [place] [address] 96303 MCHC (RBC) [Mass/Vol] 32.1 g/dL Normal 30.5-36.0 [facility] Comment on above: Order Comment: Speci men Type: BLOOD SPECIMEN Ordering Facility: [facility] Address: [address] [place] [address] Performed By: #### 5 7021-8 #### [facility] CLIA [id number] [address] [place] [address] 32790 MCV (RBC) [Entitic vol] 93.8 fL Normal 80.0-100.0 [facility] Comment on above: Order Comment: Speci men Type: BLOOD SPECIMEN Ordering Facility: [facility] Address: [address] [place] [address] Performed By: #### 5 7021-8 #### [facility] CLIA [id number] [address] [place] [address] 93615 Monocytes (Bld) [#/Vol] 0.41 10*3/uL Normal <0.87 [facility] Comment on above: Order Comment: Speci men Type: BLOOD SPECIMEN Ordering Facility: [facility] Address: [address] [place] [address] Performed By: #### 5 7021-8 #### [facility] CLIA [id number] [address] [place] [address] 00195 Monocytes/100 WBC (Bld) 7.2 % Normal [facility] Comment on above: Order Comment: Speci men Type: BLOOD SPECIMEN Ordering Facility: [facility] Address: [address] [place] [address] Performed By: #### 5 7021-8 #### [facility] CLIA [id number] [address] [place] [address] 32054 Neutrophils (Bld) [#/Vol] 4.43 10*3/uL Normal 1.45-7.50 [facility] Comment on above: Order Comment: Speci men Type: BLOOD SPECIMEN Ordering Facility: [facility] Address: [address] [place] [address] Performed By: #### 5 7021-8 #### [facility] IA [id number] [address] [place] [address] 88647 Neutrophils/100 WBC (Bld) 78.1 % Normal [facility] Comment on above: Order Comment: Speci men Type: BLOOD SPECIMEN Ordering Facility: [facility] Address: [address] [place] [address] Performed By: #### 5 7021-8 #### [facility] CLIA [id number] [address] [place] [address] Nucleated RBC (Bld) [#/Vol] 10*3/uL Normal <0.01 [facility] Comment on above: Order Comment: Speci men Type: BLOOD SPECIMEN Ordering Facility: [facility] Address: [address] [place] [address] Performed By: #### 5 7021-8 #### [facility] CLIA [id number] [address] [place] [address] 02587 Nucleated RBC/100 WBC (Bld) [Ratio] 0.0 /100 WBC Normal [facility] Comment on above: Order Comment: Speci men Type: BLOOD SPECIMEN Ordering Facility: [facility] Address: [address] [place] [address] Performed By: #### 5 7021-8 #### [facility] CLIA [id number] [address] [place] [address] 74468 Platelet mean volume (Bld) [Entitic vol] 11.5 fL Normal 9.0-12.7 [facility] Comment on above: Order Comment: Speci men Type: BLOOD SPECIMEN Ordering Facility: [facility] Address: [address] [place] [address] Performed By: #### 5 7021-8 #### [facility] CLIA [id number] [address] [place] [address] 91278 Platelets (Bld) [#/Vol] 162 10*3/uL Normal 150-400 [facility] Comment on above: Order Comment: Speci men Type: BLOOD SPECIMEN Ordering Facility: [facility] Address: [address] [place] [address] Performed By: #### 5 7021-8 #### [facility] CLIA [id number] [address] [place] [address] 74442 RBC (Bld) [#/Vol] 4.52 10*6/uL Normal 4.20-6.00 [facility] Comment on above: Order Comment: Speci men Type: BLOOD SPECIMEN Ordering Facility: [facility] Address: [address] [facility] [place] [address] Performed By: #### 5 7021-8 #### [facility] CLIA [id number] [address] [place] [address] 95416 WBC (Bld) [#/Vol] 5.67 10*3/uL Normal 3.70-11.00 [facility] Comment on above: Order Comment: Speci men Type: BLOOD SPECIMEN Ordering Facility: [facility] Address: [place] [address] Performed By: #### 5 7021-8 #### [facility] CLIA [id number] [address] [place] [address] 20100 CNOVSPon 11-03-2023 CNOVSP Visit (SP) Office (HEMASA) MIKE BRASWELL ([id number]) 1940 M Date Time Provider Department 11/03/23 [...] Date Value (more content not included)... Normal [facility] Comprehensive metabolic 2000 panelon 11-03-2023 Albumin [Mass/Vol] 3.9 g/dL Normal 3.9-4.[address] [facility] Comment on above: Order Comment: Speci men Type: BLOOD SPECIMENOrdering Facility: [facility] Address: [address] [place] [address] 11076 Performed By: #### 2 4323-8 ####[facility] [id number] [place] [address] ALP [Catalytic activity/Vol] 96 U/L Normal 38-113 [facility] Comment on above: Order Comment: Speci men Type: BLOOD SPECIMENOrdering Facility: [facility] Address: [address] [place] [address] Performed By: #### 2 4323-8 ####[facility] [id number] [place] [address] ALT [Catalytic activity/Vol] U/L Low 10-54 [facility] Comment on above: Order Comment: Speci men Type: BLOOD SPECIMENOrdering Facility: [facility] Address: [address] [place] [address] Performed By: #### 2 4323-8 ####[facility] [id number] [place] [address] Anion gap [Moles/Vol] 12 mmol/L Normal 9-18 [facility] Comment on above: Order Comment: Speci men Type: BLOOD SPECIMENOrdering Facility: [facility] Address: [address] [place] [address] Performed By: #### 2 4323-8 ####[facility] [id number] [place] [address] AST [Catalytic activity/Vol] 16 U/L Normal 14-40 [facility] Comment on above: Order Comment: Speci men Type: BLOOD SPECIMENOrdering Facility: [facility] Address: [address] [place] [address] Performed By: #### 2 4323-8 ####[facility] [id number] [place] [address] Bilirubin [Mass/Vol] 0.4 mg/dL Normal 0.2-1.3 [facility] Comment on above: Order Comment: Speci men Type: BLOOD SPECIMENOrdering Facility: [facility] Address: [address] [place] [address] Performed By: #### 2 4323-8 ####[facility] [id number] [place] [address] Calcium [Mass/Vol] 9.4 mg/dL Normal 8.5-10.[address] [facility] Comment on above: Order Comment: Speci men Type: BLOOD SPECIMENOrdering Facility: [facility] Address: [address] [place] [address] Performed By: #### 2 4323-8 ####[facility] [id number] [place] [address] Chloride [Moles/Vol] 103 mmol/L Normal 97-105 [facility] Comment on above: Order Comment: Speci men Type: BLOOD SPECIMENOrdering Facility: [facility] Address: [address] [place] [address] Performed By: #### 2 4323-8 ####[facility] [id number] [place] [address] CO2 [Moles/Vol] 26 mmol/L Normal 22-30 [facility] Comment on above: Order Comment: Speci men Type: BLOOD SPECIMENOrdering Facility: [facility] Address: [address] [place] [address] Performed By: #### 2 4323-8 ####[facility] [id number] [place] [address] Creatinine [Mass/Vol] 0.77 mg/dL Normal 0.73-1.22 [facility] Comment on above: Order Comment: Speci men Type: BLOOD SPECIMENOrdering Facility: [facility] Address: [address] [place] [address] Performed By: #### 2 4323-8 ####[facility] [id number] [place] [address] Creatinine and Glomerular filtration rate.predicted panel (S/P/Bld) 90 mL/min/1.73m??? Normal >=60 [facility] Comment on above: Order Comment: Speci men Type: BLOOD SPECIMENOrdering Facility: [facility] Address: [address] [place] [address] Result Comment: Marija mated Glomerular Filtration Rate [...] actual GFR. Performed By: #### 2 4323-8 ####[facility] [id number] [place] [address] Glucose [Mass/Vol] 91 mg/dL Normal 74-[address] [facility] Comment on above: Order Comment: Lilia love Type: BLOOD SPECIMENOrdering Facility: [facility] Address: [address] [place] [address] Result Comment: The [place] [employer] (ADA) provides guidance for cutoff [...] Standards of Medical Care in Diabetes 2016, [place] [employer]. Diabetes Care. 2016.39(Suppl 1). Performed By: #### 2 4323-8 ####[facility] [id number] [place] [address] Potassium [Moles/Vol] 3.8 mmol/L Normal 3.7-5.1 [facility] Comment on above: Order Comment: Lilia love Type: BLOOD SPECIMENOrdering Facility: [facility] Address: [address] [place], [place] [address] Performed By: #### 2 4323-8 ####[facility] [id number] [place] [address] Protein [Mass/Vol] 7.0 g/dL Normal 6.3-8.[address] [facility] Comment on above: Order Comment: Speci men Type: BLOOD SPECIMENOrdering Facility: [facility] Address: [address] [place] [address] Performed By: #### 2 4323-8 ####[facility] [id number] [place] [address] Sodium [Moles/Vol] 141 mmol/L Normal 136-[address] [facility] Comment on above: Order Comment: Speci men Type: BLOOD SPECIMENOrdering Facility: [facility] Address: [address] [place] [address] Performed By: #### 2 4323-8 ####[facility] [id number] [place] [address] Urea nitrogen [Mass/Vol] 20 mg/dL Normal 9-24 [facility] Comment on above: Order Comment: Speci men Type: BLOOD SPECIMENOrdering Facility: [facility] Address: [address] [place] [address] Performed By: #### 2 4323-8 ####[facility] [id number] [place] [address] TSH SerPl-aCncon 11-03-2023 TSH Qn 6.680 m[IU]/L High 0.270-4.200 [facility] Comment on above: Order Comment: Speci men Type: BLOOD SPECIMENOrdering Facility: [facility] Address: [address] [place] [address] Performed By: #### 3 016-3 ####[facility] [id number] [place] [address] [place] CNPArabella 10-24-2023 CNPN Telephone (HEMASA) MICHAELLEMIKE Acosta ([id number]) 1940 M Date Time Provider Department 10/24/23 [...] [E03.9] Order(s):CBC + DIFF [SQCBCDIF] Order #: [id number] FUTURE COMP METABOLIC PANEL [SQCMP] Order #: [id number] FUTURE TSH BLD [SQTSH] Order #: [id number] FUTURE Prescriptions as of 10/24/2023 - warfarin [...] Status:Closed by RODRÍGUEZ PACK on 10/24/23 Normal [facility] Comprehensive metabolic 2000 panelon 10-13-2023 Albumin [Mass/Vol] 4.0 g/dL Normal 3.9-4.[address] [facility] Comment on above: Order Comment: Speci men Type: BLOOD SPECIMENOrdering Facility: [facility] Address: [address] [place] [address] Performed By: #### 2 4323-8 ####[facility] [id number] [place] [address] ALP [Catalytic activity/Vol] 98 U/L Normal 38-113 [facility] Comment on above: Order Comment: Speci men Type: BLOOD SPECIMENOrdering Facility: [facility] Address: [address] [place] [address] Performed By: #### 2 4323-8 ####[facility] [id number] [place] [address] ALT [Catalytic activity/Vol] 6 U/L Low 10-54 [facility] Comment on above: Order Comment: Speci men Type: BLOOD SPECIMENOrdering Facility: [facility] Address: [address] [place] [address] Performed By: #### 2 4323-8 ####[facility] [id number] [place] [address] Anion gap [Moles/Vol] 10 mmol/L Normal 9-18 [facility] Comment on above: Order Comment: Speci men Type: BLOOD SPECIMENOrdering Facility: [facility] Address: [address] [place] [address] Performed By: #### 2 4323-8 ####[facility] [id number] [place] [address] AST [Catalytic activity/Vol] 17 U/L Normal 14-40 [facility] Comment on above: Order Comment: Speci men Type: BLOOD SPECIMENOrdering Facility: [facility] Address: [address] [place] [address] Performed By: #### 2 4323-8 ####[facility] [id number] [place] [address] Bilirubin [Mass/Vol] 0.6 mg/dL Normal 0.2-1.3 [facility] Comment on above: Order Comment: Speci men Type: BLOOD SPECIMENOrdering Facility: [facility] Address: [address] [place] [address] Performed By: #### 2 4323-8 ####[facility] [id number] [place] [address] Calcium [Mass/Vol] 9.3 mg/dL Normal 8.5-10.[address] [facility] Comment on above: Order Comment: Speci men Type: BLOOD SPECIMENOrdering Facility: [facility] Address: [address] [place] [address] Performed By: #### 2 4323-8 ####[facility] [id number] [place] [address] Chloride [Moles/Vol] 97 mmol/L Normal 97-105 [facility] Comment on above: Order Comment: Speci men Type: BLOOD SPECIMENOrdering Facility: [facility] Address: [address] [place] [address] Performed By: #### 2 4323-8 ####[facility] [id number] [place] [address] CO2 [Moles/Vol] 27 mmol/L Normal 22-30 [facility] Comment on above: Order Comment: Speci men Type: BLOOD SPECIMENOrdering Facility: [facility] Address: [address] [place] [address] Performed By: #### 2 4323-8 ####[facility] [id number] [place] [address] Creatinine [Mass/Vol] 0.74 mg/dL Normal 0.73-1.22 [facility] Comment on above: Order Comment: Lilia love Type: BLOOD SPECIMENOrdering Facility: [facility] Address: [address] [place] [address] Performed By: #### 2 4323-8 ####[facility] [id number] [place] [address] Creatinine and Glomerular filtration rate.predicted panel (S/P/Bld) 91 mL/min/1.73m??? Normal >=60 [facility] Comment on above: Order Comment: Lilia love Type: BLOOD SPECIMENOrdering Facility: [facility] Address: [address] [place] [address] Result Comment: Marija mated Glomerular Filtration Rate [...] actual GFR. Performed By: #### 2 4323-8 ####[facility] [id number] [place] [address] Glucose [Mass/Vol] 91 mg/dL Normal 74-[address] [facility] Comment on above: Order Comment: Lilia love Type: BLOOD SPECIMENOrdering Facility: [facility] Address: [address] [place] [address] Result Comment: The [place] [employer] (ADA) provides guidance for cutoff [...] Standards of Medical Care in Diabetes 2016, [place] [employer]. Diabetes Care. 2016.39(Suppl 1). Performed By: #### 2 4323-8 ####[facility] [id number] [place] [address] Potassium [Moles/Vol] 3.6 mmol/L Low 3.7-5.1 [facility] Comment on above: Order Comment: Speci men Type: BLOOD SPECIMENOrdering Facility: [facility] Address: [address] [place] [address] Performed By: #### 2 4323-8 ####[facility] [id number] [place] [address] Protein [Mass/Vol] 7.2 g/dL Normal 6.3-8.[address] [facility] Comment on above: Order Comment: Speci men Type: BLOOD SPECIMENOrdering Facility: [facility] Address: [address] [place] [address] Performed By: #### 2 4323-8 ####[facility] [id number] [place] [address] Sodium [Moles/Vol] 134 mmol/L Low 136-[address] [facility] Comment on above: Order Comment: Speci men Type: BLOOD SPECIMENOrdering Facility: [facility] Address: [address] [place] [address] Performed By: #### 2 4323-8 ####[facility] [id number] [place] [address] Urea nitrogen [Mass/Vol] 20 mg/dL Normal 9-24 [facility] Comment on above: Order Comment: Speci men Type: BLOOD SPECIMENOrdering Facility: [facility] Address: [address] [place] [address] Performed By: #### 2 4323-8 ####[facility] [id number] [place] [address] TSH BLDon 09-23-2023 TSH Qn 5.670 m[IU]/L High 0.270 - 4.200 mIU/L [facility] CBC W Auto Differential pane l (Bld)on 09-22-2023 Basophils (Bld) [#/Vol] 10*3/uL Normal <0.11 [facility] Comment on above: Order Comment: Speci men Type: BLOOD SPECIMEN Ordering Facility: [facility] Address: [address] [place] [address] Performed By: #### 5 7021-8 #### [facility] CLIA [id number] [address] [place] [address] Basophils/100 WBC (Bld) 0.2 % Normal [facility] Comment on above: Order Comment: Speci men Type: BLOOD SPECIMEN Ordering Facility: [facility] Address: [address] [place] [address] Performed By: #### 5 7021-8 #### [facility] CLIA [id number] [address] [place] [address] Differential cell count method Nom (Bld) Auto Normal [facility] Comment on above: Order Comment: Speci men Type: BLOOD SPECIMEN Ordering Facility: [facility] Address: [address] [place] [address] Performed By: #### 5 7021-8 #### [facility] CLIA [id number] [address] [place] [address] Eosinophils (Bld) [#/Vol] 0.07 10*3/uL Normal <0.46 [facility] Comment on above: Order Comment: Speci men Type: BLOOD SPECIMEN Ordering Facility: [facility] Address: [address] [place] [address] Performed By: #### 5 7021-8 #### [facility] CLIA [id number] [address] [place] [address] Eosinophils/100 WBC (Bld) 0.8 % Normal [facility] Comment on above: Order Comment: Speci men Type: BLOOD SPECIMEN Ordering Facility: [facility] Address: [address] [place] [address] Performed By: #### 5 7021-8 #### [facility] CLIA [id number] [address] [place] [address] 14995 Erythrocyte distribution width (RBC) [Ratio] 14.8 % Normal 11.5-15.0 [facility] Comment on above: Order Comment: Speci men Type: BLOOD SPECIMEN Ordering Facility: [facility] Address: [address] [place] [address] Performed By: #### 5 7021-8 #### [facility] CLIA [id number] [address] [place] [address]343 Hematocrit (Bld) [Volume fraction] 41.0 % Normal 39.0-51.0 [facility] Comment on above: Order Comment: Speci men Type: BLOOD SPECIMEN Ordering Facility: [facility] Address: [address] [place] [address] Performed By: #### 5 7021-8 #### [facility] CLIA [id number] [address] [place] [address] 54329 Hemoglobin (Bld) [Mass/Vol] 13.7 g/dL Normal 13.0-17.0 [facility] Comment on above: Order Comment: Speci men Type: BLOOD SPECIMEN Ordering Facility: [facility] Address: [address] [place] [address] Performed By: #### 5 7021-8 #### [facility] CLIA [id number] [address] [place] [address] 43537 Immature granulocytes (Bld) [#/Vol] 10*3/uL Normal <0.10 [facility] Comment on above: Order Comment: Speci men Type: BLOOD SPECIMEN Ordering Facility: [facility] Address: [address] [place] [address] Performed By: #### 5 7021-8 #### [facility] CLIA [id number] [address] [place] [address] 21238 Immature granulocytes/100 WBC (Bld) 0.2 % Normal [facility] Comment on above: Order Comment: Speci men Type: BLOOD SPECIMEN Ordering Facility: [facility] Address: [address] [place] [address] Performed By: #### 5 7021-8 #### [facility] CLIA [id number] [address] [place] [address] 61699 Lymphocytes (Bld) [#/Vol] 0.82 10*3/uL Low 1.00-4.00 [facility] Comment on above: Order Comment: Speci men Type: BLOOD SPECIMEN Ordering Facility: [facility] Address: [address] [place] [address] Performed By: #### 5 7021-8 #### [facility] CLIA [id number] [address] [place] [address] 97849 Lymphocytes/100 WBC (Bld) 9.3 % Normal [facility] Comment on above: Order Comment: Speci men Type: BLOOD SPECIMEN Ordering Facility: [facility] Address: [address] [place] [address] Performed By: #### 5 7021-8 #### [facility] CLIA [id number] [address] [place] [address] 16629 MCH (RBC) [Entitic mass] 30.8 pg Normal 26.0-34.0 [facility] Comment on above: Order Comment: Speci men Type: BLOOD SPECIMEN Ordering Facility: [facility] Address: [address] [place] [address] Performed By: #### 5 7021-8 #### [facility] CLIA [id number] [address] [place] [address] 44313 MCHC (RBC) [Mass/Vol] 33.4 g/dL Normal 30.5-36.0 [facility] Comment on above: Order Comment: Speci men Type: BLOOD SPECIMEN Ordering Facility: [facility] Address: [address] [place] [address] Performed By: #### 5 7021-8 #### [facility] CLIA [id number] [address] [place] [address] 17462 MCV (RBC) [Entitic vol] 92.1 fL Normal 80.0-100.0 [facility] Comment on above: Order Comment: Speci men Type: BLOOD SPECIMEN Ordering Facility: [facility] Address: [address] [place] [address] Performed By: #### 5 7021-8 #### [facility] CLIA [id number] [address] [place] [address] 00896 Monocytes (Bld) [#/Vol] 0.56 10*3/uL Normal <0.87 [facility] Comment on above: Order Comment: Speci men Type: BLOOD SPECIMEN Ordering Facility: [facility] Address: [address] [place] [address] Performed By: #### 5 7021-8 #### [facility] CLIA [id number] [address] [place] [address] 48470 Monocytes/100 WBC (Bld) 6.3 % Normal [facility] Comment on above: Order Comment: Speci men Type: BLOOD SPECIMEN Ordering Facility: [facility] Address: [address] [place] [address] Performed By: #### 5 7021-8 #### [facility] CLIA [id number] [address] [place] [address] 92125 Neutrophils (Bld) [#/Vol] 7.36 10*3/uL Normal 1.45-7.50 [facility] Comment on above: Order Comment: Speci men Type: BLOOD SPECIMEN Ordering Facility: [facility] Address: [address] [place] [address] Performed By: #### 5 7021-8 #### [facility] CLIA [id number] [address] [place] [address] 49244 Neutrophils/100 WBC (Bld) 83.2 % Normal [facility] Comment on above: Order Comment: Speci men Type: BLOOD SPECIMEN Ordering Facility: [facility] Address: [address] [place] [address] Performed By: #### 5 7021-8 #### [facility] CLIA [id number] [address] [place] [address] Nucleated RBC (Bld) [#/Vol] 10*3/uL Normal <0.01 [facility] Comment on above: Order Comment: Speci men Type: BLOOD SPECIMEN Ordering Facility: [facility] Address: [address] [place] [address] Performed By: #### 5 7021-8 #### [facility] CLIA [id number] [address] [place] [address] Nucleated RBC/100 WBC (Bld) [Ratio] 0.0 /100 WBC Normal [facility] Comment on above: Order Comment: Speci men Type: BLOOD SPECIMEN Ordering Facility: [facility] Address: [address] [place] [address] Performed By: #### 5 7021-8 #### [facility] CLIA [id number] [address] [place] [address] 67234 Platelet mean volume (Bld) [Entitic vol] 10.4 fL Normal 9.0-12.7 [facility] Comment on above: Order Comment: Speci men Type: BLOOD SPECIMEN Ordering Facility: [facility] Address: [address] [place] [address] Performed By: #### 5 7021-8 #### [facility] CLIA [id number] [address] [place] [address] 55921 Platelets (Bld) [#/Vol] 241 10*3/uL Normal 150-400 [facility] Comment on above: Order Comment: Speci men Type: BLOOD SPECIMEN Ordering Facility: [facility] Address: [address] [place] [address] Performed By: #### 5 7021-8 #### [facility] CLIA [id number] [address] [place] [address] RBC (Bld) [#/Vol] 4.45 10*6/uL Normal 4.20-6.00 [facility] Comment on above: Order Comment: Speci men Type: BLOOD SPECIMEN Ordering Facility: [facility] Address: [address] [place] [address] Performed By: #### 5 7021-8 #### [facility] CLIA [id number] [address] [place] [address] 79870 WBC (Bld) [#/Vol] 8.85 10*3/uL Normal 3.70-11.00 [facility] Comment on above: Order Comment: Speci men Type: BLOOD SPECIMEN Ordering Facility: [facility] Address: [address] [place] [address] Performed By: #### 5 7021-8 #### [facility] CLIA [id number] [address] [place] [address] 54892 Basophils (Bld) [#/Vol] <0.11 k/uL [facility] Basophils/100 WBC (Bld) 0.2 % [facility] Differential cell count method Nom (Bld) Auto [facility] Eosinophils (Bld) [#/Vol] 0.07 10*3/uL <0.46 k/uL [facility] Eosinophils/100 WBC (Bld) 0.8 % [facility] Erythrocyte distribution width (RBC) [Ratio] 14.8 % 11.5 - 15.0 % [facility] Hematocrit (Bld) [Volume fraction] 41.0 % 39.0 - 51.0 % [facility] Hemoglobin (Bld) [Mass/Vol] 13.7 g/dL 13.0 - 17.0 g/dL [facility] Immature granulocytes (Bld) [#/Vol] <0.10 k/uL [facility] Immature granulocytes/100 WBC (Bld) 0.2 % [facility] Lymphocytes (Bld) [#/Vol] 0.82 10*3/uL Low 1.00 - 4.00 k/uL [facility] Lymphocytes/100 WBC (Bld) 9.3 % [facility] MCH (RBC) [Entitic mass] 30.8 pg 26.0 - 34.0 pg [facility] MCHC (RBC) [Mass/Vol] 33.4 g/dL 30.5 - 36.0 g/dL [facility] MCV (RBC) [Entitic vol] 92.1 fL 80.0 - 100.0 fL [facility] Monocytes (Bld) [#/Vol] 0.56 10*3/uL <0.87 k/uL [facility] Monocytes/100 WBC (Bld) 6.3 % [facility] Neutrophils (Bld) [#/Vol] 7.36 10*3/uL 1.45 - 7.50 k/uL [facility] Neutrophils/100 WBC (Bld) 83.2 % [facility] Nucleated RBC (Bld) [#/Vol] <0.01 k/uL [facility] Nucleated RBC/100 WBC (Bld) [Ratio] 0.0 /100 WBC [facility] Platelet mean volume (Bld) [Entitic vol] 10.4 fL 9.0 - 12.7 fL [facility] Platelets (Bld) [#/Vol] 241 10*3/uL 150 - 400 k/uL [facility] RBC (Bld) [#/Vol] 4.45 10*6/uL 4.20 - 6.0 0 m/uL [facility] WBC (Bld) [#/Vol] 8.85 10*3/uL 3.70 - 11. 00 k/uL [facility] CNOVSPon 09-22-2023 CNOVSP Visit (SP) Office ([facility]) MIKE BRASWELL ([id number]) 1940 M Date Time Provider Department 09/22/23 [...] OTHER PHYSICIANS: Dr. Wells; Wilbur Rosa CNP ([facility] Dermatology) Portions of this encounter note have [...] and pelvis: (more content not included)... Normal [facility] Comprehensive metabolic 2000 panelon 09-22-2023 Albumin [Mass/Vol] 4.1 g/dL Normal 3.9-4.[address] [facility] Comment on above: Order Comment: Speci men Type: BLOOD SPECIMEN Ordering Facility: [facility] Address: [address] [place] [address] Performed By: #### 5 7021-8 #### [facility] CLIA [id number] [address] [place] [address] ALP [Catalytic activity/Vol] 105 U/L Normal 38-113 [facility] Comment on above: Order Comment: Speci men Type: BLOOD SPECIMEN Ordering Facility: [facility] Address: [address] [place] [address] Performed By: #### 5 7021-8 #### [facility] CLIA [id number] [address] [place] [address] 60882 ALT [Catalytic activity/Vol] U/L Low 10-54 [facility] Comment on above: Order Comment: Speci men Type: BLOOD SPECIMEN Ordering Facility: [facility] Address: [address] [place] [address] Performed By: #### 5 7021-8 #### [facility] CLIA [id number] [address] [place] [address] 11653 Anion gap [Moles/Vol] 10 mmol/L Normal 9-18 [facility] Comment on above: Order Comment: Speci men Type: BLOOD SPECIMEN Ordering Facility: [facility] Address: [address] [place] [address] Performed By: #### 5 7021-8 #### [facility] CLIA [id number] [address] [place] [address] 64544 AST [Catalytic activity/Vol] 17 U/L Normal 14-40 [facility] Comment on above: Order Comment: Speci men Type: BLOOD SPECIMEN Ordering Facility: [facility] Address: [address] [place] [address] Performed By: #### 5 7021-8 #### [facility] CLIA [id number] [address] [place] [address] 20987 Bilirubin [Mass/Vol] 0.4 mg/dL Normal 0.2-1.3 [facility] Comment on above: Order Comment: Speci men Type: BLOOD SPECIMEN Ordering Facility: [facility] Address: [address] [place] [address] Performed By: #### 5 7021-8 #### [facility] CLIA [id number] [address] [place] [address] Calcium [Mass/Vol] 9.7 mg/dL Normal 8.5-10.[address] [facility] Comment on above: Order Comment: Speci men Type: BLOOD SPECIMEN Ordering Facility: [facility] Address: [address] [place] [address] Performed By: #### 5 7021-8 #### [facility] CLIA [id number] [address] [place] [address] 81494 Chloride [Moles/Vol] 101 mmol/L Normal 97-105 [facility] Comment on above: Order Comment: Speci men Type: BLOOD SPECIMEN Ordering Facility: [facility] Address: [address] [place] [address] Performed By: #### 5 7021-8 #### [facility] CLIA [id number] [address] [place] [address] 13576 CO2 [Moles/Vol] 31 mmol/L High 22-30 [facility] Comment on above: Order Comment: Speci men Type: BLOOD SPECIMEN Ordering Facility: [facility] Address: [address] [place] [address] Performed By: #### 5 7021-8 #### [facility] CLIA [id number] [address] [place] [address] 18078 Creatinine [Mass/Vol] 0.79 mg/dL Normal 0.73-1.22 [facility] Comment on above: Order Comment: Speci men Type: BLOOD SPECIMEN Ordering Facility: [facility] Address: [address] [place] [address] Performed By: #### 5 7021-8 #### [facility] CLIA [id number] [address] [place] [address] 89717 Creatinine and Glomerular filtration rate.predicted panel (S/P/Bld) 89 mL/min/1.73m??? Normal >=60 [facility] Comment on above: Order Comment: Lilia love Type: BLOOD SPECIMEN Ordering Facility: [facility] Address: [address] [place] [address] Result Comment: Marija mated Glomerular Filtration Rate [...] GFR. Performed By: #### 5 7021-8 #### [facility] CLIA [id number] [address] [place] [address] 47537 Glucose [Mass/Vol] 106 mg/dL High 74-[address] [facility] Comment on above: Order Comment: Lilia love Type: BLOOD SPECIMEN Ordering Facility: [facility] Address: [address] [place] [address] Result Comment: The [place] [employer] (ADA) provides guidance for cutoff [...] Standards of Medical Care in Diabetes 2016, [place] [employer]. Diabetes Care. 2016.39(Suppl 1). Performed By: #### 5 7021-8 #### [facility] CLIA [id number] [address] [place] [address] 26745 Potassium [Moles/Vol] 4.1 mmol/L Normal 3.7-5.1 [facility] Comment on above: Order Comment: Speci men Type: BLOOD SPECIMEN Ordering Facility: [facility] Address: [address] [place] [id number] Performed By: #### 5 7021-8 #### [facility] CLIA [id number] [address] [place] [address] Protein [Mass/Vol] 7.5 g/dL Normal 6.3-8.[address] [facility] Comment on above: Order Comment: Speci men Type: BLOOD SPECIMEN Ordering Facility: [facility] Address: [address] [place] [address] Performed By: #### 5 7021-8 #### [facility] CLIA [id number] [address] [place] [address] 09318 Sodium [Moles/Vol] 142 mmol/L Normal 136-[address] [facility] Comment on above: Order Comment: Speci men Type: BLOOD SPECIMEN Ordering Facility: [facility] Address: [address] [place] [address] Performed By: #### 5 7021-8 #### [facility] CLIA [id number] [address] [place] [address] 61306 Urea nitrogen [Mass/Vol] 17 mg/dL Normal 9-24 [facility] Comment on above: Order Comment: Speci men Type: BLOOD SPECIMEN Ordering Facility: [facility] Address: [address] [place] [address] Performed By: #### 5 7021-8 #### [facility] CLIA [id number] [address] [place] [address] 25136 Albumin [Mass/Vol] 4.1 g/dL 3.9 - 4.9 g/dL [facility] ALP [Catalytic activity/Vol] 105 U/L 38 - 113 U/L [facility] ALT [Catalytic activity/Vol] Low 10 - 54 U/L [facility] Anion gap [Moles/Vol] 10 mmol/L 9 - 18 mmol/L [facility] AST [Catalytic activity/Vol] 17 U/L 14 - 40 U/L [facility] Bilirubin [Mass/Vol] 0.4 mg/dL 0.2 - 1 .3 mg/dL [facility] Calcium [Mass/Vol] 9.7 mg/dL 8.5 - 10. 2 mg/dL [facility] Chloride [Moles/Vol] 101 mmol/L 97 - 10 5 mmol/L [facility] CO2 [Moles/Vol] 31 mmol/L High 22 - 30 mmol/L [facility] Creatinine [Mass/Vol] 0.79 mg/dL 0.73 - 1.22 mg/dL [facility] Estimated Glomerular Filtration Rate 89 mL/min/1.73m >=60 mL/min/1.73m [facility] Glucose [Mass/Vol] 106 mg/dL High 74 - 99 mg/dL [facility] Potassium [Moles/Vol] 4.1 mmol/L 3.7 - 5.1 mmol/L [facility] Protein [Mass/Vol] 7.5 g/dL 6.3 - 8.0 g/dL [facility] Sodium [Moles/Vol] 142 mmol/L 136 - 144 mmol/L [facility] Urea nitrogen [Mass/Vol] 17 mg/dL 9 - 24 mg/dL [facility] TSH SerPl-aCncon 09-22-2023 TSH Qn 5.670 m[IU]/L High 0.270-4.200 [facility] Comment on above: Order Comment: Speci men Type: BLOOD SPECIMENOrdering Facility: [facility] Address: [address] [place] [address] Performed By: #### 3 016-3 ####[facility] [id number] [place] [address] [place] CBC W Auto Differential pane l (Bld)on 09-01-2023 Basophils (Bld) [#/Vol] 10*3/uL Normal <0.11 [facility] Comment on above: Order Comment: Speci men Type: BLOOD SPECIMENOrdering Facility: [facility] Address: [address] [place] [address] Performed By: #### 5 7021-8 ####[facility] [id number] [place] [address] Basophils/100 WBC (Bld) 0.3 % Normal [facility] Comment on above: Order Comment: Speci men Type: BLOOD SPECIMENOrdering Facility: [facility] Address: [address] [place] [address] Performed By: #### 5 7021-8 ####[facility] [id number] [place] [address] Differential cell count method Nom (Bld) Auto Normal [facility] Comment on above: Order Comment: Speci men Type: BLOOD SPECIMENOrdering Facility: [facility] Address: [address] [place] [address] Performed By: #### 5 7021-8 ####[facility] [id number] [place] [address] Eosinophils (Bld) [#/Vol] 0.06 10*3/uL Normal <0.46 [facility] Comment on above: Order Comment: Speci men Type: BLOOD SPECIMENOrdering Facility: [facility] Address: [address] [place] [address] Performed By: #### 5 7021-8 ####[facility] [id number] [place] [address] Eosinophils/100 WBC (Bld) 0.8 % Normal [facility] Comment on above: Order Comment: Speci men Type: BLOOD SPECIMENOrdering Facility: [facility] Address: [address] [place] [address] Performed By: #### 5 7021-8 ####[facility] [id number] [place] [address] Erythrocyte distribution width (RBC) [Ratio] 15.2 % High 11.5-15.0 [facility] Comment on above: Order Comment: Speci men Type: BLOOD SPECIMENOrdering Facility: [facility] Address: [address] [place] [address] Performed By: #### 5 7021-8 ####[facility] [id number] [place] [address] Hematocrit (Bld) [Volume fraction] 41.5 % Normal 39.0-51.0 [facility] Comment on above: Order Comment: Speci men Type: BLOOD SPECIMENOrdering Facility: [facility] Address: [address] [place] [address] Performed By: #### 5 7021-8 ####[facility] [id number] [place] [address] Hemoglobin (Bld) [Mass/Vol] 13.4 g/dL Normal 13.0-17.0 [facility] Comment on above: Order Comment: Speci men Type: BLOOD SPECIMENOrdering Facility: [facility] Address: [address] [place] [address] Performed By: #### 5 7021-8 ####[facility] [id number] [place] [address] Immature granulocytes (Bld) [#/Vol] 0.03 10*3/uL Normal <0.10 [facility] Comment on above: Order Comment: Speci men Type: BLOOD SPECIMENOrdering Facility: [facility] Address: [address] [place] [address] Performed By: #### 5 7021-8 ####[facility] [id number] [place] [address] Immature granulocytes/100 WBC (Bld) 0.4 % Normal [facility] Comment on above: Order Comment: Speci men Type: BLOOD SPECIMENOrdering Facility: [facility] Address: [address] [place] [address] Performed By: #### 5 7021-8 ####[facility] [id number] [place] [address] Lymphocytes (Bld) [#/Vol] 0.75 10*3/uL Low 1.00-4.00 [facility] Comment on above: Order Comment: Speci men Type: BLOOD SPECIMENOrdering Facility: [facility] Address: [address] [place] [address] Performed By: #### 5 7021-8 ####[facility] [id number] [place] [address] Lymphocytes/100 WBC (Bld) 9.8 % Normal [facility] Comment on above: Order Comment: Speci men Type: BLOOD SPECIMENOrdering Facility: [facility] Address: [address] [place] [address] Performed By: #### 5 7021-8 ####[facility] [id number] [place] [address] MCH (RBC) [Entitic mass] 30.4 pg Normal 26.0-34.0 [facility] Comment on above: Order Comment: Speci men Type: BLOOD SPECIMENOrdering Facility: [facility] Address: [address] [place] [address] Performed By: #### 5 7021-8 ####[facility] [id number] [place] [address] MCHC (RBC) [Mass/Vol] 32.3 g/dL Normal 30.5-36.0 [facility] Comment on above: Order Comment: Speci men Type: BLOOD SPECIMENOrdering Facility: [facility] Address: [address] [place] [address] Performed By: #### 5 7021-8 ####[facility] [id number] [place] [address] MCV (RBC) [Entitic vol] 94.1 fL Normal 80.0-100.0 [facility] Comment on above: Order Comment: Speci men Type: BLOOD SPECIMENOrdering Facility: [facility] Address: [address] [place] [address] Performed By: #### 5 7021-8 ####[facility] [id number] [place] [address] Monocytes (Bld) [#/Vol] 0.46 10*3/uL Normal <0.87 [facility] Comment on above: Order Comment: Speci men Type: BLOOD SPECIMENOrdering Facility: [facility] Address: [address] [place] [address] Performed By: #### 5 7021-8 ####[facility] [id number] [place] [address] Monocytes/100 WBC (Bld) 6.0 % Normal [facility] Comment on above: Order Comment: Speci men Type: BLOOD SPECIMENOrdering Facility: [facility] Address: [address] [place] [address] Performed By: #### 5 7021-8 ####[facility] [id number] [place] [address] Neutrophils (Bld) [#/Vol] 6.34 10*3/uL Normal 1.45-7.50 [facility] Comment on above: Order Comment: Speci men Type: BLOOD SPECIMENOrdering Facility: [facility] Address: [address] [place] [address] Performed By: #### 5 7021-8 ####[facility] [id number] [place] [address] Neutrophils/100 WBC (Bld) 82.7 % Normal [facility] Comment on above: Order Comment: Speci men Type: BLOOD SPECIMENOrdering Facility: [facility] Address: [address] [place] [address] Performed By: #### 5 7021-8 ####[facility] [id number] [place] [address] Nucleated RBC (Bld) [#/Vol] 10*3/uL Normal <0.01 [facility] Comment on above: Order Comment: Speci men Type: BLOOD SPECIMENOrdering Facility: [facility] Address: [address] [place] [address] Performed By: #### 5 7021-8 ####[facility] [id number] [place] [address] Nucleated RBC/100 WBC (Bld) [Ratio] 0.0 /100 WBC Normal [facility] Comment on above: Order Comment: Speci men Type: BLOOD SPECIMENOrdering Facility: [facility] Address: [address] [place] [address] Performed By: #### 5 7021-8 ####[facility] [id number] [place] [address] Platelet mean volume (Bld) [Entitic vol] 10.7 fL Normal 9.0-12.7 [facility] Comment on above: Order Comment: Speci men Type: BLOOD SPECIMENOrdering Facility: [facility] Address: [address] [place] [address] Performed By: #### 5 7021-8 ####[facility] [id number] [place] [address] Platelets (Bld) [#/Vol] 192 10*3/uL Normal 150-400 [facility] Comment on above: Order Comment: Speci men Type: BLOOD SPECIMENOrdering Facility: [facility] Address: [address] [place] [address] Performed By: #### 5 7021-8 ####[facility] LABCLIA [id number] [place] [address] RBC (Bld) [#/Vol] 4.41 10*6/uL Normal 4.20-6.00 [facility] Comment on above: Order Comment: Speci men Type: BLOOD SPECIMENOrdering Facility: [facility] Address: [address] [place] [address] Performed By: #### 5 7021-8 ####[facility] LABIA [id number] [place] [address] WBC (Bld) [#/Vol] 7.66 10*3/uL Normal 3.70-11.00 [facility] Comment on above: Order Comment: Speci men Type: BLOOD SPECIMENOrdering Facility: [facility] Address: [address] [place] [address], [place] [address] Performed By: #### 5 7021-8 ####[facility] [id number] [place] [address] CNOVSPon 09-01-2023 CNOVSP Visit (SP) Office ([facility]) MICHAELLEMIKE ([id number]) 1940 M Date Time Provider Department 09/01/23 [...] OTHER PHYSICIANS: Dr. Wells; Wilbur Rosa CNP ([facility] Dermatology) Portions of this encounter note [...] No hype (more content not included)... Normal [facility] metabolic 2000 panelon 09-01-2023 Albumin [Mass/Vol] 4.2 g/dL Normal 3.9-4.[address] [facility] Comment on above: Order Comment: Speci men Type: BLOOD SPECIMENOrdering Facility: [facility] Address: [address] [place] [address] Performed By: #### 2 4323-8 ####[facility] LABCLIA [id number] [place] [address] ALP [Catalytic activity/Vol] 101 U/L Normal 38-113 [facility] Comment on above: Order Comment: Speci men Type: BLOOD SPECIMENOrdering Facility: [facility] Address: [address] [place] [address] Performed By: #### 2 4323-8 ####[facility] LABCLIA [id number] [place] [address] ALT [Catalytic activity/Vol] U/L Low 10-54 [facility] Comment on above: Order Comment: Speci men Type: BLOOD SPECIMENOrdering Facility: [facility] Address: [address] [place] [address] Performed By: #### 2 4323-8 ####[facility] LABCLIA [id number] [place] [address] Anion gap [Moles/Vol] 10 mmol/L Normal 9-18 [facility] Comment on above: Order Comment: Speci men Type: BLOOD SPECIMENOrdering Facility: [facility] Address: [address] [place] [address] Performed By: #### 2 4323-8 ####[facility] LABCLIA [id number] [place] [address] AST [Catalytic activity/Vol] 17 U/L Normal 14-40 [facility] Comment on above: Order Comment: Speci men Type: BLOOD SPECIMENOrdering Facility: [facility] Address: [address] [place] [address] Performed By: #### 2 4323-8 ####[facility]CLIA [id number] [place] [address] Bilirubin [Mass/Vol] 0.4 mg/dL Normal 0.2-1.3 [facility] Comment on above: Order Comment: Speci men Type: BLOOD SPECIMENOrdering Facility: [facility] Address: [address] [place] [address] Performed By: #### 2 4323-8 ####[facility]CLIA [id number] [place] [address] Calcium [Mass/Vol] 9.3 mg/dL Normal 8.5-10.[address] [facility] Comment on above: Order Comment: Speci men Type: BLOOD SPECIMENOrdering Facility: [facility] Address: [address] [place] [address] Performed By: #### 2 4323-8 ####[facility]CLIA [id number] [place] [address] Chloride [Moles/Vol] 101 mmol/L Normal 97-105 [facility] Comment on above: Order Comment: Speci men Type: BLOOD SPECIMENOrdering Facility: [facility] Address: [address] [place] [address] Performed By: #### 2 4323-8 ####[facility]CLIA [id number] [place] [address] CO2 [Moles/Vol] 29 mmol/L Normal 22-30 [facility] Comment on above: Order Comment: Speci men Type: BLOOD SPECIMENOrdering Facility: [facility] Address: [address] [place] [address] Performed By: #### 2 4323-8 ####[facility]CLIA [id number] [place] [address] Creatinine [Mass/Vol] 0.79 mg/dL Normal 0.73-1.22 [facility] Comment on above: Order Comment: Speci men Type: BLOOD SPECIMENOrdering Facility: [facility] Address: [address] [place] [address] Performed By: #### 2 4323-8 ####[facility]CLIA [id number] [place] [address] Creatinine and Glomerular filtration rate.predicted panel (S/P/Bld) 89 mL/min/1.73m??? Normal >=60 [facility] Comment on above: Order Comment: Speci men Type: BLOOD SPECIMENOrdering Facility: [facility] Address: [address] [place] [address] Result Comment: Marija mated Glomerular Filtration Rate [...] actual GFR. Performed By: #### 2 4323-8 ####[facility]CLIA [id number] [place] [address] Glucose [Mass/Vol] 99 mg/dL Normal 74-[address] [facility] Comment on above: Order Comment: Speci men Type: BLOOD SPECIMENOrdering Facility: [facility] Address: [address] [place], [place] [address] Result Comment: The [place] [employer] (ADA) provides guidance for cutoff [...] Standards of Medical Care in Diabetes 2016, [place] [employer]. Diabetes Care. 2016.39(Suppl 1). Performed By: #### 2 4323-8 ####[facility] LABCLIA [id number] [place] [address] Potassium [Moles/Vol] 4.0 mmol/L Normal 3.7-5.1 [facility] Comment on above: Order Comment: Roycei men Type: BLOOD SPECIMENOrdering Facility: [facility] Address: [address] [place] [address] Performed By: #### 2 4323-8 ####[facility] LABCLIA [id number] [place] [address] Protein [Mass/Vol] 7.3 g/dL Normal 6.3-8.[address] [facility] Comment on above: Order Comment: Speci men Type: BLOOD SPECIMENOrdering Facility: [facility] Address: [address] [place], [place] [address] Performed By: #### 2 4323-8 ####[facility]CLIA [id number] [place] [address] Sodium [Moles/Vol] 140 mmol/L Normal 136-[address] [facility] Comment on above: Order Comment: Speci men Type: BLOOD SPECIMENOrdering Facility: [facility] Address: [address] [place] [address] Performed By: #### 2 4323-8 ####[facility] LABCLIA [id number] [place] [address] Urea nitrogen [Mass/Vol] 21 mg/dL Normal 9-24 [facility] Comment on above: Order Comment: Speci men Type: BLOOD SPECIMENOrdering Facility: [facility] Address: [address] [place] [address] Performed By: #### 2 4323-8 ####[facility] LABCLIA [id number] [place] [address] NT-proBNP SerPl-mCncon 09-01 Natriuretic peptide.B prohormone N-Terminal [Mass/Vol] 1580 pg/mL High <450 [facility] Comment on above: Order Comment: Speci men Type: BLOOD SPECIMENOrdering Facility: [facility] Address: [address] [place] [address] Performed By: #### 3 3762-6 ####[facility] [id number] [place] [address] [place] TSH SerPl-aCncon 09-01-2023 TSH Qn 4.270 m[IU]/L High 0.270-4.200 [facility] Comment on above: Order Comment: Speci men Type: BLOOD SPECIMENOrdering Facility: [facility] Address: [address] [place] [address] Performed By: #### 3 016-3 ####[facility] [id number] [place] [address] [place] CBC W Auto Differential pane l (Bld)on 08-11-2023 Basophils (Bld) [#/Vol] 10*3/uL Normal <0.11 [facility] Comment on above: Order Comment: Speci men Type: BLOOD SPECIMENOrdering Facility: [facility] Address: [address] [place] [address] Performed By: #### 5 7021-8 ####[facility]CLIA [id number] [place] [address] Basophils/100 WBC (Bld) 0.3 % Normal [facility] Comment on above: Order Comment: Speci men Type: BLOOD SPECIMENOrdering Facility: [facility] Address: [address] [place] [address] Performed By: #### 5 7021-8 ####[facility]CLIA [id number] [place] [address] Differential cell count method Nom (Bld) Auto Normal [facility] Comment on above: Order Comment: Speci men Type: BLOOD SPECIMENOrdering Facility: [facility] Address: [address] [place] [address] Performed By: #### 5 7021-8 ####[facility]CLIA [id number] [place] [address] Eosinophils (Bld) [#/Vol] 0.07 10*3/uL Normal <0.46 [facility] Comment on above: Order Comment: Speci men Type: BLOOD SPECIMENOrdering Facility: [facility] Address: [address] [place] [address] Performed By: #### 5 7021-8 ####[facility] LABCLIA [id number] [place] [address] Eosinophils/100 WBC (Bld) 1.1 % Normal [facility] Comment on above: Order Comment: Speci men Type: BLOOD SPECIMENOrdering Facility: [facility] Address: [address] [place] [address] Performed By: #### 5 7021-8 ####[facility]CLIA [id number] [place] [address] Erythrocyte distribution width (RBC) [Ratio] 15.0 % Normal 11.5-15.0 [facility] Comment on above: Order Comment: Speci men Type: BLOOD SPECIMENOrdering Facility: [facility] Address: [address] [place] [address] Performed By: #### 5 7021-8 ####[facility] LABCLIA [id number] [place] [address] Hematocrit (Bld) [Volume fraction] 40.0 % Normal 39.0-51.0 [facility] Comment on above: Order Comment: Speci men Type: BLOOD SPECIMENOrdering Facility: [facility] Address: [address] [place] [address] Performed By: #### 5 7021-8 ####[facility] LABCLIA [id number] [place] [address] Hemoglobin (Bld) [Mass/Vol] 13.2 g/dL Normal 13.0-17.0 [facility] Comment on above: Order Comment: Speci men Type: BLOOD SPECIMENOrdering Facility: [facility] Address: [address] [place] [address] Performed By: #### 5 7021-8 ####[facility] LABCLIA [id number] [place] [address] Immature granulocytes (Bld) [#/Vol] 10*3/uL Normal <0.10 [facility] Comment on above: Order Comment: Speci men Type: BLOOD SPECIMENOrdering Facility: [facility] Address: [address] [place] [address] Performed By: #### 5 7021-8 ####[facility] LABCLIA [id number] [place] [address] Immature granulocytes/100 WBC (Bld) 0.2 % Normal [facility] Comment on above: Order Comment: Speci men Type: BLOOD SPECIMENOrdering Facility: [facility] Address: [address] [place] [address] Performed By: #### 5 7021-8 ####[facility] LABCLIA [id number] [place] [address] Lymphocytes (Bld) [#/Vol] 0.70 10*3/uL Low 1.00-4.00 [facility] Comment on above: Order Comment: Speci men Type: BLOOD SPECIMENOrdering Facility: [facility] Address: [address] [place] [address] Performed By: #### 5 7021-8 ####[facility] LABCLIA [id number] [place] [address] Lymphocytes/100 WBC (Bld) 10.5 % Normal [facility] Comment on above: Order Comment: Speci men Type: BLOOD SPECIMENOrdering Facility: [facility] Address: [address] [place] [address] Performed By: #### 5 7021-8 ####[facility] LABCLIA [id number] [place] [address] MCH (RBC) [Entitic mass] 31.1 pg Normal 26.0-34.0 [facility] Comment on above: Order Comment: Speci men Type: BLOOD SPECIMENOrdering Facility: [facility] Address: [address] [place] [address] Performed By: #### 5 7021-8 ####[facility] LABCLIA [id number] [place] [address] MCHC (RBC) [Mass/Vol] 33.0 g/dL Normal 30.5-36.0 [facility] Comment on above: Order Comment: Speci men Type: BLOOD SPECIMENOrdering Facility: [facility] Address: [address] [place] [address] Performed By: #### 5 7021-8 ####[facility] LABCLIA [id number] [place] [address] MCV (RBC) [Entitic vol] 94.1 fL Normal 80.0-100.0 [facility] Comment on above: Order Comment: Speci men Type: BLOOD SPECIMENOrdering Facility: [facility] Address: [address] [place] [address] Performed By: #### 5 7021-8 ####[facility] LABCLIA [id number] [place] [address] Monocytes (Bld) [#/Vol] 0.61 10*3/uL Normal <0.87 [facility] Comment on above: Order Comment: Speci men Type: BLOOD SPECIMENOrdering Facility: [facility] Address: [address] [place] [address] Performed By: #### 5 7021-8 ####[facility] LABCLIA [id number] [place] [address] Monocytes/100 WBC (Bld) 9.2 % Normal [facility] Comment on above: Order Comment: Speci men Type: BLOOD SPECIMENOrdering Facility: [facility] Address: [address] [place] [address] Performed By: #### 5 7021-8 ####[facility] LABCLIA [id number] [place] [address] Neutrophils (Bld) [#/Vol] 5.23 10*3/uL Normal 1.45-7.50 [facility] Comment on above: Order Comment: Speci men Type: BLOOD SPECIMENOrdering Facility: [facility] Address: [address] [place] [address] Performed By: #### 5 7021-8 ####[facility] LABCLIA [id number] [place] [address] Neutrophils/100 WBC (Bld) 78.7 % Normal [facility] Comment on above: Order Comment: Speci men Type: BLOOD SPECIMENOrdering Facility: [facility] Address: [address] [place] [address] Performed By: #### 5 7021-8 ####[facility] LABCLIA [id number] [place] [address] Nucleated RBC (Bld) [#/Vol] 10*3/uL Normal <0.01 [facility] Comment on above: Order Comment: Speci men Type: BLOOD SPECIMENOrdering Facility: [facility] Address: [address] [place] [address] Performed By: #### 5 7021-8 ####[facility] LABCLIA [id number] [place] [address] Nucleated RBC/100 WBC (Bld) [Ratio] 0.0 /100 WBC Normal [facility] Comment on above: Order Comment: Speci men Type: BLOOD SPECIMENOrdering Facility: [facility] Address: [address] [place] [address] Performed By: #### 5 7021-8 ####[facility] LABCLIA [id number] [place] [address] Platelet mean volume (Bld) [Entitic vol] 10.6 fL Normal 9.0-12.7 [facility] Comment on above: Order Comment: Speci men Type: BLOOD SPECIMENOrdering Facility: [facility] Address: [address] [place] [address] Performed By: #### 5 7021-8 ####[facility]CLIA [id number] [place] [address] Platelets (Bld) [#/Vol] 193 10*3/uL Normal 150-400 [facility] Comment on above: Order Comment: Speci men Type: BLOOD SPECIMENOrdering Facility: [facility] Address: [address] [place] [address] Performed By: #### 5 7021-8 ####[facility] LABCLIA [id number] [place] [address] RBC (Bld) [#/Vol] 4.25 10*6/uL Normal 4.20-6.00 [facility] Comment on above: Order Comment: Speci men Type: BLOOD SPECIMENOrdering Facility: [facility] Address: [address] [place] [address] Performed By: #### 5 7021-8 ####[facility]CLIA [id number] [place] [address] WBC (Bld) [#/Vol] 6.64 10*3/uL Normal 3.70-11.00 [facility] Comment on above: Order Comment: Speci men Type: BLOOD SPECIMENOrdering Facility: [facility] Address: [address] [place] [address] Performed By: #### 5 7021-8 ####[facility] LABCLIA [id number] [place] [address] CNOVSPon 08-11-2023 CNOVSP Visit (SP) Office (HEMASA) MIKE BRASWELL ([id number]) 1940 M Date Time Provider Department 08/11/23 [...] OTHER PHYSICIANS: Dr. Wells; Wilbur Rosa CNP ([facility] Dermatology) CC: This is an 83 [...] cutaneous activ (more content not included)... Normal [facility] Comprehensive metabolic 2000 panelon 08-11-2023 Albumin [Mass/Vol] 4.0 g/dL Normal 3.9-4.[address] [facility] Comment on above: Order Comment: Speci men Type: BLOOD SPECIMENOrdering Facility: [facility] Address: [place] [address] Performed By: #### 2 4323-8 ####[facility] LABCLIA [id number] [place] [address] ALP [Catalytic activity/Vol] 100 U/L Normal 38-113 [facility] Comment on above: Order Comment: Speci men Type: BLOOD SPECIMENOrdering Facility: [facility] Address: [address] [place] [address] Performed By: #### 2 4323-8 ####[facility] LABCLIA [id number] [place] [address] ALT [Catalytic activity/Vol] U/L Low 10-54 [facility] Comment on above: Order Comment: Speci men Type: BLOOD SPECIMENOrdering Facility: [facility] Address: [address] [place] [address] Performed By: #### 2 4323-8 ####[facility] LABCLIA [id number] [place] [address] Anion gap [Moles/Vol] 6 mmol/L Low 9-18 [facility] Comment on above: Order Comment: Speci men Type: BLOOD SPECIMENOrdering Facility: [facility] Address: [address] [place] [address] Performed By: #### 2 4323-8 ####[facility] LABCLIA [id number] [place] [address] AST [Catalytic activity/Vol] 18 U/L Normal 14-40 [facility] Comment on above: Order Comment: Speci men Type: BLOOD SPECIMENOrdering Facility: [facility] Address: [address] [place] [address] Performed By: #### 2 4323-8 ####[facility] LABCLIA [id number] [place] [address] Bilirubin [Mass/Vol] 0.5 mg/dL Normal 0.2-1.3 [facility] Comment on above: Order Comment: Speci men Type: BLOOD SPECIMENOrdering Facility: [facility] Address: [address] [place] [address] Performed By: #### 2 4323-8 ####[facility] LABCLIA [id number] [place] [address] Calcium [Mass/Vol] 9.2 mg/dL Normal 8.5-10.[address] [facility] Comment on above: Order Comment: Speci men Type: BLOOD SPECIMENOrdering Facility: [facility] Address: [address] [place] [address] Performed By: #### 2 4323-8 ####[facility]CLIA [id number] [place] [address] Chloride [Moles/Vol] 104 mmol/L Normal 97-105 [facility] Comment on above: Order Comment: Speci men Type: BLOOD SPECIMENOrdering Facility: [facility] Address: [address] [place] [address] Performed By: #### 2 4323-8 ####[facility] LABCLIA [id number] [place] [address] CO2 [Moles/Vol] 30 mmol/L Normal 22-30 [facility] Comment on above: Order Comment: Speci men Type: BLOOD SPECIMENOrdering Facility: [facility] Address: [address] [place] [address] Performed By: #### 2 4323-8 ####[facility]CLIA [id number] [place] [address] Creatinine [Mass/Vol] 0.83 mg/dL Normal 0.73-1.22 [facility] Comment on above: Order Comment: Speci men Type: BLOOD SPECIMENOrdering Facility: [facility] Address: [address] [place] [address] Performed By: #### 2 4323-8 ####[facility]CLIA [id number] [place] [address] Creatinine and Glomerular filtration rate.predicted panel (S/P/Bld) 88 mL/min/1.73m??? Normal >=60 [facility] Comment on above: Order Comment: Speci men Type: BLOOD SPECIMENOrdering Facility: [facility] Address: [address] [place] [address] Result Comment: Marija mated Glomerular Filtration Rate [...] actual GFR. Performed By: #### 2 4323-8 ####[facility] LABCLIA [id number] [place] [address] Glucose [Mass/Vol] 110 mg/dL High 74-[address] [facility] Comment on above: Order Comment: Speci men Type: BLOOD SPECIMENOrdering Facility: [facility] Address: [address] [place] [address] Result Comment: The [place] [employer] (ADA) provides guidance for cutoff [...] Standards of Medical Care in Diabetes 2016, [place] [employer]. Diabetes Care. 2016.39(Suppl 1). Performed By: #### 2 4323-8 ####[facility] LABCLIA [id number] [place] [address] Potassium [Moles/Vol] 4.3 mmol/L Normal 3.7-5.1 [facility] Comment on above: Order Comment: Speci men Type: BLOOD SPECIMENOrdering Facility: [facility] Address: [address] [place] [address] Performed By: #### 2 4323-8 ####[facility]CLIA [id number] [place] [address] Protein [Mass/Vol] 7.2 g/dL Normal 6.3-8.[address] [facility] Comment on above: Order Comment: Speci men Type: BLOOD SPECIMENOrdering Facility: [facility] Address: [address] [place] [address] Performed By: #### 2 4323-8 ####[facility]CLIA [id number] [place] [address] Sodium [Moles/Vol] 140 mmol/L Normal 136-[address] [facility] Comment on above: Order Comment: Speci men Type: BLOOD SPECIMENOrdering Facility: [facility] Address: [address] [place] [id number] Performed By: #### 2 4323-8 ####[facility]CLIA [id number] [place] [address] Urea nitrogen [Mass/Vol] 24 mg/dL Normal 9-24 [facility] Comment on above: Order Comment: Speci men Type: BLOOD SPECIMENOrdering Facility: [facility] Address: [address] [place] [address] Performed By: #### 2 4323-8 ####[facility] LABCLIA [id number] [place] [address] XR CHEST 2V FRONTAL/LATon XR CHEST 2V [...] the report reviewed and electronically signed by: RPEETHI UMAÑA MD on Aug 12 2023 3:37PM EST Thank you for allowing us to participate in the care of your patient. Should there be any questions regarding this interpretation, please call [phone]. If you are unable to reach us at the number above, please feel free to contact [facility]Radiology at [phone]. [id number] Normal [facility] CNPNon 08-09-2023 CNPN Telephone (HEMASA) MIKE BRASWELL ([id number]) 1940 Date Time Provider Department 08/09/23 CARMINE [...] Date Reviewed: 07/26/2023 Reviewed by: Gabriella Javed APRN.[employer] SAL[employer] EXECUTIVE - Fully Assessed Reason for Visit: Care Coordination [3001] Cmt: Cough; Hypertension Prescriptions as of 08/11/2023 [...] Encounter Status:Closed by CARMINE IGNACIO on 08/11/23 [facility]05[facility]2023 [facility] MIKE BRASWELL ([id number]) 1940 M Date Time Provider Department 08/05/23 CARMINE IGNACIO During your visit today, we recorded the following information about you: Carmine Ignacio RN 08/05/2023 1:29 PM Signed FYI: Pt follows [facility] coumadin clinic. Spouse reports that [...] Date Reviewed: 07/26/2023 Reviewed by: Gabriella Javed APRN.[employer]IDE SALES EXECUTIVE - Fully Assessed Reason for Visit: Care Coordination [0911] Cmt: Medication Question Prescriptions as of 08/05/2023 [...] Encounter Status:Closed by CARMINE IGNACIO on [facility]/05/23 [facility] (HEMCHITRA) MIKE BRASWELL ([id number]) 1940 M Date Time Provider Department 07/25/23 [...] Encounter Status:Closed by CARMINE IGNACIO on 07/25/23 [facility] CNOVSPon 07-21-2023 CNOVSP Visit (SP) Office (HEMASA) MIKE BRASWELL ([id number]) 1940 M Date Time Provider Department 07/21/23 [...] OTHER PHYSICIANS: Dr. Wells; Wilbur Rosa CNP ([facility] Dermatology) CC: This is an 83 year [...] of r (more content not included)... Normal [facility] 07-21-2023 [facility] (HEMTSA) MIKE BRASWELL ([id number]) 1940 M Date Time Provider Department 07/21/23 [...] Encounter Status:Closed by TOMMY VINCENT on 07/21/23 [facility] [place] 07-19-2023 [place] Telephone ([place]) MIKE BRASWELL ([id number]) 1940 M Date Time Provider Department 07/19/23 GABRIELLA JAVED During your visit today, we recorded the following information about you: Ravi, 07/19/2023 4:21 PM Signed Do you want labs? Patient coming in This 07/21/23 for treatment. Tania DALIA Rodrigues Allergies As of Date: 07/19/2023 (No Known Allergies) Date Reviewed: 07/19/2023 Reviewed by: Carmine Ignacio, ANKIT - Fully Assessed Reason for Visit: Lab Orders [1888] Prescriptions as of 08/08/2023 - warfarin (COUMADIN) [...] 07/12/2023 Encounter Status:Closed by RAVIJanuary on 08/08/23 [facility] [place] 07-13-2023 [place] Telephone (HEMCHITRA) MIKE BRASWELL ([id number]) 1940 M Date Time Provider Department 07/13/23 CARMINE IGNACIO During your visit today, we recorded the following information about you: Carmine Ignacio RN 07/13/2023 1:51 PM Addendum Should he have his flu/covid vaccines prior to start of treatment? ANKIT Redmond Holly, APRN.[employer] 07/13/2023 2:14 PM Signed That would be fine. Or after starting treatment, on an off week of treatment. Gabriella Javed APRN.Carmine Hurley RN 07/13/2023 2:49 PM Signed Pt's son notified and verbalizes understanding. Carmine Ignacio RN Allergies As of Date: 07/13/2023 (No Known Allergies) Date Reviewed: 07/13/2023 Reviewed by: Gabriella Javed APRN.[employer] - Fully Assessed Reason for Visit: Imm/Inj [...] Status:Closed by CARMINE IGNACIO on 07/13/23 Normal [facility] CBC W Auto Differential pane l (Bld)on 07-12-2023 Basophils (Bld) [#/Vol] 10*3/uL Normal <0.11 [facility] Comment on above: Order Comment: Speci men Type: BLOOD SPECIMENOrdering Facility: [facility] Address: [address] [address] Performed By: #### 5 7021-8 ####[facility] LABCLIA [id number] [place] [address] Basophils/100 WBC (Bld) 0.3 % Normal [facility] Comment on above: Order Comment: Speci men Type: BLOOD SPECIMENOrdering Facility: [facility] Address: [address] [address] Performed By: #### 5 7021-8 ####[facility] LABCLIA [id number] [place] [address] Differential cell count method Nom (Bld) Auto Normal [facility] Comment on above: Order Comment: Speci men Type: BLOOD SPECIMENOrdering Facility: [facility] Address: [address] [place] [address] Performed By: #### 5 7021-8 ####[facility] LABCLIA [id number] [place] [address] Eosinophils (Bld) [#/Vol] 0.04 10*3/uL Normal <0.46 [facility] Comment on above: Order Comment: Speci men Type: BLOOD SPECIMENOrdering Facility: [facility] Address: [address] [address] Performed By: #### 5 7021-8 ####[facility] LABCLIA [id number] [place] [address] Eosinophils/100 WBC (Bld) 0.6 % Normal [facility] Comment on above: Order Comment: Speci men Type: BLOOD SPECIMENOrdering Facility: [facility] Address: [address] [place] [address] Performed By: #### 5 7021-8 ####[facility] LABCLIA [id number] [place] [address] Erythrocyte distribution width (RBC) [Ratio] 15.3 % High 11.5-15.0 [facility] Comment on above: Order Comment: Speci men Type: BLOOD SPECIMENOrdering Facility: [facility] Address: [address] [place] [address] Performed By: #### 5 7021-8 ####[facility] LABCLIA [id number] [place] [address] Hematocrit (Bld) [Volume fraction] 45.5 % Normal 39.0-51.0 [facility] Comment on above: Order Comment: Speci men Type: BLOOD SPECIMENOrdering Facility: [facility] Address: [address] [place] [address] Performed By: #### 5 7021-8 ####[facility] LABCLIA [id number] [place] [address] Hemoglobin (Bld) [Mass/Vol] 14.5 g/dL Normal 13.0-17.0 [facility] Comment on above: Order Comment: Speci men Type: BLOOD SPECIMENOrdering Facility: [facility] Address: [address] [place] [address] Performed By: #### 5 7021-8 ####[facility] LABCLIA [id number] [place] [address] Immature granulocytes (Bld) [#/Vol] 10*3/uL Normal <0.10 [facility] Comment on above: Order Comment: Speci men Type: BLOOD SPECIMENOrdering Facility: [facility] Address: [address] [place] [address] Performed By: #### 5 7021-8 ####[facility] LABIA [id number] [place] [address] Immature granulocytes/100 WBC (Bld) 0.3 % Normal [facility] Comment on above: Order Comment: Speci men Type: BLOOD SPECIMENOrdering Facility: [facility] Address: [address] [place] [address] Performed By: #### 5 7021-8 ####[facility] LABCLIA [id number] [place] [address] Lymphocytes (Bld) [#/Vol] 0.86 10*3/uL Low 1.00-4.00 [facility] Comment on above: Order Comment: Speci men Type: BLOOD SPECIMENOrdering Facility: [facility] Address: [address] [place] [address] Performed By: #### 5 7021-8 ####[facility] LABCLIA [id number] [place] [address] Lymphocytes/100 WBC (Bld) 13.0 % Normal [facility] Comment on above: Order Comment: Speci men Type: BLOOD SPECIMENOrdering Facility: [facility] Address: [address] [place] [address] Performed By: #### 5 7021-8 ####[facility] LABCLIA [id number] [place] [address] MCH (RBC) [Entitic mass] 30.2 pg Normal 26.0-34.0 [facility] Comment on above: Order Comment: Speci men Type: BLOOD SPECIMENOrdering Facility: [facility] Address: [address] [place] [address] Performed By: #### 5 7021-8 ####[facility] LABCLIA [id number] [place] [address] MCHC (RBC) [Mass/Vol] 31.9 g/dL Normal 30.5-36.0 [facility] Comment on above: Order Comment: Speci men Type: BLOOD SPECIMENOrdering Facility: [facility] Address: [address] [place] [address] Performed By: #### 5 7021-8 ####[facility] LABCLIA [id number] [place] [address] MCV (RBC) [Entitic vol] 94.8 fL Normal 80.0-100.0 [facility] Comment on above: Order Comment: Speci men Type: BLOOD SPECIMENOrdering Facility: [facility] Address: [address] [address] Performed By: #### 5 7021-8 ####[facility] LABCLIA [id number] [place] [address] Monocytes (Bld) [#/Vol] 0.43 10*3/uL Normal <0.87 [facility] Comment on above: Order Comment: Speci men Type: BLOOD SPECIMENOrdering Facility: [facility] Address: [address] [address] Performed By: #### 5 7021-8 ####[facility] LABCLIA [id number] [place] [address] Monocytes/100 WBC (Bld) 6.5 % Normal [facility] Comment on above: Order Comment: Speci men Type: BLOOD SPECIMENOrdering Facility: [facility] Address: [address] [address] Performed By: #### 5 7021-8 ####[facility] LABCLIA [id number] [place] [address] Neutrophils (Bld) [#/Vol] 5.25 10*3/uL Normal 1.45-7.50 [facility] Comment on above: Order Comment: Speci men Type: BLOOD SPECIMENOrdering Facility: [facility] Address: [address] [address] Performed By: #### 5 7021-8 ####[facility] LABCLIA [id number] [place] [address] Neutrophils/100 WBC (Bld) 79.3 % Normal [facility] Comment on above: Order Comment: Speci men Type: BLOOD SPECIMENOrdering Facility: [facility] Address: [address] [address] Performed By: #### 5 7021-8 ####[facility] LABCLIA [id number] [place] [address] Nucleated RBC (Bld) [#/Vol] 10*3/uL Normal <0.01 [facility] Comment on above: Order Comment: Speci men Type: BLOOD SPECIMENOrdering Facility: [facility] Address: [address] [place] [address] Performed By: #### 5 7021-8 ####[facility] LABCLIA [id number] [place] [address] Nucleated RBC/100 WBC (Bld) [Ratio] 0.0 /100 WBC Normal [facility] Comment on above: Order Comment: Speci men Type: BLOOD SPECIMENOrdering Facility: [facility] Address: [address] [place] [address] Performed By: #### 5 7021-8 ####[facility] LABCLIA [id number] [place] [address] Platelet mean volume (Bld) [Entitic vol] 11.3 fL Normal 9.0-12.7 [facility] Comment on above: Order Comment: Speci men Type: BLOOD SPECIMENOrdering Facility: [facility] Address: [address] [place] [address] Performed By: #### 5 7021-8 ####[facility] LABCLIA [id number] [place] [address] Platelets (Bld) [#/Vol] 185 10*3/uL Normal 150-400 [facility] Comment on above: Order Comment: Speci men Type: BLOOD SPECIMENOrdering Facility: [facility] Address: [address] [place] [address] Performed By: #### 5 7021-8 ####[facility] LABCLIA [id number] [place] [address] RBC (Bld) [#/Vol] 4.80 10*6/uL Normal 4.20-6.00 [facility] Comment on above: Order Comment: Speci men Type: BLOOD SPECIMENOrdering Facility: [facility] Address: [place] [address] Performed By: #### 5 7021-8 ####[facility] LABIA [id number] [place] [address] WBC (Bld) [#/Vol] 6.62 10*3/uL Normal 3.70-11.00 [facility] Comment on above: Order Comment: Speci men Type: BLOOD SPECIMENOrdering Facility: [facility] Address: [place] [address] Performed By: #### 5 7021-8 ####[facility] LABIA [id number] [place] [address] CNOVon 07-12-2023 [facility] Office Visit (RADTSA ) MICHAELLEMIKE Shane ([id number]) 1940 M Date Time Provider Department 07/12/23 3:00 PM Sebas WELLS During your visit today, we recorded the following information about you: Temperature Pulse Blood pressure 96.9 degrees 101/minute 141/78 Sebas Wells MD 07/20/2023 2:17 PM Signed Radiation [...] 1 is the provider ID). Wilbur Rosa, MANPOWER DEVELOPMENT ADVISOR [address] [place] [address] [facility] [address] Referring Provider: Sebas WELLS [[id number]] Allergies As of Date: 07/12/2023 (No Known [...] 5 mg (more content not included)... Normal [facility] CNOVSPon 07-12-2023 [facility] Visit (SP) Office (MYCHAL) MIKE BRASWELL ([id number]) 1940 M Date Time Provider Department 07/12/23 4:00 PM RODRÍGUEZ PACK During your visit today, we recorded the following information about you: Temperature Pulse Respiration Blood pressure 96.9 degrees 101/minute 18/minute 141/78 Rodríguez Pack MD 07/13/2023 10:17 AM Signed PATIENT NAME: Mike Braswell DATE: 07/12/2023 PRIMARY CARE PHYSICIAN: Mark Quintanilla Jr, DO OTHER PHYSICIANS: Dr. Wells; Wilbur Rosa CNP ([facility] Dermatology) HPI: This is an 83 year [...] Currently he is and lives in the [place] area. 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 [...] for co (more content not included)... Normal [facility] metabolic 2000 panelon 07-12-2023 Albumin [Mass/Vol] 4.0 g/dL Normal 3.9-4.[address] [facility] Comment on above: Order Comment: Speci men Type: BLOOD SPECIMENOrdering Facility: [facility] Address: [address] [place] [address] Performed By: #### 2 4323-8 ####[facility] LABCLIA [id number] [place] [address] ALP [Catalytic activity/Vol] 106 U/L Normal 38-113 [facility] Comment on above: Order Comment: Speci men Type: BLOOD SPECIMENOrdering Facility: [facility] Address: [address] [place] [address] Performed By: #### 2 4323-8 ####[facility] LABCLIA [id number] [place] [address] ALT [Catalytic activity/Vol] U/L Low 10-54 [facility] Comment on above: Order Comment: Speci men Type: BLOOD SPECIMENOrdering Facility: [facility] Address: [address] [place] [address] Performed By: #### 2 4323-8 ####[facility] LABCLIA [id number] [place] [address] Anion gap [Moles/Vol] 11 mmol/L Normal 9-18 [facility] Comment on above: Order Comment: Speci men Type: BLOOD SPECIMENOrdering Facility: [facility] Address: [address] [place] [address] Performed By: #### 2 4323-8 ####[facility] LABCLIA [id number] [place] [address] AST [Catalytic activity/Vol] 18 U/L Normal 14-40 [facility] Comment on above: Order Comment: Speci men Type: BLOOD SPECIMENOrdering Facility: [facility] Address: [address] [place] [address] Performed By: #### 2 4323-8 ####[facility] LABCLIA [id number] [place] [address] Bilirubin [Mass/Vol] 0.6 mg/dL Normal 0.2-1.3 [facility] Comment on above: Order Comment: Speci men Type: BLOOD SPECIMENOrdering Facility: [facility] Address: [address] [place] [address] Performed By: #### 2 4323-8 ####[facility] LABCLIA [id number] [place] [address] Calcium [Mass/Vol] 9.7 mg/dL Normal 8.5-10.[address] [facility] Comment on above: Order Comment: Speci men Type: BLOOD SPECIMENOrdering Facility: [facility] Address: [address] [place] [address] Performed By: #### 2 4323-8 ####[facility] LABCLIA [id number] [place] [address] Chloride [Moles/Vol] 104 mmol/L Normal 97-105 [facility] Comment on above: Order Comment: Speci men Type: BLOOD SPECIMENOrdering Facility: [facility] Address: [address] [place] [address] Performed By: #### 2 4323-8 ####[facility] LABCLIA [id number] [place] [address] CO2 [Moles/Vol] 29 mmol/L Normal 22-30 [facility] Comment on above: Order Comment: Speci men Type: BLOOD SPECIMENOrdering Facility: [facility] Address: [address] [place] [address] Performed By: #### 2 4323-8 ####[facility] LABCLIA [id number] [place] [address] Creatinine [Mass/Vol] 0.90 mg/dL Normal 0.73-1.22 [facility] Comment on above: Order Comment: Speci men Type: BLOOD SPECIMENOrdering Facility: [facility] Address: [address] [id number] Performed By: #### 2 4323-8 ####[facility] LABCLIA [id number] [place] [address] Creatinine and Glomerular filtration rate.predicted panel (S/P/Bld) 86 mL/min/1.73m??? Normal >=60 [facility] Comment on above: Order Comment: Speci men Type: BLOOD SPECIMENOrdering Facility: [facility] Address: [address] [place] [address] Result Comment: Marija mated Glomerular Filtration Rate [...] actual GFR. Performed By: #### 2 4323-8 ####[facility] LABCLIA [id number] [place] [address] Glucose [Mass/Vol] 117 mg/dL High 74-[address] [facility] Comment on above: Order Comment: Lilia love Type: BLOOD SPECIMENOrdering Facility: [facility] Address: [address] [place] [address] Result Comment: The [place] [employer] (ADA) provides guidance for cutoff [...] Standards of Medical Care in Diabetes 2016, [place] [employer]. Diabetes Care. 2016.39(Suppl 1). Performed By: #### 2 4323-8 ####[facility] LABCLIA [id number] [place] [address] Potassium [Moles/Vol] 4.6 mmol/L Normal 3.7-5.1 [facility] Comment on above: Order Comment: Speci men Type: BLOOD SPECIMENOrdering Facility: [facility] Address: [address] [place] [address] Performed By: #### 2 4323-8 ####[facility] LABCLIA [id number] [place] [address] Protein [Mass/Vol] 7.1 g/dL Normal 6.3-8.[address] [facility] Comment on above: Order Comment: Speci men Type: BLOOD SPECIMENOrdering Facility: [facility] Address: [address] [place] [address] Performed By: #### 2 4323-8 ####[facility] LABIA [id number] [place] [address] Sodium [Moles/Vol] 144 mmol/L Normal 136-[address] [facility] Comment on above: Order Comment: Speci men Type: BLOOD SPECIMENOrdering Facility: [facility] Address: [address] [place] [address] Performed By: #### 2 4323-8 ####[facility] LABCLIA [id number] [place] [address] Urea nitrogen [Mass/Vol] 19 mg/dL Normal 9-24 [facility] Comment on above: Order Comment: Speci men Type: BLOOD SPECIMENOrdering Facility: [facility] Address: [address] [place] [address] Performed By: #### 2 4323-8 ####[facility] LABIA [id number] [place] [address] NM PET/CT SKULL-THIGH INITon 07-12-2023 NM PET/CT [...] lesions. Few scattered non-FDG avid osseous lesions. Tobacco Buyer (topogram) images:No additional findings. - IMPRESSION: 1. [...] any questions regarding this interpretation, please call [phone]. If you are unable to reach us at the number above, please feel free to contact [facility] eRadiology at [phone]. [id number] Normal [facility] T4/FTI/T4Uon 07-12-2023 FTI 9.3 ug/dL Normal 5.3-10.8 [facility] Comment on above: Order Comment: Speci men Type: BLOOD SPECIMENOrdering Facility: [facility] Address: [address] [place] [address] Performed By: #### T 4FTYSON, 6-3 ####[facility] [id number] [place] [address] [place] T4 [Mass/Vol] 8.0 ug/dL Normal 5.5-10.2 [facility] Comment on above: Order Comment: Speci men Type: BLOOD SPECIMENOrdering Facility: [facility] Address: [address] [place] [address] Performed By: #### T 4FTI, 6-3 ####[facility] [id number] [address] [facility] T4 uptake [Mass/Vol] 0.86 Low 0.91-1.19 [facility] Comment on above: Order Comment: Speci men Type: BLOOD SPECIMENOrdering Facility: [facility] Address: [address] [place] [address] Performed By: #### T 4FTI, 6-3 ####[facility] [id number] [place] [address] [place] TSH SerPl-aCncon 07-12-2023 TSH Qn 6.870 m[IU]/L High 0.270-4.200 [facility] Comment on above: Order Comment: Speci men Type: BLOOD SPECIMENOrdering Facility: [facility] Address: [address] [place] [address] Performed By: #### T 4FTI, 3016-3 ####[facility] [id number] JETHRO COOLEY [id number] [facility] CNOVon 06-22-2023 CNOV Office Visit (RADTSA ) MICHAELLEMIKE Wen ([id number]) 1940 M Date Time Provider Department 06/22/23 [...] JANET [address] [place] [address] 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 Normal [facility] CNOVon 06-14-2023 CNOV Office Visit (RADTSA ) MICHAELLEMIKE Wen ([id number]) 1940 M Date Time Provider Department 06/14/23 [...] may b (more content not included)... Normal [facility] BNPon 11-23-2022 Natriuretic peptide B (Bld) [Mass/Vol] 2490.0 pg/mL Critically high <=1,800.0 [facility] Comment on above: Performed By: #### C JULIANA, TSH, ELEC, BNP, LIPID, LIVER, BUN #### [facility] [address] [place], [place] [address] Dr. Jarett Reece BUNon 11-23-2022 Urea nitrogen [Mass/Vol] 21.0 mg/dL Critically high 7.0-18.0 [facility] Comment on above: Performed By: #### C JULIANA, TSH, ELEC, BNP, LIPID, LIVER, BUN #### [facility] [address] [place], [place] [address] Dr. Jarett Reece CBC AUTO DIFFon 11-23-2022 BASO # 0.0 103/ul Normal 0.0-0.1 [facility] Comment on above: Performed By: #### C BC #### [facility] [address] [place] [address] Dr. Jarett Reece Basophils/100 WBC (Bld) 0.5 % Normal 0.2-2.0 [facility] Comment on above: Performed By: #### C BC #### [facility] [address] [place] [address] Dr. Jarett Reece EO # 0.1 103/ul Normal 0.0-0.7 [facility] Comment on above: Performed By: #### C BC #### [facility] [address] [place] [address] Dr. Jarett Reece Eosinophils/100 WBC (Bld) 1.1 % Normal 0.9-7.0 [facility] Comment on above: Performed By: #### C BC #### [facility] [address] [place] [address] Dr. Jarett Reece Erythrocyte distribution width (RBC) [Ratio] 14.6 % Normal 11.0-15.0 [facility] Comment on above: Performed By: #### C BC #### [facility] [address] [place] [address] Dr. Jarett Reece Hematocrit (Bld) [Volume fraction] 46.1 % Normal 42.0-54.0 [facility] Comment on above: Performed By: #### C BC #### [facility] [address] [place] [address] Dr. Jarett Reece Hemoglobin (Bld) [Mass/Vol] 14.7 g/dL Normal 14.0-18.0 [facility] Comment on above: Performed By: #### C BC #### [facility] [address] [place] [address] Dr. Jarett Reece IG # 0.01 10e3/ul Normal 0.00-0.03 [facility] Comment on above: Performed By: #### C BC #### [facility] [address] [place] [address] Dr. Jarett Reece IG % 0.2 % Normal 0.0-0.5 [facility] Comment on above: Performed By: #### C BC #### [facility] [address] [address] [address] Jarett Reece LYMPH # 1.1 103/ul Critically low 1.2-3.8 [facility] Comment on above: Performed By: #### C BC #### [facility] [address] [address] [address] Jarett Reece Lymphocytes/100 WBC (Bld) 17.2 % Critically low 20.5-60.0 [facility] Comment on above: Performed By: #### C BC #### [facility] [address] [place] [address] Dr. Jarett Reece MANUAL DIFF REQ NO Normal [facility] Comment on above: Performed By: #### C BC #### [facility] [address] [place] [address] Dr. Jarett Reece MCH (RBC) [Entitic mass] 31.1 pg Normal 25.9-34.0 [facility] Comment on above: Performed By: #### C BC #### [facility] [address] [place] [address] Dr. Jarett Reece MCHC (RBC) [Mass/Vol] 31.9 g/dL Normal 29.9-35.2 [facility] Comment on above: Performed By: #### C BC #### [facility] [address] [place] [address] Dr. Jarett Reece MCV (RBC) [Entitic vol] 97.5 fL Critically high 80.0-94.0 [facility] Comment on above: Performed By: #### C BC #### [facility] [address] [place] [address] Dr. Jarett Reece MONO # 0.4 103/ul Normal 0.3-0.8 [facility] Comment on above: Performed By: #### C BC #### [facility] [address] [place] [address] Dr. Jarett Reece Monocytes/100 WBC (Bld) 7.0 % Normal 1.7-12.0 [facility] Comment on above: Performed By: #### C BC #### [facility] [address] [place] [address] Dr. Jarett Reece NEUT # 4.7 103/ul Normal 1.4-6.5 [facility] Comment on above: Performed By: #### C BC #### [facility] [address] [place] [address] Dr. Jarett Reece Neutrophils/100 WBC (Bld) 74.0 % Normal 43.0-75.0 [facility] Comment on above: Performed By: #### C BC #### [facility] [address] [place] [address] Dr. Jarett Reece Platelet mean volume (Bld) [Entitic vol] 11.1 fL Normal 9.5-13.5 [facility] Comment on above: Performed By: #### C BC #### [facility] [address] [place] [address] Dr. Jarett Reece PLT 165 103/ul Normal 150-450 [facility] Comment on above: Performed By: #### C BC #### [facility] [address] [place] [address] Dr. Jarett Reece RBC 4.73 106/ul Normal 4.70-6.10 [facility] Comment on above: Performed By: #### C BC #### [facility] [address] [place] [address] Dr. Jarett Reece WBC 6.3 103/ul Normal 4.0-11.0 [facility] Comment on above: Performed By: #### C BC #### [facility] [address] [place] [address] Dr. Jarett Reece CREATININEon 11-23-2022 Creatinine [Mass/Vol] 0.78 mg/dL Normal 0.70-1.30 [facility] Comment on above: Performed By: #### C JULIANA, TSH, ELEC, BNP, LIPID, LIVER, BUN #### [facility] [address] [place] [address] Dr. Jarett Reece EGFR-AF MACEDONIAN >60 Normal >=60 [facility] Comment on above: Performed By: #### C JULIANA, TSH, ELEC, BNP, LIPID, LIVER, BUN #### [facility] [address] [address] [address] Jarett Reece EGFR-NON AF MACEDONIAN >60 Normal >=60 [facility] Comment on above: Performed By: #### C JULIANA, TSH, ELEC, BNP, LIPID, LIVER, BUN #### [facility] [address] [address] [address] Jarett Reece ELECTROLYTESon 11-23-2022 Anion gap [Moles/Vol] 13.7 mmol/L Normal [facility] Comment on above: Performed By: #### C JULIANA, TSH, ELEC, BNP, LIPID, LIVER, BUN #### [facility] [address] [place] [address] Dr. Jarett Reece Chloride [Moles/Vol] 104 mmol/L Normal 98-107 [facility] Comment on above: Performed By: #### C JULIANA, TSH, ELEC, BNP, LIPID, LIVER, BUN #### [facility] [address] [address] [address] Jarett Reece CO2 [Moles/Vol] 26.4 mmol/L Normal 21.0-32.0 [facility] Comment on above: Performed By: #### C JULIANA, TSH, ELEC, BNP, LIPID, LIVER, BUN #### [facility] [address] [place] [address] Dr. Jarett Reece Potassium [Moles/Vol] 4.1 mmol/L Normal 3.5-5.1 [facility] Comment on above: Performed By: #### C JULIANA, TSH, ELEC, BNP, LIPID, LIVER, BUN #### [facility] [address] [address] [address] Jarett Reece Sodium [Moles/Vol] 140 mmol/L Normal 136-[address] [facility] Comment on above: Performed By: #### C JULIANA, TSH, ELEC, BNP, LIPID, LIVER, BUN #### [facility] [address] [address] [address] Jarett Reece GLYCOHEMOGLOBIN A1Con 2022 ADA RECOMMENDATION SEE BELOW Normal [facility] Comment on above: Result Comment: ADA RECOMMENDED LIMIT 4.0 - 6.0 ADA THERAPEUTIC TARGET < 7.0 ACTION SUGGESTED > 7.0 Performed By: #### S EDR #### [facility] [address] [address] [address] Jarett Reece Glucose [Mass/Vol] 108 mg/dL Normal [facility] Comment on above: Performed By: #### S EDR #### [facility] [address] [address] [address] Jarett Reece HbA1c (Bld) [Mass fraction] 5.4 % Normal 4.5-6.2 [facility] Comment on above: Performed By: #### S EDR #### [facility] [address] [place] [address] Dr. Jarett Reece LIPID PROFILEon 11-23-2022 CHOL-HDL RATIO NORM SEE BELOW Normal [facility] Comment on above: Result Comment: 3.3 - 4.4 LOW RISK 4.4 - 7.1 AVERAGE RISK 7.1 - 11.0 MODERATE RISK >11.0 HIGH RISK Performed By: #### C JULIANA, TSH, ELEC, BNP, LIPID, LIVER, BUN #### [facility] [address] [address] [address] Jarett Reece Cholesterol [Mass/Vol] 104 mg/dL Normal <=200 [facility] Comment on above: Performed By: #### C JULIANA, TSH, ELEC, BNP, LIPID, LIVER, BUN #### [facility] [address] [address] [address] Jarett Reece Cholesterol in HDL [Mass/Vol] 63 mg/dL Critically high 40-60 [facility] Comment on above: Performed By: #### C JULIANA, TSH, ELEC, BNP, LIPID, LIVER, BUN #### [facility] [address] [place] [address] Dr. Jarett Reece Cholesterol in LDL [Mass/Vol] 32.6 mg/dL Normal [facility] Comment on above: Performed By: #### C JULIANA, TSH, ELEC, BNP, LIPID, LIVER, BUN #### [facility] [address] [address] [address] Jarett Reece Cholesterol.total/Ch olesterol in HDL [Mass ratio] 1.7 {ratio} Normal [facility] Comment on above: Performed By: #### C JULIANA, TSH, ELEC, BNP, LIPID, LIVER, BUN #### [facility] [address] [address] [address] Jarett Reece HDL NORMAL > or = 60 mg/dl - LO W CARDIOVASCULAR RISK <40 mg/dl - HIGH CARDIOVASCULAR RISK Normal [facility] Comment on above: Performed By: #### C JULIANA, TSH, ELEC, BNP, LIPID, LIVER, BUN #### [facility] [address] [address] [address] Jarett Reece LDL CALC NORMAL SEE BELOW Normal [facility] Comment on above: Result Comment: <100 mg/dl OPTIMAL 100 - 129 mg/dl NEAR OR ABOVE OPTIMAL 130 - 159 mg/dl BORDERLINE HIGH 160 - 189 mg/dl HIGH >190 mg/dl VERY HIGH Performed By: #### C JULIANA, TSH, ELEC, BNP, LIPID, LIVER, BUN #### [facility] [address] [address] [address] Jarett Reece Triglyceride [Mass/Vol] 42 mg/dL Normal <=150 [facility] Comment on above: Performed By: #### C JULIANA, TSH, ELEC, BNP, LIPID, LIVER, BUN #### [facility] [address] [address] [address] Jarett Reece VLDL CALC 8.4 mg/dL Normal [facility] Comment on above: Performed By: #### C JULIANA, TSH, ELEC, BNP, LIPID, LIVER, BUN #### [facility] [address] [address] [address] Jarett Reece LIVER PROFILEon 11-23-2022 Albumin [Mass/Vol] 3.7 g/dL Normal 3.4-5.[address] [facility] Comment on above: Performed By: #### C JULIANA, TSH, ELEC, BNP, LIPID, LIVER, BUN #### [facility] [address] [address] [address] Jarett Reece Albumin/Globulin [Mass ratio] 0.9 {ratio} Normal [facility] Comment on above: Performed By: #### C JULIANA, TSH, ELEC, BNP, LIPID, LIVER, BUN #### [facility] [address] [place] [address] Dr. Jarett Reece ALP [Catalytic activity/Vol] 100 U/L Normal 46-116 [facility] Comment on above: Performed By: #### C JULIANA, TSH, ELEC, BNP, LIPID, LIVER, BUN #### [facility] [address] [place] [address] Dr. Jarett Reece ALT [Catalytic activity/Vol] 13 U/L Critically low 16-63 [facility] Comment on above: Performed By: #### C JULIANA, TSH, ELEC, BNP, LIPID, LIVER, BUN #### [facility] [address] [place] [address] Dr. Jarett Reece AST [Catalytic activity/Vol] 9 U/L Critically low 15-37 [facility] Comment on above: Performed By: #### C JULIANA, TSH, ELEC, BNP, LIPID, LIVER, BUN #### [facility] [address] [place] [address] Dr. Jarett Reece BILI, CONJUGATED 0.2 mg/dL Normal 0.0-0.2 [facility] Comment on above: Performed By: #### C JULIANA, TSH, ELEC, BNP, LIPID, LIVER, BUN #### [facility] [address] [place] [address] Dr. Jarett Reece Bilirubin [Mass/Vol] 0.7 mg/dL Normal 0.2-1.0 [facility] Comment on above: Performed By: #### C JULIANA, TSH, ELEC, BNP, LIPID, LIVER, BUN #### [facility] [address] [place] [address] Dr. Jarett Reece Globulin (S) [Mass/Vol] 4.1 g/dL Normal [facility] Comment on above: Performed By: #### C JULIANA, TSH, ELEC, BNP, LIPID, LIVER, BUN #### [facility] [address] [address] [address] Jarett Reece Protein [Mass/Vol] 7.8 g/dL Normal 6.4-8.2 [facility] Comment on above: Performed By: #### C JULIANA, TSH, ELEC, BNP, LIPID, LIVER, BUN #### [facility] [address] [place] [address] Dr. Jarett Reece SED RATE WESTERGRENon 2022 SED RATE 50 mm/hr Critically high <=20 [facility] Comment on above: Performed By: #### S EDR #### [facility] [address] [place] [address] Dr. Jarett Reece TSHon 11-23-2022 TSH 6.731 uIU/mL Critically high 0.358-3.740 [facility] Comment on above: Performed By: #### C JULIANA, TSH, ELEC, BNP, LIPID, LIVER, BUN #### [facility] [address] [place] [address] Dr. Jarett Reece BNPon 07-06-2022 Natriuretic peptide B (Bld) [Mass/Vol] 3767.0 pg/mL Critically high <=1,800.0 [facility] Comment on above: Performed By: #### S EDR #### [facility] [address] [place] [address] Dr. Jarett Reece BUNon 07-06-2022 Urea nitrogen [Mass/Vol] 18.0 mg/dL Normal 7.0-18.0 [facility] Comment on above: Performed By: #### S EDR #### [facility] [address] [place] [address] Dr. Jarett Reece CREATININEon 07-06-2022 Creatinine [Mass/Vol] 1.03 mg/dL Normal 0.70-1.30 [facility] Comment on above: Performed By: #### S EDR #### [facility] [address] [place] [address] Dr. Jarett Reece EGFR-AF MACEDONIAN >60 Normal >=60 [facility] Comment on above: Performed By: #### S EDR #### [facility] [address] [address] [address] Jarett Reece EGFR-NON AF MACEDONIAN >60 Normal >=60 [facility] Comment on above: Performed By: #### S EDR #### [facility] [address] [address] [address] Jarett Reece ELECTROLYTESon 07-06-2022 Anion gap [Moles/Vol] 15.3 mmol/L Normal [facility] Comment on above: Performed By: #### S EDR #### [facility] [address] [address] [address] Jarett Reece Chloride [Moles/Vol] 104 mmol/L Normal 98-107 [facility] Comment on above: Performed By: #### S EDR #### [facility] [address] [address] [address] Jarett Reece CO2 [Moles/Vol] 27.2 mmol/L Normal 21.0-32.0 [facility] Comment on above: Performed By: #### S EDR #### [facility] [address] [address] [address] Jarett Reece Potassium [Moles/Vol] 3.5 mmol/L Normal 3.5-5.1 [facility] Comment on above: Performed By: #### S EDR #### [facility] [address] [address] [address] Jarett Reece Sodium [Moles/Vol] 143 mmol/L Normal 136-145 [facility] Comment on above: Performed By: #### S EDR #### [facility] [address] [address] [address] Jarett Reece GLUCOSE BLOODon 07-06-2022 Glucose [Mass/Vol] 80 mg/dL Normal 74-[address] [facility] Comment on above: Performed By: #### S EDR #### [facility] [address] [address] [address] Jarett Reece LIPID PROFILEon 07-06-2022 CHOL-HDL RATIO NORM SEE BELOW Normal [facility] Comment on above: Result Comment: 3.3 - 4.4 LOW RISK 4.4 - 7.1 AVERAGE RISK 7.1 - 11.0 MODERATE RISK >11.0 HIGH RISK Performed By: #### S EDR #### [facility] [address] [address] [address] Jarett Reece Cholesterol [Mass/Vol] 114 mg/dL Normal <=200 [facility] Comment on above: Performed By: #### S EDR #### [facility] [address] [address] [address] Jarett Reece Cholesterol in HDL [Mass/Vol] 59 mg/dL Normal 40-60 [facility] Comment on above: Performed By: #### S EDR #### [facility] [address] [place] [address] Dr. Jarett Reece Cholesterol in LDL [Mass/Vol] 44.8 mg/dL Normal [facility] Comment on above: Performed By: #### S EDR #### [facility] [address] [address] [address] Jarett Reece Cholesterol.total/Ch olesterol in HDL [Mass ratio] 1.9 {ratio} Normal [facility] Comment on above: Performed By: #### S EDR #### [facility] [address] [place] [address] Dr. Jarett Reece HDL NORMAL > or = 60 mg/dl - LO W CARDIOVASCULAR RISK <40 mg/dl - HIGH CARDIOVASCULAR RISK Normal [facility] Comment on above: Performed By: #### S EDR #### [facility] [address] [place] [address] Dr. Jarett Reece LDL CALC NORMAL SEE BELOW Normal [facility] Comment on above: Result Comment: <100 mg/dl OPTIMAL 100 - 129 mg/dl NEAR OR ABOVE OPTIMAL 130 - 159 mg/dl BORDERLINE HIGH 160 - 189 mg/dl HIGH >190 mg/dl VERY HIGH Performed By: #### S EDR #### [facility] [address] [place] [address] Dr. Jarett Reece Triglyceride [Mass/Vol] 51 mg/dL Normal <=150 [facility] Comment on above: Performed By: #### S EDR #### [facility] [address] [address] [address] Jarett Reece VLDL CALC 10.2 mg/dL Normal [facility] Comment on above: Performed By: #### S EDR #### [facility] [address] [address] [address] Jarett Reece SED RATE WESTERGRENon 2021 SED RATE 11 mm/hr Normal <=20 [facility] Comment on above: Performed By: #### S EDR #### [facility] [address] [address] [address] Jarett Reece TSHon 07-06-2022 TSH 6.392 uIU/mL Critically high 0.358-3.[address] [facility] Comment on above: Performed By: #### S EDR #### [facility] [address] [address] [address] Jarett Reece Coagulation Profileon 2021 aPTT Coag (Bld) [Time] 37.4 s High 25.1-36.5 [facility] Comment on above: Result Comment: PERF ORMED BY: [place] [address] PATHOLOGIST TRUST CLERK ADRIANA ARMSTRONG M.D. Performed By: #### P P #### [facility] [address] [place] [address] INR Coag (PPP) [Relative time] 1.5 {INR} Normal [facility] Comment on above: Result Comment: INR Therapeutic [...] 4.5 Performed By: #### P P #### [facility] [address] [place] [address] PT Coag (PPP) [Time] 16.8 s High 9.0-12.9 [facility] Comment on above: Performed By: #### P P #### [facility] [address] [place] [address] 05-04-2022 L -- ---- Specimen: [id number] Received: 05/05/22 Status: DEVIN Anderson Num: [id number] Spec Type: Surgical Subm Dr: Johan Houston DO Tissues: A Debridement-Skin/Other Than Skin (SCALP WOUND) Procedures: HE Stain, Gross/Micro L3 ---- Age/ Patient Sex Location Account Attending Physician ---- Mike Braswell 82/M [place] [id number] Johan Houston DO ---- SPEC NUM: [id number] RECD: 05/05/22 STATUS: DEVIN ANDERSON NUM: [id number] JENNIFER: 05/04/22- SUBM DR: Johan Houston DO [...] surgical margin of the specimen is inked. Mold Stripper sections are submitted in one cassette labeled A1. Microscopic Description One glass slide with H E stained material has been examined. The microscopic findings support the above pathologic diagnosis. CPT Codes 98283 ---- ---- Specimen: [id number] Received: 05/05/22 Status: DEVIN Anderson Num: [id number] Spec Type: Surgical Subm Dr: Johan Houston DO Tissues: A Debridement-Skin/Other Than Skin (SCALP WOUND) Procedures: HE Stain, Gross/Micro L3 ---- Patient: Michaelle,Mike Shane [id number] (Continued) ---- Signed (signature on file) Mike Irvin MD 05/06/22 1519 Normal [facility] Basic Metabolic Panelon 04-16 Calcium [Mass/Vol] 8.9 mg/dL Normal 8.2-10.2 [facility] Comment on above: Result Comment: PERF ORMED BY: [place] [address] PATHOLOGIST TRUST CLERK ADRIANA ARMSTRONG M.D. Performed By: #### B MP, CBC #### [facility] [address] [place] [address] [place] Chloride [Moles/Vol] 99 mmol/L Normal 95-114 [facility] Comment on above: Performed By: #### B MP, CBC #### [facility] [address] [place] [address] [place] CO2 [Moles/Vol] 25.6 mmol/L Normal 22.0-30.0 [facility] Comment on above: Performed By: #### B MP, CBC #### [facility] [address] [place] [address] [place] Creatinine [Mass/Vol] 0.89 mg/dL Normal 0.64-1.27 [facility] Comment on above: Performed By: #### B MP, CBC #### [facility] [address] [place] [address] [place] Estimated GFR ( [place] > 60 Normal [facility] Comment on above: Result Comment: GFR estimated reference range: According to KDOQI guidelines, <60 ml/min/1.73m2 is sufficient to diagnose a patient with chronic kidney disease. Performed By: #### B MP, CBC #### [facility] [address] [place] [address] [place] Estimated GFR (Non- Am > 60 Normal [facility] Comment on above: Performed By: #### B MP, CBC #### [facility] [address] Glucose [Mass/Vol] 96 mg/dL Normal 70-100 [facility] Comment on above: Result Comment: Rienzi om Glucose Reference Range is dependent on time and content of last meal. Glucose of more than 200 mg/dL in a nonstressed, ambulatory subject supports the diagnosis of Diabetes Mellitus. ADA recommended reference range Performed By: #### B MP, CBC #### [address] [id number] [facility] Potassium [Moles/Vol] 3.6 mmol/L Normal 3.5-5.1 [facility] Comment on above: Performed By: #### B MP, CBC #### [place] [address] [place] Sodium [Moles/Vol] 137 mmol/L Normal 136-146 [facility] Comment on above: Performed By: #### B MP, CBC #### [address] [id number] [place] Urea nitrogen [Mass/Vol] 17 mg/dL Normal 9-23 [facility] Comment on above: Performed By: #### B MP, CBC #### [address] COVID-19 FRMCon 05-03-2022 SARS-CoV-2 (COVID-19) RNA KALYN+probe Ql (Unsp spec) Negative Normal Negative [facility] Comment on above: Order Comment: 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 This test has not been FDA cleared [...] is terminated or revoked sooner. PERFORMED BY: [place] [address] PATHOLOGIST TRUST CLERK ADRIANA ARMSTRONG M.D. Performed By: #### C OVID 19 [facility] #### [address] Complete Blood Count Auto Di ffon 05-03-2022 Basophils (Bld) [#/Vol] 0.0 10*3/uL Normal 0.0-0.2 [facility] Comment on above: Result Comment: PERF ORMED BY: [place] [address] PATHOLOGIST TRUST CLERK ADRIANA ARMSTRONG M.D. Performed By: #### B MP, CBC #### [address] Basophils/100 WBC (Bld) 0.2 % Normal . [facility] Comment on above: Performed By: #### B MP, CBC #### [address] Eosinophils (Bld) [#/Vol] 0.1 10*3/uL Normal 0.0-0.45 [facility] Comment on above: Performed By: #### B MP, CBC #### [facility] [address] Eosinophils/100 WBC (Bld) 2.0 % Normal . [facility] Comment on above: Performed By: #### B MP, CBC #### [facility] [address] Erythrocyte distribution width (RBC) [Ratio] 15.0 % High 12.0-14.8 [facility] Comment on above: Performed By: #### B MP, CBC #### [facility] [address] Hematocrit (Bld) [Volume fraction] 41.8 % Normal 38.8-50.0 [facility] Comment on above: Performed By: #### B MP, CBC #### [address] Hemoglobin (Bld) [Mass/Vol] 14.0 g/dL Normal 13.0-17.0 [facility] Comment on above: Performed By: #### B MP, CBC #### [address] Lymphocytes (Bld) [#/Vol] 0.6 10*3/uL Low 1.00-4.8 [facility] Comment on above: Performed By: #### B MP, CBC #### [address] Lymphocytes/100 WBC (Bld) 9.1 % Normal . [facility] Comment on above: Performed By: #### B MP, CBC #### [facility] [address] MCH (RBC) [Entitic mass] 31.1 pg Normal 27.5-35.2 [facility] Comment on above: Performed By: #### B MP, CBC #### [address] MCV (RBC) [Entitic vol] 93.3 fL Normal 83.5-101 [facility] Comment on above: Performed By: #### B MP, CBC #### [facility] [address] Mean Corpuscular HGB Conc 33.4 g/dL Normal 32.5-35.6 [facility] Comment on above: Performed By: #### B MP, CBC #### [facility] [address] [place] [address] [place] Monocytes (Bld) [#/Vol] 0.4 10*3/uL Normal 0.0-0.8 [facility] Comment on above: Performed By: #### B MP, CBC #### [facility] [address] [place] [address] [place] Monocytes/100 WBC (Bld) 6.5 % Normal . [facility] Comment on above: Performed By: #### B MP, CBC #### [facility] [address] [place] [address] [place] Neutrophils (Bld) [#/Vol] 5.3 10*3/uL Normal 1.8-7.7 [facility] Comment on above: Performed By: #### B MP, CBC #### [facility] [address] [place] [address] [place] Neutrophils/100 WBC (Bld) 82.2 % Normal . [facility] Comment on above: Performed By: #### B MP, CBC #### [facility] [address] [place] [address] [place] Nucleated RBC/100 WBC (Bld) [Ratio] 0.1 % Normal 0-0.5 [facility] Comment on above: Performed By: #### B MP, CBC #### [facility] [address] [place] [address] [place] Platelet mean volume (Bld) [Entitic vol] 9.5 fL Normal 6.6-10.1 [facility] Comment on above: Performed By: #### B MP, CBC #### [facility] [address] [place] [address] [place] Platelets (Bld) [#/Vol] 169 10*3/uL Normal 150-450 [facility] Comment on above: Performed By: #### B MP, CBC #### [facility] [address] RBC (Bld) [#/Vol] 4.48 10*6/uL Normal 3.90-5.60 [facility] Comment on above: Performed By: #### B MP, CBC #### [facility] [address] [place] [address] [facility] WBC (Bld) [#/Vol] 6.4 10*3/uL Normal 4.5-11.0 [facility] Comment on above: Performed By: #### B MP, CBC #### [facility] [address] ECG 12 lead ECGon 05-03-2022 ECG 12 lead ECG [facility] [place] [address] [place] [address] Electrocardiograph Report Signed Patient: Mike Braswell MR#: [id number] : 1940 Acct:[id number] Age/Sex: 82 / M ADM Date: 05/03/22 Loc: Room: Type: [facility] Attending Dr: Johan Houston DO Ordering Provider: Johan Houston DO [...] By Mike Valente MD 05/03/22 1457 Normal [facility] Vital Signs Date Time Vital Sign Value Performing Clinician Faci lity 09-22-2023 12:46-0500 Body height 167.6 cm Rodríguez Pack MD Work Phone: [facility] 09-22-2023 12:46-0500 Body temperature 97.59 [degF] Rodríguez Pack MD Work Phone: [facility] 09-22-2023 12:46-0500 Body weight 76.84 kg Rodríguez Pack MD Work Phone: [facility] 09-22-2023 12:46-0500 Diastolic blood pressure 74 mm[Hg] Rodríguez Pack MD Work Phone: [facility] 09-22-2023 12:46-0500 Heart rate 97 /min Rodríguez Pack MD Work Phone: [facility] 09-22-2023 12:46-0500 Respiratory rate 16 /min Rodríguez Pack MD Work Phone: [facility] 09-22-2023 12:46-0500 SaO2% (BldA) [Mass fraction] 99 % Rodríguez Pack MD Work Phone: [facility] 09-22-2023 12:46-0500 Systolic blood pressure 155 mm[Hg] Rodríguez Pack MD Work Phone: [facility] 07-21-2023 12:55-0400 Body height 167.6 cm Gabriella Javed APRN.INSIDE SALES EXECUTIVE Work Phone: [facility] 07-21-2023 12:55-0400 Body temperature 97 [degF] Gabriella Javed SENIOR QUALITY ASSURANCE ENGINEER.INSIDE SALES EXECUTIVE Work Phone: [facility] 07-21-2023 12:55-0400 Body weight 77.2 kg Gabriella Javed APRN.INSIDE SALES EXECUTIVE Work Phone: [facility] 07-21-2023 12:55-0400 Diastolic blood pressure 75 mm[Hg] Gabriella Javed SENIOR QUALITY ASSURANCE ENGINEER.INSIDE SALES EXECUTIVE Work Phone: [facility] 07-21-2023 12:55-0400 Heart rate 99 /min Gabriella Javed APRN.INSIDE SALES EXECUTIVE Work Phone: [facility] 07-21-2023 12:55-0400 Respiratory rate 16 /min Gabriella Javed SENIOR QUALITY ASSURANCE ENGINEER.INSIDE SALES EXECUTIVE Work Phone: [facility] 07-21-2023 12:55-0400 SaO2% (BldA) [Mass fraction] 98 % Gabriella Javed SENIOR QUALITY ASSURANCE ENGINEER.INSIDE SALES EXECUTIVE Work Phone: [facility] 07-21-2023 12:55-0400 Systolic blood pressure 150 mm[Hg] Gabriella Javed SENIOR QUALITY ASSURANCE ENGINEER.INSIDE SALES EXECUTIVE Work Phone: [facility] 07-12-2023 14:17-0400 Body temperature 96.91 [degF] TRICIA Wells MD Work Phone: [facility] 07-12-2023 14:17-0400 Diastolic blood pressure 78 mm[Hg] TRICIA Wells MD Work Phone: [facility] 07-12-2023 14:17-0400 Heart rate 101 /min TRICIA Wells MD Work Phone: [facility] 07-12-2023 14:17-0400 SaO2% (BldA) [Mass fraction] 99 % TRICIA Wells MD Work Phone: [facility] 07-12-2023 14:17-0400 Systolic blood pressure 141 mm[Hg] TRICIA Wells MD Work Phone: [facility] [facility]23 10:54-0400 Body temperature 96.4 [degF] TRICIA Wells MD Work Phone: [facility] 06-22-2023 10:54-0400 Body weight 77.02 kg TRICIA Wells MD Work Phone: [facility] 06-22-2023 10:54-0400 Diastolic blood pressure 86 mm[Hg] TRICIA Wells MD Work Phone: [facility] 06-22-2023 10:54-0400 Heart rate 54 /min TRICIA Wells MD Work Phone: [facility] 06-22-2023 10:54-0400 Respiratory rate 18 /min TRICIA Wells MD Work Phone: [facility] 06-22-2023 10:54-0400 SaO2% (BldA) [Mass fraction] 94 % TRICIA Wells MD Work Phone: [facility] 06-22-2023 10:54-0400 Systolic blood pressure 153 mm[Hg] TRICIA Wells MD Work Phone: [facility] Encounters Encounter Date Encounter Type Care Provider Facility Start: 11-03-2023 End: 11-03-2023 ambulatory MARK QUINTANILLA Facility:[facility] Start: 10-13-2023 End: 10-13-2023 ambulatory MARK QUINTANILLA Facility:[facility] Start: 09-22-2023 End: 09-22-2023 ambulatory GRACE HOSPITALLUL Facility:[facility] Start: 09-22-2023 End: 09-22-2023 ambulatory Chair 18 [place] Work Phone: Hematology/Oncology Comment on above: 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); Acquired hypothyroidism Start: 09-22-2023 End: 09-22-2023 Patient encounter procedure Rodríguez Pack MD Work Phone: [facility] Start: 09-01-2023 End: 09-01-2023 ambulatory MARK QUINTANILLA Facility:[facility] Start: 09-01-2023 End: 09-01-2023 ambulatory Chair 15 [place] Work Phone: Hematology/Oncology Comment on above: Squamous cell skin c ancer (Primary Dx) Start: 08-11-2023 End: 08-11-2023 ambulatory MARK QUINTANILLA Facility:[facility] Start: 08-05-2023 Telephone encounter Carmine montoya RN Work Phone: Hematology/Oncology Comment on above: Care Coordination (M edication Question) Start: 07-25-2023 Telephone encounter Carmine montoya RN Work Phone: Hematology/Oncology Comment on above: Care Coordination (C 1D1 Post Treatment Call) Start: 07-21-2023 End: 07-22-2023 ambulatory MARK QUINTANILLA Facility:[facility] Start: 07-21-2023 End: 07-22-2023 ambulatory Armani Sequeira Work Phone: Hematology/Oncology Comment on above: 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); Acquired hypothyroidism Start: 07-21-2023 End: 07-21-2023 Patient encounter procedure Gabriella Javed SENIOR QUALITY ASSURANCE ENGINEER.INSIDE SALES EXECUTIVE Work Phone: [facility] Start: 07-19-2023 End: 07-19-2023 ambulatory Carmine Ignacio RN Work Phone: Hematology/Oncology Comment on above: First Time Treatment Education (Cemiplimab) Start: 07-19-2023 Telephone encounter Gabriella bradshaw SENIOR QUALITY ASSURANCE ENGINEER.INSIDE SALES EXECUTIVE Work Phone: Hematology/Oncology Comment on above: Lab Orders Start: 07-12-2023 End: 07-12-2023 Patient encounter procedure Sebas Wells MD Work Phone: Radiation Oncology Comment on above: Carcinoma in situ of skin, squamous cell (Primary Dx) Start: 07-12-2023 End: 07-12-2023 ambulatory MARK ARVIN QUINTANILLA JR Facility:[facility] Start: 07-07-2023 Chart abstracting Rodríguez robertson MD Work Phone: Hematology/Oncology Start: 06-22-2023 End: 06-22-2023 ambulatory STORM WELLS Facility:[facility] Start: 06-22-2023 End: 06-22-2023 Patient encounter procedure Sebas Wells MD Work Phone: Radiation Oncology Comment on above: Carcinoma in situ of skin, squamous cell (Primary Dx); Skin cancer of face; Squamous cell carcinoma of skin of other parts of face Start: 06-17-2023 Patient encounter procedure [facility] Provider [facility] Start: 06-14-2023 End: 06-14-2023 ambulatory WILBUR ROSA Facility:[facility] Start: 02-14-2023 End: 03-16-2023 ambulatory WEINSTEIN [...] Start: 05-04-2022 End: 05-04-2022 ambulatory Mark Quintanilla [facility] Start: 05-03-2022 End: 05-03-2022 ambulatory Mark Quintanilla Facility[facility] Start: 04-16-2022 End: 05-14-2022 ambulatory WEINSTEIN H FAWWAD Facility:[facility] Procedures Date Procedure Procedure Detail Performing Clinician Start: 11-23-2022 PSA screening SHAIKH OLIVIA ANNA Comment on above: Performed By: #### [facility] #### [facility] [address] [place] [address] Dr. Jarett Reece Plan of Treatment Date Care Activity Detail Author Start: 09-22-2026 Diabetes Screening Diabetes Screenin g [facility] Start: 09-01-2026 Diabetes Screening Diabetes Screenin g [facility] Start: 07-12-2026 Diabetes Screening Diabetes Screenin g [facility] Start: 08-16-2023 End: 10-16-2023 CBC W Auto Differential panel - Blood CBC + DIFF Lab Routine Squamous cell skin cancer Acquired hypothyroidism Expected: 08/16/2023, Expires: 10/16/2023 [facility] Work Phone: Comment on above: Expected: 08/16/2023 , Expires: 10/16/2023 Start: 08-16-2023 End: 10-16-2023 Comprehensive metabolic 2000 panel - Serum or Plasma COMP METABOLIC PANEL Lab Routine Squamous cell skin cancer Acquired hypothyroidism Expected: 08/16/2023, Expires: 10/16/2023 [facility] Work Phone: Comment on above: Expected: 08/16/2023 , Expires: 10/16/2023 Start: 06-17-2023 Influenza vaccination C [facility] Start: 10-17-2022 ADVANCE DIRECTIVE DISCUSSION ADVANCE DIRECTIVE DISCUSSION [facility] Start: 10-17-2022 DEPRESSION ASSESSMENT DEPRESSION ASS ESSMENT [facility] Start: 2007 Pneumococcal Vaccine : 65+ (1 - PCV) Pneumococcal Vaccine: 65+ (1 - PCV) [facility] Start: 2007 PNEUMOCOCCAL: 65+ (1 - PCV) PNEUMOCOCCAL: 65+ (1 - PCV) [facility] Start: 2002 RSV Vaccine (1 - 1-d ose 60+ series) RSV Vaccine (1 - 1-dose 60+ series) [facility] Start: 02-09-1992 SHINGRIX VACCINE (1 of 2) SHINGRIX VACCINE (1 of 2) [facility] Start: 1987 DIABETES SCREEN DIABETES SCREEN [facility] Start: 1987 Diabetes Screening Diabetes Screenin g [facility] Start: 1961 Shingrix Vaccine (1 of 2) Shingrix Vaccine (1 of 2) [facility] Start: 1961 Urine microalbumin profile [facility] Start: 02-09-1948 Pneumococcal Vaccine : 65+ (1 - PCV) Pneumococcal Vaccine: 65+ (1 - PCV) [facility] Start: 1942 COVID-19 VACCINE (#1) COVID-19 VACCI NE (#1) [facility] End: 07-21-[address] attenuation skull base mid-thigh NM PET/CT SKULL-THIGH INITIAL Radiology Routine Skin cancer of face Squamous cell carcinoma of skin of other parts of face 1 Occurrences starting 06/22/2023 until 07/21/2024 [facility] Work Phone: Comment on above: 1 Occurrences starti ng 06/22/2023 until 07/21/2024 [facility] Immunizations Immunization Date Immunization Notes Care Provider Fa [facility] 07-17-2019 influenza, seasonal, injectable Carmine Ignacio RN Work Phone: [facility] 07-17-2019 influenza virus vacc ine, unspecified formulation NA Priscilla GOMEZ Work Phone: [facility] Payers Date Payer Category Payer Private Health Insurance [facility] [employer] [id number] 2022-Present [phone] [address] [place] [address] Indemnity [id number] 2022 Self-pay 2007 Medicare [id number] 1959 Medicare [id number] 1959 Private Health Insurance [id number] 1942 Unknown [id number] [id number]. 2.593 1942 Unknown [id number] 2.16.840.1.036557.3.579. 2.593 1942 Unknown [id number] 2.16.840.1.915687.3.579. 2.593 1942 Unknown [id number] 2.16.840.1.207693.3.579. 2.593 1942 Unknown [id number] 2.16.840.1.647936.3.579. 2.593 1942 Unknown [id number] 2.16.840.1.373879.3.579. 2.593 1942 Unknown [id number] 2.16.840.1.704124.3.579. 2.593 1942 Unknown [id number] 2.16.840.1.087413.3.579. 2.593 1942 Unknown [id number] 2.16.840.1.419269.3.579. 2.593 1942 Unknown [id number] 2.16.840.1.175568.3.579. 2.593 1942 Unknown [id number] 2.16.840.1.532305.3.579. 2.593 1942 Unknown [id number] 2.16.840.1.203417.3.579. 2.593 1942 Unknown [id number] 2.16.840.1.775168.3.579. 2.593 Unknown [id number] 2.16.840.1.008107.3.579. 2.531 Unknown [id number] 2.16.840.1.016740.3.579. 2.531 Social History Date Type Detail Facility Start: 06-14-2023 [place] [facility] [place] tobacco [facility] Start: 06-14-2023 Tobacco use and exposure Smoke less tobacco non-user [facility] Start: 06-14-2023 End: 08-11-2023 Alcohol intake Ex-drinker (finding) [facility] Start: 06-14-2023 End: 07-12-2023 History of Social function [facility] Start: 06-14-2023 End: 07-12-2023 Tobacco use panel [facility] National Score (1-10 0), lower number is lower risk 59 [facility] Start: 1940 Sex Assigned At Not on file C [facility] Clinical Notes 01-17-2023 to 11-03-2023 Rodríguez Pack MD - 09/22/2023 7:24 AM ESTTelephone Encounter - Carmine Ignacio, ANKIT - 08/05/2023 1:23 PM EDTTelephone Encounter - Carmine Ignacio RN - 07/25/2023 12:01 PM EDT Note Date & Type Note Facility 11-03-2023 Note HNO ID: [id number] Author: GABRIELLA JAVED APRN.[place]ALLAS Service: ? Author [...] process 3. Abdo (more content not included)... [facility] 09-22-2023 Note HNO ID: [id number] Author: Rodríguez Pack MD Service: ? Author Type: Physician Type: Progress Notes Filed: 09/23/2023 7:19 AM Note Text: PATIENT NAME: Mike Braswell DATE: 09/22/2023 PRIMARY CARE PHYSICIAN: Dr. Mark Quintanilla Jr OTHER PHYSICIANS: Dr. Wells; Wilbur Rosa CNP ([facility] Dermatology) Portions of this encounter note have [...] squamous cell c (more content not included)... [facility] 09-22-2023 History of Presen t illness Narrative PATIENT NAME: Mike Braswell DATE: 09/22/2023 PRIMARY CARE PHYSICIAN: Dr. Mark Quintanilla OTHER PHYSICIANS: Dr. Wells; Wilbur Rosa, [place] ([facility] Dermatology) Portions of this encounter note [...] Rodríguez Pack MD documented in this encounter [facility] 09-01-2023 Note HNO ID: [id number] Author: Rodríguez Pack MD Service: ? Author Type: Physician Type: Progress Notes Filed: 09/02/2023 7:01 AM Note Text: PATIENT NAME: Mike Braswell DATE: 09/01/2023 PRIMARY CARE PHYSICIAN: Dr. Mark Quintanilla OTHER PHYSICIANS: Dr. Wells; Wilbur Rosa CNP ([facility] Dermatology) Portions of this encounter note [...] long history o (more content not included)... [facility] 08-11-2023 Note HNO ID: [id number] Author: Carmine Patel RT(R) Service: ? Author [...] RT Mejia(R) August 11, 2023 2:04 PM [facility] 08-11-2023 Note HNO ID: [id number] Author: Gabriella Javed APRN.[place] Service: ? Author [...] OTHER PHYSICIANS: Dr. Wells; Wilbur Rosa CNP ([facility] Dermatology) CC: This is an 83 [...] 173.92, ICD10: C44.92 (more content not included)... [facility] 08-05-2023 Miscellaneous Notes FYI: Pt follows / [facility] coumadin clinic. Spouse reports that the pt's [...] Carmine Ignacio RN documented in this encounter [facility] 07-25-2023 Miscellaneous Notes CYCLE 1/DAY 1 [...] Carmine Ignacio RN documented in this encounter [facility] 07-21-2023 Note HNO ID: [id number] Author: Gabriella Javed APRN.[place] Service: ? Author [...] OTHER PHYSICIANS: Dr. Wells; Wilbur Rosa CNP ([facility] Dermatology) CC: This is an 83 [...] over his le (more content not included)... [facility] 07-21-2023 History of Presen t illness Narrative PATIENT NAME: Mike Braswell DATE: 07/21/2023 (Elements copied from Rodríguez Pack MD note dated 07/12/2023, have been reviewed and updated where appropriate, and all reflect current assessment and medical decision making during today's encounter, July 21, 2023) PRIMARY CARE PHYSICIAN: Dr. Mark Quintanilla Jr OTHER PHYSICIANS: Dr. Wells; Wilbur Rosa CNP ([facility] Dermatology) CC: This is an 83 [...] Coumadin. Continue management per PCP. Gabriella Javed APRN.INSIDE SALES EXECUTIVE CC: Dr. Mark Rosa CNP ([facility] Dermatology) I spent a total of 30 minutes on the date of the service which included preparing to see the patient, [id number] patient care, completing clinical documentation, obtaining and/or reviewing separately obtained history, performing a medically appropriate examination, counseling and educating the patient/family/caregiver, ordering medications, tests, or procedures, independently interpreting results (not separately reported), and communicating results to the patient/family/caregiver. documented in this encounter [facility] 07-19-2023 Note Education (MYCHAL) MIKE BRASWELL ([id number]) 1940 M Date Time Provider Department 07/19/23 CARMINE IGNACIO Reason for Visit: First Time Treatment Education [9527] Cmt: Cemiplimab Primary Visit Diagnosis:Squamous cell skin [...] Encounter Status:Closed by CARMINE IGNACIO on 07/20/23 [facility] 07-19-2023 Note HNO ID: [id number] Author: Carmine Ignacio, RN Service: ? Author Type: Registered Nurse Type: Progress Notes Filed: 07/20/2023 8:08 AM Note Text: Harmonica Maker Pre Chemo Patient identified by name and date of . YES Confirmed date and time for chemotherapy ? YES Other appointments (labs, imaging) discussed? YES Discussed where to park ([place]), charge for parking NO Discussed where to [...] topics discussed, interventions needed: TRICIA Ignacio RN [facility] 07-19-2023 Note HNO ID: [id number] Author: Carmine Ignacio RN Service: ? Author [...] minutes REFERRAL (RECOMMENDATION): N/A Carmine Ignacio RN [facility] 07-19-2023 History of Presen t illness Narrative Harmonica Maker Pre Chemo Patient identified by name and date of . YES Confirmed date and time for chemotherapy ? YES Other appointments (labs, imaging) discussed? YES Discussed where to park ([place]), charge for parking NO Discussed where to [...] Carmine Ignacio RN documented in this encounter [facility] 07-12-2023 Note HNO ID: [id number] Author: Sebas Wells MD Service: ? Author [...] NP [address] [place] [address] [facility] [address] [facility] 07-12-2023 Note HNO ID: [id number] Author: Carmine Patel RT(R) Service: ? Author [...] safety can be found using this link: [email or web address] [email or web address] SIGNATURE: RT Mejia(R) PATIENT NAME: Mike Braswell DATE: July 12, 2023 TIME: 12:39 PM PAGER/CONTACT #: [facility] 07-12-2023 Note HNO ID: [id number] Author: Tommy Cruz RN Service: ? Author [...] DATE: July 12, 2023 TIME: 12:34 PM [facility] 07-12-2023 History of Presen t illness [...] provider ID). Wilbur Rosa, JANET [address] [facility] [place] [address] [facility] [address] documented in this encounter [facility] 07-12-2023 Note HNO ID: [id number] Author: Rodríguez Pack MD Service: ? Author Type: Physician Type: Progress Notes Filed: 07/13/2023 10:17 AM Note Text: PATIENT NAME: Mike Braswell DATE: 07/12/2023 PRIMARY CARE PHYSICIAN: Mark Quintanilla Jr, DO OTHER PHYSICIANS: Dr. Wells; Wilbur Rosa CNP ([facility] Dermatology) HPI: This is an 83 [...] Currently he is and lives in the [facility]. 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 MEDICATIONS: [...] Negative for murmurs/S3S4/abnor (more content not included)... [facility] 06-22-2023 Note HNO ID: [id number] Author: Sebas Wells MD Service: ? Author [...] JANET [address] [place] [address] [facility] [address] [facility] 06-22-2023 History of Presen t illness [...] whose address you want to display, e.g., .YododoADDR[1 (where 1 is the provider ID). Wilbur Rosa, JANET [address] [facility] [address] [facility] [address] documented in this encounter [facility] 06-14-2023 Note HNO ID: [id number] Author: Sebas Wells MD Service: ? Author Type: Physician Type: Progress Notes Filed: 06/16/2023 1:56 PM Note Text: Radiation Oncology - New Patient/Consult Note PATIENT NAME: Mike Braswell PATIENT REQUESTING PROVIDER: .Wilbur Rosa APRN-INSIDE SALES EXECUTIVE DIAGNOSIS: Skin cancer, squamous cell carcinoma in [...] Wells MD cc: (more content not included)... [facility] 01-17-2023 Miscellaneous Notes Do you want labs? Patient coming in This 07/21/23 for treatment. 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 [facility] Diagnosis Squamous cell skin cancer- Primary Squamous cell carcinoma of skin, site unspecified [facility] Diagnosis Carcinoma in situ of skin, squamous cell- Primary Carcinoma in situ of skin, site unspecified [facility] Diagnosis Squamous cell skin cancer- Primary Squamous cell carcinoma of skin, site unspecified documented in this encounter [facility] note* Diagnosis Squamous cell skin cancer- Primary Squamous cell carcinoma of skin, site unspecified Acquired hypothyroidism Unspecified hypothyroidism documented in this encounter [facility] note* Diagnosis Squamous cell skin cancer- Primary Squamous cell carcinoma of skin, site unspecified documented in this encounter [facility] note* Diagnosis Squamous cell skin cancer- Primary Squamous cell carcinoma of skin, site unspecified documented in this encounter [facility] note* Diagnosis Squamous cell skin cancer- Primary Squamous cell carcinoma of skin, site unspecified Acquired hypothyroidism Unspecified hypothyroidism documented in this encounter [facility] Summary Purpose Family History No Family [...] of face Procedures CONSULT TO ONCOLOGY OFFICE/OUTPATIENT [facility] 60-74 MINUTES Sebas Wells MD [address] [place] [address] Referral ID Status Reason Start Date Expiration Date Visits Requested Visits Authorized [id number] Pending Review PCP Requested Referral 06/22/2023 06/21/2024 1 1 Specialty Diagnoses / Procedures Referred By Jabari t Referred To Contact MOLECULAR & FUNCTIONAL IMAGING Diagnoses Skin cancer of face Squamous cell carcinoma of skin of other parts of face Procedures NM PET/CT SKULL-THIGH INITIAL PET IMAGING CT ATTENUATION SKULL BASE MID-THIGH Sebas Wells MD [address] [place] [address] [place] [address] Molecular & Functional Imaging [address] [place] [address] Referral ID Status Reason Start Date Expiration Date Visits Requested Visits Authorized [id number] New Request Auto-Generat ed Referral 06/22/2023 07/21/2024 [...] section and content) DATE CREATED AUTHOR 11/20/2022 [facility] DATE CREATED AUTHOR AUTHOR'S GLADISIZ ATION 03/25/2023 [facility] DATE CREATED AUTHOR AUTHOR'S ORGANLISSETTE ATION 11/04/2023 [facility] Source Comments (unrecognize d section and content) In the event this informatio n is protected by the Federal Confidentiality of Alcohol and Drug Abuse Patient Records regulations: The Federal rules restrict any use of the information to criminally investigate or prosecute any alcohol or drug abuse patient.[facility] the event this information is protected by the Federal Confidentiality of Alcohol and Drug Abuse Patient Records regulations: The Federal rules restrict any use of the information to criminally investigate or prosecute any alcohol or drug abuse patient.[facility] the event this information is protected by the Federal Confidentiality of Alcohol and Drug Abuse Patient Records regulations: The Federal rules restrict any use of the information to criminally investigate or prosecute any alcohol or drug abuse patient.[facility] the event this information is protected by the Federal Confidentiality of Alcohol and Drug Abuse Patient Records regulations: The Federal rules restrict any use of the information to criminally investigate or prosecute any alcohol or drug abuse patient.[facility] the event this information is protected by the Federal Confidentiality of Alcohol and Drug Abuse Patient Records regulations: The Federal rules restrict any use of the information to criminally investigate or prosecute any alcohol or drug abuse patient.[facility] the event this information is protected by the Federal Confidentiality of Alcohol and Drug Abuse Patient Records regulations: The Federal rules restrict any use of the information to criminally investigate or prosecute any alcohol or drug abuse patient.[facility] the event this information is protected by the Federal Confidentiality of Alcohol and Drug Abuse Patient Records regulations: The Federal rules restrict any use of the information to criminally investigate or prosecute any alcohol or drug abuse patient.[facility] the event this information is protected by the Federal Confidentiality of Alcohol and Drug Abuse Patient Records regulations: The Federal rules restrict any use of the information to criminally investigate or prosecute any alcohol or drug abuse patient.[facility] the event this information is protected by the Federal Confidentiality of Alcohol and Drug Abuse Patient Records regulations: The Federal rules restrict any use of the information to criminally investigate or prosecute any alcohol or drug abuse patient.[facility] the event this information is protected by the Federal Confidentiality of Alcohol and Drug Abuse Patient Records regulations: The Federal rules restrict any use of the information to criminally investigate or prosecute any alcohol or drug abuse patient.[facility] the event this information is protected by the Federal Confidentiality of Alcohol and Drug Abuse Patient Records regulations: The Federal rules restrict any use of the information to criminally investigate or prosecute any alcohol or drug abuse patient.[facility] the event this information is protected by the Federal Confidentiality of Alcohol and Drug Abuse Patient Records regulations: The Federal rules restrict any use of the information to criminally investigate or prosecute any alcohol or drug abuse patient.[facility] the event this information is protected by the Federal Confidentiality of Alcohol and Drug Abuse Patient Records regulations: The Federal rules restrict any use of the information to criminally investigate or prosecute any alcohol or drug abuse patient.[facility] Care Teams (unrecognized sec tion and content) Web Sizer Relationship Specialty Start Date End Date Mark Quintanilla Jr. [address] [facility] [address] [place] [address] PCP - General Internal Medicine 06/14/23 Web Sizer Relationship Specialty Start Date End Date Mark Quintanilla Jr. [address] [facility] [address] [facility] [place] [address] PCP - General Internal Medicine 06/14/23 Web Sizer Relationship Specialty Start Date End Date Mark Quintanilla Jr. [address] [facility] [address] [facility] [place] [address] PCP - General Internal Medicine 06/14/23 Web Sizer Relationship Specialty Start Date End Date Mark Quintanilla Jr. [address] [facility] [address] [place] [address] PCP - General Internal Medicine 06/14/23 Carmine Ignacoi, ANKIT [address] [facility] [address] [facility] [place] [address] Specialty Harmonica Maker Hematology/Oncology 07/13/23 Gabriella Javed, SENIOR QUALITY ASSURANCE ENGINEER.INSIDE SALES EXECUTIVE [address] [address] Nurse Practitioner Hematology/Oncology 07/13/23 Rodríguez Pack MD [address] [place] [address] Physician Hematology/Oncology 07/13/23 Web Sizer Relationship Specialty Start Date End Date Mark Quintanilla Jr. [address] [place] [address] [address] [place] [address] PCP - General Internal Medicine 06/14/23 Web Sizer Relationship Specialty Start Date End Date Mark Quintanilla Jr. [facility] [address] [place] [address] PCP - General Internal Medicine 06/14/23 Carmine Ignacio RN [address] [place] [address] Specialty Harmonica Maker Hematology/Oncology 07/13/23 Gabriella Javed, SENIOR QUALITY ASSURANCE ENGINEER.INSIDE SALES EXECUTIVE [address] [place] [address] Nurse Practitioner Hematology/Oncology 07/13/23 Rodríguez Pack MD [address] [place] [address] Physician Hematology/Oncology 07/13/23 Web Sizer Relationship Specialty Start Date End Date Mark Quintanilla Jr. [facility] [place] [address] PCP - General Internal Medicine 06/14/23 Carmine Ignacio, ANKIT [address] [facility] [place] [place] [address] Specialty Harmonica Maker Hematology/Oncology 07/13/23 Gabriella Javed, SENIOR QUALITY ASSURANCE ENGINEER.INSIDE SALES EXECUTIVE [address] [facility] [place] [address] Nurse Practitioner Hematology/Oncology 07/13/23 Rodríguez Pack MD [address] [facility] [place] [place] [address] Physician Hematology/Oncology 07/13/23 Web Sizer Relationship Specialty Start Date End Date Mark Quintanilla Jr. [address] [place] [address] [address] [place] [address] PCP - General Internal Medicine 06/14/23 Carmine Ignacio, ANKIT [address] [facility] [place] [address] Specialty Harmonica Maker Hematology/Oncology 07/13/23 Gabriella Javed, SENIOR QUALITY ASSURANCE ENGINEER.INSIDE SALES EXECUTIVE [address] [facility] [place] [address] Nurse Practitioner Hematology/Oncology 07/13/23 Rodríguez Pack MD [address] [facility] [place] [place] [address] Physician Hematology/Oncology 07/13/23 Web Sizer Relationship Specialty Start Date End Date Mark Quintanilla Jr. [address] [place] [address] [address] [place] [address] PCP - General Internal Medicine 06/14/23 Carmine Ignacio RN [address] [place] [address] Specialty Harmonica Maker Hematology/Oncology 07/13/23 Gabriella Javed, SENIOR QUALITY ASSURANCE ENGINEER.INSIDE SALES EXECUTIVE [address] [place] [address] Nurse Practitioner Hematology/Oncology 07/13/23 Rodríguez Pack MD [address] [place] [address] Physician Hematology/Oncology 07/13/23 Web Sizer Relationship Specialty Start Date End Date Mark Quintanilla Jr. [address] [place] [address] [address] [facility] [address] PCP - General Internal Medicine 06/14/23 Carmine Ignacio RN [address] [place] [address] Specialty Harmonica Maker Hematology/Oncology 07/13/23 Gabriella Javed, SENIOR QUALITY ASSURANCE ENGINEER.INSIDE SALES EXECUTIVE [address] [place] [address] Nurse Practitioner Hematology/Oncology 07/13/23 Rodríguez Pack MD [address] [place] [address] Physician Hematology/Oncology 07/13/23 Web Sizer Relationship Specialty Start Date End Date Mrak Quintanilla Jr. [address] [place] [address] [address] [place] [address] PCP - General Internal Medicine 06/14/23 Carmine Ignacio, RN [address] [place] [address] Specialty Harmonica Maker Hematology/Oncology 07/13/23 Gabriella Javed APRN.INSIDE SALES EXECUTIVE [address] [place] [address] [place] [address] Nurse Practitioner Hematology/Oncology 07/13/23 Rodríguez Pack MD [address] [place] [address] [place] [address] Physician Hematology/Oncology 07/13/23 Reason for Visit (unrecogniz ed section and content) Reason Comments SKIN CANCER Specialty Diagnoses / Procedures Referred By Contac t Referred To Contact Radiation Oncology / RADIATION ONCOLOGY Diagnoses Followup Procedures EST PATIENT Self Sebas Wells MD [address] [place] [address] Referral ID Status Reason Start Date Expiration Date V isits Requested Visits Authorized [id number] Outside PCP 06/22/2023 09/20/2023 1 1 Reason Comments First Time Treatment Education Cemiplima b Reason Comments SKIN CANCER Specialty Diagnoses / Procedures Referred By Contac t Referred To Contact Radiation Oncology / RADIATION ONCOLOGY Diagnoses PET rv Procedures EST PATIENT Sebas Wells MD [address] [place] [address] Sebas Wells MD [address] [place] [address] [place] [address] Referral ID Status Reason Start Date Expiration Date V isits Requested Visits Authorized [id number] Closed Financial Clearance Required - OON Payor Patient Cleared - INN Insurance Found 07/12/2023 10/16/2023 1 1 Specialty Diagnoses / Procedures Referred By Contac t Referred To Contact Diagnoses Squamous cell skin cancer Rodríguez Pack MD [address] [place] [address] Malcolm Treat Krystal [address] [place] [address] Referral ID Status Reason Start Date Expiration Date V isits Requested Visits Authorized [id number] Authorized 07/12/2023 10/10/2023 99 99 Reason Comments [...] BE BASED ON THE PRIMARY CLINICAL RECORDS. [employer] provides no warranty or guarantee of the accuracy or completeness of information in this document.
--- NOTE | 2023-11-13 03:13 | PC.NURSE ---
pt has multiple areas of concern. pt has skin cancer and has three spots on his head. a spot on his left chest, a spot on his left arm. please refer to photos. Pt has a skin tear on the left arm and left elbow. Pt is also excoriated on right lower abdomen folds. Buttocks is also reddened and pt groaning when cleaning him.
[2023-11-13 04:57] LABS: PCO2 VBG 62.7 mmHg (40.0-52.0)
[2023-11-13 05:02] LABS: Basophils Percent Auto 0.3 % (0.2-2.0); Eosinophils Percent Auto 0.3 % (0.9-7.0); Hematocrit 38.4 % (42.0-54.0); Hemoglobin 12.1 g/dL (14.0-18.0); Immature Granulocytes Abs Auto 0.03 10^3/uL (0.00-0.03); Immature Granulocytes Pct Auto 0.4 % (0.0-0.5); Lymphocytes Absolute Auto 0.4 10^3/uL (1.2-3.8); Lymphocytes Percent Auto 5.8 % (20.5-60.0); Mean Corpuscular HGB Conc 31.5 g/dL (29.9-35.2); Mean Corpuscular Hemoglobin 30.3 pg (25.9-34.0); Mean Corpuscular Volume 96.2 fL (80.0-94.0); Mean Platelet Volume 11.8 fL (9.5-13.5); Monocytes Absolute Auto 0.4 10^3/uL (0.3-0.8); Monocytes Percent Auto 6.2 % (1.7-12.0); Neutrophils Absolute Auto 6.2 10^3/uL (1.4-6.5); Platelet Count 142 10^3/uL (150-450); Red Blood Count 3.99 10^6/uL (4.70-6.10); Red Cell Distribution Width 15.6 % (11.0-15.0); White Blood Count 7.1 10^3/uL (4.0-11.0)
[2023-11-13 05:35] LABS: Alanine Aminotransferase 17 U/L (16-63); Albumin Globulin Ratio 0.8; Alkaline Phosphatase 82 U/L (46-116); Aspartate Amino Transferase 86 U/L (15-37); BUN Creatinine Ratio 27.6; Bilirubin Total 0.4 mg/dL (0.2-1.0); Calcium 8.7 mg/dL (8.5-10.1); Carbon Dioxide 30.2 mmol/L (21.0-32.0); Chloride 106 mmol/L (98-107); Estimated GFR (African America >60 (>=60); Estimated GFR (Non-African Ame >60 (>=60); Globulin 3.7 g/dL; Glucose 98 mg/dL (74-106); Potassium 4.2 mmol/L (3.5-5.1); Sodium 139 mmol/L (136-145); Total Protein 6.7 g/dL (6.4-8.2)
--- NOTE | 2023-11-13 09:05 | CA_ITS ---
Patient Name: NABIL BRASWELL MR#: [id number] : 1940 Exam Date: 11/14/2023 Ordering Doctor: WOODY CRAFT . ECHOCARDIOGRAM REPORT PROCEDURE: CA ECHO DOPPLER COMPLETE INDICATIONS: Pleural effusion, elevated probnp, hypertension, congestive heart failure COMPARISON: None. DESCRIPTION: COMPLETE ECHOCARDIOGRAM Real-time transthoracic echocardiography with 2D, M-mode, spectral and color flow Doppler performed. QUALITY: Technical quality was good. 68 , 185#, BSA 1.98 m2 LEFT VENTRICLE: Normal chamber size. Moderate concentric left ventricular hypertrophy. Systolic function is difficult to assess due to rhythm but appears moderately reduced. LV EF: Moderately reduced left ventricular ejection fraction, (35%). DIASTOLIC: Not adequately assessed due to heart rhythm. ATRIAL SEPTUM: LEFT ATRIUM: Severe dilatation. RIGHT ATRIUM: Moderate dilatation. RIGHT VENTRICLE: Normal chamber size. Normal systolic function. TRICUSPID VALVE: Normal mobility and thickness. No stenosis with mild regurgitation. Doppler studies reveal moderately (45-60) elevated right sided pressures. RVSP 48 mmHg (assuming a right atrial pressure of 8 mmHg). MITRAL VALVE: Mildly thickened with normal mobility. Mild mitral annular calcification. Mild to moderate mitral regurgitation. AORTIC VALVE: Normal trileaflet appearance. Moderately calcified aortic valve. Moderately diminished mobility. Doppler velocity suggest severe low-flow low gradient aortic valve stenosis in the setting of reduced ejection fraction. DVI 0.2, RUTH ANN 0.8 cm2. Mild to moderate aortic regurgitation. AORTIC ROOT: PULMONIC VALVE: Not well visualized. No stenosis. No regurgitation. PERICARDIUM: No evidence of pericardial effusion. IVC: Not well visualized. PLEURA: CONCLUSION: 1. Moderate concentric left ventricular hypertrophy with moderately reduced systolic function. LVEF is 35%. 2. Normal right ventricular size and systolic function. 3. 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 4. Mild to moderate aortic regurgitation. 5. Mild to moderate mitral regurgitation. 6. Moderately elevated right-sided pressures. 7. Further assessment of the aortic stenosis with a dobutamine stress echocardiogram is recommended. Dictated by: Rip Bullard M.D. on 11/15/2023 at 18:16 Approved by: Rip Bullard M.D. on 11/15/2023 at 18:25
[2023-11-13] MEDS: FUROSEMIDE 20 MG/2 ML VIAL IVP ×2 (09:25→21:14)
--- NOTE | 2023-11-13 10:49 | PC.NURSE ---
updated Dr. Briceno on this patient. Patient is combative and will not keep oxygen on or pulse ox.
[2023-11-13] MEDS: FUROSEMIDE 20 MG/2 ML VIAL IV (11:01)
[2023-11-13] MEDS: LEVOTHYROXINE SODIUM 25 MCG TABLET 50 MCG PO (12:32)
[2023-11-13] MEDS: FINASTERIDE 5 MG TABLET PO (12:33)
[2023-11-13] MEDS: METOPROLOL SUCCINATE 25 MG TAB.ER.24H PO (12:33)
[2023-11-13] MEDS: SACUBITRIL/VALSARTAN 24 MG-26 MG TABLET 2 TAB PO (12:34)
[2023-11-13] MEDS: CARBIDOPA/LEVODOPA 25 MG-100 MG TABLET 1 TAB PO (16:26)
--- NOTE | 2023-11-13 16:48 | PM.HP ---
H&P: HPI History of Present Illness Chief complaint: SOB Narrative: patient is a 83-year-old male with past medical history of a malignant skin cancer of which she is undergoing chemotherapy, Parkinson's disease, benign prostatic hypertrophy, hypothyroidism, hypertension, hyperlipidemia, atrial fibrillation on Coumadin who presented to the Emergency Room with shortness of breath and hypoxia. Patient was found to have a pleural effusion seen on chest x-ray. Elevated INR of 5.9 and some cardiomegaly also seen on chest x-ray. Patient was started on Lasix and was admitted for acute congestive heart failure exacerbation. His is present on admission exam. He is receiving cemiplimab infusions weekly for chemotherapy by Dr. Pack. Last infusion was 1 week ago. she reports they told him to keep up on his fluids while on these infusions. He has never had any issues with fluid overload in the past. She does note that he has had an echocardiogram has been several years ago. He no longer sees a fire control officer but his primary care physician has been taking care of all of his needs. She denies any lower extremity swelling and so does patient. No other issues or complaints at this time. Review of Systems ROS Narrative ROS: a complete review of systems were reviewed with patient and are positive as below or listed in History of Chief Complaint. General: no fever, chills, night sweats Head: no headache, trauma, visual changes, nausea or vomiting Eyes: no blurriness of vision Ears: no reported hearing loss, vertigo, earache, or tinnitus Throat: no sore throat, hoarseness, swelling of neck, or tongue pain Heart: no chest pain Lungs:shortness of breath no cough GI: no diarrhea or vomiting/nausea Urinary: no urinary urgency, frequency or pain Neuro: no numbness or tingling HEM: no bleeding issues or bruising ENDO: thyroid problems Psych: no anxiety or depression [facility] Medical History (Updated 11/13/23 @ 16:58 by Jadyn Briceno DO) HTN (hypertension) ?I10 - Essential (primary) hypertension (ICD-10) Thyroid activity decreased ?E03.9 - Hypothyroidism, unspecified (ICD-10) Meds Home Medications and Allergies Home Medications Medication Instructions Recorded Confirmed Type carbidopa 25 mg-levodopa 100 mg 1 tab PO TID 11/13/23 11/13/23 History tablet finasteride 5 mg tablet 5 mg PO DAILY 11/13/23 11/13/23 History levothyroxine 50 mcg tablet 50 mcg PO DAILY 11/13/23 11/13/23 History metoprolol succinate 25 mg 25 mg PO Q12H 11/13/23 11/13/23 History tablet,extended release 24 hr mirtazapine 15 mg tablet 15 mg PO .QHS 11/13/23 11/13/23 History potassium chloride 20 mEq 20 meq PO DAILY 11/13/23 11/13/23 History tablet,extended release(part/cryst) rosuvastatin 10 mg tablet 10 mg PO DAILY 11/13/23 11/13/23 History sacubitril 49 mg-valsartan 51 mg 1 tab PO BID 11/13/23 11/13/23 History tablet (Entresto) tamsulosin 0.4 mg capsule 0.4 mg PO Q24H 11/13/23 11/13/23 History warfarin 5 mg tablet 5 mg PO DAILY 11/13/23 11/13/23 History Allergies Allergy/AdvReac Type Severity Reaction Status Date / Time No Known Drug Allergies Allergy Verified 11/13/23 01:24 Exam Narrative Exam Narrative: General: Patient is alert, and oriented to person, not place or time Skin: left side of head is a dressing that is c/d/i Head: atraumatic, acephalic Eyes: PERRLA, no nystagmus present, conjunctiva clear, no scleral icterus Ears: normal Tympanic Membrane, normal gross auditory acuity Nose: symmetric, no discharge, no maxillary or frontal sinus tenderness Heart: Normal rate and rhythm, no murmurs/rubs/gallops Lungs: audible wheezes, crackles and diminished breath sounds all lung shepherd Abdomen: Normal audible bowel sounds, no distension, No palpable masses, no organomegaly, no rebound/guarding/ or rigidity Musculoskeletal: no swelling bilateral lower extremities Neuro: CN II-X grossly intact Constitutional Vital Signs, click to edit/add: Last Vital Signs Temp 97.0 F L 11/13/23 01:15 Pulse 68 11/13/23 06:28 Resp 24 11/13/23 05:17 BP 113/74 11/13/23 09:25 Pulse Ox 98 11/13/23 15:57 O2 Del Method Nasal Cannula 11/13/23 15:57 O2 Flow Rate 5 11/13/23 15:57 Results Labs Labs: Short CBC 11/12/23 11/13/23 Range/Units 23:25 04:40 WBC 7.2 7.1 (4.0-11.0) 10^3/uL Hgb 12.7 L 12.1 L (14.0-18.0) g/dL Hct 40.0 L 38.4 L (42.0-54.0) % Plt Count 148 L 142 L (150-450) 10^3/uL BMP 11/12/23 11/13/23 23:25 04:40 Sodium 133 L 139 Potassium 4.5 4.2 Chloride 101 106 Carbon Dioxide 29.7 30.2 BUN 33.0 H 32.0 H Creatinine 1.20 1.16 Glucose 116 H 98 Calcium 9.0 8.7 Liver Function 11/12/23 11/13/23 Range/Units 23:25 04:40 Total Bilirubin 0.4 0.4 (0.2-1.0) mg/dL Direct Bilirubin 0.2 (0.0-0.2) mg/dL AST 97 H 86 H (15-37) U/L ALT 29 17 (16-63) U/L Alkaline Phosphatase 89 82 (46-116) U/L Albumin 3.2 L 3.0 L (3.4-5.0) g/dL Urine 11/13/23 Range/Units 00:01 Urine Color Dk. orange (YELLOW) Urine Clarity Clear (CLEAR) Urine pH 5.5 (5.0-9.0) Ur Specific Temple >=1.030 A (1.005-1.025) Urine Protein 100 A (NEG/TRACE) mg/dL Urine Glucose (UA) Negative (NEGATIVE) mg/dL ABG ABG results: 11/13/23 04:40 VBG pH 7.300 L VBG pCO2 62.7 H Assessment and Plan Assessment and Plan (1) Acute exacerbation of CHF (congestive heart failure): Assessment and Plan: continue lasix 20mg IV BID, continue strict I&O's and fluid restriction to 1.5 L. Echocardiogram. Qualifiers: Heart failure type: unspecified Qualified Code(s): I50.9 - Heart failure, unspecified (2) Hypoxia: Assessment and Plan: due to #1 AND pleural effusion seen on chest X-ray. (3) Pulmonary edema: Assessment and Plan: hoping to improve with IV diuresis Qualifiers: Chronicity: acute Qualified Code(s): J81.0 - Acute pulmonary edema (4) HTN (hypertension): Assessment and Plan: continue home medications Qualifiers: Hypertension type: primary hypertension Qualified Code(s): I10 - Essential (primary) hypertension (5) Malignant neoplasm skin of face: Assessment and Plan: currently undergoing chemotherapy Cemiplimab treatments, Dr. Pack (6) Elevated INR: Assessment and Plan: monitor for any acute bleeding. Hold Coumadin, recheck daily Plan patient is a DNRCC holding coumadin Patient is in inpatient status and is expected to stay more than 2 midnights. Urinary Catheter Management Urinary Catheter Management Straight: Cath placed during this visit: yes Urethral indwelling: No Insertion date: 11/13/23
--- NOTE | 2023-11-13 19:47 | RESP.RT ---
titrated 02 down to 2L
[2023-11-13 21:42] LABS: Glucometer 79 mg/dL (74-106)
--- NOTE | 2023-11-13 22:00 | PC.NURSE ---
Patients right groin area found to be open. Area washed and dried. Picture obtained for chart and physician notified. Dry cloth placed in area to prevent moisture.
[2023-11-13] MEDS: METOPROLOL TARTRATE 5 MG/5 ML VIAL IVP (22:15)
[2023-11-14] VITALS (13 sets, daily range): BP systolic 111–161; BP diastolic 60–89; PULSE 58–90; RESP 18–22; TEMP 36.3–36.7; O2SAT 92–100
--- NOTE | 2023-11-14 02:24 | PC.NURSE ---
This RN has offered patient fluids several times throughout the shift. Patient has refused.
--- NOTE | 2023-11-14 04:20 | RESP.RT ---
titrated down to 1L
[2023-11-14 05:21] LABS: Basophils Percent Auto 0.2 % (0.2-2.0); Eosinophils Absolute Auto 0.1 10^3/uL (0.0-0.7); Eosinophils Percent Auto 0.9 % (0.9-7.0); Hematocrit 39.3 % (42.0-54.0); Hemoglobin 12.5 g/dL (14.0-18.0); Immature Granulocytes Abs Auto 0.01 10^3/uL (0.00-0.03); Immature Granulocytes Pct Auto 0.1 % (0.0-0.5); Lymphocytes Absolute Auto 0.4 10^3/uL (1.2-3.8); Lymphocytes Percent Auto 5.4 % (20.5-60.0); Mean Corpuscular HGB Conc 31.8 g/dL (29.9-35.2); Mean Corpuscular Volume 94.2 fL (80.0-94.0); Mean Platelet Volume 12.2 fL (9.5-13.5); Monocytes Absolute Auto 0.4 10^3/uL (0.3-0.8); Neutrophils Absolute Auto 7.2 10^3/uL (1.4-6.5); Neutrophils Percent Auto 88.4 % (43.0-75.0); Platelet Count 140 10^3/uL (150-450); Red Blood Count 4.17 10^6/uL (4.70-6.10); Red Cell Distribution Width 15.5 % (11.0-15.0); White Blood Count 8.2 10^3/uL (4.0-11.0)
[2023-11-14] MEDS: CARBIDOPA/LEVODOPA 25 MG-100 MG TABLET 1 TAB PO ×3 (05:28→21:39)
[2023-11-14 06:11] LABS: Alanine Aminotransferase 44 U/L (16-63); Albumin Globulin Ratio 0.8; Alkaline Phosphatase 78 U/L (46-116); Anion Gap 10.6; Aspartate Amino Transferase 59 U/L (15-37); Bilirubin Total 0.6 mg/dL (0.2-1.0); Calcium 8.3 mg/dL (8.5-10.1); Carbon Dioxide 28.7 mmol/L (21.0-32.0); Chloride 107 mmol/L (98-107); Estimated GFR (African America >60 (>=60); Estimated GFR (Non-African Ame >60 (>=60); Globulin 3.6 g/dL; Glucose 77 mg/dL (74-106); Potassium 3.3 mmol/L (3.5-5.1); Sodium 143 mmol/L (136-145); Total Protein 6.6 g/dL (6.4-8.2)
[2023-11-14 06:25] LABS: INR 6.43; Prothrombin Time 61.3 sec (9.0-11.6)
--- NOTE | 2023-11-14 08:33 | PM.PN ---
Progress Note: Subjective Subjective Interval history: Patient resting this morning. No complaints. Says he misses home but no shortness of breath or chest pain. Exam Narrative Exam Narrative: General: Patient is alert, and oriented to person, place and time with normal affect, proper hygiene Neck: no masses palpated, normal thyroid, no JVD or audible carotid bruits Heart: Normal rate and rhythm, holosystolic murmur, no/rubs/gallops Lungs: no audible wheezes, crackles and normal breath sounds all lung shepherd Abdomen: Normal audible bowel sounds, no distension, No palpable masses, no organomegaly, no rebound/guarding/ or rigidity Musculoskeletal: no swelling bilateral lower extremities Vascular: Normal carotid, radial, femoral, posterior tibial, and dorsalis pedis pulses Lymph: no supraclavicular, axillary, or anterior/posterior cervical adenopathy Neuro: CN II-X grossly intact Constitutional Vital Signs, click to edit/add: Last Vital Signs Temp 97.7 F 11/14/23 07:45 Pulse 90 11/14/23 07:45 Resp 20 11/14/23 07:45 BP 140/79 11/14/23 07:45 Pulse Ox 95 11/14/23 07:45 O2 Del Method Nasal Cannula 11/14/23 07:45 O2 Flow Rate 2 11/14/23 07:45 Progress Note: Objective Labs Labs: Short CBC 11/14/23 Range/Units 04:40 WBC 8.2 (4.0-11.0) 10^3/uL Hgb 12.5 L (14.0-18.0) g/dL Hct 39.3 L (42.0-54.0) % Plt Count 140 L (150-450) 10^3/uL BMP 11/14/23 04:40 Sodium 143 Potassium 3.3 L Chloride 107 Carbon Dioxide 28.7 BUN 27.0 H Creatinine 0.93 Glucose 77 Calcium 8.3 L Liver Function 11/14/23 Range/Units 04:40 Total Bilirubin 0.6 (0.2-1.0) mg/dL AST 59 H (15-37) U/L ALT 44 (16-63) U/L Alkaline Phosphatase 78 (46-116) U/L Albumin 3.0 L (3.4-5.0) g/dL Progress Note: A&P Assessment and Plan (1) Acute exacerbation of CHF (congestive heart failure): Assessment and Plan: continue lasix 20mg IV BID, continue strict I&O's and fluid restriction to 1.5 L. Echocardiogram pending, elevated proBNP Qualifiers: Heart failure type: unspecified Qualified Code(s): I50.9 - Heart failure, unspecified (2) Hypoxia: Assessment and Plan: ue to #1 AND pleural effusion seen on chest X-ray. (3) Pulmonary edema: Assessment and Plan: hoping to improve with IV diuresis, recheck X-ray tomorrow Qualifiers: Chronicity: acute Qualified Code(s): J81.0 - Acute pulmonary edema (4) HTN (hypertension): Assessment and Plan: continue home medications, stable Qualifiers: Hypertension type: primary hypertension Qualified Code(s): I10 - Essential (primary) hypertension (5) Malignant neoplasm skin of face: Assessment and Plan: currently undergoing chemotherapy Cemiplimab treatments, Dr. Pack (6) Elevated INR: Assessment and Plan: monitor for any acute bleeding. Hold Coumadin, INR 6.45 today so given 2.5 PO of vitamin K. Plan patient is a DNRCC holding coumadin Due to patient's urgent need for Vitamin K and worsening condition, I have made patient inpatient status. Urinary Catheter Management Urinary Catheter Management Straight: Cath placed during this visit: yes Urethral indwelling: No Insertion date: 11/13/23
[2023-11-14] MEDS: PHYTONADIONE (VIT K1) 10 MG/ML AMPUL 2.5 MG PO (09:18)
[2023-11-14] MEDS: LEVOTHYROXINE SODIUM 25 MCG TABLET 50 MCG PO (09:20)
[2023-11-14] MEDS: FINASTERIDE 5 MG TABLET PO (09:20)
[2023-11-14] MEDS: FUROSEMIDE 20 MG/2 ML VIAL IVP ×2 (09:20→21:26)
[2023-11-14] MEDS: METOPROLOL SUCCINATE 25 MG TAB.ER.24H PO ×2 (09:21→21:39)
[2023-11-14] MEDS: POTASSIUM CHLORIDE 10 MEQ ER TABLET 20 MEQ PO (09:22)
[2023-11-14] MEDS: SACUBITRIL/VALSARTAN 24 MG-26 MG TABLET 2 TAB PO ×2 (09:22→21:39)
[2023-11-14] MEDS: TAMSULOSIN HCL 0.4 MG CAPSULE PO (09:23)
--- NOTE | 2023-11-14 10:51 | CM.NOTE ---
Rounds made with Dr. Briceno, no discharge today. PT and OT will evaluate pt today.
--- NOTE | 2023-11-14 14:32 | SWNOTE1 ---
SW spoke with physical therapy and at this time SNF is recommended. SW to speak with pt and family.
--- NOTE | 2023-11-14 15:51 | SWNOTE1 ---
ROBINSON spoke with therapy and skilled is recommended at this time. ROBINSON spoke with pt and in the room. Pt was tired and falling asleep in chair. ROBINSON spoke with the about SNF. Pt does get chemo weekly for his skin cancer. ROBINSON let her know it would be likely a SNF would not take him to his chemo as they would have to pay for it. More than likely he would have to stop chemo until he is done with rehab. ROBINSON explained medicare guidelines to pt's . ROBINSON also provided star rating list from medicare.gov. Pt's is going to look over and she would like to speak to her son about this. ROBINSON also recommended contacting his oncologist to see what they recommend and if it is alright to push back chemo treatment. SW to come back in tomorrow around 11:30 to speak with pt's and son.
--- NOTE | 2023-11-14 15:54 | SWNOTE1 ---
SW did review IMM form with pt and . Pt's voiced understanding and had no questions. Pt's signed form, copy placed on chart and original given to pt.
[2023-11-14 16:34] LABS: INR 4.63
[2023-11-14] MEDS: ATORVASTATIN CALCIUM 40 MG TABLET PO (21:39)
[2023-11-14] MEDS: MIRTAZAPINE 15 MG TABLET PO (21:39)
[2023-11-15] VITALS (8 sets, daily range): BP systolic 116–134; BP diastolic 51–70; PULSE 63–108; RESP 18–20; TEMP 36.3–36.6; O2SAT 90–98
[2023-11-15] MEDS: CARBIDOPA/LEVODOPA 25 MG-100 MG TABLET 1 TAB PO ×3 (05:06→21:00)
[2023-11-15 05:54] LABS: Basophils Percent Auto 0.2 % (0.2-2.0); Eosinophils Absolute Auto 0.1 10^3/uL (0.0-0.7); Eosinophils Percent Auto 1.2 % (0.9-7.0); Hemoglobin 12.2 g/dL (14.0-18.0); Immature Granulocytes Abs Auto 0.01 10^3/uL (0.00-0.03); Immature Granulocytes Pct Auto 0.1 % (0.0-0.5); Lymphocytes Absolute Auto 0.5 10^3/uL (1.2-3.8); Lymphocytes Percent Auto 6.6 % (20.5-60.0); Mean Corpuscular HGB Conc 31.3 g/dL (29.9-35.2); Mean Corpuscular Hemoglobin 30.2 pg (25.9-34.0); Mean Corpuscular Volume 96.5 fL (80.0-94.0); Mean Platelet Volume 11.8 fL (9.5-13.5); Monocytes Absolute Auto 0.5 10^3/uL (0.3-0.8); Monocytes Percent Auto 6.4 % (1.7-12.0); Neutrophils Absolute Auto 6.9 10^3/uL (1.4-6.5); Neutrophils Percent Auto 85.5 % (43.0-75.0); Platelet Count 133 10^3/uL (150-450); Red Blood Count 4.04 10^6/uL (4.70-6.10); Red Cell Distribution Width 15.6 % (11.0-15.0)
[2023-11-15 06:07] LABS: INR 1.95; Prothrombin Time 19.9 sec (9.0-11.6)
[2023-11-15 06:21] LABS: Alanine Aminotransferase 19 U/L (16-63); Albumin Globulin Ratio 0.8; Albumin Level 2.8 g/dL (3.4-5.0); Alkaline Phosphatase 81 U/L (46-116); Anion Gap 11.7; Aspartate Amino Transferase 52 U/L (15-37); BUN Creatinine Ratio 28.9; Bilirubin Total 0.8 mg/dL (0.2-1.0); Calcium 8.4 mg/dL (8.5-10.1); Carbon Dioxide 29.5 mmol/L (21.0-32.0); Chloride 106 mmol/L (98-107); Estimated GFR (African America >60 (>=60); Estimated GFR (Non-African Ame >60 (>=60); Globulin 3.7 g/dL; Glucose 69 mg/dL (74-106); Potassium 3.2 mmol/L (3.5-5.1); Sodium 144 mmol/L (136-145); Total Protein 6.5 g/dL (6.4-8.2)
--- NOTE | 2023-11-15 08:53 | XR_ITS ---
The [address] [address] Patient Name: NABIL BRASWELL MRN: [id number] date: 1940 Sex: M Assigned Patient Location: [place] Current Patient Location: [place] Accession/Order Number: [id number] Exam Date: 11/15/2023 09:15 Report Date: 11/15/2023 09:39 At the request of: WOODY CRAFT Procedure: XR chest 1V EXAMINATION: XR chest 1V HISTORY: shortness of breath COMPARISON: XR chest 11/12/2023 FINDINGS: LUNGS: Markedly underexpanded lungs and patient kyphosis Limited evaluation. Mild stranding within right lung base. VASCULATURE: No increased pulmonary vasculature. PLEURA: Suspect small right pleural effusion. CARDIAC: Obscured, but suspect cardiomegaly. MEDIASTINUM: No visible mass or adenopathy. BONES: No fracture or visible bone lesion. OTHER: Negative. XR/XR chest 1V IMPRESSION: 1. Limited examination. 2. Suspect mild/moderate right basilar infiltrates and pleural effusion. Improved compared to prior study. 2. Suspect stable cardiomegaly. Electronically authenticated by: HUSSAIN ARVIZU Date: 11/15/2023 09:39
[2023-11-15] MEDS: SACUBITRIL/VALSARTAN 24 MG-26 MG TABLET 2 TAB PO ×2 (10:01→21:00)
[2023-11-15] MEDS: POTASSIUM CHLORIDE 10 MEQ ER TABLET 40 MEQ PO (10:01)
[2023-11-15] MEDS: TAMSULOSIN HCL 0.4 MG CAPSULE PO (10:02)
[2023-11-15] MEDS: FINASTERIDE 5 MG TABLET PO (10:02)
[2023-11-15] MEDS: LEVOTHYROXINE SODIUM 25 MCG TABLET 50 MCG PO (10:02)
[2023-11-15] MEDS: METOPROLOL SUCCINATE 25 MG TAB.ER.24H PO ×2 (10:02→21:00)
[2023-11-15] MEDS: POTASSIUM CHLORIDE 10 MEQ ER TABLET 20 MEQ PO (10:02)
[2023-11-15] MEDS: FUROSEMIDE 20 MG TABLET PO (11:02)
--- NOTE | 2023-11-15 12:28 | CM.NOTE ---
Rounds made with Dr. Briceno, discussed plan of care with pt and . Both in agreement for skilled therapy at discharge.
--- NOTE | 2023-11-15 12:32 | SWNOTE1 ---
SW went back in to speak with pt and in regards to skilled. Pt's voiced that she has not heard anything from the doctors in regards to the testing that was done and what is causing pt to be weak, etc. SW let pt's know that SW was here to discuss pt going to rehab to build strength back up. Pt's let SW know she does think he needs to do that before coming home and that there was no way she could take him home right now. She stated he has done rehab in past and then once he is home he doesn't do the exercises. SW again went over if he went to rehab, more than likely he would need to stop chemo for the time being. Pt's then stated he needs the rehab and she was waiting for the doctor to talk to pt's oncologist. Pt's then voiced pt had been to [facility] in past for rehab. She would like him to go there. Pt is alert and oriented and he stated he does need rehab as well. SW asked pt's if she spoke with her son. She stated her son said he needs rehab as well, but her son wants to know what is causing this. SW asked pt's if she would like to call her son with SW, she stated she told her son she would call when the doctor is in. ROBINSON checked again with pt and pt's if [facility] is where she wants to go to rehab? They both stated yes. SW to send referral. During rounds nurse practicioner voiced she had a long conversation with pt and pt's in room. ROBINSON to check back with pt and and will call son with pt's . Referral sent to [facility].
--- NOTE | 2023-11-15 14:10 | P.PN_ITS ---
<Statement entered by Jadyn Briceno, - 11/15/23 17:10> This documentation has been reviewed and approved. The patient has also been seen and evaluated by me as well as the chart, labs. I agree with the above assessment and plan. Progress Note: Subjective Subjective Interval history: 11/15/23 1005 The patient is currently sitting up in a bedside chair eating his breakfast. His is at the bedside visiting and she was updated on the plan of care. The patient denies any shortness of breath at this time and nursing was able to wean off O2 supplementation earlier this morning. His O2 sats are currently around 92-93% on room air. Nursing reports that the patient pulled out his IV overnight as he apparently experienced some confusion which we believe is baseline. Chest x-ray obtained this morning shows improved pleural effusions. We will convert his Lasix therapy to p.o. daily dosing. In addition his INR was subtherapeutic this morning after a small dose of vitamin K yesterday. We have resumed the patient's home warfarin and will continue to monitor his INR daily. Discharge likely in the next 24 to 48 hours pending clinical course. library services assistant is attempting placement at a local SNF for rehab strengthening. The patient's next immunotherapy treatment for his skin cancer is scheduled for 11/24/2023. Exam Constitutional Vital Signs, click to edit/add: Last Vital Signs Temp 97.6 F 11/15/23 14:00 Pulse 86 11/15/23 14:00 Resp 20 11/15/23 14:00 BP 116/70 11/15/23 14:00 Pulse Ox 91 L 11/15/23 14:00 O2 Del Method Room Air 11/15/23 14:00 O2 Flow Rate 2 11/15/23 04:00 Common normals: no apparent distress, oriented x3 and alert General appearance: cooperative Orientation/consciousness: Yes awake HENMT Common normals: normocephalic, head/scalp atraumatic and hearing grossly normal bilaterally Head and scalp: other (Skin cancer lesions to the R cheeck and crown of the head noted) Eye Common normals: PERRL, EOMs intact bilaterally, conjunctivae normal and no scleral icterus Chest Common normals: inspection of chest normal Chest: symmetrical chest wall rise Respiratory Common normals: normal respiratory effort, no use of accessory muscles and clear to auscultation bilaterally Effort & inspection: able to speak in complete sentences Auscultation: diminished lung sounds (RLL) Cardio Common normals: regular rate, S1 normal heart sound, S2 normal heart sound and peripheral pulses 2+ throughout Rhythm: abnormal rhythm irregularly irregular Heart sounds: murmur (HSM 3/6) GI Common normals: Normal to inspection, nondistended, normoactive bowel sounds present, soft to palpation, non-tender and no hepatosplenomegaly Bladder/kidney exam: bladder normal to palpation Extremity Common normals: normal to inspection and no calf tenderness General: no clubbing and no cyanosis Neuro Common normals: CN's II-XII intact bilaterally, moves all extremities, no focal motor deficits and no sensory deficits noted Psych Common normals: mental status grossly normal Progress Note: Objective Labs Labs: Short CBC 11/15/23 Range/Units 05:00 WBC 8.0 (4.0-11.0) 10^3/uL Hgb 12.2 L (14.0-18.0) g/dL Hct 39.0 L (42.0-54.0) % Plt Count 133 L (150-450) 10^3/uL BMP 11/15/23 05:00 Sodium 144 Potassium 3.2 L Chloride 106 Carbon Dioxide 29.5 BUN 28.0 H Creatinine 0.97 Glucose 69 L Calcium 8.4 L Liver Function 11/15/23 Range/Units 05:00 Total Bilirubin 0.8 (0.2-1.0) mg/dL AST 52 H (15-37) U/L ALT 19 (16-63) U/L Alkaline Phosphatase 81 (46-116) U/L Albumin 2.8 L (3.4-5.0) g/dL Imaging Chest x-ray: Attestation: I have reviewed the pertinent imaging results. Radiologist's impression: IMPRESSION: 1. Limited examination. 2. Suspect mild/moderate right basilar infiltrates and pleural effusion. Improved compared to prior study. 2. Suspect stable cardiomegaly. Progress Note: A&P Assessment and Plan (1) Acute exacerbation of CHF (congestive heart failure): Assessment and Plan: ACUTE * Improving * CXR w/ improved RLL pleural effusion. * Hypoxia/SOB resolving * ProBNP trending down - 7428 today, down from 16,759 on admission * DC lasix 20mg IV BID. Start PO Lasix 20 mg daily * continue strict I&O's and fluid restriction to 1.5 L. * Echocardiogram obtained 11/14/23 - result pending * Continue home Entresto * Disposition: D/C to local SNF for rehab strengthening in 24-48 hrs pending placement Qualifiers: Heart failure type: unspecified Qualified Code(s): I50.9 - Heart failure, unspecified (2) Hypoxia: Assessment and Plan: ACUTE * Acute respiratory failure - Resolving * 2/2 exacerbation of CHF/pleural effusion * Currently stable on RA (3) Pulmonary edema: Assessment and Plan: ACUTE * Resolving * See CHF exacerbation Qualifiers: Chronicity: acute Qualified Code(s): J81.0 - Acute pulmonary edema (4) HTN (hypertension): Assessment and Plan: CHRONIC * continue home medications, stable Qualifiers: Hypertension type: primary hypertension Qualified Code(s): I10 - Essential (primary) hypertension (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 Pack ([facility]) q 3 weeks * Last treatment 11/03/23, Next scheduled tx 11/24/23 * Spoke with Dr Pack's nurse regarding possible delay of next treatment to allow for short term SNF rehab placement. She will discuss with Dr Pack and get back with us. (6) Elevated INR: Assessment and Plan: CHRONIC * Resolved - INR 1.95 today * No evidence of acute bleeding. * Resume Coumadin home dose today. * Continue daily INR labs Plan Patient is a DNRCC Urinary Catheter Management Urinary Catheter Management Straight: Cath placed during this visit: yes Urethral indwelling: No Insertion date: 11/13/23
--- NOTE | 2023-11-15 14:18 | SWNOTE1 ---
ROBINSON spoke with nurse practicitoner and she spoke to Dr. Pack's office, next treatment is 10/24/23. They are checking with doctor to see if alright to hold until after rehab. It is actually immunotherapy. ROBINSON to let Shelby know. Shelby did state if he gets it at [facility], then he can continue. ROBINSON called Junie back at 's and he does not get at [facility], he gets it at physicians office in [place].
--- NOTE | 2023-11-15 14:20 | SWNOTE1 ---
ROBINSNO received call from Carmelina, nurse practitioner, and she spoke with Dr. Pack's office and his next immunotherapy is on 10/24/23. They are checking with Dr. Pack if ok to put on hold for a few weeks for rehab. ROBINSON had message from Shelby and if he goes to [facility], then can continue. ROBINSON called Junie at Dr. Pack's office back and pt does not get at [facility], he gets it at physicians office in [place]. ROBINSON updated Shelby. ROBINSON to also let Shelby know it is immunotherapy.
--- NOTE | 2023-11-15 15:16 | SWNOTE1 ---
Nurse practicioner did reach out in regards to our infusion clinic and if pt could get immunotherapy here while at [facility]. SW reached out to [facility] and they stated it depends on our billing. SW reached out to Hil[facility] director of infusion clinic, waiting to hear back.
--- NOTE | 2023-11-15 16:12 | SWNOTE1 ---
SW spoke with pt and pt's , let her know [facility] is able to accept. SW let her know nurse practitioner did reach out to Dr. Pack's to make sure it is alright to hold immunotherapy. ROBINSON waiting to hear back from Hilary in regards to pt getting immunotherapy here while skilled at [facility]. ROBINSON did not address this with pt or yet, unsure if it is an option.
[2023-11-15] MEDS: WARFARIN SODIUM 5 MG TABLET PO (16:26)
[2023-11-15] MEDS: ATORVASTATIN CALCIUM 40 MG TABLET PO (21:00)
[2023-11-15] MEDS: MIRTAZAPINE 15 MG TABLET PO (21:00)
[2023-11-15] MEDS: FUROSEMIDE 20 MG/2 ML VIAL IVP (21:22)
--- NOTE | 2023-11-15 21:29 | PC.NURSE ---
this IV not present when RN arrived on shift, pt had no IV access
[2023-11-16] VITALS (7 sets, daily range): BP systolic 128–147; BP diastolic 70–87; PULSE 71–90; RESP 16–18; TEMP 36.5–36.6; O2SAT 91–94
--- NOTE | 2023-11-16 01:41 | PC.NURSE ---
pt has an open spot on his right heel. scant amount of bleeding noted. RN placed telfa dressing and wrapped in curlex bandage.
[2023-11-16] MEDS: CARBIDOPA/LEVODOPA 25 MG-100 MG TABLET 1 TAB PO ×3 (05:59→21:57)
[2023-11-16 06:13] LABS: Basophils Percent Auto 0.3 % (0.2-2.0); Eosinophils Absolute Auto 0.1 10^3/uL (0.0-0.7); Eosinophils Percent Auto 1.4 % (0.9-7.0); Hematocrit 42.8 % (42.0-54.0); Hemoglobin 13.1 g/dL (14.0-18.0); Immature Granulocytes Abs Auto 0.03 10^3/uL (0.00-0.03); Immature Granulocytes Pct Auto 0.3 % (0.0-0.5); Lymphocytes Absolute Auto 0.5 10^3/uL (1.2-3.8); Lymphocytes Percent Auto 5.6 % (20.5-60.0); Mean Corpuscular HGB Conc 30.6 g/dL (29.9-35.2); Mean Corpuscular Hemoglobin 30.2 pg (25.9-34.0); Mean Corpuscular Volume 98.6 fL (80.0-94.0); Mean Platelet Volume 11.2 fL (9.5-13.5); Monocytes Absolute Auto 0.6 10^3/uL (0.3-0.8); Monocytes Percent Auto 6.4 % (1.7-12.0); Neutrophils Absolute Auto 7.4 10^3/uL (1.4-6.5); Platelet Count 150 10^3/uL (150-450); Red Blood Count 4.34 10^6/uL (4.70-6.10); Red Cell Distribution Width 15.8 % (11.0-15.0); White Blood Count 8.6 10^3/uL (4.0-11.0)
[2023-11-16 06:26] LABS: Prothrombin Time 16.5 sec (9.0-11.6)
[2023-11-16 06:31] LABS: Alanine Aminotransferase 25 U/L (16-63); Albumin Globulin Ratio 0.7; Albumin Level 2.7 g/dL (3.4-5.0); Alkaline Phosphatase 84 U/L (46-116); Anion Gap 7.7; Aspartate Amino Transferase 48 U/L (15-37); Calcium 8.5 mg/dL (8.5-10.1); Carbon Dioxide 30.4 mmol/L (21.0-32.0); Chloride 104 mmol/L (98-107); Estimated GFR (African America >60 (>=60); Estimated GFR (Non-African Ame >60 (>=60); Globulin 3.9 g/dL; Glucose 77 mg/dL (74-106); Potassium 3.1 mmol/L (3.5-5.1); Sodium 139 mmol/L (136-145); Total Protein 6.6 g/dL (6.4-8.2)
[2023-11-16] MEDS: SACUBITRIL/VALSARTAN 24 MG-26 MG TABLET 2 TAB PO ×2 (09:13→21:57)
[2023-11-16] MEDS: LEVOTHYROXINE SODIUM 25 MCG TABLET 50 MCG PO (09:13)
[2023-11-16] MEDS: FINASTERIDE 5 MG TABLET PO (09:13)
[2023-11-16] MEDS: POTASSIUM CHLORIDE 10 MEQ ER TABLET 20 MEQ PO (09:14)
[2023-11-16] MEDS: FUROSEMIDE 20 MG TABLET PO (09:14)
[2023-11-16] MEDS: TAMSULOSIN HCL 0.4 MG CAPSULE PO (09:14)
[2023-11-16] MEDS: POTASSIUM CHLORIDE 10 MEQ ER TABLET 40 MEQ PO (09:14)
[2023-11-16] MEDS: METOPROLOL SUCCINATE 25 MG TAB.ER.24H PO ×2 (09:14→21:57)
--- NOTE | 2023-11-16 09:27 | SWNOTE1 ---
ROBISNON spoke to Carmelina, Nurse practicioner, and Dr. Pack's office called back and Dr. Pack voiced it was alright to hold treatment until pt is stronger. Dr. Pack's office would like [facility] to call and schedule apt once pt is close to discharge.
--- NOTE | 2023-11-16 11:04 | REH.PTDLY ---
Physical Therapy Daily Note PT Daily Note/Assess Start: 11/15/23 11:22 Freq: Status: Active Protocol: Document 11/16/23 11:02 OFELIA (Rec: 11/16/23 11:04 OFELIA [id number]) Visit Not Completed Visit Not Completed Due to: Pt level of alertness Other Reason Visit Not Completed Attempted 2x to see pt this morning, pt very lethargic. WINDOWS ADMIN Toya states pt had to get back to bed after only being up for a few minutes as he was too fatigued to sit upright, but to still try therapy. Attempted bed exs with pt, but pt does not open eyes and states he is too exhausted today and declines exs at this time. Physical Therapy Daily Note/Assessment Time In 10:55 Time Out 11:00
--- NOTE | 2023-11-16 11:14 | SWNOTE1 ---
SW sent updates to [facility].
--- NOTE | 2023-11-16 13:30 | CM.NOTE ---
Rounds made with Dr. Briceno, no discharge today. Pt lethargic today, JANET Cosme will discuss with pt's son and plan of care and echo results.
--- NOTE | 2023-11-16 14:35 | SWNOTE1 ---
SW spoke with pt's in room. Pt's did voice she spoke with the nurse practitioner and her son was on phone as well. She stated her son will be coming from [place] later this evening or tomorrow morning. SW asked if they had any questions right now for SW in regards to the various options that were outlined. Pt's texted her son to see and will let SW know, if he does not respond they will likely have questions tomorrow. SW did ask how pt's as doing, she voiced she is hanging in there and it is a lot of information. She would like to wait until her son is here tomorrow to move forward with any decisions.
[2023-11-16] MEDS: WARFARIN SODIUM 5 MG TABLET PO (16:51)
--- NOTE | 2023-11-16 17:14 | P.PN_ITS ---
<Statement entered by Jadyn Briceno, DO - 11/17/23 08:12> This documentation has been reviewed and approved.I also seen and evaluated patient, reviewed chart, labs and radiology. I agree with the assessment and plan. Progress Note: Subjective Subjective Interval history: 11/16/23 1205 Patient is exhibiting an abrupt change in condition since yesterday. He is very fatigued, unable to participate with PT, refusing food and very lethargic, borderline obtunded, with frequent prolonged apneic episodes noted. His vital signs remain stable and he is afebrile. Labs are unremarkable. 2D echo result from 2 days ago is now available. This reveals a reduced EF of 35% and severe aortic stenosis with low flow gradient in setting of systolic heart failure. A dobutamine echo was recommended but this is not available at this facility. A prolonged goals of care conversation lasting greater than 30 minutes was held with the patient's spouse at the bedside, and son who attended by telephone. The pt himself was unable to participate in this conversation d/t his lethargy/encephalopathy. The findings of the 2D echo were explained in detail. Although a dobutamine echo was not possible at this facility, we could do a Lexiscan stress test to further evaluate the patient's stenosis and cardiac output. Surgical intervention for this patient, however, is unlikely considering his other chronic comorbidities. The patient's and son both verbalized that they wanted to avoid stressing the patient any further. They wanted to avoid stressing the patient any further. They defer on any further testing such as a Lexiscan stress test. They have confirmed that the patient is a DNR CC and they want to focus primarily on comfort for him. They are aware that severe stenosis in setting of advanced systolic heart failure has a very poor prognosis and this may account for the patient's change in condition today. We discussed the possibility of placing the patient in hospice which they are considering better on able to make a decision regarding hospice at this time. They will discuss this further as a family and we will reassess the patient's condition and their goals of care tomorrow. Exam Narrative Exam Narrative: Pt is obtunded. Opens eyes to voice but does not answer questions or particpate in exam. Constitutional Vital Signs, click to edit/add: Last Vital Signs Temp 97.7 F 11/16/23 13:50 Pulse 88 01/31/24 13:50 Resp 16 11/16/23 13:50 BP 137/87 11/16/23 13:50 Pulse Ox 94 L 11/16/23 13:50 O2 Del Method Room Air 11/16/23 13:50 O2 Flow Rate 2 11/15/23 04:00 Common normals: no apparent distress HENMT Common normals: normocephalic and head/scalp atraumatic Eye Common normals: PERRL, EOMs intact bilaterally, conjunctivae normal and no scleral icterus Chest Common normals: inspection of chest normal Chest: symmetrical chest wall rise Respiratory Common normals: no use of accessory muscles and clear to auscultation bilaterally Auscultation: diminished lung sounds (BLL, L>R) Cardio Common normals: regular rate, regular rhythm, S1 normal heart sound, S2 normal heart sound, no murmurs and peripheral pulses 2+ throughout GI Common normals: Normal to inspection, nondistended, normoactive bowel sounds present, soft to palpation and no hepatosplenomegaly Bladder/kidney exam: bladder normal to palpation Extremity Common normals: normal to inspection and no calf tenderness General: no clubbing, no cyanosis and no edema Neuro Other: Unable to fully assess neurologic status as pt is obtunded and not cooperative with exam Progress Note: Objective Labs Labs: Short CBC 11/16/23 Range/Units 05:35 WBC 8.6 (4.0-11.0) 10^3/uL Hgb 13.1 L (14.0-18.0) g/dL Hct 42.8 (42.0-54.0) % Plt Count 150 (150-450) 10^3/uL BMP 11/16/23 05:35 Sodium 139 Potassium 3.1 L Chloride 104 Carbon Dioxide 30.4 BUN 24.0 H Creatinine 0.80 Glucose 77 Calcium 8.5 Liver Function 11/16/23 Range/Units 05:35 Total Bilirubin 1.0 (0.2-1.0) mg/dL AST 48 H (15-37) U/L ALT 25 (16-63) U/L Alkaline Phosphatase 84 (46-116) U/L Albumin 2.7 L (3.4-5.0) g/dL Imaging 2D Echo: Attestation: I have reviewed the pertinent imaging results. Radiologist's impression: CONCLUSION: 1. Moderate concentric left ventricular hypertrophy with moderately reduced systolic function. LVEF is 35%. 2. Normal right ventricular size and systolic function. 3. 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 4. Mild to moderate aortic regurgitation. 5. Mild to moderate mitral regurgitation. 6. Moderately elevated right-sided pressures. 7. Further assessment of the aortic stenosis with a dobutamine stress echocardiogram is recommended. Progress Note: A&P Assessment and Plan (1) Acute exacerbation of CHF (congestive heart failure): Assessment and Plan: ACUTE * Stable * Hypoxia/SOB resolved * ProBNP trending down - 7428 today, down from 16,759 on admission * Continue PO Lasix 20 mg daily * Continue strict I&O's and fluid restriction to 1.5 L. 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 * Continue home Entresto and PO lasix for medical management * Disposition: D/C to local SNF for rehab strengthening vs possible hospice admission pending clinical course in the next 24-48 hrs Qualifiers: Heart failure type: unspecified Qualified Code(s): I50.9 - Heart failure, unspecified (2) Severe aortic stenosis: Assessment and Plan: ACUTE * Acute finding on 2D Echo during this admission - resulted today * Family defers further work up or pursuing possible AVR * They are aware that this will likely be life threatening * DNR CC status confirmed - focus on comfort (3) Hypoxia: Assessment and Plan: ACUTE * Acute respiratory failure - Resolved * 2/2 exacerbation of CHF/pleural effusion * Currently stable on RA (4) Pulmonary edema: Assessment and Plan: ACUTE * Resolving * See CHF exacerbation Qualifiers: Chronicity: acute Qualified Code(s): J81.0 - Acute pulmonary edema (5) HTN (hypertension): Assessment and Plan: CHRONIC * continue home medications, stable Qualifiers: Hypertension type: primary hypertension Qualified Code(s): I10 - Essential (primary) hypertension (6) 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 Pack ([facility]) q 3 weeks * Last treatment 11/03/23, Next scheduled tx 11/24/23 * Spoke with Dr Pack's nurse regarding possible delay of next treatment to allow for short term SNF rehab placement. OK per Dr Pack to delay treatment. He requests their office be contacted once the pt is able/willing to resume treatments at the clinic (7) Elevated INR: Assessment and Plan: CHRONIC * Resolved - INR 1.6 today * No evidence of acute bleeding. * Home Coumadin resumed yesterday - continue * Continue daily INR labs Plan Patient is a DNRCC Urinary Catheter Management Urinary Catheter Management Straight: Cath placed during this visit: yes Urethral indwelling: No Insertion date: 11/13/23
[2023-11-16] MEDS: MIRTAZAPINE 15 MG TABLET PO (21:57)
[2023-11-16] MEDS: ATORVASTATIN CALCIUM 40 MG TABLET PO (21:57)
[2023-11-17] VITALS (8 sets, daily range): BP systolic 134–153; BP diastolic 76–89; PULSE 85–102; RESP 16–30; TEMP 36.3–36.7; O2SAT 92–96
[2023-11-17 04:24] LABS: Basophils Percent Auto 0.2 % (0.2-2.0); Eosinophils Percent Auto 0.6 % (0.9-7.0); Hematocrit 42.6 % (42.0-54.0); Hemoglobin 13.3 g/dL (14.0-18.0); Immature Granulocytes Abs Auto 0.01 10^3/uL (0.00-0.03); Immature Granulocytes Pct Auto 0.2 % (0.0-0.5); Lymphocytes Absolute Auto 0.5 10^3/uL (1.2-3.8); Lymphocytes Percent Auto 7.6 % (20.5-60.0); Mean Corpuscular HGB Conc 31.2 g/dL (29.9-35.2); Mean Corpuscular Hemoglobin 29.8 pg (25.9-34.0); Mean Corpuscular Volume 95.3 fL (80.0-94.0); Mean Platelet Volume 11.3 fL (9.5-13.5); Monocytes Absolute Auto 0.4 10^3/uL (0.3-0.8); Monocytes Percent Auto 5.8 % (1.7-12.0); Neutrophils Absolute Auto 5.7 10^3/uL (1.4-6.5); Neutrophils Percent Auto 85.6 % (43.0-75.0); Platelet Count 166 10^3/uL (150-450); Red Blood Count 4.47 10^6/uL (4.70-6.10); Red Cell Distribution Width 15.7 % (11.0-15.0); White Blood Count 6.6 10^3/uL (4.0-11.0)
[2023-11-17 04:38] LABS: INR 2.34; Prothrombin Time 23.6 sec (9.0-11.6)
[2023-11-17 05:04] LABS: Alanine Aminotransferase 22 U/L (16-63); Albumin Globulin Ratio 0.7; Albumin Level 2.9 g/dL (3.4-5.0); Alkaline Phosphatase 81 U/L (46-116); Aspartate Amino Transferase 34 U/L (15-37); Bilirubin Total 0.9 mg/dL (0.2-1.0); Calcium 8.5 mg/dL (8.5-10.1); Carbon Dioxide 30.7 mmol/L (21.0-32.0); Chloride 107 mmol/L (98-107); Estimated GFR (African America >60 (>=60); Estimated GFR (Non-African Ame >60 (>=60); Globulin 3.9 g/dL; Glucose 79 mg/dL (74-106); Potassium 3.7 mmol/L (3.5-5.1); Sodium 146 mmol/L (136-145); Total Protein 6.8 g/dL (6.4-8.2)
[2023-11-17] MEDS: CARBIDOPA/LEVODOPA 25 MG-100 MG TABLET 1 TAB PO (05:11)
[2023-11-17] MEDS: LEVOTHYROXINE SODIUM 25 MCG TABLET 50 MCG PO (09:59)
[2023-11-17] MEDS: TAMSULOSIN HCL 0.4 MG CAPSULE PO (09:59)
[2023-11-17] MEDS: FUROSEMIDE 20 MG TABLET 40 MG PO (09:59)
[2023-11-17] MEDS: FINASTERIDE 5 MG TABLET PO (09:59)
[2023-11-17] MEDS: SACUBITRIL/VALSARTAN 24 MG-26 MG TABLET 2 TAB PO (10:00)
[2023-11-17] MEDS: POTASSIUM CHLORIDE 10 MEQ ER TABLET 20 MEQ PO (10:00)
[2023-11-17] MEDS: METOPROLOL SUCCINATE 25 MG TAB.ER.24H PO (10:04)
--- NOTE | 2023-11-17 11:06 | PT.DAILY ---
Physical Therapy Daily Note PT Daily Note/Assess Start: 11/15/23 11:22 Freq: Status: Active Protocol: Document 11/17/23 10:21 RIO (Rec: 11/17/23 11:05 RIO [id number]) Physical Therapy Daily Note/Assessment Time In/Time Out Time In 10:21 Time Out 10:40 Subjective Subjective Patient is alert and answers questions appropriately. Denies pain in bed, and is willing to get up in chair. Therapeutic Activity Time Therapeutic Activity Minutes (minutes) 19 Therapeutic Activity Units 1 Therapeutic Activity Treatment Therapeutic Activity Comments Patient was able to bring B LE 's over to side of bed, but then required min assist x1 to complete supine to sit transfer. Once sitting EOB patient verbal response decreases. After a few minutes is able to state that it feels like his heart is pumping too hard, and he needs to lye back down, just doesn' t have the energy to hold himself up. Patient was min assist x1 with EOB sitting for support during this time. Patient was then a mod to max assist to return to supine position. Once supine verbal responses to questions increase, and patient states wanting to do it, but just feels like his body is failing him. Nursing was in room, and stated patient has had increased difficulty swallowing pills and food this am so was putting in speech therapy order as well. Total Physical Therapy Time Total Therapy Minutes 19 Total Physical Therapy Units 1 Summary Daily Note Summary Patient had improved alertness today, and was willing and motivated to participate in therapy. Patient tried very hard with Bed mobility and EOB sitting, but ultimately was unable to complete transfer to chair for safety reasons.
--- NOTE | 2023-11-17 11:15 | CM.NOTE ---
Rounds made with Dr. Briceno, possible transfer to [facility] for skilled therapy today. Pt was having swallowing issues and will have speech evaluation today prior to discharge.
--- NOTE | 2023-11-17 14:34 | P.PN_ITS ---
<Statement entered by Jadyn Briceno, - 11/18/23 08:46> This documentation has been reviewed and approved. I have also seen and examined patient reviewed lab data and note and agree with the assessment and plan. Progress Note: Subjective Subjective Interval history: 11/17/23 1000 The patient is resting in bed during my exam. He remains very lethargic but is more awake today and answers questions appropriately and participates in exam. I discussed with the patient the 2D echo findings that were discussed with his family yesterday when he was obtunded. He verbalizes understanding and confirms that he does not want to pursue aortic valve replacement or further cardiac testing. He was advised to do his best to work with physical therapy today as he will need to demonstrate the ability to progress with strengthening in order to go for a rehab stay at a local SNF. He verbalizes understanding. His PO lasix dose was increased today as his BNP is beginning to rise again. He has no family at the bedside and further goals of care conversations will be deferred until family is available. ADDENDUM 1030: Nursing advised that the pt was unable to swallow his pills, even in pudding, or water during med pass this morning. The pt experienced coughing and spit out the pudding and pills. He did not make a concerted attempt at swallowing and seemed unable to initiate swallowing activity. TRUCK CRANE OPERATOR has been consulted for an evaluation and the pt is NPO pending that eval. ADDENDUM 1400: TRUCK CRANE OPERATOR confirms that the pt is unable to initiate swallowing. Food and appears to enter the throat without swallowing and is likely remaining there, making the pt is at very high risk of aspiration into his airway if any food or fluid is introduced into his mouth. His cough reflex remains strong. NPO and consideration of possible PEG tube placement advised. ADDENDUM 1600: Discussed pt's new dysphagia issues with the pt and family at the bedside with Sofiya child welfare social worker, also present. Discussed possible TPN vs NGT vs PEG tube for nutrition administration if oral is not possible. TRUCK CRANE OPERATOR plans to reevaluate the pt tomorrow. If he remains unable to swallow at all a decision will have to be made at that time regarding route of nutrition. Risks and benefits of each method were fully discussed. Final decision deferred until after TRUCK CRANE OPERATOR reeval. ADDENDUM 1730: Informed pt and family that we will obtain a CT brain in the AM d/t the slight possibility of acute CVA affecting only the swallowing function of the pt. No other focal deficits noted on exam including no dysarthria. The pt is weak and his speech is soft and slower, but no true dysarthria or aphasia is noted. Exam Narrative Exam Narrative: The pt is awake today, but remains very weak and lethargic. Constitutional Vital Signs, click to edit/add: Last Vital Signs Temp 97.3 F L 11/17/23 04:28 Pulse 85 11/17/23 04:28 Resp 16 11/17/23 04:28 BP 153/85 H 11/17/23 04:28 Pulse Ox 92 L 11/17/23 11:53 O2 Del Method Room Air 11/17/23 11:53 O2 Flow Rate 2 11/15/23 04:00 Common normals: no apparent distress, oriented x3 and alert General appearance: cooperative Orientation/consciousness: Yes awake HENMT Common normals: normocephalic, head/scalp atraumatic and hearing grossly normal bilaterally Eye Common normals: PERRL, EOMs intact bilaterally, conjunctivae normal and no scleral icterus General eye: normal appearance of both eyes Chest Common normals: inspection of chest normal Chest: symmetrical chest wall rise Respiratory Common normals: normal respiratory effort, no use of accessory muscles and clear to auscultation bilaterally Effort & inspection: able to speak in complete sentences Auscultation: diminished lung sounds (BLL, L>R) Cardio Common normals: regular rate, regular rhythm, S1 normal heart sound, S2 normal heart sound and peripheral pulses 2+ throughout Heart sounds: murmur (HSM 3/6) GI Common normals: Normal to inspection, nondistended, normoactive bowel sounds present, soft to palpation, non-tender and no hepatosplenomegaly Bladder/kidney exam: bladder normal to palpation Extremity Common normals: normal to inspection and no calf tenderness General: no clubbing, no cyanosis and no edema Neuro Common normals: CN's II-XII intact bilaterally, moves all extremities, no focal motor deficits and no sensory deficits noted Psych Common normals: mental status grossly normal Progress Note: Objective Labs Labs: Short CBC 11/17/23 Range/Units 04:09 WBC 6.6 (4.0-11.0) 10^3/uL Hgb 13.3 L (14.0-18.0) g/dL Hct 42.6 (42.0-54.0) % Plt Count 166 (150-450) 10^3/uL BMP 11/17/23 04:09 Sodium 146 H Potassium 3.7 Chloride 107 Carbon Dioxide 30.7 BUN 24.0 H Creatinine 0.89 Glucose 79 Calcium 8.5 Liver Function 11/17/23 Range/Units 04:09 Total Bilirubin 0.9 (0.2-1.0) mg/dL AST 34 (15-37) U/L ALT 22 (16-63) U/L Alkaline Phosphatase 81 (46-116) U/L Albumin 2.9 L (3.4-5.0) g/dL Progress Note: A&P Assessment and Plan (1) Acute exacerbation of CHF (congestive heart failure): Assessment and Plan: ACUTE * Stable but at high risk for decompensation * Hypoxia/SOB resolved * ProBNP trending back up today - 96435, up from 7428 yesterday * Increase PO Lasix to 40 mg daily - poor urine output and BNP is rising * Continue strict I&O's and fluid restriction to 1.5 L. 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 * Continue home Entresto and PO lasix for medical management * Pt and family defer any further cardiac work up or surgical intervention for aortic valve repair * Disposition: D/C to local SNF for rehab strengthening vs possible hospice ad mission pending clinical course in the next 24-48 hrs Qualifiers: Heart failure type: unspecified Qualified Code(s): I50.9 - Heart failure, unspecified (2) Severe aortic stenosis: Assessment and Plan: ACUTE * Acute finding on 2D Echo during this admission - resulted 11/16/23 * Family defers further work up or pursuing possible AVR * They are aware that this will likely be life threatening * DNR CC status confirmed - focus on comfort * Consider possible hospice admission pending clinical course. May attempt rehab strengthening at SNF first, if pt is able to progress. 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 Pack ([facility]) q 3 weeks * Last treatment 11/03/23, Next scheduled tx 11/24/23 * Spoke with Dr Pack's nurse regarding possible delay of next treatment to allow for short term SNF rehab placement. OK per Dr Pack to delay treatment. He requests their office be contacted once the pt is able/ willing to resume treatments at the clinic (7) Elevated INR: Assessment and Plan: CHRONIC * Resolved - INR 2.34 today * No evidence of acute bleeding. * Home Coumadin resumed - give reduced dose of 2.5 mg today per pharmacy recommendation * Continue daily INR labs Plan Patient is a DNRCC Urinary Catheter Management Urinary Catheter Management Straight: Cath placed during this visit: yes Urethral indwelling: No Insertion date: 11/13/23
--- NOTE | 2023-11-17 14:43 | SWNOTE1 ---
Pt did fail his swallow eval. SW to speak with family with nurse practitioner in regards to next options.
--- NOTE | 2023-11-17 15:15 | CM.NOTE ---
2nd Notice of Important Message From Medicare discussed with pt, , and son. They deny any questions or concerns.
[2023-11-18] VITALS (8 sets, daily range): BP systolic 136–164; BP diastolic 75–82; PULSE 81–91; RESP 16–20; TEMP 36.4–36.7; O2SAT 90–96
--- NOTE | 2023-11-18 04:00 | XR_ITS ---
The [address] [address] Patient Name: NABIL BRASWELL MRN: [id number] date: 1940 Sex: M Assigned Patient Location: [place] Current Patient Location: [place] Accession/Order Number: [id number] Exam Date: 11/18/2023 06:10 Report Date: 11/18/2023 06:41 At the request of: SEAN SCOTT Procedure: XR chest 1V EXAMINATION: XR chest 1V HISTORY: SOB, possible aspiration event COMPARISON: XR chest 11/15/2023 FINDINGS: LUNGS: Mild opacities and stranding within right lung base. VASCULATURE: No increased pulmonary vasculature. PLEURA: Small right pleural effusion. CARDIAC: Cardiomegaly. MEDIASTINUM: No visible mass or adenopathy. BONES: No fracture or visible bone lesion. OTHER: Negative. XR/XR chest 1V IMPRESSION: 1. Slightly better lung expansion with mild improvement in right basilar infiltrates versus atelectasis. 2. Small right pleural effusion, slightly improved. 3. Stable cardiomegaly. Electronically authenticated by: HUSSAIN ARVIZU Date: 11/18/2023 06:41
--- NOTE | 2023-11-18 06:47 | PC.NURSE ---
RN rounded on patient. pt yelling, I can't find the pill. Rn asked patient what pill he was trying to find he stated, my mom told me to take a pill and I can't find it.
--- NOTE | 2023-11-18 07:00 | CT_ITS ---
The [address] [address] Patient Name: NABIL BRASWELL MRN: [id number] date: 1940 Sex: M Assigned Patient Location: MS Current Patient Location: MS Accession/Order Number: [id number] Exam Date: 11/18/2023 08:00 Report Date: 11/18/2023 08:33 At the request of: SEAN SCOTT Procedure: CT head/brain wo con EXAM: CT head/brain wo con CLINICAL INDICATION: Acute swallowing difficulty, r/o CVA COMPARISON: None TECHNIQUE: Axial CT images of the brain were obtained without contrast. Coronal and sagittal reformats were obtained. Dose reduction techniques were achieved by using automated exposure control and/or adjustment of mA and/or kV according to patient size and/or use of iterative reconstruction technique. FINDINGS: No intracranial hemorrhage, extra-axial fluid collection, hydrocephalus, midline shift, or acute large vessel territory infarction. No other mass effect. Faint patchy periventricular and subcortical hypoattenuation is likely on the basis of chronic microvascular angiopathic changes. Moderate to advanced symmetric global volume loss without lobar predominance. Commensurate enlargement of the ventricular system. Basal cisterns are patent. No calvarial fracture. Normal soft tissues. Paranasal sinuses and mastoid air cells are well-aerated. CT/CT head/brain wo con IMPRESSION: No acute intracranial process. Electronically authenticated by: GONZALO PHELPS Date: 11/18/2023 08:33
--- NOTE | 2023-11-18 08:02 | SWNOTE1 ---
Documentation from previous day, 11-17-23 SW and nurse practitioner met with pt, pt's , and both of pt's sons in room. Pt failed swallow evaluation. Options were given to family, NG tube, PEG tube, PPN/TPN? Family will discuss and a decision will be made tomorrow (11/18/23). Pt's son, Ed, voiced his decision would be to place NG tube for a few days and see if that works and continue with swallowing exercises. Pt will be seeing speech therapy again today and then will decide.
--- NOTE | 2023-11-18 08:10 | SWNOTE1 ---
ROBINSON spoke with Cathleen, speech therapist, she will be back over this morning after her meeting at 10:00. There will not be another speech/swallow eval today, she is coming back to see pt, but not swallow eval.
[2023-11-18] MEDS: FUROSEMIDE 20 MG/2 ML VIAL IVP ×2 (09:13→21:53)
--- NOTE | 2023-11-18 09:24 | MR_ITS ---
The [address] [address] Patient Name: NABIL BRASWELL MRN: [id number] date: 1940 Sex: M Assigned Patient Location: MS Current Patient Location: MS Accession/Order Number: [id number] Exam Date: 11/18/2023 11:55 Report Date: 11/18/2023 13:21 At the request of: SEAN SCOTT Procedure: MR head/brain wo con EXAM: MR head/brain wo con CLINICAL INDICATION: r/o CVA/dysphagia COMPARISON: CT head 11/18/2023 TECHNIQUE/PROTOCOL: Standard noncontrast protocol brain MRI performed (Sagittal T1 with axial T1, T2, GRE, FLAIR, and diffusion-weighted imaging). FINDINGS: No restricted diffusion, extra-axial fluid collection, hydrocephalus, midline shift, or other mass effect. Intracranial flow voids are maintained. Patchy hyperintense T2/FLAIR periventricular and subcortical foci are likely on the basis of chronic microvascular angiopathic changes. Moderate to advanced symmetric global volume loss without lobar predominance. Commensurate ventricular system caliber enlargement. Normal marrow signal. No soft tissue abnormalities. Paranasal sinuses and mastoid air cells are well-aerated. MR/MR head/brain wo con IMPRESSION: No acute intracranial process or recent (acute/subacute) infarction. Electronically authenticated by: GONZALO PHELPS Date: 11/18/2023 13:21
[2023-11-18 09:27] LABS: Basophils Percent Auto 0.2 % (0.2-2.0); Eosinophils Absolute Auto 0.1 10^3/uL (0.0-0.7); Eosinophils Percent Auto 0.6 % (0.9-7.0); Hematocrit 42.4 % (42.0-54.0); Hemoglobin 13.6 g/dL (14.0-18.0); Immature Granulocytes Abs Auto 0.02 10^3/uL (0.00-0.03); Immature Granulocytes Pct Auto 0.2 % (0.0-0.5); Lymphocytes Absolute Auto 0.5 10^3/uL (1.2-3.8); Lymphocytes Percent Auto 5.8 % (20.5-60.0); Mean Corpuscular HGB Conc 32.1 g/dL (29.9-35.2); Mean Corpuscular Hemoglobin 30.6 pg (25.9-34.0); Mean Corpuscular Volume 95.3 fL (80.0-94.0); Mean Platelet Volume 11.1 fL (9.5-13.5); Monocytes Absolute Auto 0.5 10^3/uL (0.3-0.8); Monocytes Percent Auto 5.8 % (1.7-12.0); Neutrophils Absolute Auto 7.2 10^3/uL (1.4-6.5); Neutrophils Percent Auto 87.4 % (43.0-75.0); Platelet Count 151 10^3/uL (150-450); Red Blood Count 4.45 10^6/uL (4.70-6.10); Red Cell Distribution Width 15.9 % (11.0-15.0); White Blood Count 8.2 10^3/uL (4.0-11.0)
--- NOTE | 2023-11-18 09:27 | P.PN_ITS ---
<Statement entered by Jadyn Briceno, DO - 11/18/23 14:35> This documentation has been reviewed and approved.I have also seen and examined patient and agree with the above assessment and plan. NG today, plan for PEG when INR <1.5 Progress Note: Subjective Subjective Interval history: 11/18/23 0915 The patient is resting in bed during my exam. He is more awake and alert today but remains generally weak and fatigued. He remembers our conversations from yesterday and confirms that he wants either an NGT or PEG tube placed to allow for adequate nutrition, as his goal is to get stronger and return home in the near future. We are awaiting reevaluation by CATHOLIC PRIEST today regarding his swallowing capacity. He was able to dry swallow during my exam today which is a slight improvement from yesterday. We will make further nutrition decisions after he is seen by the CATHOLIC PRIEST. A CT brain was obtained earlier this morning and the findings are unremarkable. We will obtain a brain MRI to definitively r/o a small CVA as the etiology of his abrupt aphagia. If this is also negative then we suspect Parkinsons exacerbation in setting of other acute illness as the source of this issue. ADDENDUM 1000: The pt was seen by CATHOLIC PRIEST at the bedside. He is able to initiate a swallow a little bit today, but this is still inadequate to safely swallow any food or liquids per CATHOLIC PRIEST. He is to remain completely NPO. We discussed this with the pt and his son. Both are in agreement that placing a PEG tube is desired. Gen surgery, Dr Orourke, has been consulted to evaluate for PEG tube placement. Unfortunately the pt's INR abruptly jumped to 4.0 today despite not receiving any coumadin dosing yesterday d/t his NPO status. Dr Almanzar defers any surgical intervention today d/t the INR even if reversal with FFP was attempted. We are holding any further warfarin doses for now and will monitor the INR daily. We will insert an NG tube later today to allow for tube feedings through the weekend until a PEG tube can be placed on Tuesday. FFP transfusions could be considered this weekend if the INR is not dropping fast enough to allow for surgical intervention on Tuesday. Disposition: Likely d/c to a local SNF early next week after PEG tube placement. Exam Narrative Exam Narrative: The pt is more awake today, but remains generally weak and lethargic. He is alert and oriented x 3 and capable of making his own medical decisions. Constitutional Vital Signs, click to edit/add: Last Vital Signs Temp 97.6 F 11/18/23 05:12 Pulse 89 11/18/23 05:12 Resp 18 11/18/23 05:12 BP 164/77 H 11/18/23 05:12 Pulse Ox 96 11/18/23 05:12 O2 Del Method Room Air 11/18/23 05:12 O2 Flow Rate 2 11/15/23 04:00 Common normals: no apparent distress, oriented x3 and alert Orientation/consciousness: Yes awake Other: Pt able to produce a swallowing motion on exam (dry swallow). HENMT Common normals: normocephalic, head/scalp atraumatic and hearing grossly normal bilaterally Head and scalp: normocephalic, atraumatic and other (Skin cancer lesions to the R cheeck and crown of the head noted) Eye Common normals: PERRL, EOMs intact bilaterally, conjunctivae normal and no scleral icterus General eye: normal appearance of both eyes Conjunctiva: conjunctiva(e) normal Pupil: PERRL Chest Common normals: inspection of chest normal Chest: symmetrical chest wall rise Respiratory Common normals: normal respiratory effort, no use of accessory muscles and clear to auscultation bilaterally Effort & inspection: able to speak in complete sentences Auscultation: clear to auscultation bilaterally and diminished lung sounds (BLL, L>R) Cardio Common normals: regular rate, regular rhythm, S1 normal heart sound, S2 normal heart sound, no murmurs and peripheral pulses 2+ throughout Rate: regular rate Rhythm: regular rhythm and abnormal rhythm irregularly irregular Heart sounds: S1 normal, S2 normal and murmur (HSM 3/6) Peripheral pulses: pulses 2+ throughout GI Common normals: Normal to inspection, nondistended, normoactive bowel sounds present, soft to palpation, non-tender and no hepatosplenomegaly Palpation: soft and no hepatosplenomegaly Bladder/kidney exam: bladder normal to palpation Extremity Common normals: normal to inspection and no calf tenderness General: no clubbing, no cyanosis and no edema Neuro Common normals: oriented x3, CN's II-XII intact bilaterally, moves all extremities, no focal motor deficits and no sensory deficits noted Sensorium/orientation: awake and alert Psych Common normals: mental status grossly normal Progress Note: Objective Labs Labs: Laboratory Tests CBC 11/18/23 09:17 WBC 8.2 RBC 4.45 L Hgb 13.6 L Hct 42.4 MCV 95.3 H MCH 30.6 MCHC 32.1 RDW 15.9 H Plt Count 151 MPV 11.1 Neut % (Auto) 87.4 H Laboratory Tests CMP 11/18/23 09:17 Sodium 146 H Potassium 3.5 Chloride 107 Carbon Dioxide 27.1 Anion Gap 15.4 BUN 29.0 H Creatinine 0.92 Est GFR ( Amer) >60 Est GFR (Non-Af Amer) >60 BUN/Creatinine Ratio 31.5 Glucose 63 L Calcium 8.4 L Total Bilirubin 1.1 H AST 25 ALT 48 Alkaline Phosphatase 79 Total Protein 6.4 Albumin 2.7 L Globulin 3.7 Albumin/Globulin Ratio 0.7 Laboratory Tests 11/18/23 09:13 PT 40.8 H* INR 4.17 H* Laboratory Tests 11/18/23 09:17 NT-Pro-B Natriuret Pep 89848.0 H* Imaging Chest x-ray: Attestation: I have reviewed the pertinent imaging results. Radiologist's impression: IMPRESSION: 1. Slightly better lung expansion with mild improvement in right basilar infiltrates versus atelectasis. 2. Small right pleural effusion, slightly improved. 3. Stable cardiomegaly. CT scan - head: Attestation: I have reviewed the pertinent imaging results. Radiologist's impression: IMPRESSION: No acute intracranial process. Progress Note: A&P Assessment and Plan (1) Acute exacerbation of CHF (congestive heart failure): Assessment and Plan: ACUTE * Stable, but at high risk for decompensation * Hypoxia/SOB remain resolved * ProBNP continues trending back up today - 13,108, up from 11,658 yesterday * Increase IVP Lasix to 20 mg mg BID - gentle dextrose IVF started today d/t hypoglycemia until TFs can be initiated, then D/C * Avoid over-diuresis/hypotension in setting of severe aortic stenosis * CXR w/ improved pleural effusions despite worsening BNP * Continue strict I&O's and fluid restriction to 1.5 L. 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 * Continue home Entresto and lasix for medical management * Pt and family defer any further cardiac work up or surgical intervention for aortic valve repair * Disposition: D/C to local SNF for rehab strengthening (preferred) vs possible hospice admission pending clinical course in the next 72hrs Qualifiers: Heart failure type: unspecified Qualified Code(s): I50.9 - Heart failure, unspecified (2) Severe aortic stenosis: Assessment and Plan: ACUTE * Acute finding on 2D Echo during this admission - resulted 11/16/23 * Family defers further work up or pursuing possible AVR * They are aware that this will likely be life threatening * DNR CC status confirmed - focus on comfort * Consider possible hospice admission pending clinical course. Family prefers to attempt rehab strengthening at SNF first, if pt is able to progress. (3) Aphasia: Assessment and Plan: ACUTE * Abrupt onset of aphasia on 11/17/23 with no other focal deficits noted (No unilateral weakness, ataxia, vision changes, dysarthria, etc) * Pt appeared unable to initiate a swallowing motion but lips and tongue movement remain intact * R/o CVA as etiology, but clinically suspect exacerbation of Parkinson's disease in setting of acute illness * CT brain neg * MRI brain today. Consult Telestroke if positive * Failed swallow eval by CATHOLIC PRIEST on 11/17 and 11/18/23 * NPO status, no PO meds * Proscar and tamsulosin d/c'd as they cannot be administered via NG/PEG * Toprol XL converted to Lopressor to allow for NG/PEG administration * Pt and family request PEG tube placement so that pt can continue to build strength * Gen surgery c/s - we appreciate Dr Orourke' assistance with this pt's care * Defer OR until Tuesday (11/21/23) to allow the INR to drift down (currently 4.17) * Place NGT today pending PEG placement * Dietary recommendations for TF: * Jevity 1.5 formula * Initiate at 10ml/hr continuously * Increase gradually to goal of 60 ml/hr * 125 ml free water flushes q6h (4) Elevated INR: Assessment and Plan: CHRONIC * Recurrent despite only two doses of 5 mg warfarin (11/15 & 11/16) * No warfarin given on 11/17/23 d/t aphasia * INR 4.17 today * No evidence of acute bleeding * Warfarin on hold pending PEG tube placement * INR goal less than 1.5 prior to PEG * Consider FFP transfusions to allow for PEG placement on 11/21/23 if INR does not drop adequately over the next couple of days * Continue daily INR labs (5) Hypoxia: Assessment and Plan: ACUTE * Acute respiratory failure on admission - Resolved * 2/2 exacerbation of CHF/pleural effusion * Remains stable on RA (6) Pulmonary edema: Assessment and Plan: ACUTE * Resolving * See CHF exacerbation Qualifiers: Chronicity: acute Qualified Code(s): J81.0 - Acute pulmonary edema (7) HTN (hypertension): Assessment and Plan: CHRONIC * continue home medications, stable Qualifiers: Hypertension type: primary hypertension Qualified Code(s): I10 - Essential (primary) hypertension (8) 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 Pack ([facility]) q 3 weeks * Last treatment 11/03/23, Next scheduled tx 11/24/23 * Spoke with Dr Pack's nurse regarding possible delay of next treatment to allow for short term SNF rehab placement. OK per Dr Pack to delay treatment. He requests their office be contacted once the pt is able/willing to resume treatments at the clinic * Lesions on L chest wall and L arm draining. Wound care nurse consult (9) BPH (benign prostatic hyperplasia): Assessment and Plan: CHRONIC * Proscar and Tamsulosin held as meds cannot be administered via NG/PEG per pharmacy * Monitor closely for urinary retention Plan Patient is a DNC Urinary Catheter Management Urinary Catheter Management Straight: Cath placed during this visit: yes Urethral indwelling: No Insertion date: 11/13/23
[2023-11-18 09:41] LABS: Alanine Aminotransferase 48 U/L (16-63); Albumin Globulin Ratio 0.7; Albumin Level 2.7 g/dL (3.4-5.0); Alkaline Phosphatase 79 U/L (46-116); Anion Gap 15.4; Aspartate Amino Transferase 25 U/L (15-37); BUN Creatinine Ratio 31.5; Bilirubin Total 1.1 mg/dL (0.2-1.0); Calcium 8.4 mg/dL (8.5-10.1); Carbon Dioxide 27.1 mmol/L (21.0-32.0); Chloride 107 mmol/L (98-107); Estimated GFR (African America >60 (>=60); Estimated GFR (Non-African Ame >60 (>=60); Globulin 3.7 g/dL; Glucose 63 mg/dL (74-106); Potassium 3.5 mmol/L (3.5-5.1); Sodium 146 mmol/L (136-145); Total Protein 6.4 g/dL (6.4-8.2)
[2023-11-18 10:04] LABS: INR 4.17; Prothrombin Time 40.8 sec (9.0-11.6)
--- NOTE | 2023-11-18 11:24 | PM.GSCN ---
History of Present Illness Consult details Consult date: 11/18/23 Reason for consult: other (PEG tube requested due to failed swallowing study) Requesting physician: Jadyn Briceno Narrative: Mike Rico is an 83-year-old male who failed a swallowing study and I been requested to place a PEG tube for nutritional purposes. At the time I went to examine the patient he was having a nasogastric tube placed by the nursing staff. His family including his and two sons were in the hallway and we spoke about the procedure. He is currently anticoagulated with an INR of 4.2 due to being on warfarin. Review of Systems ROS Status of ROS 10 or more systems reviewed and unremarkable except as noted in history and below [facility] Medical History (Updated 11/18/23 @ 14:31 by Carmelina Bailey NP) BPH (benign prostatic hyperplasia) ?N40.0 - Benign prostatic hyperplasia without lower urinary tract symptoms (ICD-10) HTN (hypertension) ?I10 - Essential (primary) hypertension (ICD-10) Thyroid activity decreased ?E03.9 - Hypothyroidism, unspecified (ICD-10) Meds Home Medications and Allergies Home Medications Medication Instructions Recorded Confirmed Type carbidopa 25 mg-levodopa 100 mg 1 tab PO TID 11/13/23 11/13/23 History tablet finasteride 5 mg tablet 5 mg PO DAILY 11/13/23 11/13/23 History levothyroxine 50 mcg tablet 50 mcg PO DAILY 11/13/23 11/13/23 History metoprolol succinate 25 mg 25 mg PO Q12H 11/13/23 11/13/23 History tablet,extended release 24 hr mirtazapine 15 mg tablet 15 mg PO .QHS 11/13/23 11/13/23 History potassium chloride 20 mEq 20 meq PO DAILY 11/13/23 11/13/23 History tablet,extended release(part/cryst) rosuvastatin 10 mg tablet 10 mg PO DAILY 11/13/23 11/13/23 History sacubitril 49 mg-valsartan 51 mg 1 tab PO BID 11/13/23 11/13/23 History tablet (Entresto) tamsulosin 0.4 mg capsule 0.4 mg PO Q24H 11/13/23 11/13/23 History warfarin 5 mg tablet 5 mg PO DAILY 11/13/23 11/13/23 History Allergies Allergy/AdvReac Type Severity Reaction Status Date / Time No Known Drug Allergies Allergy Verified 11/13/23 01:24 Exam Constitutional Vital Signs, click to edit/add: Last Vital Signs Temp 98.1 F 11/18/23 08:00 Pulse 91 H 11/18/23 08:00 Resp 16 11/18/23 08:00 BP 158/82 H 11/18/23 08:00 Pulse Ox 92 L 11/18/23 11:10 O2 Del Method Room Air 11/18/23 11:10 O2 Flow Rate 2 11/15/23 04:00 Documenting provider has reviewed patient's vital signs: yes Common normals: no apparent distress, average body habitus and oriented x3 Nutritional appearance: thin and underweight Cardio Common normals: regular rate and regular rhythm GI Common normals: Normal to inspection, nondistended, normoactive bowel sounds present, soft to palpation and non-tender Neuro Common normals: oriented x3, CN's II-XII intact bilaterally and moves all extremities Results Labs Labs: Abnormal lab results 11/18/23 11/18/23 Range/Units 09:13 09:17 RBC 4.45 L (4.70-6.10) 10^6/uL Hgb 13.6 L (14.0-18.0) g/dL MCV 95.3 H (80.0-94.0) fL RDW 15.9 H (11.0-15.0) % Neut % (Auto) 87.4 H (43.0-75.0) % Lymph % (Auto) 5.8 L (20.5-60.0) % Eos % (Auto) 0.6 L (0.9-7.0) % Neut # (Auto) 7.2 H (1.4-6.5) 10^3/uL Lymph # (Auto) 0.5 L (1.2-3.8) 10^3/uL PT 40.8 H* (9.0-11.6) sec INR 4.17 H* Sodium 146 H (136-145) mmol/L BUN 29.0 H (7.0-18.0) mg/dL Glucose 63 L (74-106) mg/dL Calcium 8.4 L (8.5-10.1) mg/dL Total Bilirubin 1.1 H (0.2-1.0) mg/dL NT-Pro-B Natriuret Pep 62355.0 H* (<=1800.0) pg/mL Albumin 2.7 L (3.4-5.0) g/dL Diabetes panel 11/18/23 Range/Units 09:17 Sodium 146 H (136-145) mmol/L Potassium 3.5 (3.5-5.1) mmol/L Chloride 107 (98-107) mmol/L Carbon Dioxide 27.1 (21.0-32.0) mmol/L BUN 29.0 H (7.0-18.0) mg/dL Creatinine 0.92 (0.70-1.30) mg/dL Glucose 63 L (74-106) mg/dL Calcium 8.4 L (8.5-10.1) mg/dL AST 25 (15-37) U/L ALT 48 (16-63) U/L Alkaline Phosphatase 79 (46-116) U/L Total Protein 6.4 (6.4-8.2) g/dL Albumin 2.7 L (3.4-5.0) g/dL Calcium panel 11/18/23 Range/Units 09:17 Calcium 8.4 L (8.5-10.1) mg/dL Albumin 2.7 L (3.4-5.0) g/dL Pituitary panel 11/18/23 Range/Units 09:17 Sodium 146 H (136-145) mmol/L Potassium 3.5 (3.5-5.1) mmol/L Chloride 107 (98-107) mmol/L Carbon Dioxide 27.1 (21.0-32.0) mmol/L BUN 29.0 H (7.0-18.0) mg/dL Creatinine 0.92 (0.70-1.30) mg/dL Glucose 63 L (74-106) mg/dL Calcium 8.4 L (8.5-10.1) mg/dL Adrenal panel 11/18/23 Range/Units 09:17 Sodium 146 H (136-145) mmol/L Potassium 3.5 (3.5-5.1) mmol/L Chloride 107 (98-107) mmol/L Carbon Dioxide 27.1 (21.0-32.0) mmol/L BUN 29.0 H (7.0-18.0) mg/dL Creatinine 0.92 (0.70-1.30) mg/dL Glucose 63 L (74-106) mg/dL Calcium 8.4 L (8.5-10.1) mg/dL Total Bilirubin 1.1 H (0.2-1.0) mg/dL AST 25 (15-37) U/L ALT 48 (16-63) U/L Alkaline Phosphatase 79 (46-116) U/L Total Protein 6.4 (6.4-8.2) g/dL Albumin 2.7 L (3.4-5.0) g/dL All other labs normal. Assessment and Plan Assessment and Plan (1) Acute exacerbation of CHF (congestive heart failure): Qualifiers: Heart failure type: unspecified Qualified Code(s): I50.9 - Heart failure, unspecified (2) Severe aortic stenosis: (3) Hypoxia: (4) Pulmonary edema: Qualifiers: Chronicity: acute Qualified Code(s): J81.0 - Acute pulmonary edema (5) Malignant neoplasm skin of face: (6) Elevated INR: (7) Malnutrition of moderate degree: Plan I spoke with the nurse practitioner taking care of the patient and recommended that the INR needs to be down below 1.5 before EGD with PEG tube would be performed due to increased risk of bleeding. It is not an emergency therefore FFP is not indicated nor is [facility]. I would recommend giving oral vitamin K to try and get the INR to come down. Otherwise they would need an EGD with PEG tube placement for nutritional purposes. Risks benefits alternatives to that procedure could include infection bleeding injury to other organs or . If INR is not better by Tuesday then the other on-call surgeon could take care of it on Tuesday.
--- NOTE | 2023-11-18 11:38 | CM.NOTE ---
Rounds made with Dr. Briceno. Dr. Briceno discussed with Mr. Rico regarding results of Swallow Evaluation and next steps. Mr. Rico would like nutritional support. Awaiting family and Surgery input at this time.
--- NOTE | 2023-11-18 13:10 | DIETREC ---
TF recommendation: Jevity 1.5 formula @ 60 mL/hour continuous (GOAL RATE). Begin @ 10 mL/hour and increase gradually, 10 mL/hour q4 hours as tolerated to goal rate. Flush tube w/125 mL H20 q6 hours.
[2023-11-18] MEDS: DEXTROSE 5 %-0.45 % SOD CHLORD 1,000 ML 50 ML IV (13:29)
--- NOTE | 2023-11-18 13:42 | SWNOTE1 ---
Pt is having an NG placed at this time. SW to re-evaluate Tuesday.
[2023-11-18] MEDS: CARBIDOPA/LEVODOPA 25 MG-100 MG TABLET 1 TAB PO ×2 (14:28→21:53)
[2023-11-18] MEDS: [UNRECOGNIZED DRUG - REMARK] 125 EACH MISC ×2 (14:28→21:53)
[2023-11-18] MEDS: JEVITY 1.5 CAL 237 ML LIQUID FEED TUBE (14:30)
--- NOTE | 2023-11-18 15:01 | PT.DAILY ---
Physical Therapy Daily Note PT Daily Note/Assess Start: 11/15/23 11:22 Freq: Status: Active Protocol: Document 11/18/23 14:49 [id number] (Rec: 11/18/23 15:01 [id number]) Physical Therapy Daily Note/Assessment Time In/Time Out Time In 14:02 Time Out 14:16 Subjective Subjective Patient lethargic, receive MRI early today, NG tube now present. and 2 sons present during treatment. Patient states he is doing okay but tired. Therapeutic Activity Time Therapeutic Activity Minutes (minutes) 14 Therapeutic Activity Units 1 Therapeutic Activity Treatment Bed Mobility Ability Moderate Assist,Maximum Assist ,1 Person Assist Therapeutic Activity Comments Patient requires MOD to MAX A for functional movement with delays in motor planning to perform tasks. Bed mobility is MOD A +1 with LE management to R side of bed, MAX A with upper body into sitting. Patient sat EOB with MOD to MIN A +1, MAX for placement of hands on bed for stability and balance. Patient unable to sit without MIN to MOD A. Patient is able to lift L LE up onto bed with cued without A, however requires MIN A for R LE. Patient initiates LE movements when cued to position in bed. MAX +2 to slide patient up towards HOB with nursing. Call olivera placed by patient. Total Physical Therapy Time Total Therapy Minutes 14 Total Physical Therapy Units 1 Summary Daily Note Summary Patient demonstrates willingness to participate with physical therapy. Does demonstrated delayed motor planning with functional movement. Initiates movements for bed mobility but requires MOD to MAX A to complete. Lethargic throughout treatment . Patient would benefit from continued PT to address functional deficits.
--- NOTE | 2023-11-18 15:23 | SWNOTE1 ---
SW did update [place]. SW sent physician note from yesterday and today along with dietary, speech eval, lab work, and diagnostic imaging.
[2023-11-18] MEDS: METOPROLOL TARTRATE 25 MG TABLET PO (21:53)
[2023-11-18] MEDS: ATORVASTATIN CALCIUM 40 MG TABLET PO (21:53)
[2023-11-18] MEDS: SACUBITRIL/VALSARTAN 24 MG-26 MG TABLET 2 TAB PO (21:53)
[2023-11-18] MEDS: MIRTAZAPINE 15 MG TABLET PO (21:54)
[2023-11-19] MEDS: JEVITY 1.5 CAL 237 ML LIQUID FEED TUBE ×5 (01:09→18:16)
[2023-11-19] MEDS: [UNRECOGNIZED DRUG - REMARK] 125 EACH MISC ×3 (03:00→16:20)
[2023-11-19 05:19] VITALS: BP 132/72; PULSE 92; RESP 20; TEMP 36.6; O2SAT 92
[2023-11-19] MEDS: CARBIDOPA/LEVODOPA 25 MG-100 MG TABLET 1 TAB PO ×2 (05:54→13:53)
[2023-11-19 06:02] LABS: Basophils Percent Auto 0.2 % (0.2-2.0); Eosinophils Absolute Auto 0.1 10^3/uL (0.0-0.7); Eosinophils Percent Auto 0.9 % (0.9-7.0); Hematocrit 42.7 % (42.0-54.0); Hemoglobin 13.6 g/dL (14.0-18.0); Immature Granulocytes Abs Auto 0.03 10^3/uL (0.00-0.03); Immature Granulocytes Pct Auto 0.3 % (0.0-0.5); Lymphocytes Absolute Auto 0.5 10^3/uL (1.2-3.8); Lymphocytes Percent Auto 4.8 % (20.5-60.0); Mean Corpuscular HGB Conc 31.9 g/dL (29.9-35.2); Mean Corpuscular Volume 94.1 fL (80.0-94.0); Mean Platelet Volume 11.8 fL (9.5-13.5); Monocytes Absolute Auto 0.5 10^3/uL (0.3-0.8); Monocytes Percent Auto 5.4 % (1.7-12.0); Neutrophils Absolute Auto 8.8 10^3/uL (1.4-6.5); Neutrophils Percent Auto 88.4 % (43.0-75.0); Platelet Count 175 10^3/uL (150-450); Red Blood Count 4.54 10^6/uL (4.70-6.10); Red Cell Distribution Width 15.6 % (11.0-15.0)
[2023-11-19 06:42] LABS: Sodium 147 mmol/L (136-145)
[2023-11-19 06:43] LABS: Anion Gap 11.4; BUN Creatinine Ratio 28.4; Calcium 8.5 mg/dL (8.5-10.1); Carbon Dioxide 32.7 mmol/L (21.0-32.0); Chloride 106 mmol/L (98-107); Estimated GFR (African America >60 (>=60); Estimated GFR (Non-African Ame >60 (>=60); Glucose 85 mg/dL (74-106); Potassium 3.1 mmol/L (3.5-5.1)
[2023-11-19 06:44] LABS: Alanine Aminotransferase 20 U/L (16-63); Albumin Globulin Ratio 0.7; Albumin Level 2.7 g/dL (3.4-5.0); Alkaline Phosphatase 78 U/L (46-116); Aspartate Amino Transferase 25 U/L (15-37); Globulin 3.9 g/dL; Total Protein 6.6 g/dL (6.4-8.2)
[2023-11-19 06:59] LABS: Prothrombin Time 43.1 sec (9.0-11.6)
[2023-11-19 07:00] LABS: INR 4.42
[2023-11-19] MEDS: PHYTONADIONE (VIT K1) 10 MG/ML AMPUL 5 MG PO (08:33)
[2023-11-19] MEDS: LEVOTHYROXINE SODIUM 25 MCG TABLET 50 MCG PO (08:34)
[2023-11-19] MEDS: SACUBITRIL/VALSARTAN 24 MG-26 MG TABLET 2 TAB PO (08:34)
[2023-11-19] MEDS: FUROSEMIDE 20 MG/2 ML VIAL IVP ×2 (08:34→22:22)
[2023-11-19] MEDS: METOPROLOL TARTRATE 25 MG TABLET PO (08:34)
[2023-11-19] MEDS: POTASSIUM CHLORIDE 10 MEQ ER TABLET 20 MEQ PO (08:34)
--- NOTE | 2023-11-19 09:28 | PT.DAILY ---
Physical Therapy Daily Note PT Daily Note/Assess Start: 11/15/23 11:22 Freq: Status: Active Protocol: Document 11/19/23 09:22 [id number] (Rec: 11/19/23 09:28 [id number]) Physical Therapy Daily Note/Assessment Time In/Time Out Time In 07:55 Time Out 08:10 Pain In Pain Level 9 Pain Out Pain Level 9 Subjective Subjective Patient states his throat is very sore at 9/10. States he would like to participate with PT this date. Patient receiving nutrition via NG tube. Therapeutic Exercise Time Therapeutic Exercise Minutes (minutes) 15 Therapeutic Exercise Units 1 Therapeutic Exercise Treatment Therapeutic Exercise Treatment Supine AROM to AAROM to MAURO LE for ankle pumps, heel slides, SAQ's, hip ABD, quad and glut sets. Patient demonstrates motor planning delays in carrying out requested ther ex, but able to perform. Patient verbalizes R knee soreness with AAROM heel slides. Decreased amplitude of motion and patient verbalizes improved tolerance. Total Physical Therapy Time Total Therapy Minutes 15 Total Physical Therapy Units 1 Summary Daily Note Summary Patient requests to not sit EOB this date due to fatigue. Although patient continues to demonstrates delay in motor movements of MAURO LE, he is initiating and moving through available range with improved ease as compared to last visit . Patient is more alert and verbalizing more.
--- NOTE | 2023-11-19 10:00 | P.PN_ITS ---
Progress Note: Subjective Subjective Interval history: 11/18/23 0915 The patient is resting in bed during my exam. He is more awake and alert today but remains generally weak and fatigued. He remembers our conversations from yesterday and confirms that he wants either an NGT or PEG tube placed to allow for adequate nutrition, as his goal is to get stronger and return home in the near future. We are awaiting reevaluation by CLEARANCE COORDINATOR today regarding his swallowing capacity. He was able to dry swallow during my exam today which is a slight improvement from yesterday. We will make further nutrition decisions after he is seen by the CLEARANCE COORDINATOR. A CT brain was obtained earlier this morning and the findings are unremarkable. We will obtain a brain MRI to definitively r/o a small CVA as the etiology of his abrupt aphagia. If this is also negative then we suspect Parkinsons exacerbation in setting of other acute illness as the source of this issue. ADDENDUM 1000: The pt was seen by CLEARANCE COORDINATOR at the bedside. He is able to initiate a swallow a little bit today, but this is still inadequate to safely swallow any food or liquids per CLEARANCE COORDINATOR. He is to remain completely NPO. We discussed this with the pt and his son. Both are in agreement that placing a PEG tube is desired. Gen surgery, Dr Orourke, has been consulted to evaluate for PEG tube placement. Unfortunately the pt's INR abruptly jumped to 4.0 today despite not receiving any coumadin dosing yesterday d/t his NPO status. Dr Almanzar defers any surgical intervention today d/t the INR even if reversal with FFP was attempted. We are holding any further warfarin doses for now and will monitor the INR daily. We will insert an NG tube later today to allow for tube feedings through the weekend until a PEG tube can be placed on Tuesday. FFP transfusions could be considered this if the INR is not dropping fast enough to allow for surgical intervention on Tuesday. Disposition: Likely d/c to a local SNF early next week after PEG tube placement. Exam Constitutional Vital Signs, click to edit/add: Last Vital Signs Temp 97.9 F 11/19/23 05:19 Pulse 92 H 11/19/23 05:19 Resp 20 11/19/23 05:19 BP 132/72 11/19/23 05:19 Pulse Ox 92 L 11/19/23 05:19 O2 Del Method Room Air 11/19/23 05:19 O2 Flow Rate 2 11/15/23 04:00 Progress Note: Objective Labs Labs: Short CBC 11/19/23 Range/Units 04:21 WBC 10.0 (4.0-11.0) 10^3/uL Hgb 13.6 L (14.0-18.0) g/dL Hct 42.7 (42.0-54.0) % Plt Count 175 (150-450) 10^3/uL BMP 11/19/23 04:21 Sodium 147 H Potassium 3.1 L Chloride 106 Carbon Dioxide 32.7 H BUN 25.0 H Creatinine 0.88 Glucose 85 Calcium 8.5 Liver Function 11/19/23 Range/Units 04:21 Total Bilirubin 1.0 (0.2-1.0) mg/dL AST 25 (15-37) U/L ALT 20 (16-63) U/L Alkaline Phosphatase 78 (46-116) U/L Albumin 2.7 L (3.4-5.0) g/dL Progress Note: A&P Assessment and Plan (1) Acute exacerbation of CHF (congestive heart failure): Assessment and Plan: ACUTE * Stable, BNP Improved * home meds and watch fluids Qualifiers: Heart failure type: unspecified Qualified Code(s): I50.9 - Heart failure, unspecified (2) Severe aortic stenosis: Assessment and Plan: ACUTE * Cont treatmetn for heart failure (3) Hypoxia: Assessment and Plan: ACUTE * Acute respiratory failure on admission - Resolved * 2/2 exacerbation of CHF/pleural effusion * Remains stable on RA (4) Pulmonary edema: Assessment and Plan: ACUTE * Resolving * See CHF exacerbation Qualifiers: Chronicity: acute Qualified Code(s): J81.0 - Acute pulmonary edema (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 Pack ([facility]) q 3 weeks * Last treatment 11/03/23, Next scheduled tx 11/24/23 * Spoke with Dr Pack's nurse regarding possible delay of next treatment to allow for short term SNF rehab placement. OK per Dr Pack to delay treatment. He requests their office be contacted once the pt is able/willing to resume treatments at the clinic * Lesions on L chest wall and L arm draining. Wound care nurse consult (6) Elevated INR: Assessment and Plan: CHRONIC * Recurrent despite only two doses of 5 mg warfarin Elevated further today - give Vit K poer NG tube (7) Malnutrition of moderate degree: (8) Aphasia: Assessment and Plan: ACUTE * Abrupt onset of aphasia on 11/17/23 with no other focal deficits noted (No unila teral weakness, ataxia, vision changes, dysarthria, etc) * Pt appeared unable to initiate a swallowing motion but lips and tongue movement remain intact * R/o CVA as etiology, but clinically suspect exacerbation of Parkinson's disease in setting of acute illness * CT brain neg,m MR neg * MRI brain today. Consult Telestroke if positive * Failed swallow eval by CLEARANCE COORDINATOR on 11/17 and 11/18/23 * NPO status, no PO meds * Pt and family request PEG tube placement so that pt can continue to build strength * Gen surgery c/s - we appreciate Dr Orourke' assistance with this pt's care * Defer OR until Tuesday (11/21/23) to allow the INR to drift down (currently 4.17) * Place NGT today pending PEG placement * Dietary recommendations for TF: * Jevity 1.5 formula * Initiate at 10ml/hr continuously * Increase gradually to goal of 60 ml/hr * 125 ml free water flushes q6h (9) HTN (hypertension): Assessment and Plan: CHRONIC * continue home medications, stable Qualifiers: Hypertension type: primary hypertension Qualified Code(s): I10 - Essential (primary) hypertension (10) BPH (benign prostatic hyperplasia): Assessment and Plan: CHRONIC * Proscar and Tamsulosin held as meds cannot be administered via NG/PEG per pharmacy * Monitor closely for urinary retention Plan Iron Deficiency Anemia - monitor daily - no acute blood loss noted Hypernatremia - monitor daily - consider change in tube feeds Patient is a [facility] Urinary Catheter Management Urinary Catheter Management Straight: Cath placed during this visit: yes Urethral indwelling: No Insertion date: 11/13/23
[2023-11-19 13:37] VITALS: BP 121/79; PULSE 95; RESP 18; TEMP 37; O2SAT 93
[2023-11-19 17:59] LABS: Troponin I High Sensitivity 66.5 pg/mL (4.0-76.1)
[2023-11-19 18:01] LABS: Troponin I High Sensitivity 87.2 pg/mL (4.0-76.1)
[2023-11-19 20:28] VITALS: O2SAT 93
[2023-11-19 21:35] VITALS: BP 123/72; PULSE 93; RESP 18; TEMP 37.4; O2SAT 92
[2023-11-20] VITALS (11 sets, daily range): BP systolic 115–130; BP diastolic 63–83; PULSE 91–110; RESP 10–20; TEMP 36.5–37.2; O2SAT 76–99
[2023-11-20 05:44] LABS: Basophils Percent Auto 0.3 % (0.2-2.0); Eosinophils Absolute Auto 0.1 10^3/uL (0.0-0.7); Eosinophils Percent Auto 0.6 % (0.9-7.0); Hematocrit 47.8 % (42.0-54.0); Hemoglobin 15.3 g/dL (14.0-18.0); Immature Granulocytes Abs Auto 0.03 10^3/uL (0.00-0.03); Immature Granulocytes Pct Auto 0.3 % (0.0-0.5); Lymphocytes Absolute Auto 0.5 10^3/uL (1.2-3.8); Lymphocytes Percent Auto 4.7 % (20.5-60.0); Mean Corpuscular Hemoglobin 30.4 pg (25.9-34.0); Mean Platelet Volume 11.9 fL (9.5-13.5); Monocytes Absolute Auto 0.4 10^3/uL (0.3-0.8); Monocytes Percent Auto 4.4 % (1.7-12.0); Neutrophils Absolute Auto 9.1 10^3/uL (1.4-6.5); Neutrophils Percent Auto 89.7 % (43.0-75.0); Platelet Count 173 10^3/uL (150-450); Red Blood Count 5.03 10^6/uL (4.70-6.10); Red Cell Distribution Width 15.9 % (11.0-15.0); White Blood Count 10.1 10^3/uL (4.0-11.0)
[2023-11-20 06:14] LABS: INR 1.51; Prothrombin Time 15.6 sec (9.0-11.6)
[2023-11-20 06:39] LABS: Alanine Aminotransferase 44 U/L (16-63); Albumin Globulin Ratio 0.6; Albumin Level 2.9 g/dL (3.4-5.0); Alkaline Phosphatase 84 U/L (46-116); Anion Gap 10.1; Aspartate Amino Transferase 28 U/L (15-37); BUN Creatinine Ratio 31.6; Bilirubin Total 1.4 mg/dL (0.2-1.0); Calcium 8.7 mg/dL (8.5-10.1); Carbon Dioxide 36.8 mmol/L (21.0-32.0); Chloride 104 mmol/L (98-107); Estimated GFR (African America >60 (>=60); Estimated GFR (Non-African Ame >60 (>=60); Globulin 4.5 g/dL; Glucose 88 mg/dL (74-106); Sodium 148 mmol/L (136-145); Total Protein 7.4 g/dL (6.4-8.2)
[2023-11-20 06:50] LABS: Potassium 2.9 mmol/L (3.5-5.1)
--- NOTE | 2023-11-20 07:27 | XR_ITS ---
The [address] [address] Patient Name: NABIL BRASWELL MRN: [id number] date: 1940 Sex: M Assigned Patient Location: [place] Current Patient Location: [place] Accession/Order Number: [id number] Exam Date: 11/20/2023 07:58 Report Date: 11/20/2023 08:17 At the request of: ARTHUR CELESTE Procedure: XR chest 1V PROCEDURE: XR chest 1V DATE: 11/20/2023 7:58 AM EST COMPARISONS: 11/18/2023 CLINICAL INDICATION: 83 years Male [place] FINDINGS: The lungs are hypoaerated. The heart is moderately enlarged and stable. There is perihilar and infrahilar increased interstitial markings which may represent a combination of interstitial fluid due to congestion and atelectasis. There is no definite left pleural effusion. There is probable right pleural effusion. There is no evidence of pneumothorax. XR/XR chest 1V IMPRESSION: Chest is similar in appearance to previous exam 11/18/2023. Electronically authenticated by: ABDIAS CABRERA Date: 11/20/2023 08:17
[2023-11-20] MEDS: POTASSIUM CHLORIDE 40 MEQ in 0.9 % SODIUM CHLORIDE 250 ML 67.5 MEQ IV (09:27)
--- NOTE | 2023-11-20 09:56 | PM.PN ---
Progress Note: Subjective Subjective Interval history: Difficult to arouse this morning by staff. Upon my seeing the patient he is fairly awake. Answers questions does go back to sleep fairly quickly though. Question of periods of shallow breathing versus apnea. Patient is DNR CC. Exam Constitutional Vital Signs, click to edit/add: Last Vital Signs Temp 98.3 F 11/20/23 08:05 Pulse 98 H 11/20/23 08:05 Resp 10 L 11/20/23 08:05 BP 125/72 11/20/23 08:05 Pulse Ox 94 L 11/20/23 08:05 O2 Del Method Nasal Cannula 11/20/23 08:05 O2 Flow Rate 2 11/20/23 08:05 Documenting provider has reviewed patient's vital signs: yes Common normals: no apparent distress Chest Common normals: inspection of chest normal Respiratory Common normals: normal respiratory effort and no retractions Cardio Common normals: regular rate and regular rhythm GI Common normals: Normal to inspection, nondistended, normoactive bowel sounds present Extremity Common normals: abnormal to inspection (Edema bilateral lower extremities 2+) Neuro Common normals: CN's II-XII intact bilaterally and moves all extremities Sensorium/orientation: not awake and not alert Progress Note: Objective Labs Labs: Short CBC 11/20/23 Range/Units 04:50 WBC 10.1 (4.0-11.0) 10^3/uL Hgb 15.3 (14.0-18.0) g/dL Hct 47.8 (42.0-54.0) % Plt Count 173 (150-450) 10^3/uL BMP 11/20/23 04:50 Sodium 148 H Potassium 2.9 L* Chloride 104 Carbon Dioxide 36.8 H BUN 31.0 H Creatinine 0.98 Glucose 88 Calcium 8.7 Liver Function 11/20/23 Range/Units 04:50 Total Bilirubin 1.4 H (0.2-1.0) mg/dL AST 28 (15-37) U/L ALT 44 (16-63) U/L Alkaline Phosphatase 84 (46-116) U/L Albumin 2.9 L (3.4-5.0) g/dL Progress Note: A&P Assessment and Plan (1) Acute exacerbation of CHF (congestive heart failure): Assessment and Plan: BNP elevated further today. No significant diuresis the last couple days. Will change patient to Bumex drip. Qualifiers: Heart failure type: unspecified Qualified Code(s): I50.9 - Heart failure, unspecified (2) Severe aortic stenosis: Assessment and Plan: Monitor blood pressure closely. (3) Hypoxia: Assessment and Plan: Deteriorated this morning. With O2 saturations in the upper 70s. Bumex drip as outlined above (4) Pulmonary edema: Assessment and Plan: Bumex drip as outlined above for acute combined congestive heart failure Qualifiers: Chronicity: acute Qualified Code(s): J81.0 - Acute pulmonary edema (5) Malignant neoplasm skin of face: (6) Elevated INR: Assessment and Plan: Improved down to 1.5 INR today. There was after vitamin K yesterday. (7) Malnutrition of moderate degree: Assessment and Plan: Feedings to start tomorrow once PEG tube is placed (8) Aphasia: (9) HTN (hypertension): Assessment and Plan: Blood pressure stable, continue to monitor closely Qualifiers: Hypertension type: primary hypertension Qualified Code(s): I10 - Essential (primary) hypertension (10) BPH (benign prostatic hyperplasia): (11) Hypokalemia: (12) Iron deficiency anemia: Assessment and Plan: Monitor daily (13) Hyperbilirubinemia: Assessment and Plan: Likely secondary to passive congestion from the acute combined congestive heart failure Urinary Catheter Management Urinary Catheter Management Straight: Cath placed during this visit: yes Urethral indwelling: No Insertion date: 11/13/23
[2023-11-20] MEDS: BUMETANIDE 10 MG in 0.9 % SODIUM CHLORIDE 160 ML 20 MG IV (13:33)
[2023-11-20 14:37] LABS: Anion Gap 7.9; Calcium 8.2 mg/dL (8.5-10.1); Carbon Dioxide 36.8 mmol/L (21.0-32.0); Chloride 108 mmol/L (98-107); Estimated GFR (African America >60 (>=60); Estimated GFR (Non-African Ame >60 (>=60); Glucose 80 mg/dL (74-106); Potassium 3.7 mmol/L (3.5-5.1); Sodium 149 mmol/L (136-145)
--- NOTE | 2023-11-20 14:40 | PC.NURSE ---
Department Manager in with patient and son. patient has been having apnea at times. Son asked why patient was not getting his medications. Department Manager explained he was unable to swallow. Son then asked, could we try that tube again in his nose, that's how he was getting them yesterday. Department Manager informed son that patient denied tube placement multiple times. The son asked patient if he wanted the tube put in his stomach tomorrow. When I explained a tube would surgically be placed ini his stomach and he would receive his medications and food supplements that way. Patient stated to son, Absolultely not! Son asked if he was sure and he said No.
[2023-11-20 20:30] LABS: Anion Gap 9.6; BUN Creatinine Ratio 30.9; Calcium 8.5 mg/dL (8.5-10.1); Carbon Dioxide 37.6 mmol/L (21.0-32.0); Chloride 107 mmol/L (98-107); Estimated GFR (African America >60 (>=60); Estimated GFR (Non-African Ame >60 (>=60); Glucose 77 mg/dL (74-106); Potassium 3.2 mmol/L (3.5-5.1); Sodium 151 mmol/L (136-145)
[2023-11-21] VITALS (7 sets, daily range): BP systolic 101–125; BP diastolic 59–77; PULSE 73–105; RESP 14–18; TEMP 36.3–36.7; O2SAT 91–94
--- NOTE | 2023-11-21 04:35 | PC.NURSE ---
0435: Phleb came out of patients room stating he refused labs. RN went in to double check and ask patient one more time. Patient stated I'm through, I am done with it all. No blood .
--- NOTE | 2023-11-21 08:42 | PM.PN ---
Progress Note: Subjective Subjective Interval history: Difficult to arouse this morning by staff. Upon my seeing the patient he is fairly awake. Answers questions does go back to sleep fairly quickly though. Question of periods of shallow breathing versus apnea. Patient is DNR CC. Exam Constitutional Vital Signs, click to edit/add: Last Vital Signs Temp 97.3 F L 11/21/23 05:23 Pulse 105 H 11/21/23 07:52 Resp 18 11/21/23 07:52 BP 125/77 11/21/23 07:52 Pulse Ox 91 L 11/21/23 05:23 O2 Del Method Room Air 11/21/23 05:23 O2 Flow Rate 2 11/20/23 20:38 Progress Note: Objective Labs Labs: BMP 11/20/23 11/20/23 14:15 20:09 Sodium 149 H 151 H Potassium 3.7 3.2 L Chloride 108 H 107 Carbon Dioxide 36.8 H 37.6 H BUN 32.0 H 30.0 H Creatinine 0.94 0.97 Glucose 80 77 Calcium 8.2 L 8.5 Progress Note: A&P Assessment and Plan (1) Acute exacerbation of CHF (congestive heart failure): Qualifiers: Heart failure type: unspecified Qualified Code(s): I50.9 - Heart failure, unspecified (2) Severe aortic stenosis: (3) Hypoxia: (4) Pulmonary edema: Qualifiers: Chronicity: acute Qualified Code(s): J81.0 - Acute pulmonary edema (5) Malignant neoplasm skin of face: (6) Elevated INR: (7) Malnutrition of moderate degree: (8) Aphasia: (9) HTN (hypertension): Qualifiers: Hypertension type: primary hypertension Qualified Code(s): I10 - Essential (primary) hypertension (10) BPH (benign prostatic hyperplasia): (11) Hypokalemia: (12) Iron deficiency anemia: (13) Hyperbilirubinemia: Urinary Catheter Management Urinary Catheter Management Straight: Cath placed during this visit: yes Urethral indwelling: No Insertion date: 11/13/23
--- NOTE | 2023-11-21 09:29 | ECG_ITS ---
[facility] Test Date: 2023-11-21 Pat Name: NABIL BRASWELL Department: Room: 2161 Gender: Male [employer] Par[employer]: : 1940 Requested By: ARTHUR CELESTE Order Number: [id number] Reading MD: ARTHUR CELESTE Measurements Intervals [place] Rate: 119 P: MS: QRS: -6 QRSD: 98 T: 103 QT: 360 QTc: 507 Interpretive Statements ATRIAL FIBRILLATION WITH RAPID VENTRICULAR RESPONSE WITH ABERRANT CONDUCTION OR VENTRICULAR PREMATURE COMPLEXES VOLTAGE CRITERIA FOR LVH [MEETS CRITERIA IN ONE OF: R(aVL), S(V1), R(V5), R(V5/V6)+S(V1)] POSSIBLE SEPTAL MYOCARDIAL INFARCTION [30 ms Q WAVE IN V1/V2], OF INDETERMINATE AGE INFERIOR MYOCARDIAL INFARCTION [40+ ms Q WAVE AND/OR ST/T ABNORMALITY IN II/aVF], PROBABLY OLD Electronically Signed On 11-24-2023 5:28:23 EST by ARTHUR CELESTE
--- NOTE | 2023-11-21 09:45 | CM.NOTE ---
Rounds made with Dr. Garcia. Dr. Garcia spoke with Son, Mrs. Rico and Mr. Rico. After speaking with Mr. Rico with present he would now like the feeding tube. Dr. Garcia explains will need to allow lab to draw blood and will need to have the NG inserted again for medications. Mr. Rico states yes.
[2023-11-21 10:06] LABS: Basophils Percent Auto 0.4 % (0.2-2.0); Eosinophils Absolute Auto 0.1 10^3/uL (0.0-0.7); Eosinophils Percent Auto 1.1 % (0.9-7.0); Hematocrit 47.2 % (42.0-54.0); Hemoglobin 14.8 g/dL (14.0-18.0); Immature Granulocytes Abs Auto 0.02 10^3/uL (0.00-0.03); Immature Granulocytes Pct Auto 0.2 % (0.0-0.5); Lymphocytes Absolute Auto 0.6 10^3/uL (1.2-3.8); Lymphocytes Percent Auto 6.2 % (20.5-60.0); Mean Corpuscular HGB Conc 31.4 g/dL (29.9-35.2); Mean Corpuscular Hemoglobin 30.1 pg (25.9-34.0); Mean Corpuscular Volume 96.1 fL (80.0-94.0); Mean Platelet Volume 11.3 fL (9.5-13.5); Monocytes Absolute Auto 0.6 10^3/uL (0.3-0.8); Monocytes Percent Auto 5.8 % (1.7-12.0); Neutrophils Absolute Auto 8.3 10^3/uL (1.4-6.5); Neutrophils Percent Auto 86.3 % (43.0-75.0); Platelet Count 201 10^3/uL (150-450); Red Blood Count 4.91 10^6/uL (4.70-6.10); Red Cell Distribution Width 15.6 % (11.0-15.0); White Blood Count 9.6 10^3/uL (4.0-11.0)
[2023-11-21 10:13] LABS: INR 1.25; Prothrombin Time 13.1 sec (9.0-11.6)
[2023-11-21 10:27] LABS: Alanine Aminotransferase 34 U/L (16-63); Albumin Globulin Ratio 0.6; Albumin Level 2.8 g/dL (3.4-5.0); Alkaline Phosphatase 77 U/L (46-116); Aspartate Amino Transferase 20 U/L (15-37); BUN Creatinine Ratio 30.3; Bilirubin Total 1.3 mg/dL (0.2-1.0); Calcium 8.9 mg/dL (8.5-10.1); Carbon Dioxide 38.3 mmol/L (21.0-32.0); Chloride 104 mmol/L (98-107); Estimated GFR (African America >60 (>=60); Estimated GFR (Non-African Ame 59 (>=60); Globulin 4.4 g/dL; Glucose 80 mg/dL (74-106); Potassium 3.3 mmol/L (3.5-5.1); Sodium 150 mmol/L (136-145); Total Protein 7.2 g/dL (6.4-8.2)
[2023-11-21 10:35] LABS: Magnesium 1.5 mg/dL (1.8-2.4)
--- NOTE | 2023-11-21 11:11 | PC.NURSE ---
attempted ng tube placement x2. pt refusecd further attempts to place ng.
--- NOTE | 2023-11-21 12:53 | P.CACN_ITS ---
<Statement entered by Abraham Augustine MD - 11/22/23 17:42> This documentation has been reviewed and approved. History of Present Illness History of Present Illness Consult date: 11/21/23 Requesting physician: Rajesh Garcia Chief complaint: SOB Narrative: consult for risk stratification for PEG tube placement HPI per hospitalist patient is a 83-year-old male with past medical history of a malignant skin cancer of which she is undergoing chemotherapy, Parkinson's disease, benign prostatic hypertrophy, hypothyroidism, hypertension, hyperlipidemia, atrial fibrillation on Coumadin who presented to the Emergency Room with shortness of breath and hypoxia. Patient was found to have a pleural effusion seen on chest x-ray. Elevated INR of 5.9 and some cardiomegaly also seen on chest x-ray. Patient was started on Lasix and was admitted for acute congestive heart failure exacerbation. His is present on admission exam. He is receiving cemiplimab infusions weekly for chemotherapy by Dr. Pack. Last infusion was 1 week ago. she reports they told him to keep up on his fluids while on these infusions. He has never had any issues with fluid overload in the past. She does note that he has had an echocardiogram has been several years ago. He no longer sees a surg physician asst but his primary care physician has been taking care of all of his needs. She denies any lower extremity swelling and so does patient. No other issues or complaints at this time. Cardiology consulted for pre-op risk stratification for PEG tube placement PMH includes AF, BPH, HLD, parkinsons, BPH, HTN, hypothyroidism, HFrEF. no known hx of aortic stenosis no recent cardiac testing to compare current TTE and ECG ECG 11/21/23 AFib TTE 11/13/23 QUALITY: Technical quality was good. 68 , 185#, BSA 1.98 m2 LEFT VENTRICLE: Normal chamber size. Moderate concentric left ventricular hypertrophy. Systolic function is difficult to assess due to rhythm but appears moderately reduced. LV EF: Moderately reduced left ventricular ejection fraction, (35%). DIASTOLIC: Not adequately assessed due to heart rhythm. ATRIAL SEPTUM: LEFT ATRIUM: Severe dilatation. RIGHT ATRIUM: Moderate dilatation. RIGHT VENTRICLE: Normal chamber size. Normal systolic function. TRICUSPID VALVE: Normal mobility and thickness. No stenosis with mild regurgitation. Doppler studies reveal moderately (45-60) elevated right sided pressures. RVSP 48 mmHg (assuming a right atrial pressure of 8 mmHg). MITRAL VALVE: Mildly thickened with normal mobility. Mild mitral annular calcification. Mild to moderate mitral regurgitation. AORTIC VALVE: Normal trileaflet appearance. Moderately calcified aortic valve. Moderately diminished mobility. Doppler velocity suggest severe low-flow low gradient aortic valve stenosis in the setting of reduced ejection fraction. DVI 0.2, RUTH ANN 0.8 cm2. Mild to moderate aortic regurgitation. AORTIC ROOT: PULMONIC VALVE: Not well visualized. No stenosis. No regurgitation. PERICARDIUM: No evidence of pericardial effusion. IVC: Not well visualized. PLEURA: CONCLUSION: 1. Moderate concentric left ventricular hypertrophy with moderately reduced systolic function. LVEF is 35%. 2. Normal right ventricular size and systolic function. 3. 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 4. Mild to moderate aortic regurgitation. 5. Mild to moderate mitral regurgitation. 6. Moderately elevated right-sided pressures. 7. Further assessment of the aortic stenosis with a dobutamine stress echocardiogram is recommended. Review of Systems ROS Constitutional Reports: fatigue Cardiovascular Denies: palpitations, edema, swelling of feet/ankles, lightheadedness or shortness of breath with exertion Respiratory Denies: shortness of breath [facility] Medical History (Updated 11/20/23 @ 11:15 by Rajesh Garcia MD) BPH (benign prostatic hyperplasia) ?N40.0 - Benign prostatic hyperplasia without lower urinary tract symptoms (ICD-10) HTN (hypertension) ?I10 - Essential (primary) hypertension (ICD-10) Thyroid activity decreased ?E03.9 - Hypothyroidism, unspecified (ICD-10) Meds Home Medications and Allergies Home Medications Medication Instructions Recorded Confirmed Type carbidopa 25 mg-levodopa 100 mg 1 tab PO TID 11/13/23 11/13/23 History tablet finasteride 5 mg tablet 5 mg PO DAILY 11/13/23 11/13/23 History levothyroxine 50 mcg tablet 50 mcg PO DAILY 11/13/23 11/13/23 History metoprolol succinate 25 mg 25 mg PO Q12H 11/13/23 11/13/23 History tablet,extended release 24 hr mirtazapine 15 mg tablet 15 mg PO .QHS 11/13/23 11/13/23 History potassium chloride 20 mEq 20 meq PO DAILY 11/13/23 11/13/23 History tablet,extended release(part/cryst) rosuvastatin 10 mg tablet 10 mg PO DAILY 11/13/23 11/13/23 History sacubitril 49 mg-valsartan 51 mg 1 tab PO BID 11/13/23 11/13/23 History tablet (Entresto) tamsulosin 0.4 mg capsule 0.4 mg PO Q24H 11/13/23 11/13/23 History warfarin 5 mg tablet 5 mg PO DAILY 11/13/23 11/13/23 History Allergies Allergy/AdvReac Type Severity Reaction Status Date / Time No Known Drug Allergies Allergy Verified 11/13/23 01:24 Exam Constitutional Vital Signs, click to edit/add: Last Vital Signs Temp 97.3 F L 11/21/23 05:23 Pulse 73 11/21/23 09:59 Resp 18 11/21/23 07:52 BP 125/77 11/21/23 07:52 Pulse Ox 94 L 11/21/23 09:59 O2 Del Method Room Air 11/21/23 09:59 O2 Flow Rate 2 11/20/23 20:38 General appearance: cooperative, ill appearing, frail appearing and appears older than stated age Nutritional appearance: cachectic, thin and underweight Orientation/consciousness: Yes awake, Yes oriented to person and Yes oriented to place Cardio Common normals: irregular rate and irregular rhythm Rhythm: abnormal rhythm; abnormal rhythm Heart sounds: S1 normal, S2 normal and murmur Extremity Common normals: normal to inspection Results Labs and Meds Lab results: Cardiac Enzymes 11/21/23 Range/Units 09:50 AST 20 (15-37) U/L Coagulation 11/18/23 11/21/23 Range/Units 09:17 09:50 PT 40.8 H* 13.1 H (9.0-11.6) sec CBC 11/21/23 Range/Units 09:50 WBC 9.6 (4.0-11.0) 10^3/uL RBC 4.91 (4.70-6.10) 10^6/uL Hgb 14.8 (14.0-18.0) g/dL Hct 47.2 (42.0-54.0) % Plt Count 201 (150-450) 10^3/uL Neut # (Auto) 8.3 H (1.4-6.5) 10^3/uL Lymph # (Auto) 0.6 L (1.2-3.8) 10^3/uL [place] # (Auto) 0.6 (0.3-0.8) 10^3/uL Eos # (Auto) 0.1 (0.0-0.7) 10^3/uL Baso # (Auto) 0.0 (0.0-0.1) 10^3/uL Comprehensive Metabolic Panel 11/20/23 11/20/23 11/21/23 Range/Units 14:15 20:09 09:50 Sodium 149 H 151 H 150 H (136-145) mmol/L Potassium 3.7 3.2 L 3.3 L (3.5-5.1) mmol/L Chloride 108 H 107 104 (98-107) mmol/L Carbon Dioxide 36.8 H 37.6 H 38.3 H (21.0-32.0) mmol/L BUN 32.0 H 30.0 H 36.0 H (7.0-18.0) mg/dL Creatinine 0.94 0.97 1.19 (0.70-1.30) mg/dL Glucose 80 77 80 (74-106) mg/dL Calcium 8.2 L 8.5 8.9 (8.5-10.1) mg/dL AST 20 (15-37) U/L ALT 34 (16-63) U/L Alkaline Phosphatase 77 (46-116) U/L Total Protein 7.2 (6.4-8.2) g/dL Albumin 2.8 L (3.4-5.0) g/dL Intake and Output 11/20/23 11/21/23 11/21/23 23:59 07:59 15:59 Intake Total 200 / 470 Output Total 394 / 394 125 / 125 Balance 200 / 76 -394 / 76 -125 / -125 Intake: IV 200 / 470 Bumetanide 10 mg In 0.9 % 200 / 200 Sodium Chloride 160 ml @ 20 mls /hr IV ONCE [facility] Rx#:[id number] Output: Urine 394 / 394 125 / 125 Other: # Unmeasured Voids 1 # Incontinent Voids 1 1 # Urine Diapers 1 # Bowel Movements 1 Imaging and Cardiology Echo: report reviewed ECG results: report reviewed EKG Interpretation ECG shows: atrial fibrillation Assessment and Plan Assessment and Plan (1) Acute exacerbation of CHF (congestive heart failure): Qualifiers: Heart failure type: unspecified Qualified Code(s): I50.9 - Heart failure, unspecified (2) Severe aortic stenosis: (3) Hypoxia: (4) Pulmonary edema: Qualifiers: Chronicity: acute Qualified Code(s): J81.0 - Acute pulmonary edema (5) Malignant neoplasm skin of face: (6) Elevated INR: (7) Malnutrition of moderate degree: (8) Aphasia: (9) HTN (hypertension): Qualifiers: Hypertension type: primary hypertension Qualified Code(s): I10 - Essential (primary) hypertension (10) BPH (benign prostatic hyperplasia): (11) Hypokalemia: (12) Iron deficiency anemia: (13) Hyperbilirubinemia: Plan Pre op risk stratification MACE 6pts, moderate-high risk RCRI, 2pts, Class III Risk, 10.1% 30-day risk of , AR, or cardiac arrest -trops negative -TTE shows LVEF 35%, low flow severe , no RWMA -he is moderate-high risk, nonprohibitive -discussed possibility of stress test / cath with patient and family for clearance given severe and that is not something they want to pursue at this time -their goals for care are comfort , patient is DNRCC currently -ok to proceed with PEG tube, patient is moderate-high risk for major cardiac events . this risk was discussed with family. CONCLUSION: 1. Moderate concentric left ventricular hypertrophy with moderately reduced systolic function. LVEF is 35%. 2. Normal right ventricular size and systolic function. 3. 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 4. Mild to moderate aortic regurgitation. 5. Mild to moderate mitral regurgitation. 6. Moderately elevated right-sided pressures. 7. Further assessment of the aortic stenosis with a dobutamine stress echocardiogram is recommended. Low flow -will set him up to see us cardiology clinic in 2-4 weeks for medication optimization for CHF, HFrEF, NYHA difficult to assess d/t patient being weak/bedridden -ct GDMT with entresto, appears compensated and euvolemic AF -on warfarin at home
--- NOTE | 2023-11-21 15:15 | W.PM.WC_ITS ---
Wound Consult Note Assessment and Plan (1) Acute exacerbation of CHF (congestive heart failure): Qualifiers: Heart failure type: unspecified Qualified Code(s): I50.9 - Heart failure, unspecified (2) Severe aortic stenosis: (3) Hypoxia: (4) Pulmonary edema: Qualifiers: Chronicity: acute Qualified Code(s): J81.0 - Acute pulmonary edema (5) Malignant neoplasm skin of face: Reason for Consult: skin lesions Assessment and Plan: Patient with multiple areas that are being treated for skin cancer. states they are doing a treatment at the [facility] and the areas are not supposed to be dry. She is not sure what they have been using on the areas, she states but I don't like the way they look . Patient with lesions to right caodaism (5cmx4.5cm), left cheek (2cmx1.5cm), behind left ear (3.6fyk0br) that are dry, scaly in appearance. Do not appear infected. No drainage noted. Left chest area is flat, pink. Minimal drainage noted. Area measures 9vxa9cg. Left elbow is a slough covered ulcer. Unsure if from pressure or skin tear. Slough with moist, draining. Area measures [id number]. Right heel with open ulceration as well. was concerned as to why he had area on his heel. Explained that due to his health condition, he has most likely been in bed with heels on bed surface. Education provided to keep heels off bed. Right heel ulcer measures 1.6kfm4qvq2.1cm (6) Elevated INR: (7) Malnutrition of moderate degree: (8) Aphasia: (9) HTN (hypertension): Qualifiers: Hypertension type: primary hypertension Qualified Code(s): I10 - Essential (primary) hypertension (10) BPH (benign prostatic hyperplasia): (11) Hypokalemia: (12) Iron deficiency anemia: (13) Hyperbilirubinemia: Plan Adaptic gauze to left chest, left elbow, and right heel open skin lesions daily. Use cloth tape if taping to skin. Aquaphor to areas on face that cannot be covered with gauze to keep them from drying out. Apply daily. Float heels of bed. Continue air/waffle mattress Reposition frequently. I am unable to take photos due to technical problems. Photos taken by med/surg floor nurses. Please call [phone] with any questions or concerns. Ubaldo Corley, KVNGN, RN, CWON
--- NOTE | 2023-11-21 15:15 | P.ANCN_ITS ---
HPI - Anesthesiology Consult HPI Consult date: 11/21/23 Consult reason: pre-anesthesia evaluation for PEG tube placement Chief complaint: Med Management [facility] Medical History (Updated 11/25/23 @ 00:00 by ) Hyperbilirubinemia ?E80.6 - Other disorders of bilirubin metabolism (ICD-10) Iron deficiency anemia ?D50.9 - Iron deficiency anemia, unspecified (ICD-10) Hypokalemia ?E87.6 - Hypokalemia (ICD-10) Malnutrition of moderate degree ?E44.0 - Moderate protein-calorie malnutrition (ICD-10) Aphasia ?R47.01 - Aphasia (ICD-10) Severe aortic stenosis ?I35.0 - Nonrheumatic aortic (valve) stenosis (ICD-10) Elevated INR ?R79.1 - Abnormal coagulation profile (ICD-10) Malignant neoplasm skin of face ?C44.300 - Unspecified malignant neoplasm of skin of unspecified part of face (ICD-10) Acute exacerbation of CHF (congestive heart failure) ?I50.9 - Heart failure, unspecified (ICD-10) Hypoxia ?R09.02 - Hypoxemia (ICD-10) Pulmonary edema ?J81.1 - Chronic pulmonary edema (ICD-10) BPH (benign prostatic hyperplasia) ?N40.0 - Benign prostatic hyperplasia without lower urinary tract symptoms (ICD-10) HTN (hypertension) ?I10 - Essential (primary) hypertension (ICD-10) Thyroid activity decreased ?E03.9 - Hypothyroidism, unspecified (ICD-10) Meds Home Medications and Allergies Home Medications Medication Instructions Recorded Confirmed Type carbidopa 25 mg-levodopa 100 mg 1 tab PO TID 11/13/23 11/13/23 History tablet finasteride 5 mg tablet 5 mg PO DAILY 11/13/23 11/13/23 History levothyroxine 50 mcg tablet 50 mcg PO DAILY 11/13/23 11/13/23 History metoprolol succinate 25 mg 25 mg PO Q12H 11/13/23 11/13/23 History tablet,extended release 24 hr mirtazapine 15 mg tablet 15 mg PO .QHS 11/13/23 11/13/23 History potassium chloride 20 mEq 20 meq PO DAILY 11/13/23 11/13/23 History tablet,extended release(part/cryst) rosuvastatin 10 mg tablet 10 mg PO DAILY 11/13/23 11/13/23 History sacubitril 49 mg-valsartan 51 mg 1 tab PO BID 11/13/23 11/13/23 History tablet (Entresto) tamsulosin 0.4 mg capsule 0.4 mg PO Q24H 11/13/23 11/13/23 History warfarin 5 mg tablet 5 mg PO DAILY 11/13/23 11/13/23 History Allergies Allergy/AdvReac Type Severity Reaction Status Date / Time No Known Drug Allergies Allergy Verified 11/13/23 Assessment and Plan Assessment and Plan (1) Severe aortic stenosis: (2) Malnutrition of moderate degree: (3) Hypoxia: (4) Acute exacerbation of CHF (congestive heart failure): Qualifiers: Heart failure type: unspecified Qualified Code(s): I50.9 - Heart failure, unspecified (5) HTN (hypertension): Qualifiers: Hypertension type: primary hypertension Qualified Code(s): I10 - Essential (primary) hypertension Plan The patient was evaluated for anesthesia for PEG tube placement. Due to the patients multiple medical problems, most notably severe aortic valve stenosis, cardiomyopathy, and CHF, the pt would be at high risk for complications in the rea-operative period. With this in mind it would be safer for the patient to have the procedure performed at a tertiary care facility with more extensive cardiac care resources than are available at [facility]. I would recommend the patient be transferred to another facility for PEG tube placement.
--- NOTE | 2023-11-21 15:27 | SWNOTE1 ---
ROBINSON updates [place]. Waiting for cardiac clearance and anesthesia clearance to pursue PEG tube placement.
--- NOTE | 2023-11-21 15:56 | PC.NURSE ---
wound care team saw patient today and addressed patients wounds.
--- NOTE | 2023-11-21 19:45 | P.DS_ITS ---
DS: Providers Provider Date of admission: 11/14/23 13:25 Primary care physician: Non-Staff PhysicianMD Consults: 11/13/23 09:00 Occupational Therapy Eval and Treat Routine Reason for consultation: weakness Has provider been notified: No Physical Therapy Eval and Treat Routine Reason for consultation: Weakness Has provider been notified: No 11/17/23 10:25 Speech Therapy Eval and Treat Routine Reason for consultation: dysphagia Has provider been notified: No 11/18/23 07:00 Consult to Dietitian Routine Reason For Exam: Possible TPN vs NG/PEG tube feedings. Reason for consultation: Possible TPN vs NG/PEG tube feedings. Recommend feeding regimen for all Has provider been notified: No 11/18/23 09:25 Consult to Wound Care Routine Consulting Provider: Ubaldo Corley Reason for consultation: draining skin cancer lesions Has provider been notified: No 11/18/23 10:09 Consult to General Surgeon Routine Consulting Provider: Kenn Orourke Reason for consultation: Dyspagia/poss PEG tube Has provider been notified: No 11/21/23 09:25 Consult to Anesthesiology Routine Consulting Provider: Dominic Briceno II Reason for consultation: cardiac clearance for PEG tube Has provider been notified: No Consult to Cardiology Routine Reason for consultation: cardiac clearance for PEG tube Has provider been notified: No Consult to General Surgeon Routine Consulting Provider: Kenn Cruz Reason for consultation: peg tube Has provider been notified: No DS: Diagnosis Discharge Diagnosis (1) Acute exacerbation of CHF (congestive heart failure): Qualifiers: Heart failure type: unspecified Qualified Code(s): I50.9 - Heart failure, unspecified (2) Severe aortic stenosis: (3) Hypoxia: (4) Pulmonary edema: Qualifiers: Chronicity: acute Qualified Code(s): J81.0 - Acute pulmonary edema (5) Malignant neoplasm skin of face: (6) Elevated INR: (7) Malnutrition of moderate degree: (8) Aphasia: (9) HTN (hypertension): Qualifiers: Hypertension type: primary hypertension Qualified Code(s): I10 - Essential (primary) hypertension (10) BPH (benign prostatic hyperplasia): (11) Hypokalemia: (12) Iron deficiency anemia: (13) Hyperbilirubinemia: DS: Summary Hospital Course Hospital Course: Patient admitted for acute combined congestive heart failure. Diuresed well, cardiology consulted and gave input which was much appreciated. Patient was improving but then had difficulty swallowing. Speech is therapy evaluated him and felt it was unsafe for him to eat. Neurology evaluated him and felt there was progression of his Parkinson's disease. MRI scan was negative. His INR level was too high to have surgery 3 days ago. Patient got 1 dose of vitamin K over the weekend his INR is down to in normal range. Consultation with surgery, cardiology and anesthesia. Patient was cleared by all but anesthesia. Patient in need of PEG tube. Patient is consenting. He has some difficulty with his speech but very much understands what he is saying. He would like to proceed with PEG tube placement. Will transfer patient for procedure unable to be performed here. Atrial fibrillation with rate controlled. Acute combined congestive heart failure continues to improve. He is not hypoxic. Overall medically stable Time Spent with Patient Time attestation: Total time spent providing and/or coordinating discharge services: Exam Constitutional Vital Signs, click to edit/add: Last Vital Signs Temp 98.1 F 11/21/23 13:39 Pulse 102 H 11/21/23 13:39 Resp 16 11/21/23 13:39 BP 101/59 11/21/23 13:39 Pulse Ox 94 L 11/21/23 19:04 O2 Del Method Room Air 11/21/23 19:04 O2 Flow Rate 2 11/20/23 20:38 Documenting provider has reviewed patient's vital signs: yes Common normals: no apparent distress Chest Common normals: inspection of chest normal Respiratory Common normals: normal respiratory effort and no retractions Cardio Common normals: regular rate and regular rhythm GI Common normals: Normal to inspection, nondistended, normoactive bowel sounds present Extremity Common normals: abnormal to inspection (Edema bilateral lower extremities 2+) Neuro Common normals: CN's II-XII intact bilaterally and moves all extremities Sensorium/orientation: not awake and not alert DS: Data Data Completed and Pending Labs on day of discharge: Labs from last 24 hours 11/21/23 11/20/23 11/18/23 09:50 20:09 09:17 WBC 9.6 RBC 4.91 Hgb 14.8 Hct 47.2 MCV 96.1 H MCH 30.1 MCHC 31.4 RDW 15.6 H Plt Count 201 MPV 11.3 Neut % (Auto) 86.3 H Lymph % (Auto) 6.2 L [place] % (Auto) 5.8 Eos % (Auto) 1.1 Baso % (Auto) 0.4 Neut # (Auto) 8.3 H Lymph # (Auto) 0.6 L [place] # (Auto) 0.6 Eos # (Auto) 0.1 Baso # (Auto) 0.0 Abs Immat Gran (auto) 0.02 Imm/Tot Granulo (auto) 0.2 PT 13.1 H 40.8 H* INR 1.25 4.17 H* Sodium 150 H 151 H Potassium 3.3 L 3.2 L Chloride 104 107 Carbon Dioxide 38.3 H 37.6 H Anion Gap 11.0 9.6 BUN 36.0 H 30.0 H Creatinine 1.19 0.97 Est GFR ( Amer) >60 >60 Est GFR (Non-Af Amer) 59 L >60 BUN/Creatinine Ratio 30.3 30.9 Glucose 80 77 Calcium 8.9 8.5 Magnesium 1.5 L Total Bilirubin 1.3 H AST 20 ALT 34 Alkaline Phosphatase 77 Troponin I High Sens 47.0 NT-Pro-B Natriuret Pep 24620.0 H* Total Protein 7.2 Albumin 2.8 L Globulin 4.4 Albumin/Globulin Ratio 0.6 Discharge Plan Discharge Disposition: [facility]
--- NOTE | 2023-11-21 20:00 | PC.NURSE ---
transfer line contacted regarding bed assignment. Pt still awaiting bed assignment but will call when assigned. Pt was accepted by Dr Christianson,
--- NOTE | 2023-11-21 20:10 | PC.NURSE ---
transfer line calls with bed assignment [place] [id number] Room 501 Report # [phone]. [facility] called for transport to . ETA [id number].
--- NOTE | 2023-11-21 20:26 | PC.NURSE ---
Spoke with Carolyn [phone] about patient being transferred to [facility] to [facility]
--- NOTE | 2023-11-21 21:08 | PC.NURSE ---
Called report to Marco Antonio PHAM at [phone] [place] [id number].
--- NOTE | 2023-11-21 21:51 | PC.NURSE ---
[facility] transporting via stretcher to [facility]. IV lock transported with pt. All belongings sent with patient
[2023-11-22 13:48] VITALS: BMI 28.2
== END 2023-11-21 21:53 | disposition short-term general hospital (02) | DRG 291 ==
LOC: ER 11-13 02:16 → MS 11-13 02:45
PROVIDERS: Family Medicine; Nurse Practitioner; Registered Nurse; Admitting Provider Family Medicine; Emergency Provider Emergency Medicine; Visit Provider Family Medicine
DX: I11.0 Hypertensive heart disease with heart failure (principal); I50.43 Acute on chronic combined systolic (congestive) and diastolic (congestive) heart failure; E44.0 Moderate protein-calorie malnutrition; Z66 Do not resuscitate; R13.0 Aphagia; I35.0 Nonrheumatic aortic (valve) stenosis; R09.02 Hypoxemia; E87.6 Hypokalemia; E80.6 Other disorders of bilirubin metabolism; D50.9 Iron deficiency anemia, unspecified; C44.90 Unspecified malignant neoplasm of skin, unspecified; R79.1 Abnormal coagulation profile; G20.A1 Parkinson's disease without dyskinesia, without mention of fluctuations; N40.0 Benign prostatic hyperplasia without lower urinary tract symptoms; E03.9 Hypothyroidism, unspecified; E78.5 Hyperlipidemia, unspecified; I48.91 Unspecified atrial fibrillation; Z79.01 Long term (current) use of anticoagulants; Z79.890 Hormone replacement therapy; Z79.899 Other long term (current) drug therapy; Z68.28 Body mass index [BMI] 28.0-28.9, adult
CPT/HCPCS: 0202U; 36415; 51798; 70450; 70551; 71045; 80048; 80053; 80076; 81001; 82800; 83605; 83735; 83880; 84484; 85025; 85610; 87040; 87804; 87811; 92507; 92526; 92610; 93005; 93306; 94761; 96365; 96366; 96368; 96375; 96376; 97110; 97161; 97165; 97530; 97535; 99285; G0378; J1940; J3430; J3480

== ENCOUNTER 2023-11-17 00:41 | Outpatient (RCR) | payer MEDICARE, OTHER, SELFPAY ==
--- NOTE | 2023-12-13 00:12 | PM.ANCN1 ---
HPI - Anesthesiology Consult HPI Consult date: 11/21/23 Consult reason: pre-anesthesia evaluation for PEG tube placement Chief complaint: Med Management [facility] Medical History (Updated 11/25/23 @ 00:00 by ) Hyperbilirubinemia ?E80.6 - Other disorders of bilirubin metabolism (ICD-10) Iron deficiency anemia ?D50.9 - Iron deficiency anemia, unspecified (ICD-10) Hypokalemia ?E87.6 - Hypokalemia (ICD-10) Malnutrition of moderate degree ?E44.0 - Moderate protein-calorie malnutrition (ICD-10) Aphasia ?R47.01 - Aphasia (ICD-10) Severe aortic stenosis ?I35.0 - Nonrheumatic aortic (valve) stenosis (ICD-10) Elevated INR ?R79.1 - Abnormal coagulation profile (ICD-10) Malignant neoplasm skin of face ?C44.300 - Unspecified malignant neoplasm of skin of unspecified part of face (ICD-10) Acute exacerbation of CHF (congestive heart failure) ?I50.9 - Heart failure, unspecified (ICD-10) Hypoxia ?R09.02 - Hypoxemia (ICD-10) Pulmonary edema ?J81.1 - Chronic pulmonary edema (ICD-10) BPH (benign prostatic hyperplasia) ?N40.0 - Benign prostatic hyperplasia without lower urinary tract symptoms (ICD-10) HTN (hypertension) ?I10 - Essential (primary) hypertension (ICD-10) Thyroid activity decreased ?E03.9 - Hypothyroidism, unspecified (ICD-10) Meds Home Medications and Allergies Home Medications Medication Instructions Recorded Confirmed Type carbidopa 25 mg-levodopa 100 mg 1 tab PO TID 11/13/23 11/13/23 History tablet finasteride 5 mg tablet 5 mg PO DAILY 11/13/23 11/13/23 History levothyroxine 50 mcg tablet 50 mcg PO DAILY 11/13/23 11/13/23 History metoprolol succinate 25 mg 25 mg PO Q12H 11/13/23 11/13/23 History tablet,extended release 24 hr mirtazapine 15 mg tablet 15 mg PO .QHS 11/13/23 11/13/23 History potassium chloride 20 mEq 20 meq PO DAILY 11/13/23 11/13/23 History tablet,extended release(part/cryst) rosuvastatin 10 mg tablet 10 mg PO DAILY 11/13/23 11/13/23 History sacubitril 49 mg-valsartan 51 mg 1 tab PO BID 11/13/23 11/13/23 History tablet (Entresto) tamsulosin 0.4 mg capsule 0.4 mg PO Q24H 11/13/23 11/13/23 History warfarin 5 mg tablet 5 mg PO DAILY 11/13/23 11/13/23 History Allergies Allergy/AdvReac Type Severity Reaction Status Date / Time No Known Drug Allergies Allergy Verified 11/13/23 Assessment and Plan Assessment and Plan (1) Severe aortic stenosis: (2) Malnutrition of moderate degree: (3) Hypoxia: (4) Acute exacerbation of CHF (congestive heart failure): Qualifiers: Heart failure type: unspecified Qualified Code(s): I50.9 - Heart failure, unspecified (5) HTN (hypertension): Qualifiers: Hypertension type: primary hypertension Qualified Code(s): I10 - Essential (primary) hypertension Plan The patient was evaluated for anesthesia for PEG tube placement. Due to the patients multiple medical problems, most notably severe aortic valve stenosis, cardiomyopathy, and CHF, the pt would be at high risk for complications in the rea-operative period. With this in mind it would be safer for the patient to have the procedure performed at a tertiary care facility with more extensive cardiac care resources than are available at [facility]. I would recommend the patient be transferred to another facility for PEG tube placement.
== END 2023-12-15 17:06 | disposition home or self-care (01) ==
LOC: MM 00:41
PROVIDERS: Visit Provider Internal Medicine
DX: Z51.81 Encounter for therapeutic drug level monitoring (principal); Z79.01 Long term (current) use of anticoagulants; I48.91 Unspecified atrial fibrillation

== ENCOUNTER 2023-12-16 03:23 | Outpatient (RCR) | payer MEDICARE, OTHER, SELFPAY | END 2024-01-13 14:03 | disposition home or self-care (01) | LOC: MM 03:23 | PROVIDERS: Visit Provider Internal Medicine | DX: Z51.81 Encounter for therapeutic drug level monitoring (principal); Z79.01 Long term (current) use of anticoagulants; I48.91 Unspecified atrial fibrillation ==

== ENCOUNTER 2024-01-16 00:19 | Outpatient (RCR) | payer MEDICARE, OTHER, SELFPAY | END 2024-02-14 17:43 | disposition home or self-care (01) | LOC: MM 00:19 | PROVIDERS: Visit Provider Internal Medicine | DX: Z51.81 Encounter for therapeutic drug level monitoring (principal); Z79.01 Long term (current) use of anticoagulants; I48.91 Unspecified atrial fibrillation ==

== ENCOUNTER 2024-02-15 04:32 | Outpatient (RCR) | payer MEDICARE, OTHER, SELFPAY | END 2024-03-16 11:40 | disposition home or self-care (01) | LOC: MM 04:32 | PROVIDERS: Visit Provider Internal Medicine | DX: Z51.81 Encounter for therapeutic drug level monitoring (principal); Z79.01 Long term (current) use of anticoagulants; I48.91 Unspecified atrial fibrillation ==

== ENCOUNTER 2024-03-19 00:11 | Outpatient (RCR) | payer MEDICARE, OTHER, SELFPAY | END 2024-04-13 10:11 | disposition home or self-care (01) | LOC: MM 00:11 | PROVIDERS: Visit Provider Internal Medicine | DX: Z51.81 Encounter for therapeutic drug level monitoring (principal); Z79.01 Long term (current) use of anticoagulants; I48.91 Unspecified atrial fibrillation ==

== ENCOUNTER 2024-04-16 00:30 | Outpatient (RCR) | payer MEDICARE, OTHER, SELFPAY | END 2024-05-16 23:59 | disposition home or self-care (01) | LOC: MM 00:30 | PROVIDERS: Visit Provider Internal Medicine | DX: Z51.81 Encounter for therapeutic drug level monitoring (principal); Z79.01 Long term (current) use of anticoagulants; I48.91 Unspecified atrial fibrillation ==